=== PATIENT | female | born 1960 | race Caucasian/White ===

== ENCOUNTER 2025-05-25 22:35 | Emergency (ER) | payer MEDICARE, SELFPAY ==
--- OUTSIDE RECORDS SUMMARY | 2025-05-12 16:30 | XMS_ITS | Encounter Summary ---
Author Organization [facility] Address [address] [place] [address] Care Team Providers Care Support Specialist Name Role Phone Jacquelyn Desouza APRN Primary Care Provider [phone]- [phone] Reason for Referral * Consultation (Urgent) - Closed Specialty Diagnoses / Procedures Referred By Sully de los santos Referred To Contact Orthopedic Surgery Diagnoses Right hand pain Closed nondisplaced fracture of phalanx of right ring finger, unspecified phalanx, initial encounter Chace Michaels MD [address] [place] [address] [place] [address] Phone: tel: fax: [facility] [address] [place] [phone] Phone: tel: fax: Referral ID Status Reason Start Date Expiration Date V isits Requested Visits Authorized [id number] Closed Specialty Services Required 05/12/2025 08/11/2026 1 1 Reason for Visit * Reason Comments Fall Complaints of fall a nd right hand injury. Patient states that she fell last night at home. Patient states that she was trying to sit down in a chair when she fell face first. Patient was treated at [facility]. Hand Injury Vomiting Complaints of vomiti ng. Patient states that this has been on going since Thursday. Encounter Details Date Type Department Care Team (Late st Contact Info) Description 05/12/2025 4:30 PM EDT Office Visit [facility] [address] [place] [address] Chace Michaels MD [address] [place] [address] Closed nondisplaced fracture of phalanx of right [...] place to sleep or slept in a retirement (including now)? No 02/21/2023 Abuse Screen Answer [...] or training? Not on file Preferred Language Thai 05/13/2023 PHQ-2 Answer Date Recorded Retired PHQ-9: [...] fell face first. Patient was treated at [facility]. Hand Injury Vomiting Complaints of vomiting. Patient [...] sought care in the emergency setting at [facility]. Patientreports that they told her that her [...] for Wheezing., Disp: 18 g, Rfl: 3 Coplwvp-Josvncwkqhh-Qcundeqwpn (Breztri Aerosphere) 160-9-4.8 MCG/ACT aerosol inhaler, Inhale [...] and surrounding hand - Discharge paperwork from [facility] appears to confirm finger fracture, but [...] Urgent orthopedic referral placed for provider in [place]. Will try and get this expedited. - Hand wrapped in office today. - Patient was provided oxycodone at hospital though reports she cannot pick this up as she has no money. Will provide Toradol in office today - Encouraged to seek emergency care for severe, uncontrollable pain given inability to picker tender helper prescription medication and follow up with orthopedic [...] week (around 05/19/2025). Chace Michaels MD [facility] [place] [facility] [address] [place] [address] [place] [address] documented in this encounter Plan of Treatment Upcoming Encounters Date Type Department Care Team (Late st Contact Info) Description 05/31/2025 8:45 AM EDT Office Visit [facility] [address] [place] [address] [place] [address] Jacquelyn Desouza APRN [address] [place] [address] [place] [address] 06/01/2025 2:10 PM EDT Office Visit [facility] [address] [facility] [id number] Delaney Concepcion MD [address] [address] 06/22/2025 1:15 PM EDT Office Visit [facility] [address] [place] [phone] Olivia Morales, MIGUEL [address] [facility] [address] [place] [place] [address] Scheduled Orders Name Type Priority Associated Diagnoses [...] Ventrogluteal documented in this encounter Care Teams Support Specialist Relationship Specialty Start Date End Date [place] [address] PCP - General Nurse Practitioner 08/25/22 documented as of this encounter
--- OUTSIDE RECORDS SUMMARY | 2025-05-15 13:00 | XMS_ITS | Encounter Summary ---
Author Organization [facility] Address [address] [place] [address] Care Team Providers Care Envelope Sealer Operator Name Role Phone Jacquelyn Desouza APRN Primary Care Provider [phone] Reason for Referral * Consultation (Urgent) - Closed Specialty Diagnoses / Procedures Referred By Contact Referred To Contact Hand Surgery / Orthopedic Surgery Diagnoses Closed displaced fracture of proximal phalanx of right ring finger, initial encounter Closed displaced fracture of proximal phalanx of right little finger, initial encounter Procedures [place] OFFICE/OUTPATIENT NEW MODERATE MDM 45 MINUTES Maximiliano Pink PA-C [address] [address] Phone: tel: fax: Delaney Concepcion MD [address] [facility] [address] [place] [address] Phone: tel: fax: Referral ID Status Reason Start Date Expiration Date V isits Requested Visits Authorized [id number] Closed Specialty Services Required 05/15/2025 08/14/2026 1 1 Reason for Visit * Reason Comments Injury States she was tryin g to sit in a chair but missed and fell in the floor on 05/11/25. She went to the ER the same day, she has not been stabilized. * Consultation (Urgent) - Closed Specialty Diagnoses / Procedures Referred By Sully de los santos Referred To Contact Orthopedic Surgery Diagnoses Right hand pain Closed nondisplaced fracture of phalanx of right ring finger, unspecified phalanx, initial encounter Chace Michaels MD [address] [place] [address] Phone: tel: fax: [facility] [address] [address] Phone: tel: fax: Referral ID Status Reason Start Date Expiration Date V isits Requested Visits Authorized Closed Specialty Services Required 05/12/2025 08/11/2026 1 1 Encounter Details Date Type Department Care Team (Late st Contact Info) Description 05/15/2025 1:00 PM EDT Office Visit [facility] [address] [address] Maximiliano Pink PA-C [address] [place] [phone] Right hand pain (Primary Dx); Closed displaced fracture of proximal phalanx of right ring finger, initial encounter; Closed displaced fracture of proximal phalanx of right little finger, initial encounter Social History Tobacco Use Types Packs/Day Years Used Date Smoking Tobacco: Every Day Cigarettes 1 45 Passive Smoke Exposure: Current Smokeless Tobacco: Never Tobacco Cessation:Ready to Q uit: No; Counseling Given: Yes Alcohol Use Standard Drinks/Week Comments No 0 [...] place to sleep or slept in a fci (including now)? No 02/21/2023 Abuse Screen Answer [...] or training? Not on file Preferred Language Colombian 05/13/2023 PHQ-2 Answer Date Recorded Retired PHQ-9: Brief Depression Severity Measure Score 0 11/24/2023 Comments No Sex and Gender Information Value Date Recorded Sex Assigned at Not on file Legal Sex Female 10:41 AM EDT Gender Identity Not on file Sexual Orientation Not on file documented as of this encounter Last Filed Vital Signs Vital Sign Reading Time Taken Comments Blood Pressure 142/86 05/15/2025 1:10 PM EDT Pulse - - Temperature - - Respiratory Rate - - Oxygen Saturation - - Inhaled Oxygen Concentration - - Weight 82.8 kg (182 lb 9.6 oz) 05/15/2025 1:10 P M EDT Height 162.6 cm (5' 4.02 ) 05/15/2025 1:10 PM ED T Body Mass Index 31.32 05/15/2025 1:10 PM EDT documented in this encounter Progress Notes * Maximiliano Pink PA-C - 05/15/2025 1:00 PM EDT Images from the original note were not included. Office Note Name: Shiela Nathan : 1960 Chief Complaint Injury of the Right Hand (States she was trying to sit in a chair but missed and fell in the floor on 05/11/25. She went to the ER the same day, she has not been stabilized.) Subjective History of Present Illness: Shiela Nathan is a 64 y.o. female presenting today for evaluation of right hand 4th and 5th digit fracture. This occurred approximately 4days ago after the mechanism described above. The patient rates their pain as 8, constant, aching, throbbing, and shooting. The patient denies to paresthesias in the affected area. The patient denies previous injury or surgery to the affected area. The patient was seen at the emergency department the same day where x-rays revealed the acute fractures and she was treated with ra tape and urgent orthopedic referral. She was also seen by her PCP on 05/12/2025. Review of Systems Musculoskeletal: Positive for arthralgias (right hand) and joint swelling (right hand). Skin: Positive for color change (bruising on right hand). Past Medical History: Diagnosis Date Arthritis Body piercing both ears Bowel obstruction COPD (chronic obstructive pulmonary disease) Depression Diverticulitis Fractures left tibia, left ankle, left wrist, left 4th digit GERD (gastroesophageal reflux disease) History of nuclear stress test 03/18/2019 History of transfusion no reaction Hypertension Impaired functional mobility, balance, gait, and endurance Kidney stone MRSA (methicillin resistant Staphylococcus aureus) infection 2016 LLE Osteopetrosis Pneumonia Sepsis 2021 SOB (shortness of breath) on exertion Spinal headache Stress incontinence in female Wears dentures upper plate Wears glasses to read Past Surgical History: Procedure Laterality Date APPENDECTOMY CHOLECYSTECTOMY COLON SURGERY Left Colon resection COLONOSCOPY COLOSTOMY Reversed 2017 ENDOSCOPY FRACTURE SURGERY left leg; no hardware HYSTERECTOMY KIDNEY STONE SURGERY KNEE SURGERY Left RODS & screws placed, but later removed LAPAROSCOPIC TUBAL LIGATION TONSILLECTOMY TOTAL KNEE ARTHROPLASTY Left done by Dr. Brown in [place] VAGINAL DELIVERY x 3 VENTRAL/INCISIONAL HERNIA REPAIR N/A 04/13/2019 Procedure: INCISIONAL HERNIA REPAIR WITH MESH; Surgeon: Hiram Guardado MD; Location: [facility];Service: General VENTRAL/INCISIONAL HERNIA REPAIR N/A 05/18/2023 Procedure: INCISIONAL HERNIA REPAIR WITH MESH, COMPONENT SEPERATION; Surgeon: Kodak Dominguez MD; Location: [facility]; Service: General; Laterality: N/A; Family History Problem Relation Age of Onset Diabetes Sister Hypertension Sister Heart disease Sister Diabetes Brother Hypertension Brother Heart disease Brother Cancer Brother Colon cancer Brother Arthritis Neg Hx Osteoporosis Neg Hx Social History Socioeconomic History Marital status: Tobacco Use Smoking status: Every Day Current packs/day: 1.00 Average packs/day: 1 pack/day for 45.0 years (45.0 ttl pk-yrs) Types: Cigarettes Passive exposure: Current Smokeless tobacco: Never Vaping Use Vaping status: Some Days Substances: Nicotine, Flavoring Devices: Disposable Substance and Sexual Activity Alcohol use: No Drug use: Never Sexual activity: Defer Current Outpatient Medications: acetaminophen (TYLENOL) 500 MG tablet, Take 2 tablets by mouth., Disp: , Rfl: albuterol sulfate HFA 108 (90 Base) MCG/ACT inhaler, Inhale 2 puffs Every 4 (Four) Hours As Needed for Wheezing., Disp: 18 g, Rfl: 3 Qjygkzu-Sdmdzqhbpqf-Ziouycezep (Breztri Aerosphere) 160-9-4.8 MCG/ACT aerosol inhaler, Inhale 2 puffs 2 (Two) Times a Day. Rinse mouth out after use, Disp: 1 each, Rfl: 5 guaiFENesin (Mucinex) 600 MG 12 hr tablet, Take 2 tablets by mouth 2 (Two) Times a Day As Needed for Cough or Congestion., Disp: 30 tablet, Rfl: 1 ibuprofen (ADVIL,MOTRIN) 600 MG tablet, Take 1 tablet by mouth Every 8 (Eight) Hours As Needed for Moderate Pain for up to 30 days., Disp: 90 tablet, Rfl: 0 ipratropium-albuterol (DUO-NEB) 0.5-2.5 mg/3 ml nebulizer, Take [...] MG per tablet, , Disp: , Rfl: oxyCODONE-acetaminophen (PERCOCET) 7.5-325 MG per tablet, Take 1 tablet by mouth Every 12 (Twelve) Hours As Needed for Moderate Pain for up to 7 days., Disp: 14 tablet, Rfl: 0 pantoprazole (Protonix) 20 MG EC tablet, Take [...] No current facility-administered medications for this visit. Allergies Allergen Reactions Codeine Itching Hydrocodone Nausea And Vomiting and Rash Penicillins Nausea And Vomiting Objective BP 142/86 Ht 162.6 cm (64.02 ) Wt 82.8 kg (182 lb 9.6 oz) BMI 31.32 kg/m?? Physical Exam Right Hand Exam Comments: There is moderate soft tissue swelling focally over the fourth MCP, mild soft tissue swelling along the fifth digit. Diffuse bruising is noted on the dorsal and volar hand in the area of the 4th and 5th digit. Scissoring deformity is noted with the right fourth digit overlying the right third digit. Exquisitely tender at the 4th and 5th MCP and proximal phalanx. No tenderness in hand ordigits 1 2 and 3. No open wounds. Gross sensation intact to cursory light touch, cap refill is brisk to each digit. Carpal pulses 2+. Extremity DVT signs are negative by clinical screen. Independent Review of Radiographic Studies: Three-view plain films of the right hand were taken in the office today, for the evaluation of pain, with no comparison views available. There is a transverse, comminuted fracture of the fourth proximal phalanx base with significant ulnar displacement. There is also a fracture of the proximal phalanx of the fifth digit with perhaps mild dorsal displacement. Review of prior note(s) from external source: 1 ER note not available for review. Visit with PCP reviewed. Procedures Assessment and Plan Diagnoses and all orders for this visit: 1. Right hand pain (Primary) - XR Hand 3+ View Right - ketorolac (TORADOL) injection 30 mg 2. Closed displaced fracture of proximal phalanx of right ring finger, initial encounter - ibuprofen (ADVIL,MOTRIN) 600 MG tablet; Take 1 tablet by mouth Every 8 (Eight) Hours As Needed for Moderate Pain for up to 30 days. Dispense: 90 tablet; Refill: 0 - ketorolac (TORADOL) injection 30 mg - Ambulatory Referral to Hand Surgery 3. Closed displaced fracture of proximal phalanx of right little finger, initial encounter - ibuprofen (ADVIL,MOTRIN) 600 MG tablet; Take 1 tablet by mouth Every 8 (Eight) Hours As Needed for Moderate Pain for up to 30 days. Dispense: 90 tablet; Refill: 0 - ketorolac (TORADOL) injection 30 mg - Ambulatory Referral to Hand Surgery Discussion of orthopedic goals Orthopedic activities reviewed and patient expressed appreciation Risk, benefits, and merits of treatment alternatives reviewed with the patient and questions answered Patient guided on mobility and conditioning exercises RICE, heat, and/or modalities as needed and beneficial Elevate hand for residual swelling Reduced physical activity as appropriate and avoid aggravating activities. Weight bearing parameters reviewed. Use brace as instructed. Recommendations/Plan: Exercise, medications, injections, other patient advice, and return appointment as noted. Brace: Ulnar gutter brace Referral: Hand sub-specialist referral. Patient and/or guardian(s) were encouraged to call or return to the office for any issues or concerns. In office today she was placed in an ulnar gutter brace enclosing the right 3rd, 4th and 5th fingers for immobilization and given urgent referral to hand subspecialty for possible surgical treatment,given the significant displacement of the fourth digit fracture. She was prescribed 600 mg ibuprofen to take up to 3 times a day as needed for pain. Refill request for Percocet 7.5 mg to take for breakthrough pain was sent to Dr. Roa. She also requested and was given a Toradol 30 mg injection today in office. I discussed the risk and benefits of these medications as well as potential side effects or adverse reactions. Return if symptoms worsen or fail to improve. documented in this encounter Plan of Treatment Upcoming Encounters Date Type Department Care Team (Late st Contact Info) Description 05/31/2025 8:45 AM EDT Office Visit [facility] [address] [place] [place] [id number] Jacquelyn Desouza APRN [address] [place] [address] 06/01/2025 2:10 PM EDT Office Visit [facility] [address] [address] Delaney Concepcion MD [address] [address] 06/22/2025 1:15 PM EDT Office Visit [facility] [address] [place] [address] Olivia Morales, SHUFFLE BOARD OPERATOR [address] [facility] [address] [place] [address] Scheduled Referrals Name Type Priority Associated Diagnoses Order Schedule Ambulatory Referral to Hand Surgery Outpatient Referral Routine Closed displaced fracture of proximal phalanx of right ring finger, initial encounter Closed displaced fracture of proximal phalanx of right little finger, initial encounter Ordered: 05/15/2025 documented as of this encounter Procedures Procedure Name Priority Date/Time Associated Diagnosis Comments XR HAND 3+ VW RIGHT Routine 05/15/2025 1 :30 PM EDT Right hand pain documented in this encounter Results * XR Hand 3+ View Right (05/15/2025 1:30 PM EDT) Anatomical Region Laterality Modality Upper Extremities, Hand Right Xray Narrative 05/24/2025 8:12 AM EDT Three-view plain films of the right hand were taken in the office today, for the evaluation of pain, with no comparison views available. There is a transverse, comminuted fracture of the fourth proximal phalanx base with significant ulnar displacement. There is also a fracture of the proximal phalanx of the fifth digit with perhaps mild dorsal displacement. us Maximiliano Pink PA-C [facility] ORDERAB LES Final Result documented in this encounter Visit Diagnoses Diagnosis Right hand pain- Primary Pain in soft tissues of limb Closed displaced fracture of proximal phalanx of right ring finger, initial encounter Closed displaced fracture of proximal phalanx of right little finger, initial encounter documented in this encounter Administered Medications Inactive Administered Medications - up to 3 most recent administrations Medication Order MAR Action Action Date Dose Rate Site ketorolac (TORADOL) injection 30 mg 30 mg, Intramuscular, Once, On Thu05/15/25 at 1411, For 1 dose, ([facility]) Based on patient [...] Score of 7-10, CPOT 5-8Indications:Right hand pain,Closed displaced fracture of proximal phalanx of right ring finger, initial encounter,Closed displaced fracture of proximal phalanx of right little finger, initial encounter Given 05/15/2025 2:12 PM EDT 30 mg Left Dorsogluteal documented in this encounter Care Teams Envelope Sealer Operator Relationship Specialty Start Date End Date Jacquelyn Desouza APRN [address] [place] [address] PCP - General Nurse Practitioner 08/25/22 documented as of this encounter
--- OUTSIDE RECORDS SUMMARY | 2025-05-18 13:50 | XMS_ITS | Encounter Summary ---
Author Organization [facility] Address [address] [place] [address] Care Team Providers Care Solar Sales Representative And Assessor Name Role Phone Jacquelyn Desouza APRN Primary Care Provider +1- [phone] Reason for Visit * Reason Comments Pain Fall 05/11/25 * Consultation (Urgent) - Closed Specialty Diagnoses / Procedures Referred By Contact Referred To Contact Hand Surgery / Orthopedic Surgery Diagnoses Closed displaced fracture of proximal phalanx of right ring finger, initial encounter Closed displaced fracture of proximal phalanx of right little finger, initial encounter Procedures AL OFFICE/OUTPATIENT NEW MODERATE MDM 45 MINUTES Maximiliano Pink PA-C [address] [address] Phone: tel: fax: Delaney Concepcion MD [address] [address] Phone: tel: fax: Referral ID Status Reason Start Date Expiration Date V isits Requested Visits Authorized [id number] Closed Specialty Services Required 05/15/2025 08/14/2026 1 1 Encounter Details Date Type Department Care Team (Late st Contact Info) Description 05/18/2025 1:50 PM EDT Office Visit [facility] ORTHOPEDICS & SPORTS MEDICINE [address] [place] [address] Delaney Concepcion MD [address] [place] [address] Closed fracture of phalanx of digit of [...] or training? Not on file Preferred Language Mozambican 05/13/2023 PHQ-2 Answer Date Recorded Retired PHQ-9: [...] from the original note were not included. [facility] Orthopedic Office Visit Date: 05/18/2025 Patient Name: Shiela Nathan Date of : 1960 Referring Physician: Maximiliano Pink PA-C Chief Complaint: Chief Complaint Patient presents with Right Hand - Pain Fall 05/11/25 History of Present Illness: Shiela Nathan is a 64 y.o. female mvrht-nzcb-qvbyfovz presented clinic as new patient with complaints [...] Units Date/Time XR Finger 2+ View Right [[id number]] Resulted: 05/18/25 144 Updated: 05/18/251447 Narrative: Right Finger X-Ray Indication: Pain Views: PA, Lateral, and Oblique Comparison: hand xrays 05/15/2025 Findings: The PIP joint is concentrically reduced, however there is a possible impaction fracture of the central portion of the articular surface. Redemonstration of the proximal phalanx base fracture. XR Hand 3+ View Right [[id number]] Resulted: 05/18/251446 Updated: 05/18/251446 Narrative: Right Hand [...] Follow Up- After surgery. Delaney Concepcion [place] [facility] [place] documented in this encounter Plan of Treatment Upcoming Encounters Date Type Department Care Team (Late st Contact Info) Description 05/31/2025 8:45 AM EDT Office Visit [facility] FAMILY MEDICINE [address] [place] [phone] Jacquelyn Desouza APRN [address] [place] [address] 06/01/2025 2:10 PM EDT Office Visit [facility] ORTHOPEDICS & SPORTS MEDICINE [address] [address] [place] [address] [place] [address] 06/22/2025 1:15 PM EDT Office Visit [facility] PULMONARY & CRITICAL CARE MEDICINE [address] [place] [phone] Olivia Morales APRN 793 [facility] [address] [address] documented as of this encounter Procedures Procedure [...] Redemonstration of the proximal phalanx base fracture. Delaney Concepcion MD [facility] ORD ERABLES Final Result * XR Hand 3+ View Right (05/18/2025 2:39 PM EDT) Anatomical Region Laterality Modality Upper Extremities, Hand Right Xray Narrative 05/18/2025 2:47 PM EDT Right Hand X-Ray Indication: Pain Views: PA, Lateral, and Oblique Comparison: 05/15/2025 Findings: Displaced proximal phalanx fractures of the 4th and 5th digits that are extra-articular. us Delaney Concepcion MD [facility] [place]D ERABLES Final Result documented in this encounter Visit Diagnoses Diagnosis Closed fracture of phalanx of digit of hand with routine healing, subsequent encounter- Primary Right hand pain Pain in soft tissues of limb documented in this encounter Care Teams Solar Sales Representative And Assessor Relationship Specialty Start Date End Date [place] [address] PCP - General Nurse Practitioner 08/25/22 documented as of this encounter
--- OUTSIDE RECORDS SUMMARY | 2025-05-19 08:30 | XMS_ITS | Encounter Summary ---
Author Organization [facility] Address [address] [place] [address] Care Team Providers Care Provider Network Mgr Name Role Phone Jacquelyn Desouza APRN Primary Care Provider +1- [phone] Encounter Details Date Type Department Care Team (Late st Contact Info) Description 05/19/2025 8:30 AM EDT Outside Facility Service [facility] ORTHOPEDICS & SPORTS MEDICINE [address] [place] [address] Delaney Concepcion MD [address] [place] [address] Social History Tobacco Use Types Packs/Day Years [...] place to sleep or slept in a intermediate (including now)? No 02/21/2023 Abuse Screen Answer [...] or training? Not on file Preferred Language Costa Rican 05/13/2023 PHQ-2 Answer Date Recorded Retired PHQ-9: [...] Description 05/31/2025 8:45 AM EDT Office Visit [facility] FAMILY MEDICINE [address] [place] [address] Jacquelyn Desouza APRN [address] [place] [address] 06/01/2025 2:10 PM EDT Office Visit [facility] ORTHOPEDICS & SPORTS MEDICINE [address] [address] Delaney Concepcion MD [address] [id number] 06/22/2025 1:15 PM EDT Office Visit [facility] PULMONARY & CRITICAL CARE MEDICINE [address] [place] [phone] Olivia Morales APRN 793 [facility] MED OFFICE BLDG [address] [address] documented as of this encounter Visit Diagnoses Not on filedocumented in this encounter Care Teams Provider Network Mgr Relationship Specialty Start Date End Date Jacquelyn Desouza, MIGUEL [address] [place] [address] PCP - General Nurse Practitioner 08/25/22 documented as of this encounter
[2025-05-25] VITALS (7 sets, daily range): BP systolic 158–219; BP diastolic 92–125; PULSE 98–129; RESP 18; TEMP 37.3; O2SAT 92–97; BMI 31.2
--- NOTE | 2025-05-25 23:10 | CT_ITS ---
PROCEDURE INFORMATION: Exam: CT Abdomen And Pelvis With Contrast Exam date and time: 05/26/2025 12:17 AM Age: 64 years old Clinical indication: Abdominal pain; Additional info: Abd pain ttp epigastric, n/v TECHNIQUE: Imaging protocol: Computed tomography of the abdomen and pelvis with contrast. Radiation optimization: All CT scans at this facility use at least one of these dose optimization techniques: automated exposure control; mA and/or kV adjustment per patient size (includes targeted exams where dose is matched to clinical indication); or iterative reconstruction. Contrast material: ISOVUE; Contrast volume: 75 ml; Contrast route: IV; COMPARISON: No relevant prior studies available. FINDINGS: Liver: Normal. No mass. Gallbladder and biliary ducts: Cholecystectomy. Main common bile duct diameter enlarged up to 21 mm Pancreas: Normal. No ductal dilation. Spleen: Normal. No splenomegaly. Adrenal glands: Normal. No mass. Kidneys and ureters: Severe scarring of the right kidney without hydronephrosis. No hydronephrosis. Stomach and bowel: Previous surgery at the rectum. No abnormal bowel dilation. Appendix: No evidence of appendicitis. Intraperitoneal space: No abnormal free fluid Vasculature: Unremarkable. No abdominal aortic aneurysm. Lymph nodes: Unremarkable. No enlarged lymph nodes. Urinary bladder: Unremarkable as visualized. Reproductive: Hysterectomy Bones/joints: Degenerative disc disease at the L5-S1 level. Old compression fracture L1. Mild neural foraminal stenosis right L5-S1 level Soft tissues: Unremarkable. IMPRESSION: 1. Postoperative findings as above. 2. Enlarged common bile duct after cholecystectomy up to 21 mm. No additional follow-up advised unless abnormal LFTs. 3. No hydronephrosis or nephrolithiasis. No definite acute intra-abdominal abnormality
[2025-05-25 23:11] LABS: Bilirubin,Urine Negative (Negative); Color,Urine YELLOW (Yellow); Glucose,Urine (UA) Negative (Negative); Ketones,Urine Negative (Negative); Leukocyte Esterase,Urine Negative (Negative); Microscopic, Urine URINE MICROSCOPIC (MICROSCOPIC); PH,Urine 6.0 (5.0-8.5); Protein,Urine Negative (Negative); Specific Gravity, Urine <= 1.005 (1.005-1.030); Urobilinogen,Urine 0.2 EU/dl (0.2)
--- OUTSIDE RECORDS SUMMARY | 2025-05-25 23:17 | XMS_ITS | Clinical Summary ---
Author Organization [facility] Address [address] [place] [address] Care Team Providers Care Unit Controller Name Role Phone Jacquelyn Desouza APRN Primary Care Provider +1- [phone] Allergies Active Allergy Reactions Criticality Noted Date Comments Codeine Itching Low 11/21/2022 Hydrocodone Nausea And Vomiting,Rash Low 12/09/2018 Penicillins Nausea And Vomiting Low 12/09/2018 Medications * This document contains information received from the source organization and may not represent a complete record from that organization. losartan (COZAAR) 100 MG tabletIndications :Essential hypertension Take 1 tablet by mouth Daily. 90 tablet 1 023 Active metoprolol succinate XL (TOPROL-XL) 25 MG 24 hr tabletIndications :Tachycardia Take 1 tablet by mouth Daily. 90 tablet 1 023 Active Additional Information Patient taking differently: 50 mgOral Daily, Reported on 05/12/2025 potassium chloride (MICRO-K) 10 MEQ CR capsuleIndication s:Hypokalemia Take 1 capsule by mouth 2 (Two) Times a Day. 60 capsule 5 023 Active Additional Information Patient taking differently:10 mEq Oral 2 Times Daily,prn, Informant: Self, Reported on 05/12/2025 pantoprazole (Protonix) 20 MG EC tabletIndications :Gastroesophageal reflux disease with esophagitis,Hypom agnesemia Take 1 tablet by mouth Daily. 30 tablet 2 023 Active nitroglycerin (Nitrostat) 0.4 MG SL tabletIndications :Chest pain, unspecified type Place 1 tablet under the tongue Every 5 (Five) Minutes As Needed for Chest Pain. Take no more than 3 doses in 15 minutes. 25 tablet 1 023 Active acetaminophen (TYLENOL) 500 MG tablet Take 2 tablets by mouth. Active albuterol sulfate HFA 108 (90 Base) MCG/ACT inhalerIndication s:COPD exacerbation Inhale 2 puffs Every 4 (Four) Hours As Needed for Wheezing. 18 g 3 024 Active ipratropium-albut ema (DUO-NEB) 0.5-2.5 mg/3 ml nebulizerIndicati ons:Mixed simple and mucopurulent chronic bronchitis Take 3 mL by nebulization Every 4 (Four) Hours As Needed for Wheezing. 360 mL 025 Active predniSONE (DELTASONE) 20 MG tablet Take 2 tablets by mouth Daily. 10 tablet 025 Active guaiFENesin (Mucinex) 600 MG 12 hr tablet Take 2 tablets by mouth 2 (Two) Times a Day As Needed for Cough or Congestion. 30 tablet 1 025 Active Budeson-Glycopyrr ol-Formoterol (Breztri Aerosphere) 160-9-4.8 MCG/ACT aerosol inhalerIndication s:Chronic obstructive pulmonary disease, unspecified COPD type Inhale 2 puffs 2 (Two) Times a Day. Rinse mouth out after use 1 each 5 025 Active ondansetron (Zofran) 8 MG tabletIndications :Nausea and vomiting, unspecified vomiting type Take 1 tablet by mouth Every 6 (Six) Hours As Needed for Nausea or Vomiting. 60 tablet 1 025 Active oxyCODONE-acetami nophen (PERCOCET) 5-325 MG per tablet 025 Active ondansetron ODT (ZOFRAN-ODT) 4 MG disintegrating tablet 025 Active levoFLOXacin (LEVAQUIN) 500 MG tablet Daily. 025 Active ALPRAZolam (Xanax) 0.25 MG tabletIndications :Closed fracture of phalanx of digit of hand with routine healing, subsequent encounter Take 1 tablet by mouth At Night As Needed for Anxiety. 2 tablet 025 Active ALPRAZolam (Xanax) 0.25 MG tabletIndications :Closed fracture of phalanx of digit of hand with routine healing, subsequent encounter Take 1 tablet by mouth 2 (Two) Times a Day As Needed for Anxiety. 2 tablet Active oxyCODONE (Roxicodone) 5 MG immediate release tabletIndications :Closed fracture of phalanx of digit of hand with routine healing, subsequent encounter Take 1 tablet by mouth Every 6 (Six) Hours As Needed for Moderate Pain or Severe Pain. 30 tablet 05/19/20 3:00 PM EDT 025 Active ibuprofen (ADVIL,MOTRIN) 800 MG tabletIndications :Closed fracture of phalanx of digit of hand with routine healing, subsequent encounter Take 1 tablet by mouth Every 8 (Eight) Hours As Needed for Mild Pain. 90 tablet 1 05/19/20 3:00 PM EDT 025 Active acetaminophen (TYLENOL) 500 MG tabletIndications :Closed fracture of phalanx of digit of hand with routine healing, subsequent encounter Take 1 tablet by mouth Every 6 (Six) Hours As Needed for Mild Pain. 60 tablet 2 05/19/20 3:00 PM EDT 025 Active naloxone (NARCAN) 4 MG/0.1ML nasal spray Call 911. Don't prime. [place] in 1 nostril for overdose. Repeat in 2-3 minutes in other nostril if no or minimal breathing/respo nsiveness. 2 each 05/19/20 3:00 PM EDT Active Budeson-Glycopyrr ol-Formoterol (BREZTRI AEROSPHERE IN) Inhale. Activ e ibuprofen (ADVIL,MOTRIN) 600 MG tablet Take 1 tablet by mouth. 2024 Discontinued(D uplicate order) ketorolac (TORADOL) 10 MG tablet 1 tablet. 025 2024 Discontinued(H istorical Med - Therapy completed) oxyCODONE-acetami nophen (PERCOCET) 7.5-325 MG per tabletIndications :Closed displaced fracture of proximal phalanx of right ring finger, initial encounter Take 1 tablet by mouth Every 12 (Twelve) Hours As Needed for Moderate Pain for up to 7 days. 14 tablet 025 2024 ibuprofen (ADVIL,MOTRIN) 600 MG tabletIndications :Closed displaced fracture of proximal phalanx of right ring finger, initial encounter,Closed displaced fracture of proximal phalanx of right little finger, initial encounter Take 1 tablet by mouth Every 8 (Eight) Hours As Needed for Moderate Pain for up to 30 days. 90 tablet 025 2024 Discontinued Hospital, Clinic, or Other Facility Administered Medication Ordered Dose Route Frequency Start Date End Date Status ketorolac (TORADOL) injection 30 mgIndications:Right hand pain,Closed nondisplaced fracture of phalanx of right ring finger, unspecified phalanx, initial encounter 30 mg IM Once 05/12/2025 05/12/2025 Ended ketorolac (TORADOL) injection 30 mgIndications:Right hand pain,Closed displaced fracture of proximal phalanx of right ring finger, initial encounter,Closed displaced fracture of proximal phalanx of right little finger, initial encounter 30 mg IM Once 05/15/2025 05/15/2025 Ended Active Problems Problem Noted Date Diagnosed Date Fx phalanges, hand-closed 05/18/2025 Incisional hernia 05/18/2023 Chronic respiratory failure 02/24/2023 COPD (chronic obstructive pulmonary disease) 03/2023 Hypomagnesemia 08/25/2022 Hypokalemia 08/25/2022 Mixed simple and mucopurulent chronic bronchitis 08/25/2022 Tobacco abuse disorder 04/11/2019 Essential hypertension 04/11/2019 Incisional hernia, without obstruction or gangre ne 01/07/2019 Overview (01/07/2019): Added automatically from request for surgery [id number] Resolved Problems Problem Noted Date Diagnosed Date Resolved Date Tachycardia 05/13/2025 05/13/2025 COPD exacerbation 02/21/2023 05/06/2023 Acute respiratory failure with hypoxia 02/21/2023 05/06/2023 Encounters Date Type Department Care Team Description 05/25/2025 Telephone [facility] PULMONARY CRITICAL CARE & SLEEP MEDICINE [address] [place] [address] Olivia Morales APRN SAMPLES 05/22/2025 Telephone [facility] ORTHOPEDICS & SPORTS MEDICINE [address] [facility] [address] [place] [address] REITENBACH: 05/19/25 P/O CONCERNS & MED REFILL REQUEST 05/19/2025 8:30 AM EDT Outside Facility Service [facility] ORTHOPEDICS & SPORTS MEDICINE [address] [facility] [address] [place] [address] Delaney Concepcion MD 05/19/2025 Documentation [facility] ORTHOPEDICS & SPORTS MEDICINE [address] [facility] [address] [place] [address] Delaney Concepcion MD 05/18/2025 1:50 PM EDT Office Visit [facility] ORTHOPEDICS & SPORTS MEDICINE [address] [facility] [address] [place] [address] Delaney Concepcion MD Closed fracture of phalanx of digit of hand with routine healing, subsequent encounter (Primary Dx); Right hand pain 05/18/2025 Travel 05/16/2025 Telephone [facility] ORTHOPEDICS & SPORTS MEDICINE [address] [facility] [address] [place] [address] Delaney Concepcion MD 05/15/2025 1:00 PM EDT Office Visit [facility] ORTHOPEDICS & SPORTS MEDICINE [address] [address] Maximiliano Pink PA-C Right hand pain (Primary Dx); Closed displaced fracture of proximal phalanx of right ring finger, initial encounter; Closed displaced fracture of proximal phalanx of right little finger, initial encounter 05/15/2025 Refill [facility] ORTHOPEDICS & SPORTS MEDICINE [address] [address] Ramos Lamb MD Closed displaced fracture of proximal phalanx of right ring finger, initial encounter (Primary Dx) 05/15/2025 Travel 05/12/2025 4:30 PM EDT Office Visit [facility] FAMILY MEDICINE [address] [place] [address] Chace Michaels MD Closed nondisplaced fracture of phalanx of right ring finger, unspecified phalanx, initial encounter (Primary Dx); Right hand pain; Tachycardia; Viral gastroenteritis; Essential hypertension 05/12/2025 Travel 04/05/2025 Telephone [facility] PULMONARY CRITICAL CARE & SLEEP MEDICINE [address] [place] [address] Olivia Morales APRN SAMPLES from Last 3 Months Immunizations Immunization Administration Dates Next Due Td (TDVAX) 10/19/2014 Family History Medical History Relation Name Comments Cancer Brother Colon cancer Brother Diabetes Brother Heart disease Brother Hypertension Brother Diabetes Sister Heart disease Sister Hypertension Sister Arthritis Neg Hx Osteoporosis Neg Hx Relation Name Status Comments Brother Sister Social History Tobacco Use Types Packs/Day Years [...] to sleep or slept in a senior care (including now)? No 02/21/2023 Abuse Screen Answer [...] or training? Not on file Preferred Language Ugandan 05/13/2023 PHQ-2 Answer Date Recorded Retired PHQ-9: Brief Depression Severity Measure Score 0 11/24/2023 Comments No Sex and Gender Information Value Date Recorded Sex Assigned at Not on file Legal Sex Female 10:41 AM EDT Gender Identity Not on file Sexual Orientation Not on file Last Filed Vital Signs Vital Sign Reading Time Taken Comments Blood Pressure 152/88 05/18/2025 2:15 PM EDT Pulse 105 05/12/2025 5:42 PM EDT Temperature 36.7 C (98.1 F) 10/17/2024 2:32 PM EST Respiratory Rate 16 10/17/2024 2:32 PM EST Oxygen Saturation 98% 05/12/2025 4:12 PM EDT Inhaled Oxygen Concentration - - Weight 82.8 kg (182 lb 8.7 oz) 05/18/2025 2:15 P M EDT Height 162.6 cm (5' 4.02 ) 05/18/2025 2:15 PM ED T Body Mass Index 31.32 05/18/2025 2:15 PM EDT Plan of Treatment Upcoming Encounters Date Type Department Care Team (Late st Contact Info) Description 05/31/2025 8:45 AM EDT Office Visit [facility] FAMILY MEDICINE [address] [place] [address] Jacquelyn Desouza, CHIEF KNOWLEDGE OFFICER [address] [place] [address] 06/01/2025 2:10 PM EDT Office Visit [facility] ORTHOPEDICS & SPORTS MEDICINE [address] [address] Delaney Concepcion MD [address] [address] 06/22/2025 1:15 PM EDT Office Visit [facility] PULMONARY & CRITICAL CARE MEDICINE [address] [place] [address] Olivia Morales, CHIEF KNOWLEDGE OFFICER [address] [facility] MED OFFICE [address] [facility] [address] [place] [address] Health Maintenance Due Date Last Done Comments Annual Gynecologic Pelvic and Breast Exam 1960 Pneumococcal Vaccine 50+ (1 of 2 - PCV) 1980 COLOGUARD 2006 COLON CANCER SCREENING [address] COLONOGRAPHY 2006 FECAL OCCULT BLOOD TEST 2006 FIT Testing (1 year) 2006 ZOSTER VACCINE (1 of 2) 2011 ANNUAL WELLNESS VISIT 07/02/2018 04/06/2017 MAMMOGRAM 12/09/2020 12/09/2018 COVID-19 Vaccine ( - season) 2024 TDAP/TD VACCINES (2 - Tdap) 10/19/2024 10/19/2014 INFLUENZA VACCINE 07/19/2025 12/09/2018 (De clined), 12/09/2017 (Declined) LUNG CANCER SCREENING 01/17/2026 01/17/2025 , 11/03/2024, 02/06/2023, Additional history exists COLONOSCOPY 12/09/2027 12/09/2017 COLORECTAL CANCER SCREENING 12/09/2027 HEPATITIS C SCREENING Addressed 12/09/2018 (Decline d) Overridden with the intention of not completing the topic HEMOGLOBIN A1C Discontinued 10/17/2024, 04/19, 08/25/2022, Additional history exists Medical Devices Implanted Type Area Central Office Operator Supervisor Device Identifier Shelf Expiration Date Model / Serial / Lot Implant,Left Knee Implant Description:Left TKA Mesh Ventralight St Ellipse 4x6in - [id number] - [id number] Implanted:Qty: 1 on 04/13/2019 by Hiram Guardado MD at [facility] Implant N/A: Abdomen DAVOL (DIV [employer]) 10/15/2020 [id number] / [id number] / [id number] Ellipse 8x10in - [id number] Implanted:Qty: 1 on 05/18/2023 by Kodak Dominguez MD at [facility] Implant N/A: Abdomen DAVOL (DIV [employer]) 11/15/2024 [id number] / / [id number] Procedures Procedure Name Priority Date/Time Associated Diagnosis Comments XR FINGER 2+ VW RIGHT Routine 05/18/2025 2:39 PM EDT Right hand pain XR HAND 3+ VW RIGHT Routine 05/18/2025 2 :39 PM EDT Right hand pain XR HAND 3+ VW RIGHT Routine 05/15/2025 1 :30 PM EDT Right hand pain CT CHEST WO CONTRAST DIAGNOSTIC Routine 01/17/[address] HEMOGLOBIN A1C Routine 10/17/2024 3:32 PM EST Painful paresthesia Screening for diabetes mellitus from Last 3 Months or Most Recently Relevant to Health Maintenance Results * XR Finger 2+ View Right [...] phalanx base fracture. us Delaney Concepcion MD [facility] ORD ERABLES Final Result * XR Hand 3+ View Right (05/18/2025 2:39 PM EDT) Only the most recent of2 resultswithin the time period is included. Anatomical Region Laterality Modality Upper Extremities, Hand Right Xray Narrative 05/18/2025 2:47 PM EDT Right Hand X-Ray Indication: Pain Views: PA, Lateral, and Oblique Comparison: 05/15/2025 Findings: Displaced proximal phalanx fractures of the 4th and 5th digits that are extra-articular. us Delaney Concepcion MD [facility] ORD ERABLES Final Result * CT Chest Without Contrast Diagnostic (01/17/2025) Anatomical Region Laterality Modality Chest N/A Computed Tomogra phy Olivia Morales APRN [facility] [place] ORDERABLES Final Re sult * Hemoglobin A1c (10/17/2024 3:32 PM EST) Hemoglobin A1C 5.6 4.8 - 5.6 % [facility] Comment: Prediabetes: 5.7 - 6.4 Diabetes: >6.4 Glycemic control for adults with diabetes: <7.0 Blood 10/17/2024 3:32 PM EST 10/17/2024 Narrative [facility] ANIYAH CANTOR (AMBULATORY) - 10/18/2024 12:35 PM EST Performed at: - [facility] [address] [facility], [place], [place] [id number] Advertising Campaign Manager: Ankit Moise PhD, Phone: [phone] Patient Fasting: Y us Jacquelynlara Desouza CHIEF KNOWLEDGE OFFICER LAB BLOOD ORDERABLES Final Result [facility] ANIYAH SAKSHI (AMBULATORY) [address] [place] [address], [facility] [address] [place] [address], from Last 3 Months or Most Recently Relevant to Health Maintenance Insurance [employer] HMO Advance Directives * CPR (Attempt to Resuscitate) (Latest Code Status on File) Date Activated Date Inactivated Comments 05/18/2023 1:52 PM 05/20/2023 7:48 PM Question Answer Comments Code Status (Patient has no pulse and is not breathing): CPR (Attempt to Resuscitate) Medical Interventions (Patie nt has pulse or is breathing): Full Level Of Support Discussed With: Patient Release to patient: Routine Release * CPR (Attempt to Resuscitate) Date Activated Date Inactivated Comments 02/21/2023 9:50 AM 02/25/2023 2:41 PM Question Answer Comments Code Status (Patient has no pulse and is not breathing): CPR (Attempt to Resuscitate) Medical Interventions (Patie nt has pulse or is breathing): Full Support Level Of Support Discussed With: Patient Release to patient: Routine Release Care Teams Unit Controller Relationship Specialty Start Date End Date Jacquelyn Desouza APRN [address] [place] [address] PCP - General Nurse Practitioner 08/25/22
--- OUTSIDE RECORDS SUMMARY | 2025-05-25 23:18 | XMS_ITS | Encounter Summary ---
[facility] Organization [facility] Address [address] [place] [address] Care Team Providers Care Supervisor Cook Room Name Role Phone Jacquelyn Desouza APRN Primary Care Provider +1- [phone] Reason for Visit * Reason Onset Date Comments Med Refill 05/15/2025 Encounter Details Date Type Department Care Team (Late st Contact Info) Description 05/15/2025 Refill [facility] ORTHOPED[facility] & SPORTS MEDICINE [address] [facility] [address] [place] [address] Ramos Lamb MD [address] [facility] [address], [address] [place] [address] Closed displaced fracture of proximal phalanx of right ring finger, initial encounter (Primary Dx) Social History Tobacco Use Types Packs/Day Years [...] place to sleep or slept in a fpc (including now)? No 02/21/2023 Abuse Screen Answer [...] or training? Not on file Preferred Language Angolan 05/13/2023 PHQ-2 Answer Date Recorded Retired PHQ-9: [...] Description 05/31/2025 8:45 AM EDT Office Visit [facility] FAMILY MEDICINE [address] [place] [phone] Jacquelyn Desouza APRN [address] [place] [address] 06/01/2025 2:10 PM EDT Office Visit [facility] ORTHOPEDICS & SPORTS MEDICINE [address] [address] Delaney Concepcion MD [address] [address] 06/22/2025 1:15 PM EDT Office Visit [facility] PULMONARY & CRITICAL CARE MEDICINE [address] [place] [address] Olivia Morales APRN [address] [facility] MED OFFICE [address] [address] documented as of this encounter Visit Diagnoses Diagnosis Closed displaced fracture of proximal phalanx of right ring finger, initial encounter- Primary documented in this encounter Care Teams Supervisor Cook Room Relationship Specialty Start Date End Date [place] [address] PCP - General Nurse Practitioner 08/25/22 documented as of this encounter
--- OUTSIDE RECORDS SUMMARY | 2025-05-25 23:18 | XMS_ITS | Encounter Summary ---
Author Organization [facility] Address [address] [place] [address] Care Team Providers Care Vitamin Manager Name Role Phone Jacquelyn Desouza APRN Primary Care Provider +1- [phone] Encounter Details Date Type Department Care Team (Late st Contact Info) Description 02/25/2023 Retail Pharmacy Consultation [facility] [place] [address] [place] [address] [facility] [address] [place] [address] Social History Tobacco Use Types Packs/Day Years Used Date Smoking Tobacco: Every Day Cigarettes 0.5 45 Smokeless Tobacco: Never Alcohol Use Standard Drinks/Week Comments No 0 (1 standard drink = 0.6 oz pur e alcohol) AUDIT-C Answer Date Recorded Q1: How often do you have a drink containing alcohol? Never 02/21/2023 Q2: How many drinks containi ng alcohol do you have on a typical day when you are drinking? Patient does not drink Q3: How often do you have si x or more drinks on one occasion? Never 02/21/2023 Overall Financial Resource Strain (CARDIA) Answe r Date Recorded How hard is it for you to pa y for the very basics like food, housing, medical care, and heating? Somewhat hard 02/21/2023 Hunger Vital Sign Answer Date Recorded Within [...] place to sleep or slept in a alf (including now)? No 02/21/2023 Comments No Sex and Gender Information Value Date Recorded Sex Assigned at Not on file Legal Sex Female 10:41 AM EDT Gender Identity Not on file Sexual Orientation Not on file documented as of this encounter Plan of Treatment Upcoming Encounters Date Type Department Care Team (Late st Contact Info) Description 05/31/2025 8:45 AM EDT Office Visit [facility] FAMILY MEDIC[facility] [address] [place] [phone] Jacquelyn Desouza APRN [address] [place] [address] 06/01/2025 2:10 PM EDT Office Visit [facility] ORTHOPEDICS & SPORTS MEDICINE [address] [address] Delaney Concepcion MD [address] [address] 06/22/2025 1:15 PM EDT Office Visit [facility] PULMONARY & CRITICAL CARE MEDICINE [address] [place] [address] Olivia Morales APRN [address] [facility] MED OFFICE [address] [place] [address] documented as of this encounter Visit Diagnoses Not on filedocumented in this encounter Care Teams Vitamin Manager Relationship Specialty Start Date End Date Jacquelyn Desouza, TOOLROOM ATTENDANT [address] [place] [address] PCP - General Nurse Practitioner 08/25/22 documented as of this encounter
--- OUTSIDE RECORDS SUMMARY | 2025-05-25 23:18 | XMS_ITS | Encounter Summary ---
Author Organization [facility] Address [address] [place] [address] Care Team Providers Care Marketing Pr Intern Name Role Phone Jacquelyn Desouza APRN Primary Care Provider +1- [phone] Reason for Visit * Reason Onset Date Comments DR LEE: 05/19/25 P/O CONCERNS & MED REFILL REQUEST 05/22/2025 Encounter Details Date Type Department Care Team (Late st Contact Info) Description 05/22/2025 Telephone [facility] [address] [place] [address] Delaney Lee MD [address] [place] [address] DR ELE: 05/19/25 P/O CONCERNS & MED REFILL REQUEST Social History Tobacco Use Types Packs/Day Years [...] or training? Not on file Preferred Language Moroccan 05/13/2023 PHQ-2 Answer Date Recorded Retired PHQ-9: Brief Depression Severity Measure Score 0 11/24/2023 Comments No Sex and Gender Information Value Date Recorded Sex Assigned at Not on file Legal Sex Female 10:41 AM EDT Gender Identity Not on file Sexual Orientation Not on file documented as of this encounter Miscellaneous Notes * Telephone Encounter - Rochelle Thompson R.T.(R) - 05/22/2025 4:16 PM EDT Patient came by the office today. The splint was not loose. I rewrapped a new rodger over splint. Patient brought empty pill bottle that fell in the trash and I explained that we won't be giving a refill. She asked if we could give her a pain shot of Toradol and I explained that we don't keep any painmedication in the office. She will return are her scheduled PO appointment with Dr Lee. Rochelle Manuel (Marko) ROT * Telephone Encounter - Rochelle Thompson R.T.(Marko) - 05/22/2025 9:01 AM EDT I called to patient and she is going to come by this afternoon for me to adjust her PO splint. I did explain to her that Dr Lee is not going to give a refill for her pain medication and that was stated at the time of surgery. Rochelle Manuel (Marko) ROT * Telephone Encounter - Olivia Adam MA - 05/22/2025 8:52 AM EDT Spoke with patient she states her cast is loose and feels like it is sliding down her arm. Also feels like the pins maybe moving. She lost her medication and had to go to the ER over the weekend to get a shot for pain. * Telephone Encounter - Lyndsey Thao - 05/22/2025 8:24 AM EDT Caller: Shiela Nathan / PATIENT Best call back number: [phone] Requested Prescriptions: OXYCODONE 5 MG (PATIENT WAS TAKING ONE TABLET WITH ONE 800 MG IBUPROFEN ALSO PRESCRIBED 05-19-25) Pharmacy where request should be sent: [facility] Last office visit with prescribing clinician: 05/18/2025 Next office visit with prescribing clinician: 06/01/2025 Additional details provided by patient: PATIENT STATED SHE DROPPED THE BOTTLE OF HER OXYCODONE IN THE WATER / GARBAGE 05-19-25 AFTER RETURNING HOME. PATIENT STATED SHE WAS HOLDING THE BOTTLE WITHHER LEFT HAND & TRYING TO GET TABLET OUT WITH HER SURGICAL HAND PATIENT ALSO REPORTS SOMETHING LOOSE WITH HER CAST AND THE PINS PLEASE CALL TO DISCUSS SYMPTOMS BEFORE SENDING IN REFILL PATIENT HAD RIGHT HAND SURGERY BY DR LEE 05-19-25 & HAS POST-OP NEXT 06/01 Does the patient have less than a 3 day supply: [x] Yes - WAS ONLY ABLE TO RETRIEVE A COUPLE TABLETS Would you like a call back once the refill request has been completed: [x] Yes documented in this encounter Plan of Treatment Upcoming Encounters Date Type Department Care Team (Late st Contact Info) Description 05/31/2025 8:45 AM EDT Office Visit [facility] [address] [place] [phone] Jacquelyn Desouza APRN [address] [place] [address] 06/01/2025 2:10 PM EDT Office Visit [facility] [address] [address] Delaney Lee MD [address] [address] 06/22/2025 1:15 PM EDT Office Visit [facility] [address] [place] [phone] Olivia Morales APRN [address] [facility] MED OFFICE [address] [facility] [address] [place] [address] documented as of this encounter Visit Diagnoses Not on filedocumented in this encounter Care Teams Marketing Pr Intern Relationship Specialty Start Date End Date Jacquelyn Desuoza APRN [address] [facility] [place] [address] PCP - General Nurse Practitioner 08/25/22 documented as of this encounter
--- OUTSIDE RECORDS SUMMARY | 2025-05-25 23:18 | XMS_ITS | Encounter Summary ---
[facility] Organization [facility] Address [address] [place] [address] Care Team Providers Care Traffic Investigator Name Role Phone Jacquelyn Desouza APRN Primary Care Provider +1- [phone] Encounter Details Date Type Department Care Team (Late st Contact Info) Description 05/19/2025 Documentation [facility] [address] [place] [address] Delaney Concepcion MD [address] [place] [address] Social History Tobacco Use Types Packs/Day Years [...] in a alf (including now)? No 02/21/2023 Abuse Screen Answer [...] or training? Not on file Preferred Language Northern Irish 05/13/2023 PHQ-2 Answer Date Recorded Retired PHQ-9: Brief Depression Severity Measure Score 0 11/24/2023 Comments No Sex and Gender Information Value Date Recorded Sex Assigned at Not on file Legal Sex Female 10:41 AM EDT Gender Identity Not on file Sexual Orientation Not on file documented as of this encounter Progress Notes * Delaney Concepcion MD - 05/19/2025 8:55 AM EDT ORTHOPEDIC OPERATIVE REPORT PATIENT NAME: Shiela Nathan DATE OF : 1960 DATE OF SURGERY: 05/19/25 LOCATION: [facility] PREOPERATIVE DIAGNOSIS: Right 4th and 5th proximal phalanx base fractures Right fifth middle phalanx base questionable intra-articular fracture POSTOPERATIVE DIAGNOSIS: Right 4th and 5th proximal phalanx base fractures Right fifth middle phalanx base minimally displaced intra-articular fracture PROCEDURE PERFORMED: Right 4th and 5th proximal phalanx closed reduction percutaneous pinning CPT CODE: 81035 x2 SURGEON: Delaney Concepcion MD MEDICAL LOGISTICS SPECIALIST: None ANESTHESIA: Monitored anesthesia with regional block SPECIMENS: None TOURNIQUET TIME: None used ESTIMATED BLOOD LOSS: Minimal COMPLICATIONS: None IMPLANTS: 0.054 K-wires x3, 0.054 k-wires x1 INDICATIONS FOR PROCEDURE: Shiela Nathan is a 64-year-old sygve-opeq-ewkbqoek female who presented to clinic with after injury to the right hand complaining of pain. Patient reports that on 05/07/2025 she fell out of her chair injuring her right hand. She developed immediate pain and swelling. She presented to an outside orthopedist where x-rays were obtained demonstrating a fracture of the proximal phalanx base to the 4th and 5th digits. She was referred for additional treatment. Radiographs of the affected digit demonstrated displaced extra-articular base fractures of the 4th and 5th proximal phalanx. There is a questionable fracture noted to the small finger middle phalanx base at the articular surface. Clinical examination demonstrated deviation in the coronal plane to the ring finger. We had a lengthy discussion regarding surgical and non surgical options. I recommended surgery in the form of closed reduction percutaneous pinning versus open reduction internal fixation. I discussed that I will attempt first a closed reduction percutaneous pinning, however if this is unsuccessful in achieving reduction,and open reduction internal fixation would be needed. This would be an intraoperative decision and the patient expressed understanding. Additionally, I discussed evaluation of the small finger PIP joint under fluoroscopy. If a fracture was identified with better C-arm views, I would proceed with fixation. The patient understands this is an intraoperative decision. I explained to them the risk, benefits, alternatives and prognosis and they elected to proceed with 4th and 5th proximal phalanx closed reduction percutaneous pinning and evaluation of the right small finger PIP joint. DESCRIPTION OF PROCEDURE: The patient was identified in the preoperative holding area utilizing two patient identifiers. The surgical site was marked. They were taken back to the operating room and placed supine on the operative table. A upper arm tourniquet was placed. The operative extremity was prepped and draped in a standard sterile fashion. A surgical time out was performed that confirmed the correct site, procedureand laterality. It was confirmed the patient received preoperative antibiotics. We began by obtaining x-rays with the mini C arm that redemonstrated displaced base fractures of the 4th and 5th proximal phalanx. Starting at the ring finger, using axial traction and MCP joint flexion, I was able to achieve close reduction of the proximal phalanx. I then inserted two 0.054 K wires in antegrade fashion starting at the proximal ulnar and proximal radial aspects of the proximal phalanx. These were advanced across the fracture site with the MCP joint held in full flexion. X-rays confirmed satisfactory reduction and pin placement. A similar procedure was performed to the fifth proximal phalanx base where a 0.054 K wire and a 0.45 K wire were directed in antegrade fashion across the reduced fracture. X-rays confirmed satisfactory pin placement and fracture reduction. Lastly, I turned my attention to evaluation of the small finger middle phalanx base. This was ranged under fluoroscopy and with appropriate PA lateral and oblique views, this did identify a minimally displaced fracture of the articular surface. I did not feel that this fracture was large or unstable to warrant additional treatment. The K wires were cut and bent outside the skin with care taken to allow room for swelling. The extremity was cleansed with normal saline. Pin sites were covered with Xeroform dressing and fluffs. Once the pin sites were well-padded a gutter splint was placed. The patient was awoken from anesthesia and brought to the PACU in good and stable condition. All counts were correct at the end of the case. POSTOPERATIVE PLAN: No lifting greater than 5 pounds with the operative extremity. 2. Over the counter Tylenol and/or Advil/Aleve/Motrin for pain control. A narcotic prescription foroxycodone 5 mg was provided. 3. Splint is not to be removed. Digit range of motion as allowed by the splint was encouraged. 4. Follow up in 10-14 days as scheduled. Delaney Concepcion MD [facility] Orthopedic & Hand Surgeon documented in this encounter Plan of Treatment Upcoming Encounters Date Type Department Care Team (Late st Contact Info) Description 05/31/2025 8:45 AM EDT Office Visit [facility] [address] [place] [phone] Jacquelyn Desouza, MIGUEL [address] [place] [address] 06/01/2025 2:10 PM EDT Office Visit [facility] [address] [address] Delaney Concepcion MD [address] [address] 06/22/2025 1:15 PM EDT Office Visit [facility] [address] [place] [phone] Olivia Morales APRN [address] [facility] MED OFFICE BLDG [address] [address] documented as of this encounter Visit Diagnoses Not on filedocumented in this encounter Care Teams Traffic Investigator Relationship Specialty Start Date End Date Jacquelyn Desouza, MIGUEL [address] [place] [address] PCP - General Nurse Practitioner 08/25/22 documented as of this encounter
--- OUTSIDE RECORDS SUMMARY | 2025-05-25 23:18 | XMS_ITS | Encounter Summary ---
Author Organization [facility] Address [address] [place] [address] Care Team Providers Care Genetic Coordinator Name Role Phone Jacquelyn Desouza APRN Primary Care Provider +1- [phone] Encounter Details Date Type Department Care Team (Latest Contact Info) Description 05/12/2025 Travel Social History Tobacco Use Types Packs/Day Years [...] place to sleep or slept in a group home (including now)? No 02/21/2023 Abuse Screen Answer [...] or training? Not on file Preferred Language Moldovan 05/13/2023 PHQ-2 Answer Date Recorded Retired PHQ-9: [...] 8:45 AM EDT Office Visit [facility] [address] [place] [phone] Jacquelyn Desouza APRN [address] [place] [address] 06/01/2025 2:10 PM EDT Office Visit [facility] [address] [address] Delaney Concepcion MD 1760 [facility] [address] [place] [address] 06/22/2025 1:15 PM EDT Office Visit [facility] [address] [place] [address] Olivia Morales APRN [address] [facility] MED OFFICE [address] [address] documented as of this encounter Visit Diagnoses Not on filedocumented in this encounter Care Teams Genetic Coordinator Relationship Specialty Start Date End Date Jacquelyn Desouza [place] [address] PCP - General Nurse Practitioner 08/25/22 documented as of this encounter
--- OUTSIDE RECORDS SUMMARY | 2025-05-25 23:18 | XMS_ITS | Encounter Summary ---
Author Organization [facility] Address [address] [place] [address] Care Team Providers Care Control Room Technician Name Role Phone Jacquelyn Desouza APRN Primary Care Provider +1- [phone] Encounter Details Date Type Department Care Team (Latest Contact Info) Description 05/15/2025 Travel Social History Tobacco Use Types Packs/Day [...] or training? Not on file Preferred Language Nicaraguan 05/13/2023 PHQ-2 Answer Date Recorded Retired PHQ-9: [...] Description 05/31/2025 8:45 AM EDT Office Visit [facility] [address] [place] [phone] Jacquelyn Desouza APRN [address] [place] [address] 06/01/2025 2:10 PM EDT Office Visit [facility] [address] [address] Delaney Concepcion MD 1760 [facility] [address] [place] [address] 06/22/2025 1:15 PM EDT Office Visit [facility] [address] [place] [address] Olivia Morales APRN [address] [facility] MED OFFICE [address] [address] documented as of this encounter Visit Diagnoses Not on filedocumented in this encounter Care Teams Control Room Technician Relationship Specialty Start Date End Date Jacquelyn Desouza [place] [address] PCP - General Nurse Practitioner 08/25/22 documented as of this encounter
--- OUTSIDE RECORDS SUMMARY | 2025-05-25 23:18 | XMS_ITS | Clinical Summary ---
Author Organization [facility] Address [address] [place] [address] Phone Care Team Providers Care Service Captain Name Role Phone Brenden RAMOS, Macario F Unavailable [phone] Conditions or Problems Problem Name Problem Code Onset Date Status Entry Date Provider Comment Standard Description Annotate Smoking cessation education 012811315 (SNOMED CT) 12/12 Active 12/12 Tiana Madison Smoking cessation education Abscess, Right kidney 8076087 (SNOMED CT) 12/12 Active 12/12 Ada W Renal abscess UTI N39.0 (ICD-10-CM ) 12/12 Active 12/12 Ada W Urinary tract infection, site not specified Ear pain, bilateral 65771277 (SNOMED CT) 12/12 Active 12/12 Ada W Otalgia Diarrhea 56443224 (SNOMED CT) 12/12 Active 12/12 Ada W Diarrhea 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 Coli sepsis/septic emia A41.51 (ICD-10-CM ) 11/29 Active 11/29 Blanca Greer Sepsis due to Escherichia coli [E. coli] Klebsiella Sepsis 571925033 (SNOMED CT) 11/29 Active 11/29 Blanca Greer Sepsis caused by Enterobacter Klebsiella infection B96.1 (ICD-10-CM ) 11/29 Active 11/29 Blanca Greer Klebsiella pneumoniae [K. pneumoniae] as the cause of diseases classified elsewhere Fibromyalgia 22146995 (SNOMED CT) 11/29 Active 11/29 Blanca Greer Fibromyositis Diverticuliti s of large intestine with abscess K57.20 (ICD-10-CM ) 12/10 Resolved 12/10 Blanca Greer Diverticulitis of large intestine with perforation and abscess without bleeding Diverticuliti s of large intestine with abscess K57.20 (ICD-10-CM ) 12/10 Removed 12/10 Blanca Greer Diverticulitis of large intestine with perforation and abscess without bleeding Benign Essential Hypertension 7549314 (SNOMED CT) 12/10 Active 12/10 Blanca Greer Benign essential hypertension Allergy to penicillin 33030653 (SNOMED CT) 12/10 Active 12/10 Blanca Greer Allergy to penicillin Leukemoid reaction 86030944 (SNOMED CT) 12/10 Active 12/10 Blanca Greer Leukemoid reaction Medications Medication Instructions Start Date Stop Date Generic Name [facility] Provider ONDANSETRON HCL 4 MG TABS Take one (1) tablet by mouth twice a day as needed for nausea ONDANSETRON HCL 93288844896 Macario Wilcox MD INVANZ SOLUTION RECONSTITUTED 1 gm IV Q 24 [facility]/CHI VNA 12/04 ERTAPENEM SODIUM SOLR 14858493637 Erin Pak INVANZ SOLUTION RECONSTITUTED 1 gm IV Q 24 [facility]/CHI VNA 12/04 ERTAPENEM SODIUM SOLR 67196336792 Eun Agauyo VITAMIN D3 50 MCG (1999 OR) CAPS Take one by mouth daily CHOLECALCIFEROL 44548354523 Sharlene Hammerdox SODIUM BICARBONATE 650 MG TABS Take by mouth twice a day SODIUM BICARBONATE 81265036064 Sharlene Anne OXYCODONE-ACETAM INOPHEN 10-325 MG TABS Take one by mouth 3 times daily, morning, afternoon and evening. OXYCODONE-ACETAMI NOPHEN 65778451633 Sharlene Hammerdox PANTOPRAZOLE SODIUM 40 MG TBEC Take one by mouth daily PANTOPRAZOLE SODIUM 18976501410 Sharlene Anne ITRACONAZOLE 100 MG CAPS as directed ITRACONAZOLE 93952206757 Sharlene Anne IBUPROFEN 200 MG TABS 2 Tab, PRN, Oral, Q4H IBUPROFEN 12055327243 Sharlene Anne GABAPENTIN 800 MG TABS Take one by mouth 3 times daily, morning, afternoon and evening. GABAPENTIN 87925017223 Sharlene Anne CETIRIZINE HCL 10 MG TABS Take one by mouth daily CETIRIZINE HCL 50408643298 Sharlene Anne ZANTAC 150 MG ORAL TABLET twice daily 11/28 RANITIDINE HCL 88148591164 Sharlene Anne PERCOCET 10-325 MG TABS every 8 hours as needed 11/28 OXYCODONE-ACETAMI NOPHEN 25627070798 Sharlene Anne IBUPROFEN 400 MG TABS every 4 hours as needed for pain 11/28 IBUPROFEN 59361317671 Sharlene Anne GABAPENTIN 800 MG TABS four times a day 11/28 GABAPENTIN 59098176244 Sharlene Anne DIFLUCAN 200 MG TABS daily / FLUCONAZOLE 16236333305 Sharlene Anne FLAGYL 500 MG ORAL TABLET three times a day 11/28 METRONIDAZOLE 62967116415 Sharlene Anne INVANZ 1 GM INTRAVENOUS SOLUTION RECONSTITUTED [facility] 0 10/22 ERTAPENEM SODIUM 96593595398 Frida Valiente RN CUBICIN 500 MG INTRAVENOUS SOLUTION RECONSTITUTED 500mg IV q 24 [facility]/ ANC [address] 10/22 DAPTOMYCIN 91647479851 Frida Valiente RN FLAGYL 500 MG ORAL TABLET three times a day 2/ METRONIDAZOLE 32567893864 Med Krishna MD CUBICIN 500 MG INTRAVENOUS SOLUTION RECONSTITUTED 500mg IV q 24 [facility] 0 10/22 DAPTOMYCIN 25042310886 Chey Briggs GABAPENTIN 800 MG TABS four times a day 2/ GABAPENTIN 24378041855 Med Bermudez IBUPROFEN 400 MG TABS every 4 hours as needed for pain 2 IBUPROFEN 67992310513 Med Bermudez FLAGYL 500 MG ORAL TABLET three times a day 12/16 METRONIDAZOLE 41467110109 Med Krishna MD DIFLUCAN 200 MG TABS daily 01/17 FLUCONAZOLE 44208260255 Med Krishna MD PERCOCET 10-325 MG TABS every 8 hours as needed 4 OXYCODONE-ACETAMI NOPHEN 35009127655 Med Bermudez ZANTAC 150 MG ORAL TABLET twice daily 210 RANITIDINE HCL 58211639638 Med Bermudez INVANZ 1 GM INTRAVENOUS SOLUTION RECONSTITUTED 1gm IV q 24 [facility] 0 10/22 ERTAPENEM SODIUM 74341357043 Chey Briggs Medications Administered No information available. Allergies, Adverse Reactions, Alerts Allergy Name Reaction Description Start Date Severity Statu s Provider MORPHINE SULFATE face turning red. Moderate Acti ve Med Berm[facility]z CODEINE SULFATE intolerance with avelino sea, vomiting. Moderate Active Med Bermudez PENICILLIN V POTASSIUM intolerance with nausea, vomiting. Moderate Active Med Bermudez Results Date Name Value Unit Range Flag Description Chart Maintenance: updated H H labs 10/08/15 CRPCARDRISK 11.6 mg/L C reactiv e protein [Mass/volume] in Serum or Plasma BILI TOTAL 0.8 mg/dL Bilirubin. total [Mass/volume] in Serum or Plasma ALK PHOS 72 U/L Alkaline al sphatase [Enzymatic activity/volume] in Blood SGPT (ALT) 14 U/L Alanine aminotransferase [Enzymatic activity/volume] in Serum or Plasma SGOT (AST) 22 U/L Aspartate aminotransferase [Enzymatic activity/volume] in Serum or Plasma CALCIUM 9.0 mg/dL Calcium [Mole s/volume] in Serum or Plasma POTASSIUM 4.5 mmol/L Potassium [Moles/volume] in Serum or Plasma SODIUM 143 mmol/L Sodium [Moles /volume] in Serum or Plasma CREATININE 0.51 mg/dL Creatinine [Mass/volume] in Serum or Plasma BUN 11 mg/dL Urea nitrogen [Mass/volume] in Serum or Plasma GLUCOSE SER 88 mg/dL Glucose [ Mass/volume] in Serum or Plasma ESR 56 mm/h Erythrocyte sedimentation rate by Westergren method LYMPHS % 34 % Lymphocytes/ 100 leukocytes in Blood by Automated count PMN % 59 % Neutrophils/1 00 leukocytes in Blood by Automated count PLATELETS 560 10*3/mm3 Platelets [#/volume] in Blood by Automated count HCT 31.3 % Hematocrit [V olume Fraction] of Blood by Automated count HGB 10.4 g/dL Hemoglobin [Mass/volume] in Blood RBC 3.53 10*6/mm3 Erythrocytes [#/volume] in Blood by Automated count WBC 10.5 10*3/mm3 Leukocytes [ #/volume] in Blood by Automated count Office Visit: rm 7 MEDS REVIEW Done Documenta tion of current medications (procedure) SMOK ADVICE yes Smoking c essation education (procedure) CIGARET SMKG yes Tobacco smoking status Clinical Lists Update: Prelo ad SMOK STATUS Current every day smoker Tobacco smoking status Plan of Care Type Date Detail Pending order Continue IV anti biotics Pending order CMP Pending order CBC with Differe ntial Pending order C- reactive prot ein Pending order Sedimentation Ra te (ESR) Patient education HOW%20TO%20STO P%20SMOKING Patient education Medications Procedures No information available. Vital Signs Date Name Value Unit Description BMI (Body Mass Index) 28.32 kg/m2 Bod y Mass Index (Ratio) Body Temperature 97.6 [degF] temperat ure E&M BP Diastolic 82 mm[Hg] blood pressu re, diastolic BP Systolic 132 mm[Hg] blood pressur e, systolic Heart Rate 84 /min pulse rate Respiratory Rate 16 /min respirat ory rate E&M Weight Measured 165 [lb_av] weight E& M Weight Measured 165 [lb_av] weight E& M Height 64 [in_us] height E&M Immunizations No information available. Advance Directives No information available.
--- OUTSIDE RECORDS SUMMARY | 2025-05-25 23:18 | XMS_ITS | Encounter Summary ---
[facility] Organization [facility] Address [address] [place] [address] Care Team Providers Care Chemical Reclamation Equipment Operator Name Role Phone Jacquelyn Desouza APRN Primary Care Provider +1- [phone] Encounter Details Date Type Department Care Team (Late st Contact Info) Description 05/16/2025 Telephone [facility] SPORTS MEDICINE [address] [facility] [address] [place] [address] Delaney Concepcion MD 1760 [facility] 101 [place], [place] [id number] Social History Tobacco Use Types Packs/Day Years [...] place to sleep or slept in a custodial (including now)? No 02/21/2023 Abuse Screen Answer [...] or training? Not on file Preferred Language [place]inean 05/13/2023 PHQ-2 Answer Date Recorded Retired PHQ-9: Brief Depression Severity Measure Score 0 11/24/2023 Comments No Sex and Gender Information Value Date Recorded Sex Assigned at Not on file Legal Sex Female 10:41 AM EDT Gender Identity Not on file Sexual Orientation Not on file documented as of this encounter Miscellaneous Notes * Telephone Encounter - Mo Roberson RegSched Rep - 05/16/2025 3:42 PM EDT Called to move the 06/06/25 stepan to a much earlier stepan. 05/15/2025, Per Dr Carlene DALY ok to anand. If you can't please transfer to Mo documented in this encounter Plan of Treatment Upcoming Encounters Date Type Department Care Team (Late st Contact Info) Description 05/31/2025 8:45 AM EDT Office Visit [facility] [address] [place] [address] Jacquelyn Desouza APRN [address] [place] [address] 06/01/2025 2:10 PM EDT Office Visit [facility]OP[facility] & SPORTS MEDICINE 1760 [facility] 101 [place] [address] Delaney Concepcion MD [address] [address] 06/22/2025 1:15 PM EDT Office Visit [facility] PULMONARY & CRITICAL CARE MEDICINE [address] [place] [address] Olivia Morales APRN 793 [facility] MED OFFICE BLDG 3 [facility] 216 [place] [address] documented as of this encounter Visit Diagnoses Not on filedocumented in this encounter Care Teams Chemical Reclamation Equipment Operator Relationship Specialty Start Date End Date [place]qu[place] [address] PCP - General Nurse Practitioner 08/25/22 documented as of this encounter
--- OUTSIDE RECORDS SUMMARY | 2025-05-25 23:18 | XMS_ITS | Encounter Summary ---
Author Organization [facility] Address [address] [place] [address] Care Team Providers Care Fire Patroller Name Role Phone Jacquelyn Desouza APRN Primary Care Provider +1- [phone] Encounter Details Date Type Department Care Team (Latest Contact Info) Description 05/18/2025 Travel Social History Tobacco Use Types Packs/Day [...] or training? Not on file Preferred Language Bahamian 05/13/2023 PHQ-2 Answer Date Recorded Retired PHQ-9: [...] Description 05/31/2025 8:45 AM EDT Office Visit [facility] [address] [place] [id number] Jacquelyn Desouza APRN [address] [place] [address] 06/01/2025 2:10 PM EDT Office Visit [facility] ORTHOPEDICS & SPORTS MEDICINE [address] [address] Delaney Concepcion MD 1760 [facility] 101 [place] [address] 06/22/2025 1:15 PM EDT Office Visit [facility] PULMONARY & CRITICAL CARE MEDICINE [address] [place] [address] Olivia Morales APRN 793 [facility] MED OFFICE [address] [address] documented as of this encounter Visit Diagnoses Not on filedocumented in this encounter Care Teams Fire Patroller Relationship Specialty Start Date End Date Jacquelyn Desouza [place] [address] PCP - General Nurse Practitioner 08/25/22 documented as of this encounter
--- OUTSIDE RECORDS SUMMARY | 2025-05-25 23:18 | XMS_ITS | Encounter Summary ---
[facility] Organization [facility] Address [address] [place] [address] Care Team Providers Care Cooker Tender Name Role Phone Jacquelyn Desouza APRN Primary Care Provider +1- [phone] Reason for Visit * Reason Onset Date Comments SAMPLES 04/05/2025 Encounter Details Date Type Department Care Team (Late st Contact Info) Description 04/05/2025 Telephone [facility] PULMONARY CRITICAL CARE & SLEEP MEDICINE 793 [facility] [address] [address] Olivai Ramachandran APRN 793 [facility] MED OFFICE BLDG [address] [address] [place] Social History Tobacco Use Types Packs/Day Years [...] or training? Not on file Preferred Language Lao 05/13/2023 PHQ-2 Answer Date Recorded Retired PHQ-9: Brief Depression Severity Measure Score 0 11/24/2023 Comments No Sex and Gender Information Value Date Recorded Sex Assigned at Not on file Legal Sex Female 10:41 AM EDT Gender Identity Not on file Sexual Orientation Not on file documented as of this encounter Miscellaneous Notes * Telephone Encounter - Dayo Anne RegSched Rep - 04/06/2025 1:30 PM EDT Provider: OLIVIA RAMACHANDRAN Caller: Shiela Jasso Relationship to Patient: Self Reason for Call: PATIENT IS HAVING HER BOYFRIEND Jarrod Jones PRODUCTION SERVICE MANAGER THE SAMPLE * Telephone Encounter - Sharlene Mendieta MA - 04/06/2025 1:13 PM EDT One sample available at [facility] * Telephone Encounter - Sharlene Mendieta MA - 04/05/2025 4:09 PM EDT Informed patient that I would check [facility] for refills tomorrow and call her back. * Telephone Encounter - Ann Leung RegSched Rep - 04/05/2025 3:28 PM EDT Caller: SHIELA JASSO Relationship:SELF Callback number: [phone] Is it ok to leave a message: [x] Yes [] No Requested medication for samples: BREZTRI How much medication does the patient currently have left: A FEW PUFFS Who will be picking up the samples: PT Do you need information about patient financial assistance for this medication: [] Yes [x] No Additional details provided: PLEASE CALL IF AVAILABLE documented in this encounter Plan of Treatment Upcoming Encounters Date Type Department Care Team (Late st Contact Info) Description 05/31/2025 8:45 AM EDT Office Visit [facility] [address] [place] [address] [address] [address] Jacquelyn Desouza, EXECUTIVE TEAM LEADER [address] [place] [address] 06/01/2025 2:10 PM EDT Office Visit [facility] ORTHOPEDICS & SPORTS MEDICINE [address] [address] Delaney Concepcion MD [address] [address] 06/22/2025 1:15 PM EDT Office Visit [facility] PULMONARY & CRITICAL CARE MEDICINE [address] [place] [address] Olivia Ramachandran APRN 793 [facility] MED OFFICE [address] [address] documented as of this encounter Visit Diagnoses Not on filedocumented in this encounter Care Teams Cooker Tender Relationship Specialty Start Date End Date Jacquelyn Desouza, MIGUEL [address] [place] [address] PCP - General Nurse Practitioner 08/25/22 documented as of this encounter
--- OUTSIDE RECORDS SUMMARY | 2025-05-25 23:18 | XMS_ITS | Encounter Summary ---
Author Organization [facility] Address [address] [place] [address] Care Team Providers Care Optical Instrument Assembly Supervisor Name Role Phone Jacquelyn Desouza APRN Primary Care Provider +1- [phone] Reason for Visit * Reason Onset Date Comments SAMPLES 05/25/2025 Encounter Details Date Type Department Care Team (Late st Contact Info) Description 05/25/2025 Telephone [facility] PULMONARY CRITICAL CARE & SLEEP MEDICINE 793 [facility] [address] [address] Olivia Morales APRN 793 [facility] MED OFFICE BLDG [address] [address] [place] Social History Tobacco Use [...] place to sleep or slept in a long term (including now)? No 02/21/2023 Abuse Screen Answer [...] or training? Not on file Preferred Language Peruvian 05/13/2023 PHQ-2 Answer Date Recorded Retired PHQ-9: Brief Depression Severity Measure Score 0 11/24/2023 Comments No Sex and Gender Information Value Date Recorded Sex Assigned at Not on file Legal Sex Female 10:41 AM EDT Gender Identity Not on file Sexual Orientation Not on file documented as of this encounter Progress Notes * Martinez Mendieta MA - 05/25/2025 2:28 PM EDTAddended by: MARTINEZ MENDIETA on: 05/25/2025 02:28 PM Modules accepted: Orders documented in this encounter Miscellaneous Notes * Telephone Encounter - Martinez Mendieta MA - 05/25/2025 2:22 PM EDT PATIENT 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 CAN VOCATIONAL TEACHER 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 IN OFFICE TODAY * Telephone Encounter - Wendi Ro RegSched Rep - 05/25/2025 2:00 PM EDT Caller: SHIELA JASSO Relationship:SELF Callback number: [phone] Is it ok to leave a message: [x] Yes [] No Requested medication for samples: Ntkmtoi-Ovhgismstvx-Kgrrzsyxcm (Breztri Aerosphere) 160-9-4.8 MCG/ACT aerosol inhaler 2 puff, 2 Times Daily How much medication does the patient currently have left: NONE Who will be picking up the samples: THE PT Do you need information about patient financial assistance for this medication: [] Yes [x] No Additional details provided: documented in this encounter Plan of Treatment Upcoming Encounters Date Type Department Care Team (Late st Contact Info) Description 05/31/2025 8:45 AM EDT Office Visit [facility] MEDIC[facility] [address] [place] [address] [address] Jacquelyn Desouza APRN [address] [place] [address] 06/01/2025 2:10 PM EDT Office Visit [facility] ORTHOPEDICS & SPORTS MEDICINE [address] [place] [address] [address] [place] [address] Delaney Concepcion MD 1760 [facility] 101 [place], [place] [id number] 06/22/2025 1:15 PM EDT Office Visit [facility] PULMONARY & CRITICAL CARE MEDICINE [address] [place] [address] Olivia Morales APRN 793 [facility] MED OFFICE BLDG 3 [facility] [address] [place] [address] documented as of this encounter Visit Diagnoses Not on filedocumented in this encounter Care Teams Optical Instrument Assembly Supervisor Relationship Specialty Start Date End Date Jacquelyn Desouza APRN [address] [place] [address] PCP - General Nurse Practitioner 08/25/22 documented as of this encounter
--- NOTE | 2025-05-25 23:21 | HMH.EDGENADL ---
Discharge Plan Disposition Patient Disposition: Home, Self-Care Condition: Good Prescriptions Prescriptions: New ondansetron 4 mg tablet,disintegrating 4 mg PO Q6H PRN (Reason: nausea and vomiting) Qty: 10 0RF Referrals Follow up/Referrals: Provider,Referral, MD [Primary Care Provider, Medical] - See instructions Activity Restrictions/Add. Instructions Additional Instructions/Restrictions: You were evaluated in the ER and are believed to be appropriate for discharge at this time. Continue any home medications as previously prescribed. Drink plenty of water. Take the prescribed Zofran (ondansetron) as directed if needed for nausea and vomiting. I recommend that you stop using all THC products and do not use them again to avoid symptoms from cannabis hyperemesis/cyclic vomiting syndrome. Continue taking ibuprofen as needed for pain, do not exceed the recommended dose. Drink water and eat a small snack each time you take these medications to avoid side effects. Call your surgeons office to discuss pain management and prescriptions or refills. Follow-up with their office as scheduled for reevaluation of the splint and surgical site. Follow-up with your primary care doctor for reevaluation in 1-2 days to recheck labs and discuss your nausea and vomiting as well as high blood pressure. Return to the ER with any new, worsening, or otherwise concerning symptoms. Clinical Impressions Clinical Impression: Nausea & vomiting, Post-operative pain, Noncompliance with medication regimen, Cannabis hyperemesis syndrome concurrent with and due to cannabis abuse Print Language Print Language: Portuguese Discharge ED Provider: Jenniffer Yang General Adult HPI General Chief complaint: PAIN Stated complaint: V/N,pain right hand Time Seen by Provider: 05/25/25 22:59 Mode of Arrival: Wheelchair Source of Information: Patient Description of Symptoms (Recalled from ER Triage Doc. by RN): Pt presents with ongoing nausea & vomiting for past month. Recent surgery on right pinky and ring finger, states she dropped oxycodone in trash and can't stand the pain. History of Present Illness HPI narrative: 64-year-old female with a history of hypertension, recent surgery to her right hand at the end of last week presents to the ER with complaints of nausea and vomiting, epigastric abdominal pain, she also complains of right hand pain. Patient reports for the last months she has been having intermittent episodes of nausea and vomiting, she ran out of Zofran recently, the last few days her symptoms of nausea and vomiting have gotten worse and she is having epigastric abdominal pain. She states she drinks an occasional beer for my kidneys . Patient reports she has not been compliant with most of her home medications. She states she takes losartan, believes it is a 50 mg pill but is not sure, for blood pressure but states she has not been taking that. She states tonight she took a part of a Klonopin for her blood pressure, her family believes she took clonidine. She is hypertensive in the ER. Patient gives an elaborate story about how 6 days ago after her surgery she was trying to open her oxycodone pill bottle but because she is right-handed and her right hand is the one that had surgery, she was not able to get it to open right so when it did open everything fell on the floor and the bottle fell in the trash. Allegedly this is the reason she is out of her oxycodone and she has not had any since the day of her surgery. He claims she has only been taking ibuprofen, but then also states I take just a piece, a tiny piece of my 's Suboxone because I did not know what else to do for the pain . She reports that she stopped taking this however also reports that she took a piece of one prior to arrival. She does claim that she went to her surgeon after dropping all of her medications but that they did not prescribe her more. When I asked the patient to be clear with me what her specific concern was tonight, she states she is out of Zofran and is having nausea and vomiting and that the pain in her hand is extreme, severe because she does not have the medications she is supposed to have. She denies fevers or chills, no chest pain or difficulty breathing though she states when I get excited I feel short of breath she indicates that she has anxiety and COPD. She is saturating well on room air. She reports follow-up for her right hand on the . No diarrhea or constipation. Patient indicates that she may have hepatitis but I cannot get a clear answer from her or family about this. No other complaints or concerns. Related Data Previous Rx's ?Medication ?Instructions ?Recorded ondansetron 4 mg disintegrating 4 mg PO Q6H PRN nausea and 05/26/25 tablet vomiting #10 tabs Allergies Allergy/AdvReac Type Severity Reaction Status Date / Time morphine Allergy Unknown Verified 05/25/25 22:49 allergy reaction [facility] Disclaimer: The information contained in this section may have been updated after the patient was seen, as this information can be updated by other users. Social History Smoking Status: Current every day smoker alcohol intake: current current occupational status: unemployed Travel in the last 8 weeks?: None ROS Obtained: Yes Systems reviewed as appropriate & no additional complaints except as documented per HPI Physical Exam General General appearance: alert, in no apparent distress and anxious Comment: Overweight Head Head exam: atraumatic and normocephalic Eye Eye exam: Present PERRL (3 mm reactive to light) and EOMI ENT ENT exam: Present mucous membranes moist Neck Neck exam: Present normal inspection and full ROM Chest Chest inspection: Present symmetric chest wall rise; Absent tenderness Respiratory Respiratory exam: Present normal lung sounds bilaterally and other (97% on room air no adventitious sounds, moving air well); Absent respiratory distress, wheezes or stridor Cardiovascular Cardiovascular exam: Present normal rhythm and tachycardia (Mild, likely associated with her agitation and anxiety) Abdominal Exam Abdominal exam: Present soft and tenderness (mild epigastric); Absent distention, guarding or rebound Extremities Exam Extremities exam: Present full ROM and other (Right upper extremity with postsurgical splint in place, removed the Eddie wrap to examine the skin -did not take down the plaster splint. Skin is warm, dry, well-perfused, was able to visualize part of the surgical incision which does not demonstrate infection. Neurovascularly intact. ); Absent edema Neurological Exam Neurological exam: Present alert and oriented X3; Absent motor sensory deficit Psychiatric Psychiatric exam: Present normal affect and normal mood Skin Skin exam: Present warm and dry Medical Decision Making Medical Records Screening: Per USPSTF and CDC recommendations, given the prevalence of disease in our region, it is our hospital?s policy to screen for HIV and viral Hepatitis for all patients aged 18 and over and those with ongoing risk factors. [place] Inquiry Pt receiving controlled substance: No Vital Signs: 05/25/25 22:41 Temperature 99.2 F Temperature Source Oral Pulse Rate [Left] 105 H Respiratory Rate 18 Blood Pressure Source [Right Arm] Manual Cuff/ Doppler Blood Pressure Position [Right Arm] Sitting 02 Sat by Pulse Oximetry 97 Oxygen Delivery Method Room Air Lab Data Lab Results 05/25/25 22:59: Urine Color Yellow, Urine Appearance Clear, Urine pH 6.0, Ur Specific [place] <= 1.005, Urine Protein Negative, Urine Glucose (UA) Negative, Urine Ketones Negative, Urine Blood Negative, Urine Nitrate Negative, Urine Bilirubin Negative, Urine Urobilinogen 0.2, Ur Leukocyte Esterase Negative, Urine RBC None, Urine WBC None, Ur Squamous Epith Cells Occasional, Urine Bacteria None, Urine Opiates Screen Negative, Urine Methadone Screen Negative, Ur Barbituates Screen Negative, Ur Phencyclidine Scrn Negative, Ur Amphetamines Screen Negative, U Benzodiazepines Scrn Negative, Urine Cocaine Screen Negative, U Marijuana (THC) Screen Positive H 05/25/25 23:45: WBC 13.4 H, RBC 3.94 L, Hgb 13.3, Hct 39.1, MCV 99.2 H, MCH 33.8 H, MCHC 34.0, RDW 11.9, Plt Count 308, MPV 9.5, Neut % (Auto) 58.6, Lymph % (Auto) 29.8, Tyler % (Auto) 9.8 H, Eos % (Auto) 1.2, Baso % (Auto) 0.4, Neut # (Auto) 7.8, Lymph # (Auto) 4.0, Tyler # (Auto) 1.3 H, Eos # (Auto) 0.2, Baso # (Auto) 0.1 05/25/25 23:45 Orders (Tests/Meds): ED MEDICATIONS Generic Name Dose Route Start Last Admin Trade Name Freq PRN Reason Stop Dose Admin Lactated Ringer's 1,000 mls @ 999 mls/hr 05/25/25 23:10 05/25/25 23:36 Lactated Ringer's 1000 Ml Bag IV 05/26/25 00:10 999 mls/hr .Q1H1M ONE Administration Discontinued Medications Generic Name Dose Route Start Last Admin Trade Name Freq PRN Reason Stop Dose Admin Irbesartan 37.5 mg 05/25/25 23:20 05/25/25 23:50 Irbesartan 75mg Tablet PO 05/25/25 23:21 37.5 mg ONCE ONE Administration Ondansetron HCl 4 mg 05/25/25 23:10 05/25/25 23:36 Ondansetron 4mg/2ml Vial IV 05/25/25 23:11 4 mg ONCE ONE Administration Oxycodone HCl 5 mg 05/25/25 23:11 05/25/25 23:36 Oxycodone 5mg Immediate Release Tablet PO 05/25/25 23:12 5 mg ONCE ONE Administration ORDERS Category Date Time Status CT abdomen pelvis w con Stat Cat Scan 05/25/25 23:10 Ordered CBC w/Auto Diff [Complete Blood Count Auto Diff] Stat Lab 05/25/25 23:45 Completed CMP [Comprehensive Metabolic Panel] Stat Lab 05/25/25 23:45 Received HIV Combo Stat Lab 05/25/25 22:49 Ordered Hepatitis C Ab Qual. W/ RFX Stat Lab 05/25/25 22:49 Ordered Lactic Acid Stat Lab 05/25/25 23:45 Received Lipase Stat Lab 05/25/25 23:45 Received Trop I [Troponin I] Stat Lab 05/25/25 23:45 Received Troponin I Q3H Lab 05/26/25 02:15 Ordered Troponin I Q3H Lab 05/26/25 05:15 Ordered UA [Urinalysis and Microscopic] Stat Lab 05/25/25 22:59 Completed UDS [Drug Screen,Urine] Stat Lab 05/25/25 22:59 Completed ECG Request Stat Y 05/25/25 23:10 Ordered Medical Decision Narrative: In summary, this 64-year-old female with comorbidities described in the HPI not at goal therapy presents to the emergency department today with complaints of nausea and vomiting as well as postsurgical pain in the right hand. On initial evaluation patient is tachycardic but otherwise hemodynamically stable, afebrile, saturating well on room air, pulmonary exam benign, no peripheral edema, abdominal exam with mild epigastric tenderness but no rebound or guarding, no peritonitic findings, patient has no chest wall tenderness, right upper extremity appears well postoperatively with no evidence of infection, neurovascularly intact, patient is obviously anxious. Differential diagnosis includes but is not limited to postoperative nausea and vomiting, pancreatitis, transaminitis, considered mesenteric ischemia though her persistent symptoms for the last month make this unlikely, considered bowel obstruction, constipation, patient is noncompliant with medications and taking other peoples meds which is very concerning and could be causing various side effects, I considered urinary tract infection, electrolyte abnormality, dehydration, also considered the possibility of atypical presentation of ACS though I have lower suspicion for this. Review of records including her PDMP demonstrates that since 05/12/2025 patient has had 3 separate prescriptions for oxycodone or Percocet. On the she filled a prescription for 10 Percocet fives, on the she filled a prescription for 14 Percocet 7.5's at a different pharmacy from a different prescriber, and on 05/19 after her hand surgery reportedly she filled a prescription for oxycodone 5 mg, quantity 30, at a different pharmacy with a different prescriber. I am very concerned that patient's habits are indicative of malingering/secondary gain and inappropriate use of her medications. Ruling out the most morbid conditions for my assessment. Based on these concerns, I ordered serum labs, urine studies, CT abdomen pelvis, cardiac workup. ECG personally interpreted demonstrates sinus tachycardia, rate 104, left axis deviation, normal OR and QTc, Q waves in the inferior leads with no STEMI likely indicative of previous inferior insult. No previous ECG available for review. While I am concerned that patient is here in part for secondary gain and is malingering and I am going to give her 1 dose of her home dose oxycodone, 5 mg, while I obtain workup in the ER since she did recently have surgery. I ready explained to the patient that I will not be prescribing her any narcotics or other pain medications and that she needs to call her surgeon for follow-up and any pain medication prescriptions or refills. Patient was hypertensive and states she has not taken her losartan. I do not see losartan as a home prescription but she states she believes she takes 50 mg of it, maybe 25. Losartan is not on formulary here but irbesartan is. Because she is unsure of her dose I am only giving her a low dose. This was administered to help with her hypertension though she is not symptomatic from it. Labs personally reviewed demonstrate UA negative for findings of infection, UDS is only positive for THC, patient states she occasionally hits a THC vape pen. This is not consistent with her reporting use of Suboxone, and she also does not have benzos positive though she was prescribed alprazolam on 05/18. This increases my concern for inappropriate medication use. With the presence of THC in her urine and patient admitting to routine THC use, this could also be contributing to her recurrent vomiting potentially cannabis hyperemesis or cyclic vomiting syndrome due to THC use. I discussed this at length with patient and family and recommended cessation of all cannabis/THC use and abstinence from it in the future. Additional labs reviewed by me demonstrate mild leukocytosis WBC 13.4 is nonspecific, nonactionable at this time, this is likely related to patient's recent operation. She does not have neutrophilia or left shift. Lactic normal at 1.1. CMP with trace hypokalemia, oral repletion provided. Lipase normal at 22 reassuring against pancreatitis, no transaminitis, good kidney function, trop 0.01. No evidence of endorgan damage from her hypertension. I do not believe patient requires serial troponins since she has had multiple days of symptoms and has no chest pain or difficulty breathing. XR personally interpreted demonstrates no acute intrathoracic abnormality, see radiology read for final interpretation. CT imaging personally interpreted demonstrate no bowel obstruction, no pancreatic mass, no free air or perforation, there are stones in the lower pole of the left kidney but no ureterolithiasis or hydronephrosis. See radiology read for final interpretation which discusses no acute intra-abdominal pathology. On reassessment patient has tolerated oral intake. Heart rate has improved with IV fluids now in the low 90s. She is appropriate for discharge at this time. Blood pressure has also improved significantly. She continues saturating well on room air, resting comfortably, pain in her hand is controlled, much less anxious than she was on arrival. I prescribed Zofran for outpatient management of nausea and vomiting. No other prescriptions were provided to the patient at this time. She was instructed to call her surgeons office to discuss pain management. She was instructed to follow-up with her primary care doctor for reevaluation. She was also given strict return precautions for the ER. She indicated understanding and the patient was discharged in stable condition. Critical Care Critical Care Time Critical Care Time: No
[2025-05-25 23:22] LABS: Squamous Epithelial Cell,Urine Occasional #/hpf (0-5)
[2025-05-25 23:28] LABS: Barbiturates Screen,Urine Negative ng/ml (<200); Benzodiazepines Screen,Urine Negative ng/ml (<200)
[2025-05-25 23:29] LABS: Amphetamine/Metha Screen,Urine Negative ng/ml (<1000)
[2025-05-25 23:31] LABS: Methadone Screen,Urine Negative ng/ml (<300); Opiate Screen,Urine Negative ng/ml (<300)
[2025-05-25 23:32] LABS: Phencyclidine Screen,Urine Negative ng/ml (<25)
[2025-05-25] MEDS: ONDANSETRON 4MG/2ML VIAL 4 MG IV (23:36)
[2025-05-25] MEDS: LACTATED RINGERS 1000ML 1,000 ML 999 ML IV (23:36)
[2025-05-25] MEDS: OXYCODONE 5MG IMMEDIATE RELEASE TABLET 5 MG PO (23:36)
--- NOTE | 2025-05-25 23:36 | ECG_ITS ---
APPROVED REPORT Exam: Resting ECG HR:104 bpm ECG Measurements Heart Rate 104 AXES MT 143 P 69 QRSd 97 QRS -40 QT 351 T 69 QTc 411 Conclusion SINUS TACHYCARDIA LEFT AXIS DEVIATION [QRS AXIS < -30] PROBABLE INFERIOR MYOCARDIAL INFARCTION , OF INDETERMINATE AGE [35 ms Q WAVE IN II/aVF] No STEMI Electronically signed by : MALA HERMAN, 05/27/2025 07:11:04
[2025-05-25] MEDS: IRBESARTAN 75MG TABLET 37.5 MG PO (23:50)
[2025-05-25 23:56] LABS: Hematocrit 39.1 % (37.0-47.0); Hemoglobin 13.3 g/dL (12.2-16.2); Immature Granulocytes % 0.2 %; Mean Corpuscular HGB Conc 34.0 g/dL (31.8-35.4); Mean Corpuscular Hemoglobin 33.8 pg (27.0-31.2); Mean Corpuscular Volume 99.2 fl (81-99); Nucleated Red Blood Cells % 0 %; Platelet Count 308 K/mm3 (142-424); Red Blood Count 3.94 M/mm3 (4.20-5.40); Red Cell Distribution Width-SD 43.9 fL; White Blood Count 13.4 K/mm3 (4.8-10.8)
[2025-05-26] VITALS: BP 161/89; PULSE 98; O2SAT 95
[2025-05-26 00:06] LABS: Alanine Aminotransferase 23 U/L (12-78); Albumin Level 4.3 g/dl (3.5-5.0); Albumin/Globulin Ratio 1.3 (1.1-1.8); Alkaline Phosphatase 89 U/L (38-126); Anion Gap 12.4 mEq/L (5-15); Aspartate Amino Transferase 33 U/L (14-36); Bilirubin,Total 0.8 mg/dl (0.2-1.3); Blood Urea Nitrogen 9 mg/dl (7-17); Calcium 9.8 mg/dl (8.4-10.2); Carbon Dioxide 23 mmol/L (22.0-30.0); Chloride 106 mmol/L (98-107); Creatinine Clearance Estimated 75 mL/min (50-200); Creatinine,Serum 0.70 mg/dl (0.52-1.04); Estimated Glomerular Filt Rate 85 ml/min (>60); GFR (African American) 102 ML/MIN (>60); Globulin 3.3 g/dL (1.3-3.2); Glucose 133 mg/dl (74-100); Lipase 22 U/L (23-300); Potassium 3.4 mmoL/L (3.5-5.1); Sodium 138 mmol/L (136-145); Total Protein,Serum 7.6 g/dl (6.3-8.2)
--- NOTE | 2025-05-26 00:16 | XR_ITS ---
PROCEDURE INFORMATION: Exam: XR Chest Exam date and time: 05/26/2025 12:21 AM Age: 64 years old Clinical indication: Other: Tachy; Additional info: Vomiting tachy TECHNIQUE: Imaging protocol: Radiologic exam of the chest. Views: 1 view. COMPARISON: CT ABDOMEN PELVIS W CON 05/26/2025 12:17 AM FINDINGS: Lungs: Unremarkable. No consolidation. Pleural spaces: Unremarkable. No pleural effusion. No pneumothorax. Heart/Mediastinum: Unremarkable. No cardiomegaly. Bones/joints: Unremarkable. IMPRESSION: No acute findings.
--- OUTSIDE RECORDS SUMMARY | 2025-05-26 00:18 | XMS_ITS | CCD ---
Author Organization Unknown Care Team Providers Care Adult High School Instructor Name Role Phone Unavailable Primary Care Provider Unavailabl e Unavailable Chronic Care Management Unavaila ble Summary Purpose DataExchange Insurance Providers Payer name Policy type / Coverage type Covered libertarian ID Effective Begin Date Effective End Date [facility] [id number] Unknown Unknown Family History Family History data not found Medication Administered No Medication Administered data Reason For Visit No Reason For Visit data Medical Equipment No Medical Equipment data Advance Directives No Advance Directive data
[2025-05-26] MEDS: POTASSIUM CHLORIDE 20MEQ TAB 20 MEQ PO (00:26)
[2025-05-26] MEDS: IOPAMIDOL-370 (76%);100ML BOTTLE 75 ML IV (00:27)
[2025-05-26] MEDS: SODIUM CHLORIDE 0.9% 10ML SYR (RAD ONLY) 10 ML IV (00:27)
[2025-05-26 00:30] VITALS: BP 147/81; PULSE 96; O2SAT 94
[2025-05-26 00:30] LABS: Troponin I 0.01 ng/ml (0.00-0.034)
[2025-05-26] MEDS: ONDANSETRON 4MG/2ML VIAL 4 MG IV (00:56)
[2025-05-26 01:05] VITALS: BP 156/95; PULSE 98; RESP 18; TEMP 36.9; O2SAT 98
[2025-05-26 03:23] LABS: Hepatitis C Ab Qual. W/ RFX REACTIVE (Negative)
== END 2025-05-26 01:06 | disposition home or self-care (01) ==
PROVIDERS: Student in an Organized Health Care Education/Training Program; Emergency Provider Emergency Medicine
DX: R11.15 Cyclical vomiting syndrome unrelated to migraine (principal); F12.188 Cannabis abuse with other cannabis-induced disorder; R00.0 Tachycardia, unspecified; I10 Essential (primary) hypertension; G89.18 Other acute postprocedural pain; F17.210 Nicotine dependence, cigarettes, uncomplicated
CPT/HCPCS: 71045; 74177; 80053; 80307; 81001; 83605; 83690; 84484; 85025; 86803; 87389; 87522; 93005; 96361; 96374; 96375; 99285; J2405; J7120; Q9967

== ENCOUNTER 2025-06-01 11:07 | Outpatient (CLI) | payer MEDICARE, SELFPAY ==
--- OUTSIDE RECORDS SUMMARY | 2025-05-12 16:30 | XMS_ITS | Encounter Summary ---
Author Organization [facility] Address [address] [place] [address] Care Team Providers Care Cadd Manager Name Role Phone Jacquelyn Desouza APRN Primary Care Provider [phone]- [phone] Reason for Referral * Consultation (Urgent) - Closed Specialty Diagnoses / Procedures Referred By Sully de los santos Referred To Contact Orthopedic Surgery Diagnoses Right hand pain Closed nondisplaced fracture of phalanx of right ring finger, unspecified phalanx, initial encounter Chace Michaels MD [address] [place] [address] [place] [address] Phone: tel: fax: [facility] [address] [place] [phone] Phone: tel: fax: Referral ID Status Reason Start Date Expiration Date V isits Requested Visits Authorized [id number] Closed Specialty Services Required 05/12/2025 08/11/2026 1 1 Reason for Visit * Reason Comments Fall Complaints of fall a nd right hand injury. Patient states that she fell last night at home. Patient states that she was trying to sit down in a chair when she fell face first. Patient was treated at [facility]. Hand Injury Vomiting Complaints of vomiti ng. Patient states that this has been on going since Thursday. Encounter Details Date Type Department Care Team (Late st Contact Info) Description 05/12/2025 4:30 PM EDT Office Visit [facility] [address] [place] [address] Chace Michaels MD [address] [place] [address] Closed nondisplaced fracture of phalanx of right ring finger, unspecified phalanx, initial encounter (Primary Dx); Right hand pain; Tachycardia; Viral gastroenteritis; Essential hypertension Social History Tobacco Use Types Packs/Day Years Used Date Smoking Tobacco: Every Day Cigarettes 1 45 Passive Smoke Exposure: Current Smokeless Tobacco: Never Alcohol Use Standard Drinks/Week Comments No 0 (1 standard drink = 0.6 oz pur e alcohol) AUDIT-C Answer Date Recorded Q1: How often do you have a drink containing alcohol? Never 05/18/2023 Q2: How many drinks containi ng alcohol do you have on a typical day when you are drinking? Patient does not drink Q3: How often do you have si x or more drinks on one occasion? Never 05/18/2023 Overall Financial Resource Strain (CARDIA) Answe r Date Recorded How hard is it for you to pa y for the very basics like food, housing, medical care, and heating? Somewhat hard 02/21/2023 PHQ-2 Answer Date Recorded Retired PHQ-9: Brief Depression Severity Measure Score 0 05/06/2023 Hunger Vital Sign Answer Date Recorded Within the past 12 months, y ou worried that your food would run out before you got the money to buy more. Sometimes true Within the past 12 months, t he food you bought just didn't last and you didn't have money to get more. Often true 03/2023 PRAPARE - Transportation Answer Date Re corded In the past 12 months, has l ack of transportation kept you from medical appointments or from getting medications? No 03/2023 In the past 12 months, has l ack of transportation kept you from meetings, work, or from getting things needed for daily living? No 02/21/2023 Housing Stability Vital Sign Answer Epi e Recorded In the last 12 months, was t here a time when you were not able to pay the mortgage or rent on time? No 02/21/2023 In the last 12 months, how many places have you lived? 1 02/21/2023 In the last 12 months, was t here a time when you did not have a steady place to sleep or slept in a snf (including now)? No 02/21/2023 Abuse Screen Answer Date Recorded Feels Unsafe at Home or Work/School no 05/18/2023 Feels Threatened by Someone no 04/20 Does Anyone Try to Keep You From Having Contact with Others or Doing Things Outside Your Home? no 05/18/2023 Physical Signs of Abuse Present no 05/18/2023 Housing Stability Answer Date Recorded Current Living Arrangements home 04/20 Potentially Unsafe Housing Conditions Not on radha e 05/18/2023 Disabilities Answer Date Recorded Difficulty Concentrating, Remembering or Making Decisions no 05/18/2023 Difficulty Managing Errands Independently yes 05/18/2023 Education Answer Date Recorded Help with school or training? Not on file Preferred Language Korean 05/13/2023 PHQ-2 Answer Date Recorded Retired PHQ-9: Brief Depression Severity Measure Score 0 11/24/2023 Comments No Sex and Gender Information Value Date Recorded Sex Assigned at Not on file Legal Sex Female 10:41 AM EDT Gender Identity Not on file Sexual Orientation Not on file documented as of this encounter Last Filed Vital Signs Vital Sign Reading Time Taken Comments Blood Pressure 140/90 05/12/2025 4:12 PM EDT Pulse 105 05/12/2025 5:42 PM EDT Temperature - - Respiratory Rate - - Oxygen Saturation 98% 05/12/2025 4:12 PM EDT Inhaled Oxygen Concentration - - Weight - - Height 162.6 cm (5' 4.02 ) 05/12/2025 4:12 PM ED T Body Mass Index - - documented in this encounter Progress Notes * Chace Michaels MD - 05/12/2025 4:30 PM EDT Images from the original note were not included. Same Day Office Visit Date: 05/12/2025 Patient Name: Shiela Nathan : 1960 Chief Complaint: Chief Complaint Patient presents with Fall Complaints of fall and right hand injury. Patient states that she fell last night at home. Patient states that she was trying to sit down in a chair when she fell face first. Patient was treated at [facility]. Hand Injury Vomiting Complaints of vomiting. Patient states that this has been on going since Thursday. History of Present Illness: Shiela Nathan is a 64 y.o. female who is here today for recent fall. Patient reports that she fell last night at home. Patient reports that she was trying to sit in a chair when she missed her chair tripping over a tool box falling trying to catch herself with her right hand hitting the floor and feeling a pop. Patient reports that she is not exactly sure the movement her right hand made during this time. Patient reports that following this her hand was in extremepain and patient sought care in the emergency setting at [facility]. Patientreports that they told her that her ring finger was broken and to follow up with her regular orthopedic provider. Patient report that they called her in oxycodone but she has not been able to pick this up as she does not have any money. Patient reports that she has recently had vomiting and diarrhea over the past week. Patient has notbeen around anyone sick that she is aware of. Patient reports that she is almost 80% better from this. Subjective I have reviewed the patients family history, social history, past medical history, past surgical history and have updated it as appropriate. Medications: Current Outpatient Medications: acetaminophen (TYLENOL) 500 MG tablet, Take 2 tablets by mouth., Disp: , Rfl: albuterol sulfate HFA 108 (90 Base) MCG/ACT inhaler, Inhale 2 puffs Every 4 (Four) Hours As Needed for Wheezing., Disp: 18 g, Rfl: 3 Lzthcua-Pkkdhpldtvy-Tnvkjpnirc (Breztri Aerosphere) 160-9-4.8 MCG/ACT aerosol inhaler, Inhale 2 puffs 2 (Two) Times a Day. Rinse mouth out after use, Disp: 1 each, Rfl: 5 guaiFENesin (Mucinex) 600 MG 12 hr tablet, Take 2 tablets by mouth 2 (Two) Times a Day As Needed for Cough or Congestion., Disp: 30 tablet, Rfl: 1 ibuprofen (ADVIL,MOTRIN) 600 MG tablet, Take 1 tablet by mouth., Disp: , Rfl: ipratropium-albuterol (DUO-NEB) 0.5-2.5 mg/3 ml nebulizer, Take 3 mL by nebulization Every 4 (Four)Hours As Needed for Wheezing., Disp: 360 mL, Rfl: 0 levoFLOXacin (LEVAQUIN) 500 MG tablet, Daily., Disp: , Rfl: losartan (COZAAR) 100 MG tablet, Take 1 tablet by mouth Daily., Disp: 90 tablet, Rfl: 1 metoprolol succinate XL (TOPROL-XL) 25 MG 24 hr tablet, Take 1 tablet by mouth Daily. (Patient taking differently: Take 2 tablets by mouth Daily.), Disp: 90 tablet, Rfl: 1 nitroglycerin (Nitrostat) 0.4 MG SL tablet, Place 1 tablet under the tongue Every 5 (Five) Minutes As Needed for Chest Pain. Take no more than 3 doses in 15 minutes., Disp: 25 tablet, Rfl: 1 ondansetron (Zofran) 8 MG tablet, Take 1 tablet by mouth Every 6 (Six) Hours As Needed for Nausea or Vomiting., Disp: 60 tablet, Rfl: 1 ondansetron ODT (ZOFRAN-ODT) 4 MG disintegrating tablet, , Disp: , Rfl: oxyCODONE-acetaminophen (PERCOCET) 5-325 MG per tablet, , Disp: , Rfl: pantoprazole (Protonix) 20 MG EC tablet, Take 1 tablet by mouth Daily., Disp: 30 tablet, Rfl: 2 potassium chloride (MICRO-K) 10 MEQ CR capsule, Take 1 capsule by mouth 2 (Two) Times a Day. (Patient taking differently: Take 1 capsule by mouth 2 (Two) Times a Day. prn), Disp: 60 capsule, Rfl: 5 predniSONE (DELTASONE) 20 MG tablet, Take 2 tablets by mouth Daily., Disp: 10 tablet, Rfl: 0 No current facility-administered medications for this visit. Allergies: Allergies Allergen Reactions Codeine Itching Hydrocodone Nausea And Vomiting and Rash Penicillins Nausea And Vomiting Objective Physical Exam: Vital Signs: Vitals: 05/12/25 1612 05/12/25 1742 BP: 140/90 Pulse: (!) 127 105 SpO2: 98% Height: 162.6 cm (64.02 ) Body mass index is 35.17 kg/m??. Physical Exam General: Older female in no acute distress. Alert and oriented. Vitals reviewed: hypertensive and tachycardic on arrival, tachycardia somewhat improved on recheck Head/ENT: Atraumatic. Neck: Anatomy appears symmetrical. Cardiac: Tachycardic on arrival, some improvement on recheck. Pulmonary: No signs of respiratory distress. Extremities: Right upper extremity/hand shows bruising/swelling on dorsal and ventral aspect of hand especially concentrated around 3rd, 4th, and 5th digits. There are no open wounds on patient hand.Hand appears to be perfused with intact sensation. Patient is unable to close 3rd, 4th, and 5th digits. Integumentary/Skin: See extremities. Skin otherwise appears unremarkable for acute process from observable skin surfaces. Neurological: Normal speech. Procedures Assessment / Plan 1. Right hand pain - Ambulatory Referral to Orthopedic Surgery - ketorolac (TORADOL) injection 30 mg - XR Hand 3+ View Right (In Office) - XR Wrist 3+ View Right (In Office) 2. Closed nondisplaced fracture of phalanx of right ring finger, unspecified phalanx, initial encounter - Ambulatory Referral to Orthopedic Surgery - ketorolac (TORADOL) injection 30 mg - XR Hand 3+ View Right (In Office) - XR Wrist 3+ View Right (In Office) 3. Tachycardia 4. Viral gastroenteritis 5. Essential hypertension Assessment & Plan 1. Right hand pain/fracture of phalanx - Fell while attempting to sit in her chair yesterday evening, injuring her hand - Significant bruising involving fourth digit of right hand, as well as bruising of third and fifthdigits and surrounding hand - Discharge paperwork from [facility] appears to confirm finger fracture, but no imaging available or specific finger mentioned - Will try and obtain new XR of right wrist and hand. XR in office is closed for the day, however, have encouraged patient to try and get this done at hospital. Patient has voiced concerns regarding ability to pay for this. - Urgent orthopedic referral placed for provider in [place]. Will try and get this expedited. - Hand wrapped in office today. - Patient was provided oxycodone at hospital though reports she cannot pick this up as she has no money. Will provide Toradol in office today - Encouraged to seek emergency care for severe, uncontrollable pain given inability to picking tech prescription medication and follow up with orthopedic appointment once scheduled 2. Tachycardia - Tachycardia on arrival, improved somewhat on repeat - Currently thought secondary to pain - Reassess at follow up with PCP next week - Patient to seek care in ED for chest pain, shortness of breath, or palpitations 3. Viral gastroenteritis - Reports nauseated and sick for most of the week, symptoms improving now - Symptoms appear consistent with viral gastroenteritis - No intervention at present given patient appears almost recovered 4. Hypertension - Patient hypertensive today - Possible contribution by patient pain from hand - Will follow up with regular PCP next week for reassessment - If continuing elevation would recommend alteration in antihypertensive therapy Follow Up: Return in about 1 week (around 05/19/2025). Chace Michaels MD [facility] [address] [place] [address] [place] [facility] [phone] documented in this encounter Plan of Treatment Upcoming Encounters Date Type Department Care Team (Late st Contact Info) Description 06/01/2025 2:10 PM EDT Office Visit [facility] [address] [place] [address] Delaney Concepcion MD [address] [facility] [address] [place] [address] 06/22/2025 1:15 PM EDT Office Visit [facility] [address] [place] [phone] Olivia Morales APRN [address] [facility] [address] [place] [address] Scheduled Orders Name Type Priority Associated Diagnoses Orde r Schedule XR Hand 3+ View Right (In Office) Imaging Routine Right hand pain Closed nondisplaced fracture of phalanx of right ring finger, unspecified phalanx, initial encounter Ordered: 05/12/2025 XR Wrist 3+ View Right (In Office) Imaging Routine Right hand pain Closed nondisplaced fracture of phalanx of right ring finger, unspecified phalanx, initial encounter Ordered: 05/12/2025 Scheduled Referrals Name Type Priority Associated Diagnoses Orde r Schedule Ambulatory Referral to Orthopedic Surgery Outpatient Referral Routine Right hand pain Closed nondisplaced fracture of phalanx of right ring finger, unspecified phalanx, initial encounter Ordered: 05/12/2025 documented as of this encounter Visit Diagnoses Diagnosis Closed nondisplaced fracture of phalanx of right ring finger, unspecified phalanx, initial encounter- Primary Right hand pain Pain in soft tissues of limb Tachycardia Unspecified tachycardia Viral gastroenteritis Intestinal infection due to other organism, NEC Essential hypertension Unspecified essential hypertension documented in this encounter Administered Medications Inactive Administered Medications - up to 3 most recent administrations Medication Order MAR Action Action Date Dose Rate Site ketorolac (TORADOL) injection 30 mg 30 mg, Intramuscular, Once, On Thu05/12/25 at 1713, For 1 dose, ([facility]) Based on patient request - if ordered for moderate or severe pain, provider allows for administration of a medication prescribed for a lower pain scale. ([facility]) If given for pain, use the following pain scale: Mild Pain = Pain Score of 1-3, CPOT 1-2 Moderate Pain = Pain Score of 4-6, CPOT 3-4 Severe Pain = Pain Score of 7-10, CPOT 5-8Indications:Right hand pain,Closed nondisplaced fracture of phalanx of right ring finger, unspecified phalanx, initial encounter Given 05/12/2025 5:43 PM EDT 30 mg Right Ventrogluteal documented in this encounter Care Teams Cadd Manager Relationship Specialty Start Date End Date Jacquelyn Desouza APR[place] [address] PCP - General Nurse Practitioner 08/25/22 documented as of this encounter
--- OUTSIDE RECORDS SUMMARY | 2025-05-15 13:00 | XMS_ITS | Encounter Summary ---
Author Organization [facility] Address [address] [place] [address] Care Team Providers Care Market Superintendent Name Role Phone Jacquelyn Desouza APRN Primary Care Provider [phone]- [phone] Reason for Referral * Consultation (Urgent) - Closed Specialty Diagnoses / Procedures Referred By Contact Referred To Contact Hand Surgery / Orthopedic Surgery Diagnoses Closed displaced fracture of proximal phalanx of right ring finger, initial encounter Closed displaced fracture of proximal phalanx of right little finger, initial encounter Procedures [place] OFFICE/OUTPATIENT NEW MODERATE MDM 45 MINUTES Maximiliano Pink PA-C [address] [address] Phone: tel: fax: Delaney Concepcion MD [address] [facility] [address] [place] [address] Phone: tel: fax: Referral ID Status Reason Start Date Expiration Date V isits Requested Visits Authorized [id number] Closed Specialty Services Required 05/15/2025 08/14/2026 1 [...] phalanx, initial encounter Chace Michaels MD [address] [place] [address] Phone: tel: fax: [facility] [address] [address] Phone: tel: fax: Referral ID Status Reason Start Date Expiration Date V isits Requested Visits Authorized Closed Specialty Services Required 05/12/2025 08/11/2026 1 1 Encounter Details Date Type Department Care Team (Late st Contact Info) Description 05/15/2025 1:00 PM EDT Office Visit [facility] [address] [phone] Maximiliano Pink PA-C [address] [place] [phone] Right hand pain (Primary Dx); Closed [...] place to sleep or slept in a half-way (including now)? No 02/21/2023 Abuse Screen Answer [...] or training? Not on file Preferred Language Greek 05/13/2023 PHQ-2 Answer Date Recorded Retired PHQ-9: [...] ARTHROPLASTY Left done by Dr. Brown in [place] VAGINAL DELIVERY x 3 VENTRAL/INCISIONAL HERNIA REPAIR [...] for Wheezing., Disp: 18 g, Rfl: 3 Wtvpcha-Hkpezlhxavv-Kpopvryyjv (Breztri Aerosphere) 160-9-4.8 MCG/ACT aerosol inhaler, Inhale [...] Description 06/01/2025 2:10 PM EDT Office Visit [facility] [address] [address] Delaney Concepcion MD [address] [address] 06/22/2025 1:15 PM EDT Office Visit [facility] [address] [place] [phone] Olivia Morales APRN [address] [facility] [address] [facility] [address] [place] [address] Scheduled Referrals Name Type Priority Associated Diagnoses [...] fifth digit with perhaps mild dorsal displacement. Maximiliano Pink PA-C [facility] ORDERAB LES Final Result documented [...] Dorsogluteal documented in this encounter Care Teams Market Superintendent Relationship Specialty Start Date End Date Jacquelyn Desouza APRN [address] [place] [address] PCP - General Nurse Practitioner 08/25/22 documented as of this encounter
--- OUTSIDE RECORDS SUMMARY | 2025-05-18 13:50 | XMS_ITS | Encounter Summary ---
Author Organization [facility] Address [address] [place] [address] Care Team Providers Care Tool Design Drafter Name Role Phone Jacquelyn Desouza APRN Primary Care Provider +1- [phone] Reason for Visit * Reason Comments Pain Fall 05/11/25 * Consultation (Urgent) - Closed Specialty Diagnoses / Procedures Referred By Contact Referred To Contact Hand Surgery / Orthopedic Surgery Diagnoses Closed displaced fracture of proximal phalanx of right ring finger, initial encounter Closed displaced fracture of proximal phalanx of right little finger, initial encounter Procedures HI OFFICE/OUTPATIENT NEW MODERATE MDM 45 MINUTES Maximiliano Pink PA-C [address] [address] Phone: tel: fax: Delaney Concepcion MD [address] [address] Phone: tel: fax: Referral ID Status Reason Start Date Expiration Date V isits Requested Visits Authorized [id number] Closed Specialty Services Required 05/15/2025 08/14/2026 1 1 Encounter Details Date Type Department Care Team (Late st Contact Info) Description 05/18/2025 1:50 PM EDT Office Visit [facility]TS MEDICINE [address] [place] [address] Delaney Concepcion MD [address] [place] [address] Closed fracture of phalanx of digit of hand with routine healing, subsequent encounter (Primary Dx); Right hand pain Social History Tobacco Use Types Packs/Day Years [...] place to sleep or slept in a senior living (including now)? No 02/21/2023 Abuse Screen Answer [...] or training? Not on file Preferred Language Mohawk 05/13/2023 PHQ-2 Answer Date Recorded Retired PHQ-9: Brief Depression Severity Measure Score 0 11/24/2023 Comments No Sex and Gender Information Value Date Recorded Sex Assigned at Not on file Legal Sex Female 10:41 AM EDT Gender Identity Not on file Sexual Orientation Not on file documented as of this encounter Last Filed Vital Signs Vital Sign Reading Time Taken Comments Blood Pressure 152/88 05/18/2025 2:15 PM EDT Pulse - - Temperature - - Respiratory Rate - - Oxygen Saturation - - Inhaled Oxygen Concentration - - Weight 82.8 kg (182 lb 8.7 oz) 05/18/2025 2:15 P M EDT Height 162.6 cm (5' 4.02 ) 05/18/2025 2:15 PM ED T Body Mass Index 31.32 05/18/2025 2:15 PM EDT documented in this encounter Progress Notes * Karina Amador CMA - 05/18/2025 1:50 PM EDTAddended by: KARINA AMADOR on: 05/18/2025 03:34 PM Modules accepted: Orders * Delaney Concepcion MD - 05/18/2025 1:50 PM EDT Images from the original note were not included. [facility] Orthopedic Office Visit Date: 05/18/2025 Patient Name: Shiela Nathan Date of : 1960 Referring Physician: Maximiliano Pink PA-C Chief Complaint: Chief Complaint Patient presents with Right Hand - Pain Fall 05/11/25 History of Present Illness: Shiela Nathan is a 64 y.o. female zmogx-rqes-eqdoeutk presented clinic as new patient with complaints of right hand pain. Patient reports that on 05/07/2025 she fell out of the chair injuring her right hand. She developed immediate pain and swelling to the hand and digits. This is worse to the ring and small fingers. Her pain today is 8/10. She has previously been evaluated by an outside orthopedic surgeon where x-rays were obtained and she was referred for further management. She has been darryl removable ulnar gutter splint. She has been taking anti-inflammatories as well as prescribed narcotics. She is a current half pack per day smoker. No other complaints or concerns. Subjective Review of Systems: Review of Systems Pertinent review of systems per HPI I reviewed the patient's chief complaint, history of present illness, review of systems, past medical history, surgical history, family history, social history, medications and allergy list in the EMR on 05/16/2025 and agree with the findings above. Objective Vital Signs: Vitals: 05/18/25 1415 BP: 152/88 Weight: 82.8 kg (182 lb 8.7 oz) Height: 162.6 cm (64.02 ) General: No acute distress. Alert and oriented. Cardiovascular: Palpable radial pulse. Respiratory: Breathing is nonlabored. Ortho Exam: Examination of the right upper extremity demonstrates diffuse swelling and ecchymosis noted throughout the hand and digits. There is clinical radial deviation of the ring finger at the level of the proximal phalanx. The patient is unable to make a composite fist, however during half fist formation there is no linnette malrotation is noted. She is diffusely tender throughout the MCP joint, PIP joint,and proximal phalanx of the ring and small fingers. Sensation is intact light touch at the hand. Warm well-perfused distally. Imaging / Studies: Imaging Results (Last 24 Hours) Procedure Component Value Units Date/Time XR Finger 2+ View Right [[id number]] Resulted: 05/18/25 144 Updated: 05/18/251447 Narrative: Right Finger X-Ray Indication: Pain Views: PA, Lateral, and Oblique Comparison: hand xrays 05/15/2025 Findings: The PIP joint is concentrically reduced, however there is a possible impaction fracture of the central portion of the articular surface. Redemonstration of the proximal phalanx base fracture. XR Hand 3+ View Right [[id number]] Resulted: 05/18/251446 Updated: 05/18/251446 Narrative: Right Hand X-Ray Indication: Pain Views: PA, Lateral, and Oblique Comparison: 05/15/2025 Findings: Displaced proximal phalanx fractures of the 4th and 5th digits that are extra-articular. Right hand x-ray obtained on 05/15/2025 was personally reviewed interpreted by myself. This demonstrates a fourth and fifth proximal phalanx extra-articular base fracture with displacement. There is an impacted fracture of the small finger middle phalanx base. Assessment / Plan Assessment/Plan: Shiela Nathan is a 64 y.o. female with a displaced right 4th and 5th proximal phalanx base fractures and small finger middle phalanx base fracture, DOI 05/12/2025. I discussed with the patient their clinical and radiographic findings demonstrate displaced right 4th and 5th proximal phalanx base fractures with a questionable small finger middle phalanx base fracture. We had a lengthy discussion regarding the pathophysiology of their diagnosis. Given the current fracture alignment and the clinical deviation, my recommendation was for 4th and 5th proximal phalanx closed reduction percutaneous pinning. I also discussed with the patient that based on her radiographs, it is unclear if she has an impacted small finger middle phalanx base fracture. The PIP joint does appear concentrically reduced, however is difficult to discern on x-ray views. I discussed performing a exam under anesthesia of the PIP joint with possible fixation if needed. The patient expressed understanding. After the peyton and postoperative course. I explained the risk, benefits, alternatives and prognosis, and the left proceed with right 4th and 5th proximal phalanx fracture open reduction internal fixation with evaluation of the small finger PIP joint under anesthesia. The risks and benefits of the procedure were discussed with the patient and/or appropriate guardian, which include but are not limited to: the risk of bleeding, pain, infection, wound complications, neurovascular damage, post- operative stiffness, tendon and/or ligament injury, persistent pain, needfor additional surgeries in the future, and general risks from anesthesia. Phalanx ORIF/CRPP: Specific risks include: nonunion, malunion, delayed union, pin site infections, digital stiffness that may require the need for therapy, digital nerve irritation. We also discussed the post-operative rehabilitation, length of immobilization, the need for therapy, and the overall expected outcomes from the procedure. Proper time was given to answer the patient's questions regarding the procedure. The patient expressed understanding. Knowing what the risks are and what the conservative treatment is, the patient elected to forgo any further conservative treatment options and proceed with the surgical intervention. Surgical consent was obtained in the clinic and signed by myself and the patient. Theywill follow up with me postoperatively. ICD-10-CM ICD-9-CM 1. Closed fracture of phalanx of digit of hand with routine healing, subsequent encounter S62.609D V54.19 2. Right hand pain M79.641 729.5 Follow Up: Return for Follow Up- After surgery. Delaney Concepcion MD [facility] documented in this encounter Plan of Treatment Upcoming Encounters Date Type Department Care Team (Late st Contact Info) Description 06/01/2025 2:10 PM EDT Office Visit [facility] MEDICINE [address] [address] [place] [address] [place] [address] 06/22/2025 1:15 PM EDT Office Visit [facility] PULMONARY & CRITICAL CARE MEDICINE [address] [place] [phone] Olivia Morales APRN 793 [facility] MED OFFICE BLDG [address] [address] documented as of this encounter Procedures Procedure Name Priority Date/Time Associated Diagnosis Comments XR FINGER 2+ VW RIGHT Routine 05/18/2025 2:39 PM EDT Right hand pain XR HAND 3+ VW RIGHT Routine 05/18/2025 2 :39 PM EDT Right hand pain documented in this encounter Results * XR Finger 2+ View Right (05/18/2025 2:39 PM EDT) Anatomical Region Laterality Modality Upper Extremities, Fingers Right Xray Narrative 05/18/2025 2:48 PM EDT Right Finger X-Ray Indication: Pain Views: PA, Lateral, and Oblique Comparison: hand xrays 05/15/2025 Findings: The PIP joint is concentrically reduced, however there is a possible impaction fracture of the central portion of the articular surface. Redemonstration of the proximal phalanx base fracture. us Delaney Concepcion MD [facility] DIAGNOSTIC IMAGING ORD ERABLES Final Result * XR Hand 3+ View Right (05/18/2025 2:39 PM EDT) Anatomical Region Laterality Modality Upper Extremities, Hand Right Xray Narrative 05/18/2025 2:47 PM EDT Right Hand X-Ray Indication: Pain Views: PA, Lateral, and Oblique Comparison: 05/15/2025 Findings: Displaced proximal phalanx fractures of the 4th and 5th digits that are extra-articular. us Delaney Concepcion MD [facility] IMAGING ORD ERABLES Final Result documented in this encounter Visit Diagnoses Diagnosis Closed fracture of phalanx of digit of hand with routine healing, subsequent encounter- Primary Right hand pain Pain in soft tissues of limb documented in this encounter Care Teams Tool Design Drafter Relationship Specialty Start Date End Date Jacquelyn Desouza APRN [facility] [place] [address] PCP - General Nurse Practitioner 08/25/22 documented as of this encounter
--- OUTSIDE RECORDS SUMMARY | 2025-05-19 08:30 | XMS_ITS | Encounter Summary ---
Author Organization [facility] Address [address] [place] [address] Care Team Providers Care Delicatessen Clerk Name Role Phone Jacquelyn Desouza APRN Primary Care Provider +1- [phone] Encounter Details Date Type Department Care Team (Late st Contact Info) Description 05/19/2025 8:30 AM EDT Outside Facility Service [facility] ORTHOPEDICS & SPORTS MEDICINE [address] [place] [address] Delaney Concepcion MD [address] [place] [address] Social History Tobacco Use Types Packs/Day Years [...] or training? Not on file Preferred Language Latvian 05/13/2023 PHQ-2 Answer Date Recorded Retired PHQ-9: Brief Depression Severity Measure Score 0 11/24/2023 Comments No Sex and Gender Information Value Date Recorded Sex Assigned at Not on file Legal Sex Female 10:41 AM EDT Gender Identity Not on file Sexual Orientation Not on file documented as of this encounter Plan of Treatment Upcoming Encounters Date Type Department Care Team (Late st Contact Info) Description 06/01/2025 2:10 PM EDT Office Visit [facility]ED[facility] [address] [facility] [address] Delaney Concepcion MD 1760 [facility] [address] [place] [address] 06/22/2025 1:15 PM EDT Office Visit [facility] PULMONARY & CRITICAL CARE MEDICINE [address] [place] [address] Olivia Morales APRN 793 [facility] MED OFFICE [address] [address] documented as of this encounter Visit Diagnoses Not on filedocumented in this encounter Care Teams Delicatessen Clerk Relationship Specialty Start Date End Date Jacquelyn Desouza APRN [address] [place] [address] PCP - General Nurse Practitioner 08/25/22 documented as of this encounter
--- OUTSIDE RECORDS SUMMARY | 2025-06-01 11:13 | XMS_ITS | Clinical Summary ---
Author Organization [facility] Address [address] [place] [address] Care Team Providers Care Refractory Specialist Name Role Phone Jacquelyn Desouza APRN Primary Care Provider [phone]- [phone] Allergies Active Allergy Reactions Criticality Noted Date [...] MG/0.1ML nasal spray Call 911. Don't prime. [place] in 1 nostril for overdose. Repeat in [...] (01/07/2019): Added automatically from request for surgery [id number] Resolved Problems Problem Noted Date Diagnosed Date Resolved Date Tachycardia 05/13/2025 05/13/2025 COPD exacerbation 02/21/2023 05/06/2023 Acute respiratory failure with hypoxia 02/21/2023 05/06/2023 Encounters Date Type Department Care Team Description 05/25/2025 Telephone [facility] [address] [place] [address] Olivia Morales APRN SAMPLES 05/22/2025 Telephone [facility] [address] [facility] [address] [place] [address] REITENBACH: 05/19/25 P/O CONCERNS & MED REFILL REQUEST 05/19/2025 8:30 AM EDT Outside Facility Service [facility] [address] [facility] [address] [place] [address] Delaney Concepcion MD 05/19/2025 Documentation [facility] [address] [facility] [address] [place] [address] Delaney Concepcion MD 05/18/2025 1:50 PM EDT Office Visit [facility] [address] [facility] [address] [place] [address] Delaney Concepcion MD Closed fracture of phalanx of digit of hand with routine healing, subsequent encounter (Primary Dx); Right hand pain 05/18/2025 Travel 05/16/2025 Telephone [facility] [address] [facility] [address] [place] [address] Delaney Concepcion MD 05/15/2025 1:00 PM EDT Office Visit [facility] [address] [address] Maximiliano Pink PA-C Right hand pain (Primary Dx); Closed displaced fracture of proximal phalanx of right ring finger, initial encounter; Closed displaced fracture of proximal phalanx of right little finger, initial encounter 05/15/2025 Refill [facility] [address] [address] Ramos Lamb MD Closed displaced fracture of proximal phalanx of right ring finger, initial encounter (Primary Dx) 05/15/2025 Travel 05/12/2025 4:30 PM EDT Office Visit [facility] [address] [place] [address] Chace Michaels MD Closed nondisplaced fracture of phalanx of right ring finger, unspecified phalanx, initial encounter (Primary Dx); Right hand pain; Tachycardia; Viral gastroenteritis; Essential hypertension 05/12/2025 Travel 04/05/2025 Telephone [facility] [address] [place] [address] Olivia Morales APRN SAMPLES from [...] or training? Not on file Preferred Language Libyan 05/13/2023 PHQ-2 Answer Date Recorded Retired PHQ-9: [...] Description 06/01/2025 2:10 PM EDT Office Visit [facility] [address] [facility] [address] [place] [address] Delaney Concepcion MD [address] [facility] [address] [place] [address] 06/22/2025 1:15 PM EDT Office Visit [facility] [address] [place] [phone] Olivia Morales APRN [address] [facility] [address] [place] [address] Health Maintenance Due Date Last Done Comments Annual Gynecologic Pelvic and Breast Exam 1961 Pneumococcal Vaccine 50+ (1 of 2 - PCV) 1980 COLOGUARD 2006 COLON CANCER SCREENING [address] COLONOGRAPHY 2006 FECAL OCCULT BLOOD TEST 2006 FIT Testing (1 year) 2006 ZOSTER VACCINE (1 of 2) 2011 ANNUAL WELLNESS VISIT 07/02/2018 04/06/2017 MAMMOGRAM 12/09/2020 12/09/2018 COVID-19 Vaccine (1 - season) 2024 TDAP/TD VACCINES (2 - [...] history exists Medical Devices Implanted Type Area Electro Mechanical Engineer Device Identifier Shelf Expiration Date Model / Serial / Lot Implant,Left Knee Implant Description:Left TKA Mesh [employer]ralight [employer] Ellipse 4x6in - [id number] - [id number] Implanted:Qty: 1 on 04/13/2019 by Hiram Guardado MD at [facility] Implant N/A: Abdomen DAVOL (DIV [employer]) 10/15/2020 [id number] / [id number] / [id number] Ellipse 8x10in - [id number] Implanted:Qty: 1 on 05/18/2023 by Kodak Dominguez MD at [facility] Implant N/A: Abdomen DAVOL (DIV OF [employer]) 11/15/2024 [id number] / / [id number] Procedures Procedure Name Priority Date/Time Associated Diagnosis [...] proximal phalanx base fracture. Delaney Concepcion MD [facility] DIAGNO[facility]IC IMAGING ORD ERABLES Final Result * [...] 4th and 5th digits that are extra-articular. Delaney Concepcion MD [facility] DIAGNO[facility] IMAGING ORD ERABLES Final Result * CT Chest Without Contrast Diagnostic (01/17/2025) Anatomical Region Laterality Modality Chest N/A Computed Tomogra phy Olivia Morales APRN [facility] CT ORDERABLES Final Re sult * Hemoglobin A1c (10/17/2024 3:32 PM EST) Hemoglobin A1C 5.6 4.8 - 5.6 % [facility] Comment: Prediabetes: 5.7 - 6.4 Diabetes: >6.4 Glycemic control for adults with diabetes: <7.0 Blood 10/17/2024 3:32 PM EST 10/17/2024 Narrative [facility] ([facility]) - 10/18/2024 12:35 PM EST Performed at: - [address] [id number] Blood Or Blood Bank Technician: Ankit Moise PhD, Phone: [phone] Patient Fasting: Y Jacquelyn Desouza APRN LAB BLOOD ORDERABLES Final Result [facility] ([facility]) [address] [place] [address], [place] [phone] [facility] [address] [place] [address], [place] [phone] from Last 3 Months or Most Recently Relevant to Health Maintenance Insurance [facility] MEDICARE ADVANTAGE HMO Advance Directives * CPR [...] Release to patient: Routine Release Care Teams Refractory Specialist Relationship Specialty Start Date End Date [place]qu[place] [address] PCP - General Nurse Practitioner 08/25/22
--- OUTSIDE RECORDS SUMMARY | 2025-06-01 11:14 | XMS_ITS | Encounter Summary ---
Author Organization [employer] ([place], [place], [place], [place]) Address [address] [place] [address] Care Team Providers Care Sexual Assault Response Coordinator Name Role Phone Mona Levin MD Primary Care Provider +1- [phone] Encounter Details Date Type Department Care Team (Late st Contact Info) Description 11/24/2020 Transcribed Document [facility] [place] [address] ProviderLeia MD [address] [place], [place] [id number] Social History Tobacco Use Types Packs/Day Years Used Date Smoking Tobacco: Never Assessed Comments Unknown Sex and Gender Information Value Date Recorded Sex Assigned at Not on file Legal Sex Female 10:15 AM CDT Gender Identity Not on file Sexual Orientation Not on file documented as of this encounter Miscellaneous Notes * Cerner Conversion Note - Leia ProviderMD - 11/24/2020 1:20 PM REEL BLADE BENDER FURNACE TENDER Pain Assessment Entered On: 11/25/2020 5:56 EST Performed On: 11/25/2020 0:02 EST by Jigna Mistry Rn Intervention Information: acetaminophen-oxyCODONE Performed by Jigna Mistry Rn on 11/24/2020 23:02:00 EST acetaminophen-oxyCODONE,1Tab Oral,Pain (Moderate 4-6) Pain Assessment Pain Assessment : Follow-up assessment Pain Scale Goal : 4 Pain Scale Used : 0-10 Scale Jigna Mistry Rn - 11/25/2020 5:56 EST Pain Scale Intensity : 1 Jigna Mistry Rn - 11/25/2020 5:56 EST Image 4 - Images currently included in the form version of this document have not been included in the text rendition version of the form. documented in this encounter Plan of Treatment Not on file documented as of this encounter Visit Diagnoses Not on filedocumented in this encounter Care Teams Sexual Assault Response Coordinator Relationship Specialty Start Date End Date Mona Levin MD PCP - General Family Medicine 07/19/22 documented as of this encounter
--- OUTSIDE RECORDS SUMMARY | 2025-06-01 11:14 | XMS_ITS | Encounter Summary ---
Author Organization [employer] ([place], [place], [place], [place]) Address [address] [place] [address] Care Team Providers Care Sports Medicine Trainer Name Role Phone Mona Levin MD Primary Care Provider +1- [phone] Encounter Details Date Type Department Care Team (Late st Contact Info) Description 12/21/2020 Transcribed Document [facility] [place] [address] [place] [address] ProviderLeia MD [address] [place] [id number] Social History Tobacco Use Types Packs/Day Years Used Date Smoking Tobacco: Never Assessed Comments Unknown Sex and Gender Information Value Date Recorded Sex Assigned at Not on file Legal Sex Female 10:15 AM CDT Gender Identity Not on file Sexual Orientation Not on file documented as of this encounter Miscellaneous Notes * Cerner Conversion Note - Leia Gutiérrez MD - 12/21/2020 9:41 AM POWER HOUSE CONTROL ROOM OPERATOR Patient: SHIELA JASSO Age: 60 Years Sex: Female : 1960 FOLLOW-UP DATE OF SERVICE: 11/28/2020 CHIEF COMPLAINT: Pain. HISTORY OF PRESENT ILLNESS: The patient is a 60 y/o female who returns to the clinic for follow-up on her low back pain, left knee pain, right shoulder pain, numbness and tingling in his finger that he has had since 2016. Since she was last here, she was hospitalized for [address] [facility] secondary to blastomycosis and pneumonia. She will be on IV antibiotics through her PICC line at home for several more weeks. She was just discharged from [facility] yesterday, 11/27. She rates her pain as 8/10 on the pain scale. Quality is aching, sharp with increased pain with walking, cold weather, decreased with medication and rest. She gets 30% relief with her current medications of Percocet 10 mg every 8 hours, gabapentin 800 mg every 8 hours, lidocaine ointment 5% 4 times a day. Fall risk information sheet is provided. SOCIAL HISTORY: Allergies: Penicillin, Hydrocodone. Marital status: The patient is . Current work status: Not answered. Illicit drug use: Denies. Alcohol use: Denies. Current tobacco use: She smokes tobacco. Caffeine use: Not answered. Past Medical History: Arthritis. High blood pressure. Osteoporosis. Pneumonia. Past Surgical History: Hysterectomy. Knee. Past Family History: Noncontributory. REVIEW OF SYSTEMS: Nothing is filled in. VITAL SIGNS: Vital signs are reviewed. BP is 116/76, heart rate 105, respiratory rate 16, O2 SATs 98%, height 5???4?? , weight 160 lbs. PHYSICAL EXAMINATION: Constitutional: The patient is freely conversant, no acute distress. Integumentary: Deferred. HEENT: Deferred. Neck: Deferred. Chest and Lung: Deferred. Cardiovascular: Deferred. Abdomen: Deferred. Peripheral Vascular: Deferred Neurologic: Deferred. Psychiatric: Alert and oriented x 3 with normal mood and affect. She scored a 0 on the depression questionnaire. Musculoskeletal: Deferred. Established patient exam is deferred. DIAGNOSTIC STUDIES: Not present. MEDICAL DECISION MAKING: The patient's DARREN has been reviewed and is appropriate. Patient's medications are reviewed and are listed in the patient's file. The patient received a urine tox screen today. ASSESSMENT: Stable. 1. Chronic pain syndrome secondary to multisite osteoarthritis, primarily bilateral knees. 2. Lumbar degenerative disc disease. 3. Lumbar spondylosis. 4. Lumbar facet arthropathy. 5. Nicotine misuse. PROCEDURE/TEST ORDERED: Not present. CURRENT PLAN: We will continue Ms. Jasso on her current medications. She denies any side effects. Three to 5 minutes was spent on smoking cessation counseling. She is in agreement with the above plan. We will see her back in follow-up in 2 months. Nora Mitchell M.D. REJI/krys Electronically signed by [facility], [facility] Conversion Pattern Layout Worker Cerner at 02/02/2023 6:18 PM CDT documented in this encounter Plan of Treatment Not on file documented as of this encounter Visit Diagnoses Not on filedocumented in this encounter Care Teams Sports Medicine Trainer Relationship Specialty Start Date End Date Mona Levin MD PCP - General Family Medicine 07/19/22 documented as of this encounter
--- OUTSIDE RECORDS SUMMARY | 2025-06-01 11:14 | XMS_ITS | Referral Summary ---
Author Organization [employer] ([place], [place], [place], [place]) Address [address] [place] [address] Care Team Providers Care Sas Developer Name Role Phone Mona Levin MD Primary Care Provider Allergies Active Allergy Reactions Criticality Noted Date Comments Codeine 08/11/2022 Hydrocodone 07/19/2022 Oxycodone 08/11/2022 Penicillin 07/19/2022 Medications metoprolol succinate (TOPROL-XL) 50 MG 24 hr tablet Take 1 tablet (50 mg total) by mouth. Active oxyCODONE-aceta minophen (PERCOCET) 10-325 mg per tablet Take 1 tablet by mouth 3 (three) times daily as needed. 07/18/2022 Active gabapentin (NEURONTIN) 800 MG tablet Take 1 tablet (800 mg total) by mouth 3 (three) times daily. 07/18/2022 Active albuterol HFA (VENTOLIN HFA) 90 mcg/actuation inhaler Inhale 2 puffs by mouth every 4 (four) hours as needed. Active losartan (Cozaar) 100 MG tablet Take 1 tablet (100 mg total) by mouth daily Pt stated doesn't normally takesprn. Active acetaminophen (TYLENOL) 500 MG tablet Take 2 tablets (1,000 mg total) by mouth every 6 (six) hours as needed. Active ibuprofen (ADVIL,MOTRIN) 600 MG tablet Take 1 tablet (600 mg total) by mouth every 6 (six) hours as needed. Active pantoprazole (PROTONIX) 40 MG tablet Take 1 tablet (40 mg total) by mouth daily. 04/16/2022 Active Stiolto Respimat 2.5-2.5 mcg/actuation Mist Take 2 puffs by mouth daily. 09/04/2023 Active hydrOXYzine (ATARAX) 25 MG tablet 1 po bid prn anxiety 11/21/2022 Active HYDROcodone-rodger taminophen (NORCO) 5-325 mg per tablet Take 1 tablet by mouth 2 (two) times daily as needed. Max Daily Amount: 2 tablets 11/03/2024 Active Active Problems Problem Noted Date Diagnosed Date Shortness of breath 09/20/2022 COPD exacerbation 09/20/2022 Wheezing 09/20/2022 Resolved Problems Problem Noted Date Diagnosed Date Resolved Date Septic shock 08/11/2022 08/13/2022 Social History Tobacco Use Types Packs/Day Years Used Date Smoking Tobacco: Every Day Cigarettes Smokeless Tobacco: Current Tobacco Cessation:Ready to Q uit: Not Asked; Counseling Given: Not Answered Alcohol Use Standard Drinks/Week Comments Not Currently 0 (1 standard drink = 0.6 oz pur e alcohol) PRAPARE - Transportation Answer Date Re corded In the past 12 months, has l ack of transportation kept you from medical appointments or from getting medications? No 08/13/2022 Lack of Transportation (Non-Medical) Not on file 08/13/2022 Family and Community Support Answer Epi e Recorded Help with Day to Day Activities Not on file 11/05/2023 Feeling Lonely or Isolated Not on file 11/05 Educational Attainment Answer Date Yung rded Speak language other than Persian at home Not on file 11/05/2023 Want help with school or training Not on file 11/05/2023 Substance Use Answer Date Recorded Used prescription meds for non-medical reasons N ot on file 11/05/2023 Used illegal drugs past 12 months Not on file 11/05/2023 Comments No Sex and Gender Information Value Date Recorded Sex Assigned at Not on file Legal Sex Female 10:15 AM CDT Gender Identity Not on file Sexual Orientation Not on file Last Filed Vital Signs Vital Sign Reading Time Taken Comments Blood Pressure 120/81 10/08/2023 3:01 PM EST Pulse 85 10/08/2023 3:01 PM EST Temperature 37.9 C (100.2 F) 02/21/2023 2:11 AM EDT Respiratory Rate 23 02/21/2023 5:15 AM EDT Oxygen Saturation 98% 02/21/2023 5:15 AM EDT Inhaled Oxygen Concentration 36% 02/21/2023 2 :30 AM EDT Weight 94.3 kg (208 lb) 12/01/2024 2:13 PM EST Height 162.6 cm (5' 4 ) 12/01/2024 2:13 PM EST Body Mass Index 35.7 12/01/2024 2:13 PM EST Plan of Treatment Not on file Procedures Procedure Name Priority Date/Time Associated Diagnosis Comments LIPID PANEL Routine 11/17/2020 10:44 AM EST from Last 3 Months or Most Recently Relevant to Health Maintenance Results * (ABNORMAL) LIPID PANEL (11/17/2020 10:44 AM EST) Triglyceride 197 0 - 249 mg/dL 11/17/2020 4:28 PM EST Cholesterol HDL 11.0 mg/dL 4:28 PM EST Comment: Desirable > 60 mg/dl Increased Risk < 40 mg/dl Cholesterol Total 107 0 - 199 mg/dL 11/17/2020 4:28 PM EST Comment: 200 to 239 mg/dL Moderate (borderline) >239 mg/dL High Cholesterol VLDL Calculation 39.4 5.0 - 40.0 mg/dL 11/17/2020 4:29 PM EST Comment:Calculated by Discer n Rule GL_CHEM_TRIG_CMNT Cholesterol LDL Calculation 56.6 0.0 - 99.0 mg/dL 11/17/2020 4:29 PM EST Comment: Calculated by Discern Rule GL_CHEM_TRIG_CMNTDESIRABLE <130 BORDERLINE 130 to 159 HIGH >=160 Cholesterol/HDL Ratio 9.7(H) 0.0 - 3.2 11/17/2020 4:28 PM EST LDL/HDL Ratio 5.2(H) 0.0 - 3.2 11/17/2020 4:29 PM EST Comment:Calculated by Discer n Rule GL_CHEM_TRIG_CMNT Blood 11/17/2020 10:4 4 AM EST 11/17/2020 4:01 PM EST [facility] Historical Provider PATHOLOGY/CYTOLOGY ELIJoseluis BORJA Final Result [facility] [address] [id number], [facility] [phone] from Last 3 Months or Most Recently Relevant to Health Maintenance Insurance [facility] ANTHEM MCR ADV Advance Directives For more information, please contact: [phone] * Full Code (Latest Code Status on File) Date Activated Date Inactivated Comments 08/11/2022 1:30 PM 08/13/2022 7:53 PM -Attempt R esuscitation if person has no pulse and is not breathing. -If no pulse or not breathing attempt CPR/CODE. -Call Rapid Response if patient is in distress. * Full Code Date Activated Date Inactivated Comments 07/19/2022 3:32 PM 08/11/2022 9:02 AM Care Teams Sas Developer Relationship Specialty Start Date End Date Mona Levin MD PCP - General Family Medicine 07/19/22
--- OUTSIDE RECORDS SUMMARY | 2025-06-01 11:14 | XMS_ITS | Encounter Summary ---
Author Organization [employer] ([place], [place], [place], [place]) Address [address] [place] [address] Care Team Providers Care Finished Yarn Examiner Name Role Phone Mona Levin MD Primary Care Provider +1- [phone] Encounter Details Date Type Department Care Team (Late st Contact Info) Description 11/19/2020 Transcribed Document [facility] [place] Family [place] [facility] [place] [address] ProviderLeia MD [address] [place] [address] Social History Tobacco Use Types Packs/Day Years Used Date Smoking Tobacco: Never Assessed Comments Unknown Sex and Gender Information Value Date Recorded Sex Assigned at Not on file Legal Sex Female 10:15 AM CDT Gender Identity Not on file Sexual Orientation Not on file documented as of this encounter Miscellaneous Notes * Cerner Conversion Note - Leia ProviderMD - 11/19/2020 5:01 PM GROUND TRANSPORTATION OPERATOR Initial Discharge Planning Entered On: 11/19/2020 17:13 EST Performed On: 11/19/2020 17:01 EST by LULA RAMIREZ, ARIN-Commercial Makeup Artist Initial Assessment I Previously Documented Living Environment : No qualifying data available. Living Situation : Home Patient Lives With : Sibling(s), Significant other(s) Is the Patient a Caregiver at Home? : No Employment/Vocation : Disabled Emergency Contact #1 : Jarrod Swansonliff Emergency Contact #1 Emergency Contact #1 Relationship : Significant other Emergency Contact #2 : . Emergency Contact #2 Phone Number : . Emergency Contact #2 Relationship : . Does Patient have PCP Listed? : No (Comment: Significant Other states she has a PCP but he cannot remember her name [LULA RAMIREZ RN-Commercial Makeup Artist - 11/19/2020 17:01 EST] ) Legal Guardian : No LULA RAMIREZ RN-Commercial Makeup Artist - 11/19/2020 17:01 EST Initial Assessment II Sensory and Motor Deficits : None Current Home Treatments and Equipment : Nebulizer LULA RAMIREZ RN-Commercial Makeup Artist - 11/19/2020 17:01 EST Discharge Needs I Anticipated Discharge Date : 11/23/2020 EST Anticipated Discharge To, CM : Home with family care Current Home Treatment/Equipment : Current Home Treatment/Equipment No qualifying data available. Post Acute/Home Treatments : Oxygen therapy Documentation Status Complete : Yes LULA RAMIREZ RN-Commercial Makeup Artist - 11/19/2020 17:01 EST Discharge Needs II Professional Skilled Services : Professional Skilled Services No qualifying data available. Services and Community Resources : Home Health Needs Assistance with Transportation : No Discharge Options Discussed with Patient : Discharge transportation, DME, Home Health, Outpatient services LULA RAMIREZ RN-Commercial Makeup Artist - 11/19/2020 17:01 EST Narrative Note Narrative Note : RAR Moderate ELOS: 5 days HD#2 COVID- 11/18 60 year old female transferred from [facility] for higher level of care. Admitted to [facility] on 11/12 for SOB and flank pain. Initially diagnosed with PNA, urine culture positive for Klebsiella and blood culture positive for E. Coli. CT chest showed ASHISH mass. Consults: ID, Neurology and Pulmonary Plan: CT guided biopsy today. Patient was off the floor for her procedure and drowsy when she returned. CM spoke with patient's SO Jarrod Karen per patient request [phone]. He states patient does have a PCP but he cannot remember her name. He states patient is ADL independent and drives, but she is disabled in terms of work. No prior rehab stay that he is aware of but she did have home health services after her colon surgery and he thinks she had [facility]. DME at home includes a nebulizer, no oxygen at this time. Jarrod will transport on discharge. DCP: Anticipate patient will discharge home with SO +/- home health and/or oxygen. CM will continue to follow for safe discharge plan. LULA RAMIREZ, RN-Commercial Makeup Artist - 11/19/2020 17:01 EST documented in this encounter Plan of Treatment Not on file documented as of this encounter Visit Diagnoses Not on filedocumented in this encounter Care Teams Finished Yarn Examiner Relationship Specialty Start Date End Date Mona Levin MD PCP - General Family Medicine 07/19/22 documented as of this encounter
--- OUTSIDE RECORDS SUMMARY | 2025-06-01 11:14 | XMS_ITS | Encounter Summary ---
Author Organization [employer] ([place], [place], [place], [place]) Address [address] [place] [address] Care Team Providers Care Decontamination Worker Name Role Phone Mona Levin MD Primary Care Provider +1- [phone] Encounter Details Date Type Department Care Team (Late st Contact Info) Description 11/24/2020 Transcribed Document [facility] [place] [facility] [place] [address] ProviderLeia MD [address] [place], [place] [id number] Social History Tobacco Use Types Packs/Day Years Used Date Smoking Tobacco: Never Assessed Comments Unknown Sex and Gender Information Value Date Recorded Sex Assigned at Not on file Legal Sex Female 10:15 AM CDT Gender Identity Not on file Sexual Orientation Not on file documented as of this encounter Miscellaneous Notes * Cerner Conversion Note - Leia ProviderMD - 11/24/2020 5:00 AM CHOIR MEMBER Chart Check - Review Order Profile Entered On: 11/24/2020 5:45 EST Performed On: 11/24/2020 5:00 EST by Steffanie Jones, RN Chart Check Powerplans Initiated/Discontinued as Appropriate : Yes All Active Orders Reviewed : Yes Steffanie Jones RN - 11/24/2020 5:45 EST Electronically signed by [employer] [facility] Conversion Armed Custom Protection Officer Cerner at 02/06/2023 8:43 AM CDT documented in this encounter Plan of Treatment Not on file documented as of this encounter Visit Diagnoses Not on filedocumented in this encounter Care Teams Decontamination Worker Relationship Specialty Start Date End Date Mona Levin MD PCP - General Family Medicine 07/19/22 documented as of this encounter
--- OUTSIDE RECORDS SUMMARY | 2025-06-01 11:14 | XMS_ITS | Encounter Summary ---
Author Organization [employer] ([place], [place], [place], [place]) Address [address] [place] [address] Care Team Providers Care Machine Assembler Supervisor Name Role Phone Mona Levin MD Primary Care Provider +1- [phone] Encounter Details Date Type Department Care Team (Late st Contact Info) Description 11/19/2020 Transcribed Document [facility] [place] [facility] [place] [address] ProviderLeia MD [address] [place], [place] [address] Social History Tobacco Use Types Packs/Day Years Used Date Smoking Tobacco: Never Assessed Comments Unknown Sex and Gender Information Value Date Recorded Sex Assigned at Not on file Legal Sex Female 10:15 AM CDT Gender Identity Not on file Sexual Orientation Not on file documented as of this encounter Miscellaneous Notes * Cerner Conversion Note - Leia ProviderMD - 11/19/2020 10:55 AM BUGGY LADLE TENDER Patient: SHIELA JASSO Age: 60 years Sex: Female : 1960 Associated Diagnoses: None Author: EDDY MIJARES PA-C Pre-OP/Procedure Diagnosis: Lung nodule Post-OP/Procedure Diagnosis: Same Procedure Performed: CT guided biopsy Procedural MD: Chavez Salesforce Developer: WILLIAMS Mijares Sedation: Conscious Sedation Findings: Technically successful biopsy Complications: No significant EBL: Minimal Specimen(s) Removed: FNas and cores. Pathology is pending. Cultures pending. Full report to follow. Electronically signed by [facility] Conversion Successfactors Consultant Cerner at 02/06/2023 8:51 AM CDT documented in this encounter Plan of Treatment Not on file documented as of this encounter Visit Diagnoses Not on filedocumented in this encounter Care Teams Machine Assembler Supervisor Relationship Specialty Start Date End Date Mona Levin MD PCP - General Family Medicine 07/19/22 documented as of this encounter
--- OUTSIDE RECORDS SUMMARY | 2025-06-01 11:14 | XMS_ITS | Encounter Summary ---
Author Organization [employer] ([place], [place], [place], [place]) Address [address] [place] [address] Care Team Providers Care Supervisor Boat Outfitting Name Role Phone Mona Levin MD Primary Care Provider +1 [phone] Encounter Details Date Type Department Care Team (Late st Contact Info) Description 11/28/2020 Transcribed Document [facility] [place] Family [place] [facility] [place] [address] ProviderLeia MD [address] [place] [address] Social History Tobacco Use Types Packs/Day Years Used Date Smoking Tobacco: Never Assessed Comments Unknown Sex and Gender Information Value Date Recorded Sex Assigned at Not on file Legal Sex Female 10:15 AM CDT Gender Identity Not on file Sexual Orientation Not on file documented as of this encounter Miscellaneous Notes * Cerner Conversion Note - Leia ProviderMD - 11/28/2020 6:33 AM INVENTORY ACCOUNTANT UM Authorization Entered On: 11/28/2020 6:33 EST Performed On: 11/28/2020 6:33 EST by Cheri Luna, Children'S Service Worker Primary Insurance Authorization Authorization and Policy Numbers : Insurance 1 Health Plan: [employer] MANAGED MEDICARE Policy Number: [id number] Authorization Number: Insurance Primary Name : [facility] MANAGED MEDICARE Policy Number: [id number] Authorization Status-Primary : Approved Auth/Referral Contact Name-Primary : [place] Reference Number-Primary : [id number] Authorization Number-Primary : [id number] Number of Days Authorized-Primary : 9 Day(s) Authorized Service Begin Date-Primary : 11/17/2020 EST Authorized Service End Date-Primary : 11/26/2020 EST Authorization Comments-Primary : Discharge date and summary faxed. Historical Authorization Comments-Primary : Comment 1: Rec fax from [facility] 11/23/20 10 days approved auth# [id number] NRD 11/27/20 (KATIANA PECK, Corsets Salesperson 11/23/2020 13:49) Comment 2: Clinicals faxed via [employer] 11/20-11/22. (KODY ESPARZA, Rn-Utilization Review 11/22/2020 13:38) Comment 3: Per [facility] site, Inpt Auth approved 5 days. NRD 11/22 (KODY ESPARZA, Rn-Utilization Review 11/19/2020 09:38) Comment 4: AUTH SUBMITTED ON WEBSITE WITH CLINCAL ATTACHED (Jacque Mckeon, Rn-Utilization Review 11/17/2020 11:44) Cheri Luna, Children'S Service Worker - 11/28/2020 6:33 EST documented in this encounter Plan of Treatment Not on file documented as of this encounter Visit Diagnoses Not on filedocumented in this encounter Care Teams Supervisor Boat Outfitting Relationship Specialty Start Date End Date Mona Levin MD PCP - General Family Medicine 07/19/22 documented as of this encounter
--- OUTSIDE RECORDS SUMMARY | 2025-06-01 11:15 | XMS_ITS | Encounter Summary ---
Author Organization [facility] ([place], [place], [place], [place]) Address [address] [place] [address] Care Team Providers Care Rodding Machine Tender Name Role Phone Mona Levin MD Primary Care Provider [phone] Reason for Referral * Diagnostic X-Ray (Routine) - Closed Specialty Diagnoses / Procedures Referred By Contac t Referred To Contact Diagnoses Contracture of neck Right shoulder pain, unspecified chronicity Procedures XR spine cervical 2 or 3 views Jacquelyn Desouza APRN [address] [place] [id number] Phone: tel: fax: Referral ID Status Reason Start Date Expiration Date Visits Re quested Visits Authorized [id number] Closed 05/06/2023 11/02/2023 1 1 * Diagnostic X-Ray (Routine) - Closed Specialty Diagnoses / Procedures Referred By Contac t Referred To Contact Diagnoses Contracture of neck Right shoulder pain, unspecified chronicity Procedures XR shoulder complete 2 views min right Jacquelyn Desouza APRN [address] [place] [address] Phone: tel: fax: Referral ID Status Reason Start Date Expiration Date Visits Re quested Visits Authorized [id number] Closed 05/06/2023 11/02/2023 1 1 Encounter Details Date Type Department Care Team (Late st Contact Info) Description 05/06/2023 Outside Orders [facility] Admitting [address] [facility] [place] [phone] Jacquelyn Desouza, PATIENT SERVICE REPRESENTATIVE [address] [facility] [place] [id number] Contracture of neck (Primary Dx); Right shoulder pain, unspecified chronicity Social History Tobacco Use Types Packs/Day Years Used Date Smoking Tobacco: Every Day Cigarettes Smokeless Tobacco: Current Alcohol Use Standard Drinks/Week Comments Not Currently [...] Date Yung rded Speak language other than Cuban at home Not on file 11/05/2023 Want [...] as of this encounter Plan of Treatment Not on file documented as of this encounter Results * XR shoulder complete 2 views min right (05/06/2023 11:59 AM EDT) Anatomical Region Laterality Modality X-Ray 05/06/2023 1:03 PM EDT Impressions 05/06/2023 1:17 PM EDT Moderate degenerative disc disease in the lower cervical spine. RIGHT SHOULDER HISTORY: Right shoulder pain. COMPARISON: None. FINDINGS: A three view exam demonstrates moderate degenerative changes. There is questionable anterior subluxation. This may be better confirmed with an axillary view. There is a calcified joint body along the superior lateral humeral head. The AC joint is unremarkable. There is no acute fracture. IMPRESSION: No fracture. Moderate degenerative changes. Questionable anterior subluxation. Axillary view or CT could better evaluate. Images reviewed, interpreted, and dictated by Dr. Sarath Tidwell. Transcribed by Mar Woods(Marko). Narrative 05/06/2023 1:17 PM EDT CERVICAL SPINE SERIES HISTORY: Neck pain. COMPARISON:None FINDINGS: Three views of the cervical spine were obtained. There is moderate degenerative disc disease in the lower cervical spine. There is osteopenia. No fracture or malalignment is seen. Procedure Note Sarath Tidwell MD - 05/06/2023 CERVICAL SPINE SERIES HISTORY: Neck pain. COMPARISON:None FINDINGS: Three views of the cervical spine were obtained. There is moderate degenerative disc disease in the lower cervical spine. There is osteopenia. No fracture or malalignment is seen. IMPRESSION: Moderate degenerative disc disease in the lower cervical spine. RIGHT SHOULDER HISTORY: Right shoulder pain. COMPARISON: None. FINDINGS: A three view exam demonstrates moderate degenerative changes. There is questionable anterior subluxation. This may be better confirmed with an axillary view. There is a calcified joint body along the superior lateral humeral head. The AC joint is unremarkable. There is no acute fracture. IMPRESSION: No fracture. Moderate degenerative changes. Questionable anterior subluxation. Axillary view or CT could better evaluate. Images reviewed, interpreted, and dictated by Dr. Sarath Tidwell. Transcribed by Mar Woods(R). us Jacquelyn Desouza APRN IM DIAGNOSTIC IMAGING ORD ERABLES Final Result * XR spine cervical 2 or 3 views (05/06/2023 11:57 AM EDT) Anatomical Region Laterality Modality C-spine, T-spine, Neck X-Ray 05/06/2023 1:03 PM EDT Impressions 05/06/2023 1:17 PM EDT Moderate degenerative disc disease in the lower cervical spine. RIGHT SHOULDER HISTORY: Right shoulder pain. COMPARISON: None. FINDINGS: A three view exam demonstrates moderate degenerative changes. There is questionable anterior subluxation. This may be better confirmed with an axillary view. There is a calcified joint body along the superior lateral humeral head. The AC joint is unremarkable. There is no acute fracture. IMPRESSION: No fracture. Moderate degenerative changes. Questionable anterior subluxation. Axillary view or CT could better evaluate. Images reviewed, interpreted, and dictated by Dr. Sarath Tidwell. Transcribed by Mar Woods(Marko). Narrative 05/06/2023 1:17 PM EDT CERVICAL SPINE SERIES HISTORY: Neck pain. COMPARISON:None FINDINGS: Three views of the cervical spine were obtained. There is moderate degenerative disc disease in the lower cervical spine. There is osteopenia. No fracture or malalignment is seen. Procedure Note Sarath Tidwell MD - 05/06/2023 CERVICAL SPINE SERIES HISTORY: Neck pain. COMPARISON:None FINDINGS: Three views of the cervical spine were obtained. There is moderate degenerative disc disease in the lower cervical spine. There is osteopenia. No fracture or malalignment is seen. IMPRESSION: Moderate degenerative disc disease in the lower cervical spine. RIGHT SHOULDER HISTORY: Right shoulder pain. COMPARISON: None. FINDINGS: A three view exam demonstrates moderate degenerative changes. There is questionable anterior subluxation. This may be better confirmed with an axillary view. There is a calcified joint body along the superior lateral humeral head. The AC joint is unremarkable. There is no acute fracture. IMPRESSION: No fracture. Moderate degenerative changes. Questionable anterior subluxation. Axillary view or CT could better evaluate. Images reviewed, interpreted, and dictated by Dr. Sarath Tidwell. Transcribed by Mar Woods(R). Jacquelyn Desouza APRN IMG DIAGNOSTIC IMAGING ORD ERABLES Final Result documented in this encounter Visit Diagnoses Diagnosis Contracture of neck- Primary Torticollis, unspecified Right shoulder pain, unspecified chronicity Contracture of neck Torticollis, unspecified Right shoulder pain, unspecified chronicity Contracture of neck Torticollis, unspecified Right shoulder pain, unspecified chronicity documented in this encounter Care Teams Rodding Machine Tender Relationship Specialty Start Date End Date Mona Levin MD PCP - General Family Medicine 07/19/22 documented as of this encounter
--- OUTSIDE RECORDS SUMMARY | 2025-06-01 11:15 | XMS_ITS | Encounter Summary ---
Author Organization [facility] ([place], [place], [place], [place]) Address [address] [place] [address] Care Team Providers Care Floor Hand Name Role Phone Mona Levin MD Primary Care Provider [phone] Encounter Details Date Type Department Care Team (Late st Contact Info) Description 11/22/2020 Transcribed Document [facility] [place] [address] ProviderLeia MD [address] [place] [id number] Social History Tobacco Use Types Packs/Day Years Used Date Smoking Tobacco: Never Assessed Comments Unknown Sex and Gender Information Value Date Recorded Sex Assigned at Not on file Legal Sex Female 10:15 AM CDT Gender Identity Not on file Sexual Orientation Not on file documented as of this encounter Miscellaneous Notes * Cerner Conversion Note - Leia ProviderMD - 11/22/2020 4:37 PM SENIOR WATER RESOURCES ENGINEER On Going Discharge Planning Entered On: 11/22/2020 16:40 EST Performed On: 11/22/2020 16:37 EST by LULA RAMIREZ, RN-Sanitation EngineerMagnetic Resonance Technologist Progress Note Discharge Arrangements : Patient Post-Acute Information Patient Name: SHIELA JASSO Gender: Female : [birth year] Age: 60 Years No Post-Acute Placement(s) Listed No Post-Acute Service(s) Listed No Cur[place]pan Referral(s) Listed Discharge Options Discussed with Patient : Discharge transportation, DME Barriers to Discharge Identified : Clinical Condition of Patient, Follow-Up appointments needed Barriers to Discharge Unresolved : Clinical Condition of Patient, Follow-Up appointments needed Is the Patient Meeting Medical Necessity : Yes Physician Agreeable to Move Forward with D/C Plan? : Yes Did you Attend Multidisciplinary Rounds? : Yes LULA RAMIREZ RN-Sanitation Engineer - 11/22/2020 16:37 EST Narrative Progress Note Narrative Progress Note : RAR Moderate ELOS: 9 days HD#5 COVID- 11/18 60 year old female transferred from [facility] for higher level of care. Admitted to [facility] on 11/12 for SOB and flank pain. Initially diagnosed with PNA, urine culture positive for Klebsiella and blood culture positive for E. Coli. CT chest showed ASHISH mass. Consults: ID, Neurology, Pulmonary, [place] Plan: CT guided biopsy 11/19. 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 CT scan of abd and pelvis shows persistent acute right pyelonephritis with developing abcess. ID changed IV abx to Merrem. Also added po vanc for colitis. DCP: Anticipate patient will discharge home with SO +/- IV abx/antifungal. CM will continue to follow. Historical Progress Note : RAR Moderate ELOS: 5 days HD#4 COVID- 11/18 60 year old female transferred from [facility] for higher level of care. Admitted to [facility] on 11/12 for SOB and flank pain. Initially diagnosed with PNA, urine culture positive for Klebsiella and blood culture positive for E. Coli. CT chest showed ASHISH mass. Consults: ID, Neurology and Pulmonary Plan: CT guided biopsy 11/19. FNA ASHISH path report - Blastomycosis, ID ordered IV Amphotericin. CT abdomen and pelvis ordered. 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 DCP: Anticipate patient will discharge home with SO +/- IV abx/antifungal. CM will continue to follow. LULA RAMIREZ RN-Sanitation Engineer - 11/21/20 13:40:56 RAR Moderate ELOS: 5 days HD#3 COVID- 11/18 60 year old female transferred from [facility] for higher level of care. Admitted to [facility] on 11/12 for SOB and flank pain. Initially diagnosed with PNA, urine culture positive for Klebsiella and blood culture positive for E. Coli. CT chest showed ASHISH mass. Consults: ID, Neurology and Pulmonary Plan: CT guided biopsy 11/19. Waiting on results of FNA yesterday. DCP: Anticipate patient will discharge home with SO +/- home health and/or oxygen. CM will continue to follow for safe discharge plan. LULA RAMIREZ RN-Sanitation Engineer - 11/20/20 16:16:59 RAR Moderate ELOS: 5 days HD#2 COVID- 11/18 60 year old female transferred from [facility] for higher level of care. Admitted to [facility] on 11/12 for SOB and flank pain. Initially diagnosed with PNA, urine culture positive for Klebsiella and blood culture positive for E. Coli. CT chest showed ASHISH mass. Consults: ID, Neurology and Pulmonary Plan: CT guided biopsy today. Patient was off the floor for her procedure and drowsy when she returned. CM spoke with patient's SO Jarrod Jones per patient request [phone]. He states patient does have a PCP [...] to follow for safe discharge plan. LULA RAMIREZ RN-Sanitation Engineer - 11/19/20 17:13:35 LULA RAMIREZ RN-Sanitation Engineer - 11/22/2020 16:37 EST Electronically signed by [facility] Conversion Dependency Case Manager Cerner at 02/06/2023 8:53 AM CDT documented in this encounter Plan of Treatment Not on file documented as of this encounter Visit Diagnoses Not on filedocumented in this encounter Care Teams Floor Hand Relationship Specialty Start Date End Date Mona Levin MD PCP - General Family Medicine 07/19/22 documented as of this encounter
--- OUTSIDE RECORDS SUMMARY | 2025-06-01 11:15 | XMS_ITS | Encounter Summary ---
Author Organization [employer] ([place], [place], [place], [place]) Address [address] [place] [address] Care Team Providers Care Motorcycle Service Technician Name Role Phone Mona Levin MD Primary Care Provider [phone] Encounter Details Date Type Department Care Team (Late st Contact Info) Description 11/23/2020 Transcribed Document [facility] [place] [facility] [place] [address] ProviderLeia MD [address] [place] [phone] Social History Tobacco Use Types Packs/Day Years Used Date Smoking Tobacco: Never Assessed Comments Unknown Sex and Gender Information Value Date Recorded Sex Assigned at Not on file Legal Sex Female 10:15 AM CDT Gender Identity Not on file Sexual Orientation Not on file documented as of this encounter Miscellaneous Notes * Cerner Conversion Note - Leia ProviderMD - 11/23/2020 1:45 PM NURSE PRACTITIONER PHYSICIANS ASSISTANT On Going Discharge Planning Entered On: 11/23/2020 13:46 EST Performed On: 11/23/2020 13:45 EST by LULA RAMIREZ, RN-Photo TechnicianRetail Sales Professional Progress Note Discharge Arrangements : Patient Post-Acute [...] Attend Multidisciplinary Rounds? : Yes LULA RAMIREZ RN-Photo Technician - 11/23/2020 13:45 EST Narrative Progress Note Narrative Progress Note : RAR Moderate ELOS: 9 days HD#6 COVID- 11/18 60 year old female transferred from [facility] for higher level of care. Admitted to [facility] on 11/12 for SOB and flank pain. Initially diagnosed with PNA, urine culture positive for Klebsiella and blood culture positive for E. Coli. CT chest showed ASHISH mass. Consults: ID, Neurology, Pulmonary, [place] CT guided biopsy 11/19. FNA ASHISH path [...] Historical Progress Note : RAR Moderate ELOS: 9 days HD#5 COVID- 11/18 60 year old female transferred from [facility] for higher level of care. Admitted to [facility] on 11/12 for SOB and flank pain. [...] CM will continue to follow. LULA RAMIREZ RN-Photo Technician - 11/22/20 16:40:11 RAR Moderate ELOS: 5 days HD#4 COVID- 11/18 60 year old female transferred from [facility] for higher level of care. Admitted to [facility] on 11/12 for SOB and flank pain. [...] CM will continue to follow. LULA RAMIREZ RN-Photo Technician - 11/21/20 13:40:56 RAR Moderate ELOS: 5 days HD#3 COVID- 11/18 60 year old female transferred from [facility] for higher level of care. Admitted to [facility] on 11/12 for SOB and flank pain. [...] follow for safe discharge plan. LULA RAMIREZ RN-Photo Technician - 11/20/20 16:16:59 RAR Moderate ELOS: 5 days HD#2 COVID- 11/18 60 year old female transferred from [facility] for higher level of care. Admitted to [facility] on 11/12 for SOB and flank pain. Initially diagnosed with PNA, urine culture positive for Klebsiella and blood culture positive for E. Coli. CT chest showed ASHISH mass. Consults: ID, Neurology and Pulmonary Plan: CT guided biopsy today. Patient was off the floor for her procedure and drowsy when she returned. CM spoke with patient's SO Jarrod Karen per patient request [phone]. He states patient does have a PCP [...] follow for safe discharge plan. LULA RAMIREZ RN-Photo Technician - 11/19/20 17:13:35 LULA RAMIREZ RN-Photo Technician - 11/23/2020 13:45 EST Electronically signed by [facility] Conversion Palliative Care Nurse Practitioner Cerner at 02/06/2023 8:51 AM CDT documented in this encounter Plan of Treatment Not on file documented as of this encounter Visit Diagnoses Not on filedocumented in this encounter Care Teams Motorcycle Service Technician Relationship Specialty Start Date End Date Mona Levin MD PCP - General Family Medicine 07/19/22 documented as of this encounter
--- OUTSIDE RECORDS SUMMARY | 2025-06-01 11:15 | XMS_ITS | Encounter Summary ---
Author Organization [employer] ([place], [place], [place], [place]) Address [address] [place] [address] Care Team Providers Care Cardiac Sonographer Name Role Phone Mona Levin MD Primary Care Provider [phone] Encounter Details Date Type Department Care Team (Late st Contact Info) Description 11/18/2020 Transcribed Document [facility] [place] [address] ProviderLeia MD [address], [place] [id number] Social History Tobacco Use Types Packs/Day Years Used Date Smoking Tobacco: Never Assessed Comments Unknown Sex and Gender Information Value Date Recorded Sex Assigned at Not on file Legal Sex Female 10:15 AM CDT Gender Identity Not on file Sexual Orientation Not on file documented as of this encounter Miscellaneous Notes * Cerner Conversion Note - Leia Gutiérrez MD - 11/18/2020 1:26 PM WARD SUPERVISOR Patient: SHIELA JASSO Age: 60 Years Sex: Female : 1960 Assessment 60-year-old female possible lung mass, lytic bone lesions, and sepsis, transferred here. We are seeing her for right ear pain persistent, headache and confusion that is resolving. Ear infection is a possibility, she is being seen by ID. they are managing sepsis and subsequent therapy. She has a history of chronic pain is on gabapentin and narcotics at home. MRI did not show acute ischemic lesions. I will sign off for neurology, no further recommendations at this time. Let me know if you have any questions, see below for pain recommendations. At this point I would treat her symptomatically for head pain. Initially I would try Tylenol and nonsteroidal for pain, for continued pain, treat with Depakote 500mg IV q 8 PRN, at 1/2 hr intervals and if Depakote is not effective if necessary add Toradol 30mg IV q12 PRN, Solu-Medrol IV 1gram q6 PRN, if not effective then Benadryl 50mg IV PRN q6, if not effective then Acetaminophen 650 IV q6 PRN. Low vitamin D level. Therapy initiated with replacement. This needs to be followed up as an outpatient. Subjective Clear today, no new complaints or problems Presentation: 60 yo female with history of chronic pain, who presented transferred to [facility] on 11/17/20 and arrived confused, lethargic, and disoriented. She has sepsis and is being seen by ID. She was initially treated at an outside hospital developed ear pain, and then confusion. She was diagnosed with pneumonia from CXR with a CT scan of chest showing a ASHISH lung mass. A CT scan of a/p showed right kidney perinephric stranding with urine culture positive for Klebsiella pneumoniae. Blood cultures also became positive for E. coli. She initially was treated with Rocephin and Azithromycin and then changed to Merrem after cultures finalized. The patient began to complain of bilateral ear pain and headaches with a CT scan of head showing no acute findings. She was She was started on Merrem. She was afebrile with WBC of 19,000/77% neutrophils. Blood cultures and MRSA surveillance culture are pending. ID was asked to evaluate and manage her antibiotic therapy. I have spent 40 minutes on this case today. Over half of that time was spent reviewing the chart, discussion with care givers, and counseling, reviewing and discussion with consulting MDs. Review of Systems no change except as in Subjective Physical Exam Mental Status: normal Orientation to time place person, Attention, Speech naming, repetition, spontaneous, Language, memory recent and remote, Fund of knowledge Cranial Nerves: II through XII intact and symmetric Motor: Strength 5/5 bilateral, normal tone and mass Sensory: Normal to light touch, pain, proprioception Reflexes symmetric, toes down Cerebellar: Normal FF movements, no abnormal movements Gait: not tested due to pt condition Psychiatric: negative Musculoskeletal: negative Lab Studies personally reviewed Imaging Studies personally reviewed documented in this encounter Plan of Treatment Not on file documented as of this encounter Visit Diagnoses Not on filedocumented in this encounter Care Teams Cardiac Sonographer Relationship Specialty Start Date End Date Mona Levin MD PCP - General Family Medicine 07/19/22 documented as of this encounter
--- OUTSIDE RECORDS SUMMARY | 2025-06-01 11:15 | XMS_ITS | Encounter Summary ---
Author Organization [employer] ([place], [place], [place], [place]) Address [address] [place] [place] [address] Care Team Providers Care Production Control Scheduler Name Role Phone Mona Levin MD Primary Care Provider [phone] Encounter Details Date Type Department Care Team (Late st Contact Info) Description 11/19/2020 Transcribed Document [facility] Pulm & Critical Care Medicine [address] [place] [address] [address] [id number] [place] [address] [place] [address] [address] [place] [address] Social History Tobacco Use Types Packs/Day Years Used Date Smoking Tobacco: Never Assessed Comments Unknown Sex and Gender Information Value Date Recorded Sex Assigned at Not on file Legal Sex Female 10:15 AM CDT Gender Identity Not on file Sexual Orientation Not on file documented as of this encounter Miscellaneous Notes * Cerner Conversion Note - Kaelyn Levi MD - 11/19/2020 3:33 PM EST Patient: SHIELA JASSO Age: 60 years Sex: Female : 1960 Associated Diagnoses: None Author: KAELYN LEVI MD [facility] Pulmonary CCM Consultation Note Requesting: Dr. Arellano Reason: Lung mass Basic Information CC: I dont know HPI: 60 year old female with stated history of COPD, tobacco abuse, Diverticulitis in the past with colectomy and colostomy-- later reversed, HTN, chronic pain and kidney stones who presented to [facility] on 11/11/20 with 2-3 days worth of bilateral flank pain with dysuria. She reported did not have fevers of chills. Work up outlying on admission showed tachycardia and tachypnea with out fevers. Labs revealed procal of nearly 30, BUN 41, Creat 2.47, WBC 16.7, lactate 3. COVID testing was negative. Ct chest was concerning for mass-like consolidation in the ASHISH, patchy areas of GGO. CT abd/pelvis showed mild right renal enlargement with right perinephric stranding and periureteral inflammatory stranding. She was treated with anbx Rocephin and Zithromax as well as other medical therapy and admitted to ICU there. Blood cx outlying showed E coli, Klebsiella, and Enterobacteriaceae and she was switched to Merrem. She developed headaches outlying - possible trigeminal neuralgia per documents and underwent CT head as noted above. It showed a lytic osseous lesion in the midline occipital bone; measuring 19 mm Due to suspected lung cancer, likely post obstructive pneumonia and worsening symptoms, she was transferred to [facility] on 11/17/20 for further care and evaluation. Pulmonary team is consulted for lung mass. She is seen today on room air, she is drowsy, asking for pain medication. She is slow to answer questions, states the year, where she is and her name, but did not know the month. I asked other questions, but she states I dont know. She is currently a poor historian. She repeats the year over and over when asked what the month is. PMH: Intra-abdominal abscess in the past Kidney stones Chronic pain HTN Diverticulitis Multisite OA - followed by pain clinic COPD Neuropathy PsxH: 09/25/2015: Open sigmoid colectomy with colostomy (Rudy's type procedure). Drainage of intra-abdominal abscess. Reversal of colostomy 10/11/16: Right extracorporeal shockwave lithotripsy. Tubal Knee surgery Marta Hysterectomy PFH: Cancer DM Stroke Social: Cigarette smoker 1 pack for 40 years 2/1: Patient seen and examined at bedside. Underwent left upper lung mass CT-guided FNA this morning. No complication during the procedure. Hemodynamically stable. Respiratory status richardson improving. Review of Systems Constitutional: Weakness, Fatigue. Eye: No recent visual problem. Ear/Nose/Mouth/Throat: No decreased hearing. Respiratory: No shortness of breath, No cough, No sputum production. Cardiovascular: No chest pain. Gastrointestinal: No vomiting. Genitourinary: No hematuria. Hematology/Lymphatics Endocrine: No excessive thirst. Immunologic: No recurrent fevers. Musculoskeletal: Back pain. Integumentary: No rash. Neurologic: Alert and oriented X4. Health Status Allergies: Allergic Reactions (Selected) Severity Not Documented Codeine- Nausea, vomiting. Penicillin- Nausea, vomiting., Allergies (2) Active Reaction codeine nausea, vomiting penicillin nausea, vomiting Current medications: (Selected) Inpatient Medications Ordered DuoNeb 0.5 mg-2.5 mg/3 mL inhalation solution: 3 mL, Nebulized Inhalation, RT_Q6H, PRN: Shortness of Breath Habitrol 21 mg/24 hr transdermal film, extended release: 1 Patch, TransDermal, Daily MiraLax: 17 Gram, Oral, Daily, PRN: Constipation Pepcid: 20 mg, Oral, Daily Rocephin: 2 Gram, 100 mL/Hr, IV Piggyback, [id number] Roxicodone: 5 mg, Oral, Q4H, PRN: Pain (Moderate 4-6) Tylenol: 650 mg, Oral, Q4H, PRN: Pain (Mild 1-3) Zofran: 4 mg, IV Push, Q4H, PRN: Nausea ergocalciferol: 50,000 Units, Oral, [id number] gabapentin: 800 mg, Oral, QID heparin: 5,000 Units, SubCutaneous, [id number] hydrALAZINE: 10 mg, IV Push, Q6H, PRN: Hypertension morphine: 2 mg, IV Push, Q2H, PRN: Pain (Severe 7-10) nystatin: 500,000 Units, Swish and Spit, QID, PRN: Other (See Comment) potassium chloride 10 mEq oral tablet, extended release: 20 mEq, 2 Tab, Oral, BID Pending Complete influenza virus vaccine, inactivated: 0.5 mL, IntraMuscular, [id number] potassium chloride 10 mEq/50 mL intravenous solution: 10 mEq, 50 mL, 50 mL/Hr, IV Piggyback, Q1H Documented Medications Documented Macrobid: 100 mg, Oral, BID, 0 Refill(s) Percocet 10/325 oral tablet: 1 Tab, Oral, Q8H, PRN: for pain, 0 Refill(s) Zantac: 150 mg, Oral, BID, PRN: Heartburn, 0 Refill(s) gabapentin 800 mg oral tablet: 1 Tab, Oral, QID, 0 Refill(s) ibuprofen 200 mg oral tablet: 2 Tab, Oral, Q4H, PRN: for pain, 120 Tab, 0 Refill(s) losartan 100 mg oral tablet: Tab, Oral, Daily, 0 Refill(s) metoprolol succinate 50 mg oral capsule, extended release: Cap, Oral, Daily, 0 Refill(s), Medications (15) Active Scheduled: (7) cefTRIAXone 2 Gram, IV Piggyback, [id number] ergocalciferol 50,000 unit cap 50,000 Units 1 Cap, Oral, Q4Kichs famotidine 20 mg tab 20 mg 1 Tab, Oral, Daily gabapentin 400 mg cap 800 mg 2 Cap, Oral, QID heparin 5,000 units/1 mL inj 5,000 Units 1 mL, SubCutaneous, U40GRdr nicotine 21 mg/24 hr patch 1 Patch, TransDermal, Daily potassium chloride CR 10 mEq tab 20 mEq 2 Tab, Oral, BID Continuous: (0) PRN: (8) acetaminophen 325 mg tab 650 mg 2 Tab, Oral, Q4H albuterol-ipratropium inh 3 mL 3 mL, Nebulized Inhalation, RT_Q6H hydrALAZINE 20 mg/1 mL inj 10 mg 0.5 mL, IV Push, Q6H morphine 2 mg/1 ml inj 2 mg 1 mL, IV Push, Q2H nySTATin 100,000 unit/mL susp 5 mL 500,000 Units 5 mL, Swish and Spit, QID ondansetron 4 mg/2 mL inj 4 mg 2 mL, IV Push, Q4H oxyCODONE 5 mg tab 5 mg 1 Tab, Oral, Q4H polyethylene glycol 3350 pwd 17 g pkt 17 Gram 1 Packet, Oral, Daily Problem list: Medical At risk for sleep apnea / IMO 82157346 / Confirmed Chronic back pain / SNOMED CT 969931966 / Confirmed Depression / SNOMED CT 74536730 / Confirmed Hypertension / SNOMED CT 0236504771 / Confirmed Kidney stones / SNOMED CT 183514073 / Confirmed, Active Problems (8) At risk for sleep apnea Chronic back pain Depression diverticulitis fibromyalgia heartburn Hypertension Kidney stones Physical Examination VS/Measurements Vitals Signs (last 24 hrs) Last Charted Minimum Maximum Temp 99.6 (NOV 19 06:08) 97.7 (NOV 18:) 99.6 (NOV 19 06:08) Mon HR 90 (NOV 19 11:36) 86 (NOV 18:) 109 (NOV 19 06:08) Resp Rate 18 (NOV 19 06:08) 16 (NOV 18:28) 18 (NOV 18:) SBP 133 (NOV 19:36) 101 (NOV 19 08:05) H 145 (NOV 18:) DBP 83 (NOV 19 11:36) 65 (NOV 18:) 89 (NOV 18:) MAP 96 (NOV 19 11:36) 80 (NOV 18:) 106 (NOV 18:28) SpO2 96 (NOV 19 07:20) 95 (NOV 18:) 97 (NOV 18:) General: Alert and oriented, No acute distress. Eye: Pupils are equal, round and reactive to light, Extraocular movements are intact, Normal conjunctiva. HENT: Normocephalic, Normal hearing, Oral mucosa is moist. Neck: Supple, No lymphadenopathy. Respiratory: Respirations are non-labored, Breath sounds are equal, Symmetrical chest wall expansion. Breath sounds: Bilateral, Base, Diminished. Cardiovascular: Normal rate, Regular rhythm, No edema. Gastrointestinal: Soft, Non-tender, Non-distended, Normal bowel sounds. Genitourinary: No costovertebral angle tenderness. Musculoskeletal: Normal range of motion, she moves all extremities and sits up on her side during visit. Integumentary: Warm, Dry. Neurologic: Alert, Oriented, No focal deficits. Psychiatric: Cooperative. Review / Management Results review: Labs (Last four charted values) WBC H 18.3 (NOV 19) H 18.2 (NOV 18) H 19.0 (NOV 17) HB L 10.8 (NOV 19) L 9.8 (NOV 18) L 9.3 (NOV 17) HCT L 32.1 (NOV 19) L 29.2 (NOV 18) L 27.8 (NOV 17) Plt 330 (NOV 19) 278 (NOV 18) 213 (NOV 17) Na 141 (NOV 19) 139 (NOV 18) 141 (NOV 17) K L 3.1 (NOV 19) L 3.0 (NOV 19) 3.5 (NOV 18) C 2.8 (NOV 18) Cl 109 (NOV 19) 108 (NOV 18) 111 (NOV 17) CO2 24 (NOV 19) 24 (NOV 18) 23 (NOV 17) BUN 14 (NOV 19) 13 (NOV 18) 18 (NOV 17) Cr 0.70 (NOV 19) 0.60 (NOV 18) 0.70 (NOV 17) Glu R H 124 (NOV 19) H 111 (NOV 18) H 109 (NOV 17) Ca 8.7 (NOV 19) 8.4 (NOV 18) L 8.2 (NOV 17) PT H 13.1 (NOV 17) INR H 1.3 (NOV 17) AST H 66 (NOV 19) H 134 (NOV 18) H 74 (NOV 17) ALT 42 (NOV 19) 51 (NOV 18) 26 (NOV 17) ALK P 84 (NOV 19) 82 (NOV 18) 80 (NOV 17) T Bili 0.5 (NOV 19) 0.5 (NOV 18) 0.4 (NOV 17) PTN H 8.3 (NOV 19) 7.4 (NOV 18) 6.8 (NOV 17) ALB L 2.4 (NOV 19) L 2.1 (NOV 18) L 2.0 (NOV 17) . No qualifying data available Blood Gases (Current Encounter/Past 24 Hours) No Blood Gas Results Found (Past 24 Hours) Radiology Results (Last 48 hours) [id number] -- 11/17/2020 01:09 CT Bx Lung Mediastinum LT (11/19/2020 10:59) Result: CT GUIDED FINE-NEEDLE ASPIRATION AND CORE BIOPSY OF LEFT LUNG MASSHISTORY: Left upper lobe mass. ATTENDING RADIOLOGIST: Dr. Byrne.PHYSICIAN MANAGER CONSUMER: Vin Cortez PA-C.PROCEDURE: After informed consent was obtained and a time-out wasperformed, the patient was prepped and draped in usual sterile fashionover the left posterior chest. Utilizing local anesthesia and steriletechnique with a coaxial system, access to lesion was obtained. A totalof 3 fine-needle aspirations were obtained with a 22-gauge needle. Inaddition, 6 separate 20-gauge core biopsies were obtained. Samples weresent for histology as well as routine cultures. Postbiopsy filmsdemonstrate no evidence of acute complication. The patient receivedmoderate conscious sedation. The patient tolerated the procedure welland left the department in good condition.CONSCIOUS SEDATION: 2 mg of IV Versed and 100 mcg of Fentanyl wereadministered. Continuous vital sign monitoring was used. An RN waspresent during the sedation process. Overall sedation time was 30minutes.IMPRESSION: Status post CT guided biopsy of left upper lobe mass withoutimmediate complication. Images reviewed, interpreted, and dictated by Dr. Abdirashid Byrne.Transcribed by Vin Cortez PA-C CR Chest 2 Vws (11/19/2020 11:15) Result: TWO VIEW CHEST HISTORY: Post lung biopsy. COMPARISON: November 14, 2020.FINDINGS: The right PICC line tip is in the mid SVC. The heart is normalin size. The mediastinum is unremarkable. There is left upper lobe softtissue mass is stable. There is no pneumothorax. The osseous structuresdemonstrate no acute abnormality. IMPRESSION: No pneumothorax status post lung biopsy. Images reviewed, interpreted, and dictated by Dr. Med Lozano.Transcribed by Denia Farah PA-C.I have personally viewed, interpreted and dictated the examination. Ihave read and agree with the above final transcribed report. CR Chest 2 Vws (11/19/2020 13:12) Result: TWO-VIEW CHEST 11/19/2020 11:01 AMHISTORY: Post left lung biopsyCOMPARISON: 2 hours priorFINDINGS: The cardiac silhouette is proper size. The aortic contoursare normal. The mediastinal and hilar structures are unremarkable. Rightupper extremity PICC line is unchanged. There is a persistent left upperlobe mass. There is no pneumothorax. IMPRESSION: Persistent left upper lobe mass. No pneumothorax identified. Images reviewed, interpreted, and dictated by Dr. Med Lozano.Transcribed by Vin Cortez PA-C Impression and Plan Pulmonary: ASHISH Lung mass measuring 42 mm in size Bilateral patchy groundglass opacification more anteriorly Atelectasis Stated COPD; unknown severity Previous tobacco abuse ID: Leukocytosis Sepsis on arrival outlying (tachycardia, tachypnea, and now confusion) Gram negative ervin bacteremia - E coli, Klebsiella, and Enterobacteriaceae at [facility] Pyelonephritis Post -Obstructive PNA Heme/Onc: Anemia Neuro: Drowsy ? Trigeminal Neuralgia CT head a [facility] showed a lytic osseous lesion in the midline occipital bone; measuring 19 mm MRI brain Localized signal abnormality within the midline calvarium of the occipital skull, corresponds to a lytic lesion see on recent CT. Renal: ISAK on admission to [facility] initially Hypokalemia GI: History of diverticulitis with colectomy in the past with colostomy and later reversal of colostomy Elevated AST Urology: Pyelonephritis with CT abd/pelvis outlying showing mild right renal enlargement with right perinephric stranding and periureteral inflammatory stranding. General: Chronic pain PLAN: S/p CT guided ASHISH mass on 11/19/20 for the left upper lobe peripheral mass (likely malignant in nature). Patient smokes tobacco since age 12 and continue to do so. She states that she smokes pack a day at least. Oxygen supplementation if need to keep sats > 90%; currently on room air IS hourly. Neurology following: MRI brain Localized signal abnormality within the midline cavarum of the occipital skull, corresponds to a lytic lesion see on recent CT. possible metastasis. Needs further work-up. ID following: Merrem changed to Rocephin. Strep/Leg urine - negative. Resp panel PCR 0 negative. Repeat COVID-19 nasopharyngeal PCR - Neg. BC pending. NGTD. MRSA surv - Neg. GI proph: Pepcid DVT proph: Heparin Prognosis: guarded FULL CODE. I saw and examined the patient at bedside, obtained medical history, reviewed labs, diagnostics and chest imaging data. I personally and independently visualized and interpreted chest imaging data on PACS. I formulated diagnosis and treatment plans. I made all medical decisions as above. Complex case. documented in this encounter Plan of Treatment Not on file documented as of this encounter Visit Diagnoses Not on filedocumented in this encounter Care Teams Production Control Scheduler Relationship Specialty Start Date End Date Mona Levin MD PCP - General Family Medicine 07/19/22 documented as of this encounter
--- OUTSIDE RECORDS SUMMARY | 2025-06-01 11:15 | XMS_ITS | Encounter Summary ---
Author Organization [employer] ([place], [place], [place], [place]) Address [address] [place] [place] [address] Care Team Providers Care Stoker Erector Name Role Phone Mona Levin MD Primary Care Provider [phone] Encounter Details Date Type Department Care Team (Late st Contact Info) Description 11/19/2020 Transcribed Document [facility] [place] [address] ProviderLeia MD [address] [place] [address] Social History Tobacco Use Types Packs/Day Years Used Date Smoking Tobacco: Never Assessed Comments Unknown Sex and Gender Information Value Date Recorded Sex Assigned at Not on file Legal Sex Female 10:15 AM CDT Gender Identity Not on file Sexual Orientation Not on file documented as of this encounter Miscellaneous Notes * Cerner Conversion Note - Leia ProviderMD - 11/19/2020 9:38 AM SECURE SOFTWARE ASSESSOR [employer] Authorization Entered On: 11/19/2020 9:39 EST Performed On: 11/19/2020 9:38 EST by KODY ESPARZA Rn-Utilization Review Primary Insurance Authorization Authorization and Policy Numbers : Insurance 1 Health Plan: [id number] MANAGED MEDICARE Policy Number: [id number] Authorization Number: Insurance Primary Name : [facility] MANAGED MEDICARE Policy Number: [id number] Authorization Status-Primary : Admit approved Reference Number-Primary : [id number] Authorization Number-Primary : [id number] Number of Days Authorized-Primary : 4 Day(s) Authorized Service Begin Date-Primary : 11/17/2020 EST Authorized Service End Date-Primary : 11/21/2020 EST Authorization Comments-Primary : Per [facility] site, Inpt Auth approved 5 days. NRD 11/22 Historical Authorization Comments-Primary : Comment 1: AUTH SUBMITTED ON WEBSITE WITH CLINCAL ATTACHED (Jacque Mckeon, Rn-Utilization Review 11/17/2020 11:44) KODY ESPARZA Rn-Utilization Review - 11/19/2020 9:38 EST Electronically signed by [facility], [facility] Conversion Aperture Mask Etcher Cerner at 02/06/2023 8:52 AM CDT documented in this encounter Plan of Treatment Not on file documented as of this encounter Visit Diagnoses Not on filedocumented in this encounter Care Teams Stoker Erector Relationship Specialty Start Date End Date Mona Levin MD PCP - General Family Medicine 07/19/22 documented as of this encounter
--- OUTSIDE RECORDS SUMMARY | 2025-06-01 11:15 | XMS_ITS | Encounter Summary ---
Author Organization [email or web address] ([place], [place], [place], [place]) Address [address] [place] [address] Care Team Providers Care Front End Manager Name Role Phone Mona Levin MD Primary Care Provider Encounter Details Date Type Department Care Team (Late st Contact Info) Description 11/19/2020 Transcribed Document [facility] [place] Family Medicine [facility] [place] [address] ProviderLeia MD [address] [place] [address] Social History Tobacco Use Types Packs/Day Years Used Date Smoking Tobacco: Never Assessed Comments Unknown Sex and Gender Information Value Date Recorded Sex Assigned at Not on file Legal Sex Female 10:15 AM CDT Gender Identity Not on file Sexual Orientation Not on file documented as of this encounter Miscellaneous Notes * Cerner Conversion Note - Leia Gutiérrez MD - 11/19/2020 8:58 AM EDI PROGRAMMER ANALYST Patient: SHIELA JASSO Age: 60 years Sex: Female : 1960 Associated Diagnoses: None Author: NIKHIL GUERRERO PA-INF INFECTIOUS DISEASES Progress Note EMIL RAMOS: Dr. Macario Wilcox Date of Admission: 11/17/20 Reason for Consultation: Bacteremia, UTI, pneumonia HPI: 60 yo female with h/o fibromyalgia, chronic pain, HTN, and nephrolithiasis who presented to [facility] on 11/12/20 with shortness of breath and flank pain. She was diagnosed with pneumonia from CXR with a CT scan of chest showing a ASHISH lung mass. A CT scan of a/p showed right kidney perinephric stranding with urine culture positive for Klebsiella pneumoniae sensitive to Ceftriaxone. Blood cultures also became positive for E. coli in 2 of 2 sets along with Klebsiella pneumoniae in 1 of 2 sets. She initially was treated with Rocephin and Azithromycin and then changed to Merrem after cultures. She was transferred to [facility] on 11/17/20 and arrived confused, lethargic, and disoriented. The patient has been complaining of bilateral ear pain and headaches with a CT scan of head showing no acute findings. She denies fever and chills. An MRI is pending. Her tympanomembranes are not red and no fluid was seen behind the TMs bilaterally. She was continued on Merrem. She was afebrile with WBC of 19,000/77% neutrophils. Blood cultures and MRSA surveillance culture are pending. ID was asked to evaluate and manage her antibiotic therapy. SUBJECTIVE: 11/18/20: Still with severe bilateral ear pain, denies f/c, sob, n/v/d, rashes. Still has Matthew cath in place. 11/19/20: Still with bilateral ear pain. Denies f/c, sob, n/v/d, rashes. Awaiting lung biopsy today. Tolerating Rocephin ROS: see above Allergies: Allergies (2) Active Reaction codeine nausea, vomiting penicillin nausea, vomiting Medications: Medications by Classification Antimicrobials cefTRIAXone (Rocephin) - 2 Gram, IV Piggyback, Inj, [id number], infuse over 30 Minute(s), Routine Anticoagulant heparin - 5,000 Units, SubCutaneous, Inj, [id number], Routine Respiratory albuterol-ipratropium (DuoNeb 0.5 mg-2.5 mg/3 mL inhalation - 3 mL, Nebulized Inhalation, Inh, RT_Q6H, PRN for Shortness of Breath, Routine GI ondansetron (Zofran) - 4 mg, IV Push, Inj, Q4H, PRN for Nausea, Routine famotidine (Pepcid) - 20 mg, Oral, Tab, Daily, Routine polyethylene glycol 3350 (MiraLax) - 17 Gram, Oral, Powder, Daily, PRN for Constipation, Routine Neuro gabapentin - 800 mg, Oral, Cap, QID, Routine HEENT nystatin - 500,000 Units, Swish and Spit, Liquid, QID, PRN for Other (See Comment), Routine Pain Meds morphine - 2 mg, IV Push, Inj, Q2H, PRN for Pain (Severe 7-10), Routine oxyCODONE (Roxicodone) - 5 mg, Oral, Tab, Q4H, PRN for Pain (Moderate 4-6), Routine gabapentin - 800 mg, Oral, Cap, QID, Routine *Duplicate* acetaminophen (Tylenol) - 650 mg, Oral, Tab, Q4H, PRN for Pain (Mild 1-3), Routine Vitamins ergocalciferol - 50,000 Units, Oral, Cap, P1Tumrg, Routine potassium chloride (potassium chloride 10 mEq oral tablet, e - 20 mEq 2 Tab, Oral, CR Tab, BID, Routine potassium chloride (potassium chloride 10 mEq/50 mL intraven - 10 mEq 50 mL, IV Piggyback, Inj, Q1H, order duration: 4 Time(s), Routine Other nicotine (Habitrol 21 mg/24 hr transdermal film, extended re - 1 Patch, TransDermal, Patch, Daily, Routine Undefined Medications hydrALAZINE - 10 mg, IV Push, Inj, Q6H, PRN for Hypertension, Routine PE: Vitals Signs (last 24 hrs) Last Charted Minimum Maximum Temp 99.6 (NOV 19 06:08) 97.7 (NOV 18 17:26) 99.1 (NOV 18 09:14) Apical HR L 41 (NOV 18 13:42) L 41 (NOV 18 13:42) L 41 (NOV 18 13:42) Mon HR 91 (NOV 19 08:05) 86 (NOV 18 17:26) 109 (NOV 19 06:08) Resp Rate 18 (NOV 19 06:08) 16 (NOV 18 21:28) 18 (NOV 18 09:14) SBP 101 (NOV 19 08:05) 101 (NOV 19 08:05) H 145 (NOV 18 21:28) DBP 79 (NOV 19 08:05) 65 (NOV 18 17:26) 89 (NOV 18 21:28) MAP 91 (NOV 19 08:05) 80 (NOV 18 17:26) 106 (NOV 18 21:28) SpO2 96 (NOV 19 06:08) 95 (NOV 18 09:14) 97 (NOV 18 21:28) Exam: Constitutional: NAD, alert, WD/WN, appears stated age, ill appearing. Obese HEENT: NC/AT, no thrush, no exudate. No external oral lesions. Respiratory: diminished at lung bases bilaterally, non-labored breathing. Cardio: RRR S1, S2, no murmurs, gallops, or rubs. No edema GI: BS+, non-tender, non-distended, no HSM : + matthew MS: normal ROM, no joint swelling. Derm: No rashes, abrasions, breakdown, or lesions Neuro: no focal deficits, Alert and oriented x 3. normal speech and cognition Psych: cooperative, normal affect Labs: Labs (Last four charted values) WBC H [...] (NOV 18) 141 (NOV 17) K L 3.0 (NOV 19) 3.5 (NOV 18) C 2.8 (NOV 18) C 2.6 (NOV 18) Cl 109 (NOV 19) 108 [...] 2.1 (NOV 18) L 2.0 (NOV 17) Creatinine Clearance (Current Encounter/Past 24 Hours) Creatinine Level 0.70 mg/dL 11/19/2020 07:20 Bun/Creatinine 20.0 11/19/2020 07:20 Estimated Creatinine Clearance 77.87 mL/Min 11/19/2020 07:20 Micro: Blood cx NGSF MRSA surveillance: negative SJB: (called and talked to tech at [facility] on 11/17/20) Blood cx: E. coli in 2 of 2 sets/Klebsiella in 1 set all sensitive to Rocephin Urine cx: Klebsiella pneumoniae sensitive to Rocephin Rad: Radiology Results (Last 48 hours) [id number] -- 11/17/2020 01:09 MRI Brain WO (11/17/2020 12:24) Result: NONINFUSED BRAIN MRIHISTORY: Sepsis and confusion.FINDINGS: On the T2-weighted sagittal images, midline structures appearintact.On the T2 and flair axial images, a few tiny, subtle scattered foci ofincreased signal are seen in the deep white matter bilaterally.There is no evidence of restricted diffusion.Visualized paranasal sinuses demonstrate normal signal voids.Incidental note is made of a localized signal abnormality within themidline occipital skull. This signal abnormality is ovoid inconfiguration, and measures up to 2.1 cm in transverse dimension.Finding demonstrates increased signal on both the T1 and T2-weightedimages.IMPRESSION:1. No evidence of acute intra-axial abnormality.2. Localized signal abnormality within the midline calvarium of theoccipital skull. This finding corresponds to a lytic lesion seen on therecent CT scan. Differential considerations would include a metastasis.Correlation with bone scan or PET scan is recommended.Images reviewed, interpreted, and dictated by Jae Shabazz MD IMPRESSION: - E. coli/Klebsiella bacteremia at OSH. Likely urinary source - Klebsiella UTI/pyelonephritis - ASHISH lung mass vs pneumonia vs obstructive pneumonia - Leukocytosis/neutrophilia - Encephalopathy - Calvarium lytic lesion - Bilateral ear pain with no evidence of infection by exam - Essential hypertension - Fibromyalgia - Chronic pain - Pcn intolerance (N/V). tolerated Rocephin. RECOMMENDATIONS/PLANS: - Monitor blood and MRSA cultures - Ceftriaxone 2 GM IV daily - Pulmonology following. Planning for biopsy of ASHISH mass today - D/c Matthew cath to reduce risk for CAUTI. Can use Purewick if necessary. Placed order today. PA saw and examined patient today. D/w Dr. Macario Guerrero PA-C [facility] Electronically signed by Francisco, [facility] Conversion Machine Design Engineer Cerner at 02/06/2023 8:56 AM CDT documented in this encounter Plan of Treatment Not on file documented as of this encounter Visit Diagnoses Not on filedocumented in this encounter Care Teams Front End Manager Relationship Specialty Start Date End Date Mona Levin MD PCP - General Family Medicine 07/19/22 documented as of this encounter
--- OUTSIDE RECORDS SUMMARY | 2025-06-01 11:15 | XMS_ITS | Encounter Summary ---
Author Organization [employer] ([place], [place], [place], [place]) Address [address] [place] [address] Care Team Providers Care Cna Hha Name Role Phone Mona Levin MD Primary Care Provider [phone] Encounter Details Date Type Department Care Team (Late st Contact Info) Description 11/22/2020 Transcribed Document [facility] [place] [address] ProviderLeia MD [address] [place], [place] [address] Social History Tobacco Use Types Packs/Day Years Used Date Smoking Tobacco: Never Assessed Comments Unknown Sex and Gender Information Value Date Recorded Sex Assigned at Not on file Legal Sex Female 10:15 AM CDT Gender Identity Not on file Sexual Orientation Not on file documented as of this encounter Miscellaneous Notes * Cerner Conversion Note - Leia Gutiérrez MD - 11/22/2020 4:57 PM BINDERY HELPER Pain Assessment Entered On: 11/23/2020 4:07 EST Performed On: 11/22/2020 23:54 EST by Steffanie Jones RN Intervention Information: morphine Performed by Steffanie Jones RN on 11/22/2020 23:24:00 EST morphine,2mg + Sodium Chloride 0.9%,9mL IV Push,PICC distal,Pain (Severe 7-10) Pain Assessment Pain Assessment : Follow-up assessment Pain Scale Goal : 4 Pain Scale Used : 0-10 Scale Location : Ears, bilateral Pain Radiation : No Pain Improved by Intervention : Yes Steffanie Jones RN - 11/23/2020 4:07 EST Pain Scale Intensity : 3 Steffanie Jones ARIN Kelley - 11/23/2020 4:07 EST Image 4 - Images currently included in the form version of this document have not been included in the text rendition version of the form. Electronically signed by Francisco [facility] Conversion Managing Attorney Cerner at 02/06/2023 8:54 AM CDT documented in this encounter Plan of Treatment Not on file documented as of this encounter Visit Diagnoses Not on filedocumented in this encounter Care Teams Cna Hha Relationship Specialty Start Date End Date Mona Levin MD PCP - General Family Medicine 07/19/22 documented as of this encounter
--- OUTSIDE RECORDS SUMMARY | 2025-06-01 11:15 | XMS_ITS | Encounter Summary ---
Author Organization [email or web address] ([place], [place], [place], [place]) Address [address] [place] [address] Care Team Providers Care Squaring Shear Operator Name Role Phone Mona Levin MD Primary Care Provider [phone] Encounter Details Date Type Department Care Team (Late st Contact Info) Description 11/17/2020 Transcribed Document [facility] [place] Family Medicine [address] [place] [address] ProviderLeia MD [address] [place], [place] [address] Social History Tobacco Use Types Packs/Day Years Used Date Smoking Tobacco: Never Assessed Comments Unknown Sex and Gender Information Value Date Recorded Sex Assigned at Not on file Legal Sex Female 10:15 AM CDT Gender Identity Not on file Sexual Orientation Not on file documented as of this encounter Miscellaneous Notes * Cerner Conversion Note - Leia Gutiérrez MD - 11/17/2020 1:36 AM MACHINE SAND MIXER Patient: SHIELA JASSO Age: 60 years Sex: Female : 1960 Associated Diagnoses: None Author: FIFI JIN MD-INT Basic Information Source of history: Medical record, Not self. Present at bedside Referral source: CASEY Vasquez. History limitation: Clinical condition. Primary Care Physician: States she doesn't know if I have one or not when asked Chief Complaint Need for higher level of care History of Present Illness This is a 60 year old female with a past medical history as noted below who was transferred to this facility from [facility]. She is confused and somewhat lethargic on arrival here and unable to contribute any useful history. Therefore unfortunately all the history I have was obtained solely via chart review. She was admitted at [facility] on 11/12 when she presented with shortness of breath and flank pain. She was initially diagnosed with pneumonia seen on a chest x-ray. She grew Klebsiella penumoniae in her urine culture. She had evidence of perinephric stranding about the right kidney on CT consistent with pyelonephritis. CT chest was obtained and showed a left upper lobe lung mass. She also developed positive blood cultures with growth of E. coli. She was initially treated with rocephin/zithromax but changes to merrem after cultures returned. (This is a summary of information obtained from transfer documents, not all of the relevant information was included in the transfer packet for confirmation such as culture data) The patient began complaining of bilateral ear pain and headaches and had a CT head done yesterday that did not show anything acute. I am not certain about her mental state in the last couple of days but as mentioned on attempted interview this morning the patient is confused, disoriented, and lethargic. She was complaining of ear pain on the right when I was able to awaken her to speak briefly. Review of Systems ROS unobtainable secondary to confusion/disorientation Health Status Allergies: Allergic Reactions (Selected) Severity Not Documented Codeine- Nausea, vomiting. Penicillin- Nausea, vomiting. Current medications: (Selected) Documented Medications Documented Macrobid: 100 mg, Oral, BID, 0 Refill(s) Percocet 10/325 oral tablet: 1 Tab, Oral, Q8H, PRN: for pain, 0 Refill(s) Zantac: 150 mg, Oral, BID, PRN: Heartburn, 0 Refill(s) gabapentin 800 mg oral tablet: 1 Tab, Oral, QID, 0 Refill(s) ibuprofen 200 mg oral tablet: 2 Tab, Oral, Q4H, PRN: for pain, 120 Tab, 0 Refill(s), Meds at [facility] included carbamazepine 200 mg BID, Fe sulfate 325 mg daily, flonase, folic acid, gabapentin 800 mg TID, claritin, mucinex, nicotine patch, pantoprazole, vitamin C, zithromax, merrem Histories Past Medical History: 1. Chronic pain syndrome 2. COPD 3. GERD 4. Tobacco abuse Family History: Significant for DM type II and CAD. Procedure history: 1. Left knee arthroplasty 2. Hysterectomy 3. Partial colectomy 4. Cholecystectomy Social History The patient is . She smokes 1 PPD. She denies use of alcohol.. Physical Examination General: Mild distress, Disoriented to place, time, and events, Sleepy but arousable, Not alert and oriented. Eye: Pupils are equal, round and reactive to light, Extraocular movements are intact, Normal conjunctiva. HENT: Normocephalic, Normal hearing, Oral mucosa is moist. Neck: Supple, Non-tender. Respiratory: Lungs are clear to auscultation, Respirations are non-labored, Breath sounds are equal, Symmetrical chest wall expansion, No chest wall tenderness. Cardiovascular: Normal rate, Regular rhythm, No murmur, No gallop, Good pulses equal in all extremities, Normal peripheral perfusion, No edema. Gastrointestinal: Soft, Non-tender, Non-distended, Normal bowel sounds, Obese. Musculoskeletal: No tenderness, No swelling, No deformity. Integumentary: Warm, Dry, Intact, No rash. Neurologic: Normal sensory, Normal motor function, No focal deficits, Cranial Nerves II-XII are grossly intact, Gag reflex normal, Normal deep tendon reflexes, Not alert, Not oriented. Psychiatric: Cooperative, Not appropriate mood & affect. Review / Management Results review: Labs at [facility] on 11/16 include WBC 16.3, Hgb 9.4, Plt 187, Na 143, K 3.0, Cl 108, CO2 23, BUN 17, Cr 0.86, Glu 101, Ca 7.9, Mg 1.6, iron levels on 11/14 were 8, she was negative for influenza and COVID19. Documentation reviewed: Records from referring facility, Records from referring physician, Reviewed prior records. Condition: Guarded. Impression and Plan 1. Post-obstructive pneumonia: For now will continue merrem. Will consult Pulmonary for additional assistance with management. 2. New diagnosis left upper lobe lung mass: Pulmonary will be consulted. 3. E. coli bacteremia: Continue merrem for now. Since she has multiple acute infectious issues I will consult ID for assistance. It would be helpful if we could obtain actual copies of the culture data mentioned in the discharge summary. 4. Klebsiella UTI: Continue merrem for now. 5. Acute COPD exacerbation: Continue bronchodilators. She did not have bronchospasm on exam this morning so I will defer steroid treatment. 6. Ongoing hypokalemia: Recheck labs and replace as appropriate. 7. Thrombocytopenia: Mild, continue to follow. 8. Iron deficiency anemia: Continue iron supplementation. 9. New headaches and bilateral ear pain: CT head at [facility] negative for acute process. Will ask for input from Neurology. 10. Acute encephalopathy: Suspect could be multifactorial at this point but will get input from Neurology as mentioned. 11. Chronic pain syndrome: Will be on PRN pain medications. 12. GERD: Will give PPI. 13. Tobacco abuse: Continue nicotine patch. The patient is high risk and medically complex. documented in this encounter Plan of Treatment Not on file documented as of this encounter Visit Diagnoses Not on filedocumented in this encounter Care Teams Squaring Shear Operator Relationship Specialty Start Date End Date Mona Levin MD PCP - General Family Medicine 07/19/22 documented as of this encounter
--- OUTSIDE RECORDS SUMMARY | 2025-06-01 11:15 | XMS_ITS | Encounter Summary ---
Author Organization [employer] ([place], [place], [place], [place]) Address [address] [place] [address] Care Team Providers Care Division Engineer Name Role Phone Mona Levin MD Primary Care Provider [phone] Encounter Details Date Type Department Care Team (Late st Contact Info) Description 11/23/2020 Transcribed Document [facility] [place] Family Medicine [facility] [address] ProviderLeia MD [address] [place], [place] [id number] Social History Tobacco Use Types Packs/Day Years Used Date Smoking Tobacco: Never Assessed Comments Unknown Sex and Gender Information Value Date Recorded Sex Assigned at Not on file Legal Sex Female 10:15 AM CDT Gender Identity Not on file Sexual Orientation Not on file documented as of this encounter Miscellaneous Notes * [employer]ner Conversion Note - Leia ProviderMD - 11/23/2020 5:00 PM DIXONAC OPERATOR Chart Check - Review Order Profile Entered On: 11/23/2020 18:54 EST Performed On: 11/23/2020 17:00 EST by MITCH GO RN Chart Check [employer] Initiated/Discontinued as Appropriate : Yes MITCH GO RN - 11/23/2020 18:54 EST documented in this encounter Plan of Treatment Not on file documented as of this encounter Visit Diagnoses Not on filedocumented in this encounter Care Teams Division Engineer Relationship Specialty Start Date End Date Mona Levin MD PCP - General Family Medicine 07/19/22 documented as of this encounter
--- OUTSIDE RECORDS SUMMARY | 2025-06-01 11:15 | XMS_ITS | Encounter Summary ---
Author Organization [employer] ([place], [place], [place], [place]) Address [address] [place] [address] Care Team Providers Care Clinical Support Manager Name Role Phone Mona Levin MD Primary Care Provider [phone] Encounter Details Date Type Department Care Team (Late st Contact Info) Description 11/22/2020 Transcribed Document [facility] [place] [facility] [place] [address] ProviderLeia MD [address] [place] [id number] Social History Tobacco Use Types Packs/Day Years Used Date Smoking Tobacco: Never Assessed Comments Unknown Sex and Gender Information Value Date Recorded Sex Assigned at Not on file Legal Sex Female 10:15 AM CDT Gender Identity Not on file Sexual Orientation Not on file documented as of this encounter Miscellaneous Notes * [employer]ner Conversion Note - Leia ProviderMD - 11/22/2020 1:30 PM WRAPPER OFF Pain Assessment Entered On: 11/22/2020 18:04 EST Performed On: 11/22/2020 17:47 EST by Cristina Coles Rn Intervention Information: acetaminophen Performed by Geraldine Vitale Rn on 11/22/2020 16:47:00 EST acetaminophen,650mg Oral Pain Assessment Pain Assessment : Follow-up assessment Pain Scale Goal : 4 Pain Improved by Intervention : Yes Cristina Coles Rn - 11/22/2020 18:04 EST Electronically signed by Francisco [facility] Conversion Manufacturing Production Technician Cerner at 02/06/2023 8:53 AM CDT documented in this encounter Plan of Treatment Not on file documented as of this encounter Visit Diagnoses Not on filedocumented in this encounter Care Teams Clinical Support Manager Relationship Specialty Start Date End Date Mona Levin MD PCP - General Family Medicine 07/19/22 documented as of this encounter
--- OUTSIDE RECORDS SUMMARY | 2025-06-01 11:15 | XMS_ITS | Encounter Summary ---
Author Organization [employer] ([place], [place], [place], [place]) Address [address] [place] [address] Care Team Providers Care Cable Tool Driller Name Role Phone Mona Levin MD Primary Care Provider [phone] Encounter Details Date Type Department Care Team (Late st Contact Info) Description 11/23/2020 Transcribed Document [facility] Radiology [address] [place] [address] Ramos Barros MD [address] [place] [address] Social History Tobacco Use Types Packs/Day Years Used Date Smoking Tobacco: Never Assessed Comments Unknown Sex and Gender Information Value Date Recorded Sex Assigned at Not on file Legal Sex Female 10:15 AM CDT Gender Identity Not on file Sexual Orientation Not on file documented as of this encounter Miscellaneous Notes * Cerner Conversion Note - Ramos Barros MD - 11/23/2020 9:12 AM EST Patient: SHIELA JASSO Age: 60 years Sex: Female : 1960 Associated Diagnoses: None Author: RAMOS BARROS MD-INT Subjective Chief complaint. Wednesday, November 18, 2020. Patient a little bit more alert this morning compared to yesterday afternoon. She denies any fevers or chills she states she still has intermittent productive cough. No nausea or vomiting. No diarrhea constipation. I did tell her the plan discussed with pulmonary is a CT-guided biopsy of left upper lobe mass very concerning for malignancy given her history of decades of tobacco abuse. She does complain of some right ear pain intermittent for a couple of weeks. thuNovember 19, 2020. Very pleasant lady awaiting biopsy of her left upper lobe later today. She states she felt she had a mild fever yesterday and they checked her temperature was 99.8. She denies any chest pain palpitations. She states her blood pressure is up a little bit she states she is nervous about getting the procedure later today. She is oriented to name date of age 60-year 2020, [facility] she states she lives in [place] and does not have a primary care provider. She is a little bit more alert than 2 days ago when I first saw her quicker to answer the questions. Awaiting procedure later today. Friday, November 20, 2020. No fevers or chills no chest pain palpitations. No nausea vomiting. No diarrhea constipation. She tolerated the biopsy yesterday without difficulty. She states she lives in [place] and primary care provider is Jacquelyn Desouza she does not know the name of the clinic but she states it is not the [facility]. Saturday, November 21, 2020. Patient still with a productive cough. Shortness of breath improving. No nausea or vomiting. No diarrhea constipation. She does admit that she smokes between 1 and 2 packs/day but the nicotine patch is helping her. [place] any fevers or chills this morning. No nausea or vomiting. November. No fevers or chills this morning. No chest pain palpitations still with some productive cough. No nausea vomiting. No diarrhea constipation. Tolerating antimicrobials. Discussed the need for long-term amphotericin. Monday, November 23, 2020. Very pleasant lady she feels her shortness of breath is improving still with productive cough. No nausea or vomiting. No diarrhea constipation tolerating amphotericin. White blood cell count is gone from 21 10-17, creatinine increased slightly from 0.8 up to 1.0. ~Plan is at least for 1 week of IV amphotericin and then likely change to itraconazole which is more benign. Patient lives in [facility] and transportation is somewhat of an issue I believe. Review of Systems Constitutional: Weakness, Decreased activity, No fever, No chills. Respiratory: Cough, Sputum production, No shortness of breath. Cardiovascular: No chest pain, No palpitations. Gastrointestinal: No nausea, No vomiting, No diarrhea, No constipation. Genitourinary: No dysuria. Neurologic: Alert and oriented X4, No confusion. Psychiatric: No anxiety, No depression. Health Status Allergies: Allergic Reactions (Selected) Severity Not Documented Codeine- Nausea, vomiting. Penicillin- Nausea, vomiting., Allergies (2) Active Reaction codeine nausea, vomiting penicillin nausea, vomiting Problem list: Medical At risk for sleep apnea / IMO 11362857 / Confirmed Chronic back pain / SNOMED CT 463121756 / Confirmed Depression / SNOMED CT 71143528 / Confirmed Hypertension / SNOMED CT 4673758564 / Confirmed Kidney stones / SNOMED CT 305632494 / Confirmed, Active Problems (8) At risk for sleep apnea Chronic back pain Depression diverticulitis fibromyalgia heartburn Hypertension Kidney stones Current medications: (Selected) Inpatient Medications Ordered AmBisome + Dextrose 5% in Water intravenous solution 250 mL: 400 mg, 125 mL/Hr, IV Piggyback, [id number] Dextrose 5% in Water intravenous solution: 50 mL, 100 mL/Hr, IV Piggyback, [id number] Dextrose 5% in Water intravenous solution: 50 mL, 100 mL/Hr, IV Piggyback, [id number] DuoNeb 0.5 mg-2.5 mg/3 mL inhalation solution: 3 mL, Nebulized Inhalation, RT_Q6H, PRN: Shortness of Breath Habitrol 21 mg/24 hr transdermal film, extended release: 1 Patch, TransDermal, Daily MiraLax: 17 Gram, Oral, Daily, PRN: Constipation Pepcid: 20 mg, Oral, Daily Roxicodone: 5 mg, Oral, Q4H, PRN: Pain (Moderate 4-6) Tylenol: 650 mg, Oral, Q4H, PRN: Pain (Mild 1-3) Zofran: 4 mg, IV Push, Q4H, PRN: Nausea acetaminophen: 650 mg, Oral, [id number] calcium gluconate + Sodium Chloride 0.9% intravenous solution 100 mL: 2 Gram, 20 mL, 120 mL/Hr, IV Piggyback, Daily, PRN: Other (See Comment) calcium gluconate + Sodium Chloride 0.9% intravenous solution 100 mL: 2 Gram, 20 mL, 120 mL/Hr, IV Piggyback, Q12H, PRN: Other (See Comment) calcium gluconate: 1 Gram, 10 mL, 60 mL/Hr, IV Piggyback, Daily, PRN: Other (See Comment) diphenhydrAMINE: 25 mg, IV Push, [id number] ergocalciferol: 50,000 Units, Oral, B7Lxgob gabapentin: 800 mg, Oral, TID heparin: 5,000 Units, SubCutaneous, [id number] hydrALAZINE: 10 mg, IV Push, Q6H, PRN: Hypertension magnesium sulfate: 2 Gram, 50 mL, 25 mL/Hr, IV Piggyback, Daily, PRN: Other (See Comment) magnesium sulfate: 2 Gram, 50 mL, 25 mL/Hr, IV Piggyback, Q2H, PRN: Other (See Comment) meropenem + Sodium Chloride 0.9% intravenous solution 50 mL: 500 mg, 16.67 mL/Hr, IV Piggyback, Q6HInt morphine: 2 mg, IV Push, Q6H, PRN: Pain (Severe 7-10) nystatin: 500,000 Units, Swish and Spit, QID, PRN: Other (See Comment) potassium chloride 10 mEq oral tablet, extended release: 20 mEq, 2 Tab, Oral, BID potassium chloride 10 mEq/50 mL intravenous solution: 10 mEq, 50 mL, 50 mL/Hr, IV Piggyback, Q1H, PRN: Other (See Comment) potassium chloride 20 mEq oral tablet, extended release: 20 mEq, 1 Tab, Oral, Q2H, PRN: Other (See Comment) potassium chloride 20 mEq oral tablet, extended release: 60 mEq, 3 Tab, Oral, Q2H, PRN: Other (See Comment) sodium phosphate: 15 mMole, 5 mL, 50 mL/Hr, IV Piggyback, Daily, PRN: Other (See Comment) sodium phosphate: 15 mMole, 5 mL, 50 mL/Hr, IV Piggyback, Q6H, PRN: Other (See Comment) vancomycin oral solution: 125 mg, Oral, Q6H Pending Complete influenza virus vaccine, inactivated: 0.5 mL, IntraMuscular, [id number] Documented Medications Documented Percocet 10/325 oral tablet: 1 Tab, Oral, Q8H, 0 Refill(s) cetirizine 10 mg oral tablet: 1 Tab, Oral, Daily, 0 Refill(s) gabapentin 800 mg oral tablet: 1 Tab, Oral, Q8H, 0 Refill(s) ibuprofen 200 mg oral tablet: 2 Tab, Oral, Q4H, PRN: for pain, 120 Tab, 0 Refill(s) pantoprazole 40 mg oral delayed release tablet: 1 Tab, Oral, Daily, 30 Tab, 0 Refill(s), Home Medications (5) Active cetirizine 10 mg oral tablet 10 mg = 1 Tab, Oral, Daily gabapentin 800 mg oral tablet 800 mg = 1 Tab, Oral, Q8H ibuprofen 200 mg oral tablet 400 mg = 2 Tab, PRN, Oral, Q4H pantoprazole 40 mg oral delayed release tablet 40 mg = 1 Tab, Oral, Daily Percocet 10/325 oral tablet 1 Tab, Oral, Q8H , Medications (31) Active Scheduled: (13) acetaminophen 325 mg tab 650 mg 2 Tab, Oral, [id number] amphoTERICIN B LIPOSOMAL + Dextrose 5% in Water 250 mL 400 mg, IV Piggyback, B50CHja Dextrose 5% in Water 50 mL, IV Piggyback, O32FXdl Dextrose 5% in Water 50 mL, IV Piggyback, Y60KUcf diphenhydrAMINE 50 mg/1 mL inj 25 mg 0.5 mL, IV Push, G10YHna ergocalciferol 50,000 unit cap 50,000 Units 1 Cap, Oral, X6Yfhqu famotidine 20 mg tab 20 mg 1 Tab, Oral, Daily gabapentin 400 mg cap 800 mg 2 Cap, Oral, TID heparin 5,000 units/1 mL inj 5,000 Units 1 mL, SubCutaneous, V87CYau meropenem + NaCl 0.9% 50 mL 500 mg, IV Piggyback, Q6HInt nicotine 21 mg/24 hr patch 1 Patch, TransDermal, Daily potassium chloride CR 10 mEq tab 20 mEq 2 Tab, Oral, BID vancomycin 250 mg/5 mL oral liq 125 mg 2.5 mL, Oral, Q6H Continuous: (0) PRN: (18) acetaminophen 325 mg tab 650 mg 2 Tab, Oral, Q4H albuterol-ipratropium inh 3 mL 3 mL, Nebulized Inhalation, RT_Q6H calcium gluconate 1 Gram 10 mL, IV Piggyback, Daily calcium gluconate + NaCl 0.9% 100 mL 2 Gram 20 mL, IV Piggyback, Daily calcium gluconate + NaCl 0.9% 100 mL 2 Gram 20 mL, IV Piggyback, Q12H hydrALAZINE 20 mg/1 mL inj 10 mg 0.5 mL, IV Push, Q6H magnesium sulfate 2 Gram 50 mL, IV Piggyback, Daily magnesium sulfate 2 Gram 50 mL, IV Piggyback, Q2H morphine 2 mg/1 ml inj 2 mg 1 mL, IV Push, Q6H nySTATin 100,000 unit/mL susp 5 mL 500,000 Units 5 mL, Swish and Spit, QID ondansetron 4 mg/2 mL inj 4 mg 2 mL, IV Push, Q4H oxyCODONE 5 mg tab 5 mg 1 Tab, Oral, Q4H polyethylene glycol 3350 pwd 17 g pkt 17 Gram 1 Packet, Oral, Daily potassium chloride 10 mEq 50 mL, IV Piggyback, Q1H potassium chloride CR 20 mEq tab 20 mEq 1 Tab, Oral, Q2H potassium chloride CR 20 mEq tab 60 mEq 3 Tab, Oral, Q2H sodium phosphate 15 mMole 5 mL, IV Piggyback, Daily sodium phosphate 15 mMole 5 mL, IV Piggyback, Q6H Objective VS/Measurements Vitals Signs (last 24 hrs) Last Charted Minimum Maximum Temp 98.2 (NOV 23:) 97.5 (NOV 23:28) 98.5 (NOV 22 14:16) Mon HR 90 (NOV 23:07) 83 (NOV 23:28) 103 (NOV 22 20:22) Resp Rate 18 (NOV 23 05:00) 16 (NOV 23 03:00) 18 (NOV 22 14:16) SBP 128 (NOV 23:07) 114 (NOV 23:28) H 143 (NOV 22 14:16) DBP 72 (NOV 23:07) 60 (NOV 23 09:10) 74 (NOV 22 20:22) MAP 94 (FEB 05 10:07) 75 (NOV 23 09:10) 94 (NOV 23 10:07) SpO2 96 (NOV 23 08:33) 95 (NOV 23 05:28) 98 (NOV 22 19:56) Physical Examination VS/Measurements Vitals Signs (last 24 hrs) Last Charted Minimum Maximum Temp 98.2 (NOV 23 10:07) 97.5 (NOV 23:28) 98.5 (NOV 22 14:16) Mon HR 90 (NOV 23 10:07) 83 (NOV 23 05:28) 103 (NOV 22 20:22) Resp Rate 18 (NOV 23 05:00) 16 (NOV 23 03:00) 18 (NOV 22 14:16) SBP 128 (NOV 23 10:07) 114 (NOV 23:28) H 143 (NOV 22 14:16) DBP 72 (NOV 23 10:07) 60 (NOV 23 09:10) 74 (NOV 22 20:22) MAP 94 (NOV 23 10:07) 75 (NOV 23 09:10) 94 (NOV 23 10:07) SpO2 96 (NOV 23 08:33) 95 (NOV 23:28) 98 (NOV 22 19:56) General: Alert and oriented, No acute distress, Appears older than stated age, decades of heavy tobacco abuse.. Eye: Pupils are equal, round and reactive to light, Extraocular movements are intact. HENT: Normocephalic, Normal hearing. Neck: Supple, No jugular venous distention. Respiratory: Lungs are clear to auscultation, Breath sounds are equal, Occasional rhonchi.. Cardiovascular: Normal rate, Regular rhythm. Gastrointestinal: Soft, Non-tender, Normal bowel sounds. Genitourinary: No costovertebral angle tenderness. Lymphatics: No lymphadenopathy neck, axilla, groin. Musculoskeletal: Normal range of motion. Integumentary: Dry, Intact, Consistent with decades of tobacco abuse.. Neurologic: Alert, Oriented, Normal sensory. Psychiatric: Cooperative, Appropriate mood & affect. Review / Management Results review: Labs (Last four charted values) WBC H 17.8 (NOV 23) H 21.6 (NOV 22) H 17.1 (NOV 21) H 18.5 (NOV 20) HB L 9.0 (NOV 23) L 10.3 (NOV 22) L 9.6 (NOV 21) L 9.7 (NOV 20) HCT L 28.4 (NOV 23) L 32.9 (NOV 22) L 29.9 (NOV 21) L 30.4 (NOV 20) Plt 258 (NOV 23) 334 (NOV 22) H 374 (NOV 21) 363 (NOV 20) Na 138 (NOV 23) 140 (NOV 22) 142 (NOV 21) 141 (NOV 20) K 3.8 (NOV 23) 4.0 (NOV 23) 4.0 (NOV 22) 3.8 (NOV 22) Cl H 114 (NOV 23) H 117 (NOV 22) H 115 (NOV 21) 112 (NOV 20) CO2 L 11 (NOV 23) L 12 (NOV 22) L 17 (NOV 21) L 20 (NOV 20) BUN 18 (NOV 23) 15 (NOV 22) 16 (NOV 21) 17 (NOV 20) Cr 1.00 (NOV 23) 0.80 (NOV 22) 0.70 (NOV 21) 0.60 (NOV 20) Glu R 94 (NOV 23) 103 (NOV 22) 100 (NOV 21) 106 (NOV 20) Ca 8.8 (NOV 23) 8.5 (NOV 22) 8.6 (NOV 21) 8.4 (NOV 20) Lactic 1.2 (NOV 22) PT H 13.1 (NOV 17) INR H 1.3 (NOV 17) AST 20 (NOV 23) 22 (NOV 22) 16 (NOV 21) H 66 (NOV 19) ALT 23 (NOV 23) 23 (NOV 22) 20 (NOV 21) 42 (NOV 19) ALK P 121 (NOV 23) 88 (NOV 22) 70 (NOV 21) 84 (NOV 19) T Bili 0.3 (NOV 23) 0.5 (NOV 22) 0.3 (NOV 21) 0.5 (NOV 19) PTN 7.5 (NOV 23) 7.8 (NOV 22) 7.5 (NOV 21) H 8.3 (NOV 19) ALB L 2.2 (NOV 23) L 2.3 (NOV 22) L 2.2 (NOV 21) L 2.4 (NOV 19) . Radiology Results (Last 48 hours) [id number] -- 11/17/2020 01:09 CT Abdomen Pelvis WO W (11/21/2020 14:34) Result: CT SCAN OF THE ABDOMEN AND PELVIS WITHOUT AND WITH CONTRAST. HISTORY: Blastomycosis, bacteremia.COMPARISON: November 11, 2020.PROCEDURE: The patient was injected with IV contrast. Oral contrast wasalso administered. Axial images were obtained from the lung bases to thepubic symphysis by computed tomography. Pre-contrast images were alsoobtained. This study was performed with techniques to keep radiationdoses as low as reasonably achievable, (ALARA). Individualized dosereduction techniques using automated exposure control or adjustment ofmA and/or kV according to the patient size were employed.FINDINGS: ABDOMEN: The lung bases are clear. The heart is normal in size. Theliver contains a stable cyst in the lateral liver dome. The patient isstatus post cholecystectomy. The spleen is unremarkable. No adrenal massis present. The pancreas is normal. Precontrast imaging demonstratesbilateral nonobstructing renal stones. These measure up to 7 mm on theright and 5 mm on the left. Stone on the right has a mean attenuationvalue of 1051 Hounsfield units. There is no hydronephrosis. The rightkidney is enlarged. There is patchy attenuation of the right kidney onpostcontrast images. Findings are consistent with pyelonephritis. Smalllow-attenuation foci in the posterior right kidney may represent smallabscesses. These measure up to 10 mm. The aorta is normal in caliber.There is no free fluid or adenopathy. There is a left abdominal wallhernia. This is stable. This contains fat and nonobstructed bowel loops.PELVIS: The appendix is not identified. There are postoperative changesat the rectosigmoid junction. The patient is status post hysterectomy.There is a small amount of air in the urinary bladder, may beiatrogenic. There is no free fluid or adenopathy identified.IMPRESSION: Right kidney enlarged with patchy attenuation onpostcontrast images. Findings are consistent with pyelonephritis. Smalllow-attenuation foci in the posterior right kidney may represent smallabscesses.Films reviewed, interpreted, and dictated by Dr. Lozano. Transcribed by Lory Ochoa PA-C.I have personally viewed, interpreted and dictated the examination. Jessica read and agree with the above final transcribed report. CR Chest 1 Vw Portable (11/23/2020 05:56) Result: PORTABLE CHEST 11/23/2020 3:00 AMHISTORY: PneumoniaCOMPARISON: 1 day priorFINDINGS: There is a right-sided PICC line identified with its tipterminating in the SVC. The cardiac silhouette is normal in size. Themediastinal and hilar contours are unremarkable. There has been nochange in the peripheral left upper lobe mass measuring 6 x 4 cm. Thelungs are well expanded with underlying coarse interstitial changes.There is no edema or effusion. There is no pneumothorax. Thevisualized osseous structures demonstrate no acute abnormalities.IMPRESSION: Stable left upper lobe mass. Images reviewed, interpreted, and dictated by Dr. Ronald Gerber.Transcribed by Mar Luna (R).I have personally viewed, interpreted and dictated the examination. Jessica read and agree with the above final transcribed report. Impression and Plan . Post-obstructive pneumonia: - merrem. consult Pulmonary. 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 likely continue 1 week induction then to itraconazole Occipital lytic lesion -seen on mri. 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 coli bacteremia:OSH Continue merrem f consult ID for assistance. culture Klebsiella UTI:OSH Continue merrem Acute COPD exacerbation: Continue bronchodilators. She did not have bronchospasm on exam defer steroid treatment. hypokalemia: -Recheck labs and replace as appropriate. -2.6 to 3.7 to 3.8 to 4.0 -k runs and recheck Thrombocytopenia: - Mild, continue to follow. -278 Iron deficiency anemia: -Continue iron supplementation. -9.3 to 9.8 to 9.6 to 9.0 New headaches and bilateral ear pain: CT head at [place] negative for acute process. -consult Neurology. mri- 1. No evidence of acute intra-axial abnormality.2. Localized signal abnormality within the midline calvarium of theoccipital skull. This finding corresponds to a lytic lesion seen on therecent CT scan. Differential considerations would include a metastasis. Correlation with bone scan or PET scan is recommended Acute encephalopathy: Suspect could be multifactorial at this point but will get input from Neurology as mentioned. -Resolving. Oriented to name, date of , age 60, October 2020, hospital. -2-1 resolved 11. Chronic pain syndrome: Will be on PRN pain medications. 12. GERD: pepcid 20 bid 13. Tobacco abuse: Continue nicotine patch. DVT proph- heparin q 12 hr The patient is high risk and medically complex Wednesday, November 18, 2020. I personally spent 35 minutes on the follow-up of this very unfortunate 60-year-old patient appears much older than stated age. White blood cell counts improved from 19 down to 18 getting broad-spectrum IV antibiotics with Merrem to cover for postobstructive pneumonia bacteremia and urinary tract infection. Encephalopathy appears to be improving she does complain of right-sided head pain. MRI performed last night concerning for lytic lesion consistent with metastatic disease recommended a PET scan. Obviously the first choice at this time is to get a CT-guided biopsy of the left upper lobe lung lesion concerning for mass given history of decades of tobacco abuse there is a high risk that this is malignant in nature. Recheck a CBC CMP in the morning. Potassium is low at 2.6. Her magnesium is normal range at 1.8 I ordered for K runs with a recheck at 3 PM today and check every 6 hours hopefully we can get a handle on the potassium by tomorrow. Continue gabapentin 800 mg 4 times daily. Obviously very concerned about her long-term prognosis. Thursday, November 19, 2020. I personally spent 25 minutes follow-up very nice 60-year-old lady mental status a lot better today compared to yesterday sodium 141 but her potassium is low at 3.0 so ordered for K runs and schedule 20 p.o. twice daily. Her potassium is actually better today compared to yesterday was 2.6 yesterday, 3.[address]-guided biopsy of her lung. MRI of the brain shows possible occipital lytic lesion concerned about malignancy will wait to get the lung biopsy report back before consulting oncology or neurosurgery. Check a CBC CMP in the morning. explane the patient that she does have to be n.p.o. until procedures done. friday, November 20, 2020. I personally spent 27 as follow-up of this pleasant 60-year-old lady feeling a lot better shortness of breath coughing getting better white count still elevated 18 her potassium is finally up to 3.5 from 3.0 yesterday and 2.6 a day before that. Wait for the biopsy results to come back recheck a CBC CMP in the morning. Saturday, November 21, 2020. I personally spent 35 minutes follow-up 60-year-old lady I called the pathologist phone #[phone] Dr. 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 Charis with the pulmonary team as well as infectious disease team. Dr. Macario Jones MD recommended going ahead and getting a CT scan of the abdomen pelvis with contrast is rather interesting case because she has E. coli bacteremia, Klebsiella UTI at the outside hospital that she has this lung lesion which we assumed was a mass but is fungal in nature. Plan on starting amphotericin. Also has this lytic occipital brain lesion is an ongoing consult neurosurgery to see if they can get a biopsy. Recheck a CBC. November. 25 minutes spent on the follow-up 60-year-old lady tolerating amphotericin. WBC is 21, hemoglobin 10, creatinine 0.8. Recheck a CBC, CMP in the morning. I we have also gone ahead and consulted neurology given this brain lesion which I assume is blasto as well but she also has a long history of tobacco abuse this wanted their input first. Monday, November 23, 2020. 26 minutes spent on the follow-up really nice 60-year-old lady tolerating amphotericin. Likely will receive 1 week of the amphotericin IV then changed I terconazole. She lives in [facility]. White blood cell count is gone from 21 down to 17, creatinine increased slightly from 0.1 up to 1.0 so would like to recheck a BMP tomorrow to make sure creatinine is stable. Continue IV antibiotics for E. coli bacteremia and Klebsiella UTI. Encourage physical therapy occupational therapy as well as mobility. Cont3nt.comation system used. Computer program makes numerous spelling grammar mistakes. If you have any questions or concerns do not hesitate call Dr. Ramos Kuhn at cell phone number [phone]. documented in this encounter Plan of Treatment Not on file documented as of this encounter Visit Diagnoses Not on filedocumented in this encounter Care Teams Cable Tool Driller Relationship Specialty Start Date End Date Mona Levin MD PCP - General Family Medicine 07/19/22 documented as of this encounter
--- OUTSIDE RECORDS SUMMARY | 2025-06-01 11:15 | XMS_ITS | Encounter Summary ---
Author Organization [employer] ([place], [place], [place], [place]) Address [address] [place] [address] Care Team Providers Care Bass String Winder Name Role Phone Mona Levin MD Primary Care Provider +1- [phone] Encounter Details Date Type Department Care Team (Late st Contact Info) Description 11/19/2020 Transcribed Document [facility] Radiology 1 [place] [address] Ramos Barros MD [address] [place] [address] Social History Tobacco Use Types Packs/Day Years Used Date Smoking Tobacco: Never Assessed Comments Unknown Sex and Gender Information Value Date Recorded Sex Assigned at Not on file Legal Sex Female 10:15 AM CDT Gender Identity Not on file Sexual Orientation Not on file documented as of this encounter Miscellaneous Notes * Cerner Conversion Note - Ramos Barros MD - 11/19/2020 8:32 AM EST Patient: SHIELA JASSO Age: 60 [...] pain intermittent for a couple of weeks. thu, November 19, 2020. Very pleasant lady awaiting biopsy [...] to name date of age 60-year 2020, [facility] [place] she states she lives in [place] and does not have a primary care provider. She is a little bit more alert than 2 days ago when I first saw her quicker to answer the questions. Awaiting procedure later today. Review of Systems Constitutional: Weakness, Decreased activity, [...] At risk for sleep apnea / IMO [id number] / Confirmed Chronic back pain / SNOMED CT 539507262 / Confirmed Depression / SNOMED CT 38720690 / Confirmed Hypertension / SNOMED CT 2765482224 / Confirmed Kidney stones / SNOMED CT 799317948 / Confirmed, Active Problems (8) At risk for sleep apnea Chronic back pain Depression diverticulitis fibromyalgia heartburn Hypertension Kidney stones Current medications: (Selected) Inpatient Medications Ordered DuoNeb 0.5 mg-2.5 mg/3 mL inhalation solution: 3 mL, Nebulized Inhalation, RT_Q6H, PRN: Shortness of Breath Habitrol 21 mg/24 hr transdermal film, extended release: 1 Patch, TransDermal, Daily MiraLax: 17 Gram, Oral, Daily, PRN: Constipation Pepcid: 20 mg, Oral, Daily Rocephin: 2 Gram, 100 mL/Hr, IV Piggyback, E65YApm Roxicodone: 5 mg, Oral, Q4H, PRN: Pain (Moderate 4-6) Tylenol: 650 mg, Oral, Q4H, PRN: Pain (Mild 1-3) Zofran: 4 mg, IV Push, Q4H, PRN: Nausea ergocalciferol: 50,000 Units, Oral, U5Wyvvg gabapentin: 800 mg, Oral, QID heparin: 5,000 Units, SubCutaneous, N91TRpv hydrALAZINE: 10 mg, IV Push, Q6H, PRN: Hypertension morphine: 2 mg, IV Push, Q2H, PRN: Pain (Severe 7-10) nystatin: 500,000 Units, Swish and Spit, QID, PRN: Other (See Comment) potassium chloride 10 mEq oral tablet, extended release: 20 mEq, 2 Tab, Oral, BID potassium chloride 10 mEq/50 mL intravenous solution: 10 mEq, 50 mL, 50 mL/Hr, IV Piggyback, Q1H Pending Complete influenza virus vaccine, inactivated: 0.5 mL, IntraMuscular, W54CAtw Documented Medications Documented Macrobid: 100 mg, Oral, [...] extended release: Cap, Oral, Daily, 0 Refill(s), Home Medications (7) Active gabapentin 800 mg oral tablet 800 mg = 1 Tab, Oral, QID ibuprofen 200 mg oral tablet 400 mg = 2 Tab, PRN, Oral, Q4H losartan 100 mg oral tablet , Oral, Daily Macrobid 100 mg, Oral, BID metoprolol succinate 50 mg oral capsule, extended release , Oral, Daily Percocet 10/325 oral tablet 1 Tab, PRN, Oral, Q8H Zantac 150 mg, PRN, Oral, BID , Medications (16) Active Scheduled: (8) cefTRIAXone 2 Gram, IV Piggyback, L55CAtr ergocalciferol 50,000 unit cap 50,000 Units 1 Cap, Oral, F4Wtyip famotidine 20 mg tab 20 mg 1 Tab, Oral, Daily gabapentin 400 mg cap 800 mg 2 Cap, Oral, QID heparin 5,000 units/1 mL inj 5,000 Units 1 mL, SubCutaneous, W13YQiw nicotine 21 mg/24 hr patch 1 Patch, TransDermal, Daily potassium chloride 10 mEq 50 mL, IV Piggyback, Q1H potassium chloride CR 10 mEq tab 20 [...] pkt 17 Gram 1 Packet, Oral, Daily Objective VS/Measurements Vitals Signs (last 24 hrs) Last Charted Minimum Maximum Temp 99.6 (NOV 19 06:08) 97.7 (NOV 18 17:26) 99.6 (NOV 19 06:08) Apical HR L 41 (NOV 18 13:42) L 41 (NOV 18 13:42) L 41 (NOV 18 13:42) Mon HR 91 (NOV 19 08:05) 86 (NOV 18 17:26) 109 (NOV 19 06:08) Resp Rate 18 (NOV 19 06:08) 16 (NOV 18 21:28) 18 (NOV 18 17:26) SBP 101 (NOV 19 08:05) 101 (NOV 19 08:05) H 145 (NOV 18 21:28) DBP 79 (NOV 19 08:05) 65 (NOV 18 17:26) 89 (NOV 18 21:28) MAP 91 (NOV 19 08:05) 80 (NOV 18 17:26) 106 (NOV 18 21:28) SpO2 96 (NOV 19 07:20) 95 (NOV 18 17:26) 97 (NOV 18:28) Physical Examination VS/Measurements Vitals Signs (last 24 hrs) Last Charted Minimum Maximum Temp 99.6 (NOV 19 06:08) 97.7 (NOV 18:) 99.6 (NOV 19 06:08) Apical HR L 41 (NOV 18 13:42) L 41 (NOV 18 13:42) L 41 (NOV 18 13:42) Mon HR 91 (NOV 19 08:05) 86 (NOV 18 17:26) 109 (NOV 19 06:08) Resp Rate 18 (NOV 19 06:08) 16 (NOV 18 21:28) 18 (NOV 18 17:26) SBP 101 (NOV 19 08:05) 101 (NOV 19 08:05) H 145 (NOV 18 21:28) DBP 79 (NOV 19 08:05) 65 (NOV 18 17:26) 89 (NOV 18 21:28) MAP 91 (NOV 19 08:05) 80 (NOV 18 17:26) 106 (NOV 18 21:28) SpO2 96 (NOV 19 07:20) 95 (NOV 18 17:26) 97 (NOV 18:28) General: Alert and oriented, No acute distress. [...] Musculoskeletal: Normal range of motion. Integumentary: Dry, Intact. Neurologic: Alert, Oriented, Normal sensory. Psychiatric: Cooperative, [...] (NOV 18) L 2.0 (NOV 17) . Radiology Results (Last 48 hours) [id number] -- 11/17/2020 01:09 MRI Brain WO (11/17/2020 [...] interpreted, and dictated by Jae Shabazz MD Impression and Plan . Post-obstructive pneumonia: - merrem. Will consult Pulmonary. -wbc 19 to 18 to 18 2. New diagnosis left upper lobe lung mass: Pulmonary consulted. -ct guided ASHISH bx 2-1 Occipital lytic lesion -seen on mri. concern for malignancy -await lung bx 3. E. coli bacteremia: Continue merrem f consult ID for assistance. culture 4. Klebsiella UTI: Continue merrem 5. Acute COPD exacerbation: Continue bronchodilators. She did not have bronchospasm on exam defer steroid treatment. 6. Ongoing hypokalemia: -Recheck labs and replace as appropriate. -2.6 -k runs and recheck 7. Thrombocytopenia: Mild, continue to follow. -278 8. Iron deficiency anemia: Continue iron supplementation. -9.3 to 9.8 9. New headaches and bilateral ear pain: CT head at [place] negative for acute process. -consult Neurology. mri- 1. No evidence of acute intra-axial abnormality.2. Localized signal abnormality within the midline calvarium of theoccipital skull. This finding corresponds to a lytic lesion seen on therecent CT scan. Differential considerations would include a metastasis. Correlation with bone scan or PET scan is recommended 10. Acute encephalopathy: Suspect could be multifactorial [...] have to be n.p.o. until procedures done. [employer] dictation system used. Computer program makes numerous spelling grammar mistakes. If you have any questions or concerns do not hesitate call Dr. Ramos Kuhn at cell phone number [phone]. documented in this encounter Plan of Treatment Not on file documented as of this encounter Visit Diagnoses Not on filedocumented in this encounter Care Teams Bass String Winder Relationship Specialty Start Date End Date Mona Levin MD PCP - General Family Medicine 07/19/22 documented as of this encounter
--- OUTSIDE RECORDS SUMMARY | 2025-06-01 11:15 | XMS_ITS | Encounter Summary ---
[facility] Organization [facility] Address [address] [place] [address] Care Team Providers Care Conference Center Coordinator Name Role Phone Jacquelyn Desouza APRN Primary Care Provider +1- [phone] Encounter Details Date Type Department Care Team (Late st Contact Info) Description 05/16/2025 Telephone [facility] ORTHOPEDICS & SPORTS MEDICINE [address] [facility] [address] [place] [address] Delaney Concepcion MD [address] [facility] [address] [place], [place] [id number] Social History Tobacco Use Types Packs/Day Years [...] place to sleep or slept in a fdc (including now)? No 02/21/2023 Abuse Screen Answer [...] or training? Not on file Preferred Language Ethiopian 05/13/2023 PHQ-2 Answer Date Recorded Retired PHQ-9: [...] 2:10 PM EDT Office Visit [facility] ORTHOPEDICS & SPORTS MEDICINE [address] [address] Delaney Concepcion MD [address] [address] 06/22/2025 1:15 PM EDT Office Visit [facility] PULMONARY & CRITICAL CARE MEDICINE [address] [place] [id number] Olivia Morales APRN [address] [facility] MED OFFICE BLDG [address] [address] documented as of this encounter Visit Diagnoses Not on filedocumented in this encounter Care Teams Conference Center Coordinator Relationship Specialty Start Date End Date Jacquelyn Desouza [place] [address] PCP - General Nurse Practitioner 08/25/22 documented as of this encounter
--- OUTSIDE RECORDS SUMMARY | 2025-06-01 11:15 | XMS_ITS | Encounter Summary ---
Author Organization [employer] ([place], [place], [place], [place]) Address [address] [place] [place] [address] Care Team Providers Care Electrician Substation Supervisor Name Role Phone Mona Levin MD Primary Care Provider +1- [phone] Encounter Details Date Type Department Care Team (Late st Contact Info) Description 11/25/2020 Transcribed Document [facility] Family Medicine [facility] [place] [address] ProviderLeia MD [address] [place], [place] [id number] Social History Tobacco Use Types Packs/Day Years Used Date Smoking Tobacco: Never Assessed Comments Unknown Sex and Gender Information Value Date Recorded Sex Assigned at Not on file Legal Sex Female 10:15 AM CDT Gender Identity Not on file Sexual Orientation Not on file documented as of this encounter Miscellaneous Notes * Cerner Conversion Note - Leia ProviderMD - 11/25/2020 5:00 PM SOFTWARE ENGINEER DEVELOPER Chart Check - Review Order Profile Entered On: 11/25/2020 17:26 EST Performed On: 11/25/2020 17:00 EST by FIFI KENNEDY, RN Chart Check All Active Orders Reviewed : Yes FIFI KENNEDY RN - 11/25/2020 17:26 EST documented in this encounter Plan of Treatment Not on file documented as of this encounter Visit Diagnoses Not on filedocumented in this encounter Care Teams Electrician Substation Supervisor Relationship Specialty Start Date End Date Mona Levin MD PCP - General Family Medicine 07/19/22 documented as of this encounter
--- OUTSIDE RECORDS SUMMARY | 2025-06-01 11:15 | XMS_ITS | Encounter Summary ---
Author Organization [employer] ([place], [place], [place], [place]) Address [address] [place] [address] Care Team Providers Care Chin Strap Maker Name Role Phone Mona Levin MD Primary Care Provider +1- [phone] Encounter Details Date Type Department Care Team (Late st Contact Info) Description 11/22/2020 Transcribed Document [facility] Pulm & Critical Care Medicine [address] [place] [address] [address] [id number] [place] [address] [place] [address] [address] [place] [address] Social History Tobacco Use Types Packs/Day Years Used Date Smoking Tobacco: Never Assessed Comments Unknown Sex and Gender Information Value Date Recorded Sex Assigned at Not on file Legal Sex Female 10:15 AM CDT Gender Identity Not on file Sexual Orientation Not on file documented as of this encounter Miscellaneous Notes * Cerner Conversion Note - Kaelyn Levi MD - 11/22/2020 2:36 PM EST Patient: SHIELA JASSO Age: 60 years Sex: Female : 1960 Associated Diagnoses: None Author: KAELYN LEVI MD TOBACCO ABUSE COUNSELLING: I provided Tobacco Cessation Counselling to this patient. Patient is a chronic heavy active smoker. She smoked for many years. Counseled thoroughly about tobacco cessation. Discussed methods to remain abstinent from smoking. She agreed to stay abstinent and agreed to use nicotine patches and hence prescribed. Discussed consequences of prolonged tobacco smoking which include but not limited to the following: Dyspnea, chronic cough, chronic bronchitis, COPD, Respiratory failure, Co2 retention, O2 dependence, increased risk for sleep apnea, lung cancer, CAD, Pulmonary HTN, Heart failure, Cerebral vascular disease, Pancreatic cancer, Bladder cancer, GI tract cancer, PVD. Patient verbalized understanding and agreed to abstain from smoking upon discharge. Total time spent on counseling - 12 min. documented in this encounter Plan of Treatment Not on file documented as of this encounter Visit Diagnoses Not on filedocumented in this encounter Care Teams Chin Strap Maker Relationship Specialty Start Date End Date Mona Levin MD PCP - General Family Medicine 07/19/22 documented as of this encounter
--- OUTSIDE RECORDS SUMMARY | 2025-06-01 11:15 | XMS_ITS | Encounter Summary ---
Author Organization [employer] ([place], [place], [place], [place]) Address [address] [place] [place] [address] Care Team Providers Care Folding Machine Setter Name Role Phone Mona Levin MD Primary Care Provider +1- [phone] Encounter Details Date Type Department Care Team (Late st Contact Info) Description 11/23/[address] [facility] Family Medicine [address] [place] [address] ProviderLeia MD [address] [place], [place] [address] Social History Tobacco Use Types Packs/Day Years Used Date Smoking Tobacco: Never Assessed Comments Unknown Sex and Gender Information Value Date Recorded Sex Assigned at Not on file Legal Sex Female 10:15 AM CDT Gender Identity Not on file Sexual Orientation Not on file documented as of this encounter Miscellaneous Notes * Cerner Conversion Note - Leia ProviderMD - 11/23/2020 1:30 PM LOCOMOTIVE MECHANIC Pain Assessment Entered On: 11/23/2020 16:53 EST Performed On: 11/23/2020 14:42 EST by MITCH GO RN Intervention Information: acetaminophen Performed by MITCH GO RN on 11/23/2020 13:42:00 EST acetaminophen,650mg Oral Pain Assessment Pain Assessment : Follow-up assessment Pain Scale Goal : 4 Pain Scale Used : 0-10 Scale MITCH GO RN - 11/23/2020 16:53 EST Pain Scale Intensity : 2 MITCH GO RN - 11/23/2020 16:53 EST Image 4 - Images currently included in the form version of this document have not been included in the text rendition version of the form. Electronically signed by Lyla Singh Conversion Vice President Industrial Relations Cerner at 02/06/2023 8:50 AM CDT documented in this encounter Plan of Treatment Not on file documented as of this encounter Visit Diagnoses Not on filedocumented in this encounter Care Teams Folding Machine Setter Relationship Specialty Start Date End Date Mona Levin MD PCP - General Family Medicine 07/19/22 documented as of this encounter
--- OUTSIDE RECORDS SUMMARY | 2025-06-01 11:15 | XMS_ITS | Encounter Summary ---
Author Organization [employer] ([place], [place], [place], [place]) Address [address] [place] [place] [address] Care Team Providers Care Principal System Software Engineer Name Role Phone Mona Levin MD Primary Care Provider +1- [phone] Encounter Details Date Type Department Care Team (Late st Contact Info) Description 11/25/2020 Transcribed Document [facility] [place] [facility] [place] [address] ProviderLeia MD [address] [place], [place] [id number] Social History Tobacco Use Types Packs/Day Years Used Date Smoking Tobacco: Never Assessed Comments Unknown Sex and Gender Information Value Date Recorded Sex Assigned at Not on file Legal Sex Female 10:15 AM CDT Gender Identity Not on file Sexual Orientation Not on file documented as of this encounter Miscellaneous Notes * Cerner Conversion Note - Leia ProviderMD - 11/25/2020 2:00 AM SUPERINTENDENT CONTAINER TERMINAL Quarter Supervisor Details Entered On: 11/25/2020 7:12 EST Performed On: 11/25/2020 2:00 EST by Jigna Mistry Rn Order Details Transport Mode Order Detail : Wheelchair Isolation Precautions Order Detail : Standard Precautions Order Detail : 0 Lift/Transfer : Independent Central Line Order Detail : Yes Room Service : Appropriate Arterial Line : No Patient Needs Meds Crushed/Liquid : No Jigna Mistry Rn - 11/25/2020 7:12 EST documented in this encounter Plan of Treatment Not on file documented as of this encounter Visit Diagnoses Not on filedocumented in this encounter Care Teams Principal System Software Engineer Relationship Specialty Start Date End Date Mona Levin MD PCP - General Family Medicine 07/19/22 documented as of this encounter
--- OUTSIDE RECORDS SUMMARY | 2025-06-01 11:15 | XMS_ITS | Encounter Summary ---
Author Organization [employer] ([place], [place], [place], [place]) Address [address] [place] [place] [address] Care Team Providers Care Hybrid Powertrain Development Engineer Name Role Phone Mona Levin MD Primary Care Provider +1- [phone] Encounter Details Date Type Department Care Team (Late st Contact Info) Description 11/24/2020 Transcribed Document [facility] [place] [facility] [place] [address] ProviderLeia MD [address] [place], [place] [address] Social History Tobacco Use Types Packs/Day Years Used Date Smoking Tobacco: Never Assessed Comments Unknown Sex and Gender Information Value Date Recorded Sex Assigned at Not on file Legal Sex Female 10:15 AM CDT Gender Identity Not on file Sexual Orientation Not on file documented as of this encounter Miscellaneous Notes * Cerner Conversion Note - Leia Gutiérrez MD - 11/24/2020 1:20 PM FINANCIAL RETIREMENT PLAN SPECIALIST Patient: SHIELA JASSO Age: 60 years Sex: Female : 1960 Associated Diagnoses: None Author: TRISTEN MITCHELL DO Subjective Ms. Jasso was seen by me this morning. she tells me that she is sleepy. she tells me that she is still having bilateral ear pain in which she can hear throbbing in her ears. she tells me that she has chronic knee and back pain and takes oxycodone 10 mg for this at home, she wonders why she cant get that here. she denies n/v, no coughing, no diarrhea. Health Status Current medications: Medications (30) Active Scheduled: (12) acetaminophen 325 mg tab 650 mg 2 Tab, Oral, A95YNrw amphoTERICIN B LIPOSOMAL + Dextrose 5% in Water 250 mL 400 mg, IV Piggyback, W28YCje Dextrose 5% in Water 50 mL, IV Piggyback, S57UEhy Dextrose 5% in Water 50 mL, IV Piggyback, Z48TMkl diphenhydrAMINE 50 mg/1 mL inj 25 mg 0.5 mL, IV Push, Y96MLrf ergocalciferol 50,000 unit cap 50,000 Units 1 Cap, Oral, J4Lhwtg famotidine 20 mg tab 20 mg 1 Tab, Oral, Daily gabapentin 400 mg cap 800 mg 2 Cap, Oral, TID heparin 5,000 units/1 mL inj 5,000 Units 1 mL, SubCutaneous, S72FEmk meropenem + NaCl 0.9% 50 mL 500 mg, IV Piggyback, Q6HInt nicotine 21 mg/24 hr patch 1 Patch, TransDermal, Daily potassium chloride CR 10 mEq tab 20 mEq 2 Tab, Oral, BID Continuous: (1) NaCl 0.9% 500 mL 500 mL, IntraVENous, 999 mL/Hr PRN: (17) acetaminophen 325 mg tab 650 mg 2 [...] 2 Gram 50 mL, IV Piggyback, Q2H nySTATin 100,000 unit/mL susp 5 mL [...] mMole 5 mL, IV Piggyback, Q6H Objective Intake and Output Intake & Output Totals Last 24 Hours (7a-7a) Intake (32 Events) Medications (574.03 mL) Oral Intake (2050 mL) Output (0 Events) No output events found in the last 24 hours. Input Total: 2624.03 mL Output Total: 0 mL Balance: 2624.03 mL VS/Measurements Vitals Signs (last 24 hrs) Last Charted Minimum Maximum Temp 99.1 (NOV 24 10:00) 98.7 (NOV 24 05:31) 99.1 (NOV 24 10:00) Mon HR 100 (NOV 24 10:00) 86 (NOV 24 02:20) 112 (NOV 23 21:14) Resp Rate 17 (NOV 24 10:00) 16 (NOV 23 18:00) 18 (NOV 23 22:53) SBP 128 (NOV 24 10:00) 113 (NOV 24 05:31) H 147 (NOV 23 21:14) DBP 78 (NOV 24 10:00) 66 (NOV 24 02:20) 87 (NOV 23 21:14) MAP 89 (NOV 24 10:00) 81 (NOV 24 02:20) 110 (NOV 23 21:14) SpO2 95 (NOV 24 10:00) 94 (NOV 24 08:20) 99 (NOV 24 02:20) General: Alert and oriented, No acute distress. Eye: Pupils are equal, round and reactive to light, Normal conjunctiva. HENT: Normocephalic, Normal hearing, Oral mucosa is moist. Respiratory: Lungs are clear to auscultation, Respirations are non-labored, Breath sounds are equal, on room air, no wheezing or rhonchi. Cardiovascular: Normal rate, Regular rhythm, No murmur, No edema. Gastrointestinal: Soft, Non-tender, Non-distended, Normal bowel sounds. Integumentary: Warm, Dry. Neurologic: Alert, Oriented, No focal deficits. Psychiatric: Cooperative, Appropriate mood & affect. Results Review General results Interpretation: NOV 24 05:53 141 H 118 15 / 90 3.8 L 10 0.80 \ Labs (Last four charted values) WBC H [...] 374 (NOV 21) 363 (NOV 20) Na 141 (NOV 24) 138 (NOV 23) 140 (NOV 22) 142 (NOV 21) K 3.8 (NOV 24) 3.6 (NOV 23) 4.0 (NOV 23) 3.8 (NOV 23) Cl H 118 (NOV 24) H 114 (NOV 23) H 117 (NOV 22) H 115 (NOV 21) CO2 L 10 (NOV 24) L 11 (NOV 23) L 12 (NOV 22) L 17 (NOV 21) BUN 15 (NOV 24) 18 (NOV 23) 15 (NOV 22) 16 (NOV 21) Cr 0.80 (NOV 24) 1.00 (NOV 23) 0.80 (NOV 22) 0.70 (NOV 21) Glu R 90 (NOV 24) 94 (NOV 23) 103 (NOV 22) 100 (NOV 21) Ca 8.4 (NOV 24) 8.8 (NOV 23) 8.5 (NOV 22) 8.6 (NOV 21) Lactic 1.2 (NOV 22) PT H 13.1 [...] 2.2 (NOV 21) L 2.4 (NOV 19) Radiology Results (Last 48 hours) [id number] -- 11/17/2020 01:09 CR Chest 1 Vw Portable (11/23/2020 05:56) [...] above final transcribed report. 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 - ID consult appreciated - s/p CT guided LYL biopsy on 11/19 - amphoterin started on 11/21 for likely 1 week followed by itraconazole occipital lytic lesion - as seen on mri, initially concern for malignancy now thinking it is blastomycosis e coli bacteremia at OSH - ID consult appreciated - continue IV merrem post-obstructive pneumonia - pulmonology consult appreciated - resp PCR negative, covid negative possible small right renal abscess - as seen on ct abd from 11/21 - continue iv antibiotics klebsiella uti - continue merrem acute copd exacerbation - improved - did not require steroids chronic pain narcotic dependent - resume home percocet hypokaelmia - repleted - STOP q 6 hour lab checks! unsure why she was still getting these for so many days........ thrombocytopenia - resolved iron deficiency anemia - continue iron supplementation headaches and bilateral ear pain - seen by neurology on 11/18, no specific recommendations acute encephalopathy - resolved tobacco abuse - nicotine patch d/w rn no family present time spent: 26 min discharge goals: continue iv antibiotics anticipated discharge disposition: tbd depends on id recs... Tristen Nunes Hospitalist pager- [phone] documented in this encounter Plan of Treatment Not on file documented as of this encounter Visit Diagnoses Not on filedocumented in this encounter Care Teams Hybrid Powertrain Development Engineer Relationship Specialty Start Date End Date Mona Levin MD PCP - General Family Medicine 07/19/22 documented as of this encounter
--- OUTSIDE RECORDS SUMMARY | 2025-06-01 11:15 | XMS_ITS | Encounter Summary ---
Author Organization [employer] ([place], [place], [place], [place]) Address [address] [place] [address] Care Team Providers Care Workers Compensation Manager Name Role Phone Mona Levin MD Primary Care Provider [phone]- [phone] Encounter Details Date Type Department Care Team (Late st Contact Info) Description 11/22/2020 Transcribed Document [facility] [place] [address] ProviderLeia MD [address] [place] [address] Social History Tobacco Use Types Packs/Day Years Used Date Smoking Tobacco: Never Assessed Comments Unknown Sex and Gender Information Value Date Recorded Sex Assigned at Not on file Legal Sex Female 10:15 AM CDT Gender Identity Not on file Sexual Orientation Not on file documented as of this encounter Miscellaneous Notes * Cerner Conversion Note - Leia ProviderMD - 11/22/2020 2:00 AM VICTIM ADVOCATE Pulper Operator Details Entered On: 11/22/2020 1:10 EST Performed On: 11/22/2020 2:00 EST by SHIRLEY RAMIREZ RN Order Details Transport Mode Order Detail : Wheelchair Isolation Precautions Order Detail : Standard Precautions Order Detail : 0 IV Order Detail : 1 Oxygen Order Detail : 1 Lift/Transfer : Minimal Central Line Order Detail : Yes Room Service : Appropriate Arterial Line : No Patient Needs Meds Crushed/Liquid : No SHIRLEY RAMIREZ RN - 11/22/2020 1:10 EST Electronically signed by [facility] Conversion Mixer Operator Hot Metal Cerner at 02/06/2023 8:44 AM CDT documented in this encounter Plan of Treatment Not on file documented as of this encounter Visit Diagnoses Not on filedocumented in this encounter Care Teams Workers Compensation Manager Relationship Specialty Start Date End Date Mona Levin MD PCP - General Family Medicine 07/19/22 documented as of this encounter
--- OUTSIDE RECORDS SUMMARY | 2025-06-01 11:15 | XMS_ITS | Encounter Summary ---
Author Organization [facility] Address [address] [place] [address] Care Team Providers Care Region Manager Name Role Phone Jacquelyn Desouza APRN Primary Care Provider +1- [phone] Encounter Details Date Type Department Care Team (Late st Contact Info) Description 05/19/2025 Documentation [facility] [address] [place] [address] Delaney Concepcion MD [address] [place] [address] Social History Tobacco Use Types Packs/Day Years [...] or training? Not on file Preferred Language Haitian 05/13/2023 PHQ-2 Answer Date Recorded Retired PHQ-9: [...] : 1960 DATE OF SURGERY: 05/19/25 LOCATION: [facility] PREOPERATIVE DIAGNOSIS: Right 4th and 5th proximal phalanx base fractures Right fifth middle phalanx base questionable intra-articular fracture POSTOPERATIVE DIAGNOSIS: Right 4th and 5th proximal phalanx base fractures Right fifth middle phalanx base minimally displaced intra-articular fracture PROCEDURE PERFORMED: Right 4th and 5th proximal phalanx closed reduction percutaneous pinning CPT CODE: 23261 x2 SURGEON: Delaney Concepcion MD AGRONOMY INSTRUCTOR: None ANESTHESIA: Monitored anesthesia with regional block SPECIMENS: None TOURNIQUET TIME: None used ESTIMATED BLOOD LOSS: Minimal COMPLICATIONS: None IMPLANTS: 0.054 K-wires x3, 0.054 k-wires x1 INDICATIONS FOR PROCEDURE: Shiela Nathan is a 64-year-old [id number] female who presented to clinic with after [...] 10-14 days as scheduled. Delaney Concepcion MD [facility] Sur[facility] documented in this encounter Plan of Treatment Upcoming Encounters Date Type Department Care Team (Late st Contact Info) Description 06/01/2025 2:10 PM EDT Office Visit [facility] [address] [address] Delaney Concepcion MD [address] [id number] 06/22/2025 1:15 PM EDT Office Visit [facility] [address] [place] [id number] Olivia Morales APRN [address] [facility] [address]LDG [address] [address] documented as of this encounter Visit Diagnoses Not on filedocumented in this encounter Care Teams Region Manager Relationship Specialty Start Date End Date Jacquelyn Desouza APRN [address] [facility] [place] [address] PCP - General Nurse Practitioner 08/25/22 documented as of this encounter
--- OUTSIDE RECORDS SUMMARY | 2025-06-01 11:15 | XMS_ITS | Encounter Summary ---
Author Organization [employer] ([place], [place], [place], [place]) Address [address] [place] [address] Care Team Providers Care Director State Pharmacy Name Role Phone Mona Levin MD Primary Care Provider +1- [phone] Encounter Details Date Type Department Care Team (Late st Contact Info) Description 11/17/2020 Transcribed Document [facility] Family Medicine [facility] [place] [place] [address] ProviderLeia MD [address] [place] [address] Social History Tobacco Use Types Packs/Day Years Used Date Smoking Tobacco: Never Assessed Comments Unknown Sex and Gender Information Value Date Recorded Sex Assigned at Not on file Legal Sex Female 10:15 AM CDT Gender Identity Not on file Sexual Orientation Not on file documented as of this encounter Miscellaneous Notes * Cerner Conversion Note - Leia Gutiérrez MD - 11/17/2020 8:02 AM AVIATION TECHNICIAN Patient: SHIELA JASSO Age: 60 years Sex: Female : 1960 Associated Diagnoses: None Author: DEMETRIS WILCOX MD INFECTIOUS DISEASES CONSULTATION/INITIAL HOSPITAL VISIT REF MD: Dr. Olivia STEIN MD: Dr. Demetris Wilcox Date of Admission: 11/17/20 Date of Consultation: 11/17/20 Reason for Consultation: Bacteremia, UTI, pneumonia HPI: 60 yo female with h/o fibromyalgia, chronic pain, HTN, and nephrolithiasis who presented to [facility] on 11/12/20 with shortness of breath [...] Merrem after cultures. She was transferred to [facility] on 11/17/20 and arrived confused, lethargic, [...] to evaluate and manage her antibiotic therapy. Allergies: Allergies (2) Active Reaction codeine nausea, vomiting penicillin nausea, vomiting Medications: Medications by Classification Antimicrobials meropenem + Sodium Chloride 0.9% intravenous solution 50 mL - 500 mg, IV Piggyback, Inj, Q6HInt, infuse over 3 Hour(s), Routine Immunology influenza virus vaccine, inactivated - 0.5 mL, IntraMuscular, Inj, [id number] Anticoagulant heparin - 5,000 Units, SubCutaneous, Inj, [id number], Routine Respiratory albuterol-ipratropium (DuoNeb 0.5 mg-2.5 mg/3 [...] - 800 mg, Oral, Cap, QID, Routine Pain Meds morphine - 2 mg, IV Push, Inj, Q2H, PRN for Pain (Severe 7-10), Routine oxyCODONE (Roxicodone) - 5 mg, Oral, Tab, Q4H, PRN for Pain (Moderate 4-6), Routine gabapentin - 800 mg, Oral, Cap, QID, Routine *Duplicate* acetaminophen (Tylenol) - 650 mg, Oral, Tab, Q4H, PRN for Pain (Mild 1-3), Routine Other nicotine (Habitrol 21 mg/24 hr transdermal film, extended re - 1 Patch, TransDermal, Patch, Daily, Routine Undefined Medications hydrALAZINE - 10 mg, IV Push, Inj, Q6H, PRN for Hypertension, Routine PMH: Active Problems (8) At risk for sleep apnea Chronic back pain Depression diverticulitis fibromyalgia heartburn Hypertension Kidney stones PSH: colon resection for diverticulitis left knee surgery with hardware and ervin 2015 hysterectomy cholecystectomy colonoscopy FH: Mother with complications of ileus and history of COPD. Father at age 50 with myocardial infarction. 3 children; one who in 2009 from complications of diabetes mellitus. SH: , lives in [place], [place]. Smokes 1/2 ppd, no alcohol or illicit drug use. ROS: General: Denies fever, chills, sweats, malaise, fatigue, weakness Skin: Denies rashes, pruritus, or lesions HEENT: Denies dizziness, syncope, eye pain, blurry vision, + bilateral ear pain, no tinnitus, nasal congestion, rhinorrhea, sore throat, or dysphagia Respiratory; +/- shortness of breath, + nonproductive cough, no hemoptysis Cardio: Denies chest pain, palpitations, murmurs, or edema GI: Denies abdominal pain, nausea, vomiting, diarrhea, hematochezia, or melena : Denies flank pain, hematuria, or increased frequency, urgency, or burning of urination MS: Denies joint pain, swelling, or redness. Denies decreased ROM. No new back pain, Neuro: Denies seizures, strokes, numbness or tingling, headaches, gait irregularities, +/- confusion Psych: Denies anxiety or depression Endo: Denies Diabetes mellitus or thyroid problems Immuno: Denies immunocompromised, recurrent fevers, or recurrent infections Hemo: Denies bleeding disorder or excessive bruising 12 systems were reviewed and are negative except per HPI or above PE: Vitals Signs (last 24 hrs) Last Charted Minimum Maximum Temp 98.5 (NOV 17:) 98.5 (NOV 17) 98.5 (NOV 17) Mon HR 105 (NOV 17:) 105 (NOV 17:) 105 (NOV 17) Resp Rate 16 (NOV 17) 16 (NOV 17:) 16 (NOV 17) SBP 140 (NOV 17) 140 (NOV 17) 140 (NOV 17) DBP 73 (NOV 17:) 73 (NOV 17:) 73 (NOV 17:) MAP 112 (NOV 17) 112 (NOV 17) 112 (NOV 17) Exam: Constitutional: NAD, alert, WD/WN, appears stated age, ill appearing. Obese HEENT: NC/AT, PERRLA, EOMI, sclera non-icteric, conjunctiva not injected, normal hearing, sinuses nontender, no thrush, no exudate. TMs not erythemic and no fluid behind membranes. External ears, eyes, nose, and lip are normal Neck: Supple, no masses Respiratory: diminished at lung bases bilaterally, non-labored breathing. Cardio: tachycardia, S1, S2, no murmurs, gallops, or rubs. No edema GI: BS+, non-tender, non-distended, no HSM : no matthew, no genital yeast dermatitis, normal external genitalia MS: normal ROM, no joint swelling. Derm: No rashes, abrasions, breakdown, or lesions Neuro: no focal deficits, Alert and oriented x 3. normal speech and cognition Psych: cooperative, normal affect Labs: Labs (Last four charted values) WBC H 19.0 (NOV 17) HB L 9.3 (NOV 17) HCT L 27.8 (NOV 17) Plt 213 (NOV 17) Na 141 (NOV 17) K L 3.2 (NOV 17) Cl 111 (NOV 17) CO2 23 (NOV 17) BUN 18 (NOV 17) Cr 0.70 (NOV 17) Glu R H 109 (NOV 17) Ca L 8.2 (NOV 17) AST H 74 (NOV 17) ALT 26 (NOV 17) ALK P 80 (NOV 17) T Bili 0.4 (NOV 17) PTN 6.8 (NOV 17) ALB L 2.0 (NOV 17) Creatinine Clearance (Current Encounter/Past 24 Hours) Creatinine Level 0.70 mg/dL 11/17/2020 03:11 Bun/Creatinine 25.7 HI 11/17/2020 06:59 Estimated Creatinine Clearance 77.87 mL/Min 11/17/2020 03:11 Micro: Blood cx in lab MRSA surveillance: in lab SJB: (called and talked to tech at [facility] on 11/17/20) Blood cx: E. coli in 2 of 2 sets/Klebsiella in 1 set Urine cx: Klebsiella pneumoniae Rad: Radiology Results (Last 48 hours) [id number] -- 11/17/2020 01:09 MRI Brain WO (11/17/2020 [...] - Pcn intolerance (N/V). tolerated Rocephin. RECOMMENDATIONS/PLANS: Thank you for asking us to see Shiela Jasso. Recommend the following: - Monitor blood and MRSA cultures - Continue Merrem for now. May be able to wean but I want to confirm OSH blood culture results first. Appears that both E. coli and Klebsiella were susceptible to ceftriaxone. I will call micro lab tomorrow - Pulmonology following. Planning for biopsy of ASHISH mass on Thursday Demetris Wilcox MD saw and examined patient, verified findings, reviewed labs and radiographic data, formulated diagnosis, plan for treatment, and all medical decision making. Ricki Fairbanks for Dr. Demetris Wilcox. Electronically signed by [facility], [facility] Conversion Back End Developer Cerner at 02/06/2023 8:50 AM CDT documented in this encounter Plan of Treatment Not on file documented as of this encounter Visit Diagnoses Not on filedocumented in this encounter Care Teams Director State Pharmacy Relationship Specialty Start Date End Date Mona Levin MD PCP - General Family Medicine 07/19/22 documented as of this encounter
--- OUTSIDE RECORDS SUMMARY | 2025-06-01 11:15 | XMS_ITS | Encounter Summary ---
Author Organization [employer] ([place], [place], [place], [place]) Address [address] [place] [address] Care Team Providers Care Soft Tile Setter Name Role Phone Mona Levin MD Primary Care Provider +1 [phone] Encounter Details Date Type Department Care Team (Late st Contact Info) Description 11/22/2020 Transcribed Document [facility] Family [place] [address] ProviderLeia MD [address] [place] [address] Social History Tobacco Use Types Packs/Day Years Used Date Smoking Tobacco: Never Assessed Comments Unknown Sex and Gender Information Value Date Recorded Sex Assigned at Not on file Legal Sex Female 10:15 AM CDT Gender Identity Not on file Sexual Orientation Not on file documented as of this encounter Miscellaneous Notes * Cerner Conversion Note - Leia ProviderMD - 11/22/2020 1:38 PM MILITARY COMMUNICATIONS SPECIALIST UM Authorization Entered On: 11/22/2020 13:38 EST Performed On: 11/22/2020 13:38 EST by KODY ESPARZA Rn-Utilization Review Primary Insurance Authorization Authorization and Policy Numbers : Insurance 1 Health Plan: [employer] MANAGED MEDICARE Policy Number: [id number] Authorization Number: Insurance Primary Name : [facility] Policy Number: [id number] Authorization Status-Primary : Awaiting callback Reference Number-Primary : [id number] Authorization Number-Primary : [id number] Number of Days Authorized-Primary : 4 Day(s) Authorized Service Begin Date-Primary : 11/17/2020 EST Authorized Service End Date-Primary : 11/21/2020 EST Authorization Comments-Primary : Clinicals faxed via [employer] 11/20-11/22. Historical Authorization Comments-Primary : Comment 1: Per [facility] site, Inpt Auth approved 5 days. NRD 11/22 (KODY ESPARZA, Rn-Utilization Review 11/19/2020 09:38) Comment 2: AUTH SUBMITTED ON WEBSITE WITH CLINCAL ATTACHED (Jacque Mckeon Rn-Utilization Review 11/17/2020 11:44) KODY ESPARZA Rn-Utilization Review - 11/22/2020 13:38 EST Electronically signed by [facility] Conversion Business Consultant Cerner at 02/06/2023 8:50 AM CDT documented in this encounter Plan of Treatment Not on file documented as of this encounter Visit Diagnoses Not on filedocumented in this encounter Care Teams Soft Tile Setter Relationship Specialty Start Date End Date Mona Levin MD PCP - General Family Medicine 07/19/22 documented as of this encounter
--- OUTSIDE RECORDS SUMMARY | 2025-06-01 11:15 | XMS_ITS | Encounter Summary ---
Author Organization [employer] ([place], [place], [place], [place]) Address [address] [place] [address] Care Team Providers Care Herbarium Curator Name Role Phone Mona Levin MD Primary Care Provider +1- [phone] Encounter Details Date Type Department Care Team (Late st Contact Info) Description 11/25/2020 Transcribed Document [facility] [place] [facility] [place] [address] ProviderLeia MD [address] [place], [place] [id number] Social History Tobacco Use Types Packs/Day Years Used Date Smoking Tobacco: Never Assessed Comments Unknown Sex and Gender Information Value Date Recorded Sex Assigned at Not on file Legal Sex Female 10:15 AM CDT Gender Identity Not on file Sexual Orientation Not on file documented as of this encounter Miscellaneous Notes * Cerner Conversion Note - Leia ProviderMD - 11/25/2020 5:00 AM ENVIRONMENTAL TECH Chart Check - Review Order Profile Entered On: 11/25/2020 7:12 EST Performed On: 11/25/2020 5:00 EST by Jigna Mistry Rn Chart Check All Active Orders Reviewed : Yes Jigna Mistry Rn - 11/25/2020 7:12 EST Electronically signed by Lyla Singh Conversion Secretary To Board Of Commissioners Cerner at 02/06/2023 8:55 AM CDT documented in this encounter Plan of Treatment Not on file documented as of this encounter Visit Diagnoses Not on filedocumented in this encounter Care Teams Herbarium Curator Relationship Specialty Start Date End Date Mona Levin MD PCP - General Family Medicine 07/19/22 documented as of this encounter
--- OUTSIDE RECORDS SUMMARY | 2025-06-01 11:15 | XMS_ITS | Encounter Summary ---
Author Organization [email or web address] ([place], [place], [place], [place]) Address [address] [place] [address] Care Team Providers Care Obiee Architect Name Role Phone Mona Levin MD Primary Care Provider +1- [phone] Encounter Details Date Type Department Care Team (Late st Contact Info) Description 11/25/2020 Transcribed Document [facility] [place] [address] ProviderLeia MD [address] [place], [place] [id number] Social History Tobacco Use Types Packs/Day Years Used Date Smoking Tobacco: Never Assessed Comments Unknown Sex and Gender Information Value Date Recorded Sex Assigned at Not on file Legal Sex Female 10:15 AM CDT Gender Identity Not on file Sexual Orientation Not on file documented as of this encounter Miscellaneous Notes * Cerner Conversion Note - Leia ProviderMD - 11/25/2020 12:39 PM BURIAL NEEDS SALESPERSON Patient: SHIELA JASSO Age: 60 years Sex: Female : 1960 Associated Diagnoses: None Author: TRISTEN MITCHELL DO Subjective Ms. Jasso was seen by me this morning. she tells me that her pain is doing a little better since the oxycodone was increased to her home dose yesterday. still having some pounding in her ears. some coughing but no sob. no chest pain or n/v. no diarrhea. Objective Intake and Output Intake & Output Totals Last 24 Hours (7a-7a) Intake (27 Events) Medications (550.53 mL) Oral Intake (600 mL) Output (0 Events) No output events found in the last 24 hours. Input Total: 1150.53 mL Output Total: 0 mL Balance: 1150.53 mL VS/Measurements Vitals Signs (last 24 hrs) Last Charted Minimum Maximum Temp 98.6 (NOV 25 08:35) 97.8 (NOV 24 17:26) 98.1 (NOV 24 22:08) Mon HR 92 (NOV 25 08:35) 78 (NOV 25 06:00) 108 (NOV 24 14:18) Resp Rate 16 (NOV 25 08:35) 16 (NOV 25 08:35) 18 (NOV 24 17:26) SBP 127 (NOV 25 08:35) 101 (NOV 24 22:08) 127 (NOV 25 08:35) DBP 72 (NOV 25 08:35) L 59 (NOV 24 22:08) 73 (NOV 24 14:18) MAP 87 (NOV 25 08:35) 72 (NOV 24 22:08) 94 (NOV 25 06:00) SpO2 98 (NOV 25 08:47) 96 (NOV 24 22:25) 98 (NOV 25 08:35) General: Alert and oriented, No acute distress. [...] affect. Results Review General results Interpretation: NOV 25 05:46 141 H 117 18 / 101 4.1 L 13 0.80 \ NOV 25 05:46 \ L 8.4 / H 12.3 325 / L 26.6 \ Labs (Last four charted values) WBC H 12.3 (NOV 25) H 17.8 (NOV 23) H 21.6 (NOV 22) H 17.1 (NOV 21) HB L 8.4 (NOV 07) L 9.0 (NOV 23) L 10.3 (NOV 22) L 9.6 (NOV 21) HCT L 26.6 (NOV 25) L 28.4 (NOV 23) L 32.9 (NOV 22) L 29.9 (NOV 21) Plt 325 (NOV 25) 258 (NOV 23) 334 (NOV 22) H 374 (NOV 21) Na 141 (NOV 25) 141 (NOV 24) 138 (NOV 23) 140 (NOV 22) K 4.1 (NOV 25) 3.8 (NOV 24) 3.6 (NOV 23) 4.0 (NOV 23) Cl H 117 (NOV 25) H 118 (NOV 24) H 114 (NOV 23) H 117 (NOV 22) CO2 L 13 (NOV 25) L 10 (NOV 24) L 11 (NOV 23) L 12 (NOV 22) BUN 18 (NOV 25) 15 (NOV 24) 18 (NOV 23) 15 (NOV 22) Cr 0.80 (NOV 25) 0.80 (NOV 24) 1.00 (NOV 23) 0.80 (NOV 22) Glu R 101 (NOV 25) 90 (NOV 24) 94 (NOV 23) 103 (NOV 22) Ca 9.2 (NOV 25) 8.4 (NOV 24) 8.8 (NOV 23) 8.5 (NOV 22) Lactic 1.2 (NOV 22) PT H 13.1 (NOV 17) INR H 1.3 (NOV 17) AST 20 (NOV 23) 22 (B ) 16 (NOV 21) H 66 (NOV 19) [...] 2.2 (NOV 21) L 2.4 (NOV 19) No Radiology Results Found 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 - ID consult appreciated - s/p CT guided ASHISH biopsy on 11/19 showing blastomycosis - amphoterin started on 11/21 for likely 1 week followed by itraconazole metabolic acidosis - start po bicarb - recheck in am occipital lytic lesion - as seen on [...] pain narcotic dependent - resume home percocet hypokalemia - repleted thrombocytopenia - resolved iron deficiency anemia - continue iron supplementation headaches and bilateral ear pain - seen by neurology on 11/18, no specific recommendations acute encephalopathy - resolved tobacco abuse - nicotine patch d/w rn no family present time spent: 26 min discharge goals: continue iv antibiotics. add po bicarb. anticipated discharge disposition: tbd depends on id recs, patient anxious to get home as soon as possible. Tristen Mitchell D.O. [facility] Hospitalist pager- [phone] Electronically signed by [facility], [facility] Conversion Vehicle Maintenance Supervisor Cerner at 02/06/2023 8:56 AM CDT documented in this encounter Plan of Treatment Not on file documented as of this encounter Visit Diagnoses Not on filedocumented in this encounter Care Teams Obiee Architect Relationship Specialty Start Date End Date Mona Levin MD PCP - General Family Medicine 07/19/22 documented as of this encounter
--- OUTSIDE RECORDS SUMMARY | 2025-06-01 11:15 | XMS_ITS | Encounter Summary ---
Author Organization [employer] ([place], [place], [place], [place]) Address [address] [place] [address] Care Team Providers Care Silver Chaser Name Role Phone Mona Levin MD Primary Care Provider [phone]- [phone] Encounter Details Date Type Department Care Team (Late st Contact Info) Description 11/22/2020 Transcribed Document [facility] Pulm & Critical Care Medicine [address] [place] [address] [address] [id number] [place] [address] [place] [address] [address] [place] [address] Social History Tobacco Use Types Packs/Day Years Used Date Smoking Tobacco: Never Assessed Comments Unknown Sex and Gender Information Value Date Recorded Sex Assigned at Not on file Legal Sex Female 10:15 AM CDT Gender Identity Not on file Sexual Orientation Not on file documented as of this encounter Miscellaneous Notes * Cerner Conversion Note - Kaelyn Levi MD - 11/22/2020 5:12 PM EST Patient: SHILEA JASSO Age: 60 years Sex: Female : 1960 Associated Diagnoses: None Author: KAELYN LEVI MD [facility] Pulmonary CCM Consultation Note Requesting: Dr. Arellano Reason: Lung mass Basic Information CC: I dont know HPI: 60 year old female with stated history of COPD, tobacco abuse, Diverticulitis in the past with colectomy and colostomy-- later reversed, HTN, chronic pain and kidney stones who presented to [facility] on 11/11/20 with 2-3 days worth of [...] and worsening symptoms, she was transferred to [facility] on 11/17/20 for further care and evaluation. [...] Cigarette smoker 1 pack for 40 years /: Patient seen and examined at bedside. Underwent left upper lung mass CT-guided FNA this morning. No complication during the procedure. Hemodynamically stable. Respiratory status richardson improving. 11/20: Denies any specific complaints today. Awaiting pathology from FNA of the left lobe lung mass. Noted to have hypokalemia on blood work. Replace with potassium chloride by mouth. 11/21: Patient seen and examined at bedside. No specific complaints reported by the patient. Awaiting pathology from left upper lung mass FNA. White count continues to be still high at 17,000. Severely elevated procalcitonin level. No fever in last 24 hours. No other localizing symptoms. On IV Rocephin 2 g daily. ID following. 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 No cancer identified. CT scan of the abdomen and pelvis with contrast showed persistent acute right pyelonephritis with developing abscess. ID physician has changed antibiotics to meropenem. Also on p.o. vancomycin for possible colitis. Neurosurgery was consulted for skull lesion noted on MRI. Respiratory status richardson patient is doing well maintaining good saturation. Hemodynamic stable. Serum procalcitonin level significantly elevated still. Review of Systems Constitutional: Weakness, Fatigue. Eye: No recent visual problem. Ear/Nose/Mouth/Throat: No decreased hearing. Respiratory: No hemoptysis. Cardiovascular: No chest pain. Gastrointestinal: No vomiting. Genitourinary: No hematuria. Hematology/Lymphatics Endocrine: No excessive thirst. Immunologic: No recurrent fevers. Musculoskeletal: Back pain. Integumentary: No rash. Neurologic: Alert and oriented X4. Health Status Allergies: Allergic Reactions (Selected) Severity Not Documented Codeine- Nausea, vomiting. Penicillin- Nausea, vomiting., Allergies (2) Active Reaction codeine nausea, vomiting penicillin nausea, vomiting Current medications: (Selected) Inpatient Medications Ordered AmBisome + Dextrose 5% in Water intravenous solution 250 mL: 400 mg, 125 mL/Hr, IV Piggyback, [id number] Dextrose 5% in Water intravenous solution: 50 mL, 100 mL/Hr, IV Piggyback, P27LCqb Dextrose 5% in Water intravenous solution: 50 mL, 100 mL/Hr, IV Piggyback, P38HNfs DuoNeb 0.5 mg-2.5 mg/3 mL inhalation solution: [...] Q4H, PRN: Nausea acetaminophen: 650 mg, Oral, [id number] calcium gluconate + Sodium Chloride 0.9% intravenous [...] (See Comment) diphenhydrAMINE: 25 mg, IV Push, U55GQog ergocalciferol: 50,000 Units, Oral, Y1Vszza gabapentin: 800 mg, Oral, TID heparin: 5,000 Units, SubCutaneous, A10KUaj hydrALAZINE: 10 mg, IV Push, Q6H, PRN: Hypertension magnesium sulfate: 2 Gram, 50 mL, 25 mL/Hr, IV Piggyback, Daily, PRN: Other (See Comment) magnesium sulfate: 2 Gram, 50 mL, 25 mL/Hr, IV Piggyback, Q2H, PRN: Other (See Comment) meropenem + Sodium Chloride 0.9% intravenous solution 50 mL: 500 mg, 16.67 mL/Hr, IV Piggyback, Q6HInt morphine: 2 mg, IV Push, Q6H nystatin: 500,000 Units, Swish and Spit, QID, [...] influenza virus vaccine, inactivated: 0.5 mL, IntraMuscular, [id number] Documented Medications Documented Percocet 10/325 oral tablet: [...] Tab, Oral, Daily, 30 Tab, 0 Refill(s), Medications (31) Active Scheduled: (14) acetaminophen 325 mg tab 650 mg 2 Tab, Oral, V60JYkk amphoTERICIN B LIPOSOMAL + Dextrose 5% in Water 250 mL 400 mg, IV Piggyback, Y33LJix Dextrose 5% in Water 50 mL, IV Piggyback, N78ELsj Dextrose 5% in Water 50 mL, IV Piggyback, B18GJfx diphenhydrAMINE 50 mg/1 mL inj 25 mg 0.5 mL, IV Push, C84KLmn ergocalciferol 50,000 unit cap 50,000 Units 1 Cap, Oral, Y7Iguag famotidine 20 mg tab 20 mg 1 Tab, Oral, Daily gabapentin 400 mg cap 800 mg 2 Cap, Oral, TID heparin 5,000 units/1 mL inj 5,000 Units 1 mL, SubCutaneous, J41XWfv meropenem + NaCl 0.9% 50 mL 500 mg, IV Piggyback, Q6HInt morphine 2 mg/1 ml inj 2 mg 1 mL, IV Push, Q6H nicotine 21 mg/24 hr patch 1 Patch, TransDermal, Daily potassium chloride CR 10 mEq tab 20 mEq 2 Tab, Oral, BID vancomycin 250 mg/5 mL oral liq 125 mg 2.5 mL, Oral, Q6H Continuous: (0) PRN: (17) acetaminophen 325 mg tab 650 [...] 15 mMole 5 mL, IV Piggyback, Q6H Problem list: Medical At risk for sleep apnea / IMO [id number] / Confirmed Chronic back pain / SNOMED CT 908654373 / Confirmed Depression / SNOMED CT 51991594 / Confirmed Hypertension / SNOMED CT 3540024748 / Confirmed Kidney stones / SNOMED CT 638385646 / Confirmed, Active Problems (8) At risk for sleep apnea Chronic back pain Depression diverticulitis fibromyalgia heartburn Hypertension Kidney stones Physical Examination VS/Measurements Vitals Signs (last 24 hrs) Last Charted Minimum Maximum Temp 98.2 (NOV 22 05:59) 97.6 (NOV 21 20:17) 98.9 (NOV 21 22:38) Mon HR 91 (NOV 22 05:59) 85 (NOV 21 20:17) 100 (NOV 22 02:28) Resp Rate 16 (NOV 22 05:59) 16 (NOV 21 20:17) 18 (NOV 21 17:54) SBP 115 (NOV 22 05:59) 110 (NOV 21 20:17) H 143 (NOV 21 17:54) DBP 65 (NOV 22 05:59) 65 (NOV 22 05:59) 76 (NOV 21 17:54) MAP 78 (NOV 22 05:59) 78 (NOV 22 05:59) 113 (NOV 21 22:38) SpO2 98 (NOV 22 08:07) 94 (NOV 21 17:54) 99 (NOV 22 05:59) General: Alert and oriented, No acute distress. [...] Labs (Last four charted values) WBC H 21.6 (NOV 22) H 17.1 (NOV 21) H 18.5 (NOV 20) H 18.3 (NOV 19) HB L 10.3 (NOV 22) L 9.6 (NOV 21) L 9.7 (NOV 20) L 10.8 (NOV 19) HCT L 32.9 (NOV 22) L 29.9 (NOV 21) L 30.4 (NOV 20) L 32.1 (NOV 19) Plt 334 (NOV 22) H 374 (NOV 21) 363 (NOV 20) 330 (NOV 19) Na 140 (NOV 22) 142 (NOV 21) 141 (NOV 20) 141 (NOV 19) K 3.8 (NOV 22) L 3.2 (NOV 22) 4.0 (NOV 22) 4.4 (NOV 21) Cl H 117 (NOV 22) H 115 (NOV 21) 112 (NOV 20) 109 (NOV 19) CO2 L 12 (NOV 22) L 17 (NOV 21) L 20 (NOV 20) 24 (NOV 19) BUN 15 (NOV 22) 16 (NOV 21) 17 (NOV 20) 14 (NOV 19) Cr 0.80 (NOV 22) 0.70 (NOV 21) 0.60 (NOV 20) 0.70 (NOV 19) Glu R 103 (NOV 22) 100 (NOV 21) 106 (NOV 20) H 124 (NOV 19) Ca 8.5 (NOV 22) 8.6 (NOV 21) 8.4 (NOV 20) 8.7 (NOV 19) Lactic 1.2 (NOV 22) PT H 13.1 (NOV 17) INR H 1.3 (NOV 17) AST 22 (NOV 22) 16 (NOV 21) H 66 (NOV 19) H 134 (NOV 18) ALT 23 (NOV 22) 20 (NOV 21) 42 (NOV 19) 51 (NOV 18) ALK P 88 (NOV 22) 70 (NOV 21) 84 (NOV 19) 82 (NOV 18) T Bili 0.5 (NOV 22) 0.3 (NOV 21) 0.5 (NOV 19) 0.5 (NOV 18) PTN 7.8 (NOV 22) 7.5 (NOV 21) H 8.3 (NOV 19) 7.4 (NOV 18) ALB L 2.3 (NOV 22) L 2.2 (NOV 21) L 2.4 (NOV 19) L 2.1 (NOV 18) . NOV 20 09:26 141 112 17 / 106 L 3.1 L 20 0.60 \ Blood Gases (Current Encounter/Past 24 Hours) No Blood Gas Results Found (Past 24 Hours) Radiology Results (Last 48 hours) [id number] -- 11/17/2020 01:09 CR Chest 1 Vw Portable (11/21/2020 06:49) Result: PORTABLE CHEST 11/21/2020 4:00 AM HISTORY: Shortness of breath.COMPARISON: November 19, 2020.FINDINGS: The heart is proper size. The mediastinum is unremarkable.Right PICC line remains in place. There is a persistent opacity withinthe left upper thorax. There is no pneumothorax. IMPRESSION: No significant change since previous.Images reviewed, interpreted, and dictated by Dr. Med Lozano.Transcribed by Vin Cortez, OSCAR have personally viewed, interpreted and dictated the examination. Ihave read and agree with the above final transcribed report. CT Abdomen Pelvis WO W (11/21/2020 14:34) [...] agree with the above final transcribed report. MRI of brain with out contrast done on 11/17/20: IMPRESSION: 1. No evidence of acute intra-axial abnormality. 2. Localized signal abnormality within the midline calvarium of the occipital skull. This finding corresponds to a lytic lesion seen on the recent CT scan. Differential considerations would include a metastasis. Correlation with bone scan or PET scan is recommended. Impression and Plan Pulmonary: ASHISH Lung mass measuring 42 mm in size Bilateral patchy groundglass opacification more anteriorly Atelectasis Stated COPD; unknown severity Previous tobacco abuse S/p left upper lobe FNA on 11/19/2020. Pathology showed Blastomyces fungal elements. No cancer identified. ID: Leukocytosis. Improving. Sepsis on arrival outlying (tachycardia, tachypnea, and now confusion). Improving. Gram negative ervin bacteremia - E coli, Klebsiella, and Enterobacteriaceae at [facility] Acute pyelonephritis Post -Obstructive PNA Heme/Onc: Leukocytosis. Ongoing Anemia Neuro: Drowsy at admission secondary sepsis. Resolved ? Trigeminal Neuralgia CT head a [facility] showed a lytic osseous lesion in the midline occipital bone; measuring 19 mm MRI brain Localized signal abnormality within the midline calvarium of the occipital skull, corresponds to a lytic lesion see on recent CT. possible metastasis. Needs further work-up. Renal: ISAK on admission to [facility] initially. Resolved Hypokalemia. Ongoing GI: History of diverticulitis with colectomy in the past with colostomy and later reversal of colostomy Elevated AST Urology: Acute pyelonephritis with CT abd/pelvis outlying showing mild right renal enlargement with right perinephric stranding and periureteral inflammatory stranding. General: Chronic pain PLAN: High white count with significant elevated procalcitonin. Ongoing infection. CT scan abdomen and pelvis showed acute pyelonephritis with developing renal abscess. Antibiotics changed to IV meropenem from IV Rocephin. Also ID has initiated patient on p.o. vancomycin for possible C. difficile colitis pending test results. S/p CT guided ASHISH mass on 11/19/20 for the left upper lobe peripheral mass (likely malignant in nature). Pathology showed Blastomyces fungal elements. No cancer noted. Oxygen supplementation if need to keep sats > 90%; currently on room air IS hourly. MRI brain Localized signal abnormality within the midline cavarum of the occipital skull, corresponds to a lytic lesion see on recent CT. possible metastasis. Neurosurgery consulted for further evaluation. ID following. Antibiotics: IV Merrem and PO Vancomycin. 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 Electrolyte replacement: Serum potassium normalized now. Strep/Leg urine - negative. Resp panel PCR - negative. Repeat COVID-19 nasopharyngeal PCR - Neg. Blood cultures here no growth so far. OSH positive for E coli and Klebs MRSA surv - Neg. GI proph: Pepcid DVT proph: Heparin Prognosis: Fair. FULL CODE. D/w Dr. Macario Toscano from [place] previously. I saw and examined the patient at [...] on filedocumented in this encounter Care Teams Silver Chaser Relationship Specialty Start Date End Date Mona Levin MD PCP - General Family Medicine 07/19/22 documented as of this encounter
--- OUTSIDE RECORDS SUMMARY | 2025-06-01 11:15 | XMS_ITS | Encounter Summary ---
Author Organization [employer] ([place], [place], [place], [place]) Address [address] [place] [place] [address] Care Team Providers Care Fire Information Officer Name Role Phone Mona Levin MD Primary Care Provider [phone]- [phone] Encounter Details Date Type Department Care Team (Late st Contact Info) Description 11/18/2020 Transcribed Document [facility] Radiology [address] [place] [address] Ramos Barros MD [address] [place] [address] Social History Tobacco Use Types Packs/Day Years Used Date Smoking Tobacco: Never Assessed Comments Unknown Sex and Gender Information Value Date Recorded Sex Assigned at Not on file Legal Sex Female 10:15 AM CDT Gender Identity Not on file Sexual Orientation Not on file documented as of this encounter Miscellaneous Notes * Cerner Conversion Note - Ramos Barros MD - 11/18/2020 8:37 AM EST Patient: SHIELA JASSO Age: 60 [...] pain intermittent for a couple of weeks. Review of Systems Constitutional: Weakness, Decreased activity, [...] At risk for sleep apnea / IMO [id number] / Confirmed Chronic back pain / SNOMED CT 221329650 / Confirmed Depression / SNOMED CT 37530983 / Confirmed Hypertension / SNOMED CT 8143718920 / Confirmed Kidney stones / SNOMED CT 080602366 / Confirmed, Active Problems (8) At risk for sleep apnea Chronic back pain Depression diverticulitis fibromyalgia heartburn Hypertension Kidney stones Current medications: (Selected) Inpatient Medications Ordered DuoNeb 0.5 mg-2.5 mg/3 mL inhalation solution: 3 mL, Nebulized Inhalation, RT_Q6H, PRN: Shortness of Breath Habitrol 21 mg/24 hr transdermal film, extended release: 1 Patch, TransDermal, Daily Merrem + Sodium Chloride 0.9% intravenous solution 50 mL: 500 mg, 16.67 mL/Hr, IV Piggyback, Q6HInt MiraLax: 17 Gram, Oral, Daily, PRN: Constipation Pepcid: 20 mg, Oral, Daily Roxicodone: 5 mg, Oral, Q4H, PRN: Pain (Moderate 4-6) Tylenol: 650 mg, Oral, Q4H, PRN: Pain (Mild 1-3) Zofran: 4 mg, IV Push, Q4H, PRN: Nausea gabapentin: 800 mg, Oral, QID heparin: 5,000 Units, SubCutaneous, [id number] hydrALAZINE: 10 mg, IV Push, Q6H, PRN: Hypertension morphine: 2 mg, IV Push, Q2H, PRN: Pain (Severe 7-10) potassium chloride 10 mEq/50 mL intravenous solution: 10 mEq, 50 mL, 50 mL/Hr, IV Piggyback, Q1H Pending Complete influenza virus vaccine, inactivated: 0.5 mL, IntraMuscular, V10GAnu Documented Medications Documented Macrobid: 100 mg, Oral, [...] 150 mg, PRN, Oral, BID , Medications (13) Active Scheduled: (6) famotidine 20 mg tab 20 mg 1 Tab, Oral, Daily gabapentin 400 mg cap 800 mg 2 Cap, Oral, QID heparin 5,000 units/1 mL inj 5,000 Units 1 mL, SubCutaneous, F06TPhq meropenem + NaCl 0.9% 50 mL 500 mg, IV Piggyback, Q6HInt nicotine 21 mg/24 hr patch 1 Patch, TransDermal, Daily potassium chloride 10 mEq 50 mL, IV Piggyback, Q1H Continuous: (0) PRN: (7) acetaminophen 325 mg tab 650 mg 2 Tab, Oral, Q4H albuterol-ipratropium inh 3 mL 3 mL, Nebulized Inhalation, RT_Q6H hydrALAZINE 20 mg/1 mL inj 10 mg 0.5 mL, IV Push, Q6H morphine 2 mg/1 ml inj 2 mg 1 mL, IV Push, Q2H ondansetron 4 mg/2 mL inj 4 mg 2 mL, IV Push, Q4H oxyCODONE 5 mg tab 5 mg 1 Tab, Oral, Q4H polyethylene glycol 3350 pwd 17 g pkt 17 Gram 1 Packet, Oral, Daily Objective VS/Measurements Vitals Signs (last 24 hrs) Last Charted Minimum Maximum Temp 99.7 (NOV 18 05:33) 98.3 (NOV 18 02:42) 99.7 (NOV 18:33) Mon HR 100 (NOV 18:) 94 (NOV 18 02:42) 100 (NOV 17 21:29) SBP 127 (NOV 18 05:33) 127 (NOV 18 05:33) H 144 (NOV 17:) DBP 89 (NOV 18 05:33) 70 (NOV 18 02:42) 89 (NOV 18 05:33) MAP 104 (NOV 18 05:33) 98 (NOV 17 21:29) 104 (NOV 18 05:33) SpO2 94 (NOV 18 05:33) 94 (NOV 18 05:33) 97 (NOV 17:) Physical Examination VS/Measurements Vitals Signs (last 24 hrs) Last Charted Minimum Maximum Temp 99.7 (NOV 18:) 98.3 (NOV 18 02:42) 99.7 (NOV 18:) Mon HR 100 (NOV 18:) 94 (NOV 18 02:42) 100 (NOV 17 21:29) SBP 127 (NOV 18 05:33) 127 (NOV 18 05:33) H 144 (NOV 17 21:29) DBP 89 (NOV 18 05:33) 70 (NOV 18 02:42) 89 (NOV 18 05:33) MAP 104 (NOV 18 05:33) 98 (NOV 17 21:29) 104 (NOV 18 05:33) SpO2 94 (NOV 18 05:33) 94 (NOV 18 05:33) 97 (NOV 17:29) , Measurements from flowsheet : Measurements 11/17/2020 1:05 EST Height Source Stated Height Entry Format [place] Height/Length, UZBEK (ft) 5 ft Height/Length UZBEK 5 Inch CLINICALHEIGHT 165.1 cm [place] Body Weight 57 kg Weight Source Bed scale Weight Entry Format Metric, kilograms Weight METRIC kg 95.2 kg CLINICALWEIGHT 95.2 kg Body Surface Area (BSA) 2.02 m2 Body Mass Index 34.9 kg/m2 HI General: Alert and oriented, No acute distress. [...] Labs (Last four charted values) WBC H 18.2 (NOV 18) H 19.0 (NOV 17) HB L 9.8 (NOV 18) L 9.3 (NOV 17) HCT L 29.2 (NOV 18) L 27.8 (NOV 17) Plt 278 (NOV 18) 213 (NOV 17) Na 139 (NOV 18) 141 (NOV 17) K C 2.6 (NOV 18) L 3.2 (NOV 17) Cl 108 (NOV 18) 111 (NOV 17) CO2 24 (NOV 18) 23 (NOV 17) BUN 13 (NOV 18) 18 (NOV 17) Cr 0.60 (NOV 18) 0.70 (NOV 17) Glu R H 111 (NOV 18) H 109 (NOV 17) Ca 8.4 (NOV 18) L 8.2 (NOV 17) PT H 13.1 (NOV 17) INR H 1.3 (NOV 17) AST H 134 (NOV 18) H 74 (NOV 17) ALT 51 (NOV 18) 26 (NOV 17) ALK P 82 (NOV 18) 80 (NOV 17) T Bili 0.5 (NOV 18) 0.4 (NOV 17) PTN 7.4 (NOV 18) 6.8 (NOV 17) ALB L 2.1 (NOV 18) L 2.0 (NOV 17) . Radiology Results (Last 48 hours) [id number] -- 11/17/2020 01:09 MRI Brain WO (11/17/2020 [...] Will consult Pulmonary. -wbc 19 to 18 2. New diagnosis left upper lobe lung mass: Pulmonary consulted. -ct guided ASHISH bx 2-1 3. E. coli bacteremia: Continue merrem f [...] and bilateral ear pain: CT head at [place] negative for acute process. -consult Neurology. mri- [...] of , age 60, October 2020, hospital. 11. Chronic pain syndrome: Will be on [...] Obviously very concerned about her long-term prognosis. [employer] dictation system used. Computer program makes numerous spelling grammar mistakes. If you have any questions or concerns do not hesitate call Dr. Ramos Kuhn at cell phone number [phone]. documented in this encounter Plan of Treatment Not on file documented as of this encounter Visit Diagnoses Not on filedocumented in this encounter Care Teams Fire Information Officer Relationship Specialty Start Date End Date Mona Levin MD PCP - General Family Medicine 07/19/22 documented as of this encounter
--- OUTSIDE RECORDS SUMMARY | 2025-06-01 11:15 | XMS_ITS | Encounter Summary ---
Author Organization [facility] Address [address] [place] [address] Care Team Providers Care Corporate Development Associate Name Role Phone Jacquelyn Desouza APRN Primary Care Provider [phone]- [phone] Encounter Details Date Type Department Care Team [...] or training? Not on file Preferred Language Arabic 05/13/2023 PHQ-2 Answer Date Recorded Retired PHQ-9: [...] Description 06/01/2025 2:10 PM EDT Office Visit [facility] [address] [address] Delaney Concepcion MD [address] [address] 06/22/2025 1:15 PM EDT Office Visit [facility] PULMONARY & [facility]ITICAL [facility]IC[facility] [address] [place] [id number] Olivia Morales APRN [address] [facility] MED OFFICE BLDG [address] [address] documented as of this encounter Visit Diagnoses Not on filedocumented in this encounter Care Teams Corporate Development Associate Relationship Specialty Start Date End Date Jacquelyn Desouza APRN [address] [facility] [place] [address] PCP - General Nurse Practitioner 08/25/22 documented as of this encounter
--- OUTSIDE RECORDS SUMMARY | 2025-06-01 11:15 | XMS_ITS | Encounter Summary ---
Author Organization [employer] ([place], [place], [place], [place]) Address [address] [place] [place] [address] Care Team Providers Care Crime Scene Technician Name Role Phone Mona Levin MD Primary Care Provider +1- [phone] Encounter Details Date Type Department Care Team (Late st Contact Info) Description 11/22/2020 Transcribed Document [facility] Radiology [address] [place] [address] Ramos Barros MD [address] [place] [address] Social History Tobacco Use Types Packs/Day Years Used Date Smoking Tobacco: Never Assessed Comments Unknown Sex and Gender Information Value Date Recorded Sex Assigned at Not on file Legal Sex Female 10:15 AM CDT Gender Identity Not on file Sexual Orientation Not on file documented as of this encounter Miscellaneous Notes * Cerner Conversion Note - Ramos Barros MD - 11/22/2020 9:04 AM EST Patient: SHIELA JASSO Age: 60 [...] to name date of age 60-year 2020, [facility] she states she lives in [place] and does not have a primary care provider. She is a little bit more alert than 2 days ago when I first saw her quicker to answer the questions. Awaiting procedure later today. Friday, November 20, 2020. No fevers or chills no chest pain palpitations. No nausea vomiting. No diarrhea constipation. She tolerated the biopsy yesterday without difficulty. She states she lives in [place] and primary care provider is Jacquelyn Desouza she does not know the name of the clinic but she states it is not the [facility]. Saturday, November 21, 2020. Patient still with [...] antimicrobials. Discussed the need for long-term amphotericin. Review of Systems Constitutional: Weakness, Decreased activity, [...] At risk for sleep apnea / IMO [id number] / Confirmed Chronic back pain / SNOMED CT 180326372 / Confirmed Depression / SNOMED CT 93808460 / Confirmed Hypertension / SNOMED CT 7298335665 / Confirmed Kidney stones / SNOMED CT 268707428 / Confirmed, Active Problems (8) At risk for sleep apnea Chronic back pain Depression diverticulitis fibromyalgia heartburn Hypertension Kidney stones Current medications: (Selected) Inpatient Medications Ordered AmBisome + Dextrose 5% in Water intravenous solution 250 mL: 400 mg, 125 mL/Hr, IV Piggyback, [id number] Dextrose 5% in Water intravenous solution: 50 mL, 100 mL/Hr, IV Piggyback, R55VBdq Dextrose 5% in Water intravenous solution: 50 mL, 100 mL/Hr, IV Piggyback, Q93INpu DuoNeb 0.5 mg-2.5 mg/3 mL inhalation solution: [...] Q4H, PRN: Nausea acetaminophen: 650 mg, Oral, P19NFtn calcium gluconate + Sodium Chloride 0.9% intravenous [...] (See Comment) diphenhydrAMINE: 25 mg, IV Push, E77NLzy ergocalciferol: 50,000 Units, Oral, T6Nobmk gabapentin: 800 mg, Oral, TID heparin: 5,000 Units, SubCutaneous, S31JCof hydrALAZINE: 10 mg, IV Push, Q6H, PRN: Hypertension magnesium sulfate: 2 Gram, 50 mL, 25 mL/Hr, IV Piggyback, Daily, PRN: Other (See Comment) magnesium sulfate: 2 Gram, 50 mL, 25 mL/Hr, IV Piggyback, Q2H, PRN: Other (See Comment) meropenem + Sodium Chloride 0.9% intravenous solution 50 mL: 500 mg, 16.67 mL/Hr, IV Piggyback, Q6HInt morphine: 2 mg, IV Push, Q2H, PRN: [...] influenza virus vaccine, inactivated: 0.5 mL, IntraMuscular, M91ALzd Documented Medications Documented Percocet 10/325 oral tablet: [...] mg tab 650 mg 2 Tab, Oral, X19QVtq amphoTERICIN B LIPOSOMAL + Dextrose 5% in Water 250 mL 400 mg, IV Piggyback, T59VTql Dextrose 5% in Water 50 mL, IV Piggyback, Y39SKjb Dextrose 5% in Water 50 mL, IV Piggyback, U27BCqv diphenhydrAMINE 50 mg/1 mL inj 25 mg 0.5 mL, IV Push, D51NMmm ergocalciferol 50,000 unit cap 50,000 Units 1 Cap, Oral, J3Xjior famotidine 20 mg tab 20 mg 1 Tab, Oral, Daily gabapentin 400 mg cap 800 mg 2 Cap, Oral, TID heparin 5,000 units/1 mL inj 5,000 Units 1 mL, SubCutaneous, E79GBij meropenem + NaCl 0.9% 50 mL 500 [...] (NOV 22 05:59) 85 (NOV 21 20:17) 103 (NOV 21 14:38) Resp Rate 16 (NOV 22 05:59) 16 (NOV 21 20:17) 18 (NOV 21 14:38) SBP 115 (NOV 22 05:59) 110 (NOV 21 20:17) H 157 (NOV 21 14:38) DBP 65 (NOV 22 05:59) 65 (NOV 22 05:59) 88 (NOV 21 14:38) MAP 78 (NOV 22 05:59) 78 (NOV 22 05:59) 126 (NOV 21 14:38) SpO2 98 (NOV 22 08:07) 94 (NOV 21 17:54) 99 (NOV 22 05:59) Physical Examination VS/Measurements Vitals Signs (last 24 hrs) Last Charted Minimum Maximum Temp 98.2 (NOV 22 05:59) 97.6 (NOV 21 20:17) 98.9 (NOV 21 22:38) Mon HR 91 (NOV 22 05:59) 85 (NOV 21 20:17) 103 (NOV 21 14:38) Resp Rate 16 (NOV 22 05:59) 16 (NOV 21 20:17) 18 (NOV 21 14:38) SBP 115 (NOV 22 05:59) 110 (NOV 21 20:17) H 157 (NOV 21 14:38) DBP 65 (NOV 22 05:59) 65 (NOV 22 05:59) 88 (NOV 21 14:38) MAP 78 (NOV 22 05:59) 78 (NOV 22 05:59) 126 (NOV 21 14:38) SpO2 98 (NOV 22 08:07) 94 (NOV 21 17:54) 99 (NOV 22 05:59) General: Alert and oriented, No acute distress, [...] 141 (NOV 20) 141 (NOV 19) K L 3.2 (NOV 22) 4.0 (NOV 22) 4.4 (NOV 21) 3.7 (NOV 21) Cl H 117 (NOV 22) [...] (NOV 19) L 2.1 (NOV 18) . Radiology Results (Last 48 hours) [id number] -- 11/17/2020 01:09 CR Chest 1 Vw [...] personally viewed, interpreted and dictated the examination. 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 -ct guided ASHISH bx 2-1 -will consult ID for intermediate recs -ambisome started 2-3 Occipital lytic lesion -seen on mri. concern for malignancy -await lung bx E. coli bacteremia:OSH Continue merrem f consult ID for assistance. culture Klebsiella UTI:OSH Continue merrem Acute COPD exacerbation: Continue bronchodilators. She did not have bronchospasm on exam defer steroid treatment. hypokalemia: -Recheck labs and replace as appropriate. -2.6 to 3.7 to 3.8 -k runs and recheck Thrombocytopenia: - Mild, continue to follow. -278 Iron deficiency anemia: -Continue iron supplementation. -9.3 to 9.8 to 9.6 New headaches and bilateral ear pain: CT head at [place] negative for acute process. -consult Neurology. mri- [...] 60-year-old lady I called the pathologist phone #[phone] Dr. Adán Bruno and he stated the [...] tobacco abuse this wanted their input first. Interneer dictation system used. Computer program makes numerous spelling grammar mistakes. If you have any questions or concerns do not hesitate call Dr. Ramos Kuhn at cell phone number [phone]. documented in this encounter Plan of Treatment Not on file documented as of this encounter Visit Diagnoses Not on filedocumented in this encounter Care Teams Crime Scene Technician Relationship Specialty Start Date End Date Mona Levin MD PCP - General Family Medicine 07/19/22 documented as of this encounter
--- OUTSIDE RECORDS SUMMARY | 2025-06-01 11:15 | XMS_ITS | Encounter Summary ---
Author Organization [employer] ([place], [place], [place], [place]) Address [address] [place] [place] [address] Care Team Providers Care Automatic Beading Lathe Operator Name Role Phone Mona Levin MD Primary Care Provider +1- [phone] Encounter Details Date Type Department Care Team (Late st Contact Info) Description 11/24/2020 Transcribed Document [facility] [place] Family Medicine [address] [place] [address] ProviderLeia MD [address] [place], [place] [id number] Social History Tobacco Use Types Packs/Day Years Used Date Smoking Tobacco: Never Assessed Comments Unknown Sex and Gender Information Value Date Recorded Sex Assigned at Not on file Legal Sex Female 10:15 AM CDT Gender Identity Not on file Sexual Orientation Not on file documented as of this encounter Miscellaneous Notes * Cerner Conversion Note - Leia ProviderMD - 11/24/2020 1:30 PM MUSIC LIBRARIAN Pain Assessment Entered On: 11/24/2020 18:18 EST Performed On: 11/24/2020 16:53 EST by MITCH GO RN Intervention Information: acetaminophen Performed by MITCH GO RN on 11/24/2020 15:53:00 EST acetaminophen,650mg Oral Pain Assessment Pain Assessment : Follow-up assessment Pain Scale Goal : 4 Pain Scale Used : 0-10 Scale Pain Improved by Intervention : Yes MITCH GO RN - 11/24/2020 18:17 EST Pain Scale Intensity : 2 MITCH GO RN - 11/24/2020 18:17 EST Image 4 - Images currently included in the form version of this document have not been included in the text rendition version of the form. documented in this encounter Plan of Treatment Not on file documented as of this encounter Visit Diagnoses Not on filedocumented in this encounter Care Teams Automatic Beading Lathe Operator Relationship Specialty Start Date End Date Mona Levin MD PCP - General Family Medicine 07/19/22 documented as of this encounter
--- OUTSIDE RECORDS SUMMARY | 2025-06-01 11:15 | XMS_ITS | Encounter Summary ---
Author Organization [employer] ([place], [place], [place], [place]) Address [address] [place] [address] Care Team Providers Care Fire Suppression Captain Name Role Phone Mona Levin MD Primary Care Provider +1 [phone] Encounter Details Date Type Department Care Team (Late st Contact Info) Description 11/19/2020 Transcribed Document [facility] [place] [address] ProviderLeia MD [address] [place] [address] Social History Tobacco Use Types Packs/Day Years Used Date Smoking Tobacco: Never Assessed Comments Unknown Sex and Gender Information Value Date Recorded Sex Assigned at Not on file Legal Sex Female 10:15 AM CDT Gender Identity Not on file Sexual Orientation Not on file documented as of this encounter Miscellaneous Notes * Cerner Conversion Note - Leia ProviderMD - 11/19/2020 5:13 PM DIRECTOR STERILE PROCESSING On Going Discharge Planning Entered On: 11/19/2020 17:13 EST Performed On: 11/19/2020 17:13 EST by LULA RAMIREZ, RN-Gauge And Weigh Machine AdjusterProduct Controller Progress Note Discharge Arrangements : Patient Post-Acute Information Patient Name: SHIELA JASSO Gender: Female : [birth year] Age: 60 Years No Post-Acute Placement(s) Listed No Post-Acute Service(s) Listed No [place] Referral(s) Listed Discharge Options Discussed with Patient : Discharge transportation, DME, Home Health, Outpatient services LULA RAMIREZ RN-Gauge And Weigh Machine Adjuster - 11/19/2020 17:13 EST Narrative Progress Note Narrative Progress Note : RAR Moderate ELOS: 5 days HD#2 COVID- 11/18 60 year old female transferred from [facility] for higher level of care. Admitted to [facility] on 11/12 for SOB and flank pain. Initially diagnosed with PNA, urine culture positive for Klebsiella and blood culture positive for E. Coli. CT chest showed ASHISH mass. Consults: ID, Neurology and Pulmonary Plan: CT guided biopsy today. Patient was off the floor for her procedure and drowsy when she returned. CM spoke with patient's SO Jarrod Jones per patient request [phone]. He states patient does have a PCP [...] follow for safe discharge plan. LULA RAMIREZ RN-Gauge And Weigh Machine Adjuster - 11/19/2020 17:13 EST documented in this encounter Plan of Treatment Not on file documented as of this encounter Visit Diagnoses Not on filedocumented in this encounter Care Teams Fire Suppression Captain Relationship Specialty Start Date End Date Mona Levin MD PCP - General Family Medicine 07/19/22 documented as of this encounter
--- OUTSIDE RECORDS SUMMARY | 2025-06-01 11:15 | XMS_ITS | Encounter Summary ---
Author Organization [employer] ([place], [place], [place], [place]) Address [address] [place] [address] Care Team Providers Care Vocational Nurse Lvn Name Role Phone Mona Levin MD Primary Care Provider [phone]- [phone] Encounter Details Date Type Department Care Team (Late st Contact Info) Description 11/19/2020 Transcribed Document [facility] [place] [facility] [place] [address] ProviderLeia MD [address] [place], [place] [address] Social History Tobacco Use Types Packs/Day Years Used Date Smoking Tobacco: Never Assessed Comments Unknown Sex and Gender Information Value Date Recorded Sex Assigned at Not on file Legal Sex Female 10:15 AM CDT Gender Identity Not on file Sexual Orientation Not on file documented as of this encounter Miscellaneous Notes * Cerner Conversion Note - Leia ProviderMD - 11/19/2020 10:16 AM WOOD STAINER Patient: SHIELA JASSO Age: 60 years Sex: Female : 1960 Associated Diagnoses: None Author: EDDY MIJARES PA-C PRE PROCEDURE NOTE I have evaluated the patient prior to the procedure. ASA score: _3 Mallampati score: _ 2 ASA SCORE ASA 1: Healthy patients ASA 2 : Mild to moderate systemic disease caused by the surgical condition or by other pathological processes, and medically well controlled. ASA 3: Severe disease process which limits activity but is not incapacitating ASA 4: Severe incapacitating disease process that is a constant threat to life ASA 5: Moribund patient not expected to survive 24 hours with or without an operation ASA 6: Declared brain- patient whose organs are being removed for donor purposes Mallampati Score Class I: Soft palate, uvula, fauces, pillars visible. Class II: Soft palate, major part of uvula, fauces visible Class III: Soft palate, base of uvula visible Class IV: Only hard palate visible Electronically signed by Francisco [facility] Conversion Household Chores Cerner at 02/06/2023 8:44 AM CDT documented in this encounter Plan of Treatment Not on file documented as of this encounter Visit Diagnoses Not on filedocumented in this encounter Care Teams Vocational Nurse Lvn Relationship Specialty Start Date End Date Mona Levin MD PCP - General Family Medicine 07/19/22 documented as of this encounter
--- OUTSIDE RECORDS SUMMARY | 2025-06-01 11:15 | XMS_ITS | Encounter Summary ---
Author Organization [employer] ([place], [place], [place], [place]) Address [address] [place] [place] [address] Care Team Providers Care Ramp Service Agent Name Role Phone Mona Levin MD Primary Care Provider [phone]- [phone] Encounter Details Date Type Department Care Team (Late st Contact Info) Description 11/24/2020 Transcribed Document [facility] [place] Family Medicine [facility] [place] [address] ProviderLeia MD [address] [place], [place] [id number] Social History Tobacco Use Types Packs/Day Years Used Date Smoking Tobacco: Never Assessed Comments Unknown Sex and Gender Information Value Date Recorded Sex Assigned at Not on file Legal Sex Female 10:15 AM CDT Gender Identity Not on file Sexual Orientation Not on file documented as of this encounter Miscellaneous Notes * Cerner Conversion Note - Leia ProviderMD - 11/24/2020 2:00 AM RAISER HELPER Box Car Checker Details Entered On: 11/24/2020 4:00 EST Performed On: 11/24/2020 2:00 EST by Steffanie Jones RN Order Details Transport Mode Order Detail : Wheelchair Isolation Precautions Order Detail : Standard Precautions Order Detail : 0 IV Order Detail : 1 Oxygen Order Detail : 0 Nurse Collect Order Detail : 1 Lift/Transfer : Independent Central Line Order Detail : Yes Room Service : Appropriate Arterial Line : No Patient Needs Meds Crushed/Liquid : No Steffanie Jones RN - 11/24/2020 4:00 EST Electronically signed by Francisco [facility] Conversion Milanese Knitting Machine Operator Cerner at 02/06/2023 8:53 AM CDT documented in this encounter Plan of Treatment Not on file documented as of this encounter Visit Diagnoses Not on filedocumented in this encounter Care Teams Ramp Service Agent Relationship Specialty Start Date End Date Mona Levin MD PCP - General Family Medicine 07/19/22 documented as of this encounter
--- OUTSIDE RECORDS SUMMARY | 2025-06-01 11:15 | XMS_ITS | Encounter Summary ---
Author Organization [employer] ([place], [place], [place], [place]) Address [address] [place] [place] [address] Care Team Providers Care Medical Collector Name Role Phone Mona Levin MD Primary Care Provider [phone] [phone] Encounter Details Date Type Department Care Team (Late st Contact Info) Description 11/24/2020 Transcribed Document [facility] [place] [facility] [place] [address] ProviderLeia MD [address] [place], [place] [id number] Social History Tobacco Use Types Packs/Day Years Used Date Smoking Tobacco: Never Assessed Comments Unknown Sex and Gender Information Value Date Recorded Sex Assigned at Not on file Legal Sex Female 10:15 AM CDT Gender Identity Not on file Sexual Orientation Not on file documented as of this encounter Miscellaneous Notes * Cerner Conversion Note - Leia ProviderMD - 11/24/2020 5:00 PM PROFESSIONAL APPLICATION DESIGNER Chart Check - Review Order Profile Entered On: 11/24/2020 18:23 EST Performed On: 11/24/2020 17:00 EST by MITCH GO RN Chart Check Powerplans Initiated/Discontinued as Appropriate : Yes MITCH GO RN - 11/24/2020 18:23 EST documented in this encounter Plan of Treatment Not on file documented as of this encounter Visit Diagnoses Not on filedocumented in this encounter Care Teams Medical Collector Relationship Specialty Start Date End Date Mona Levin MD PCP - General Family Medicine 07/19/22 documented as of this encounter
--- OUTSIDE RECORDS SUMMARY | 2025-06-01 11:15 | XMS_ITS | Encounter Summary ---
Author Organization [employer] ([place], [place], [place], [place]) Address [address] [place] [place] [address] Care Team Providers Care Way Inspector Name Role Phone Mona Levin MD Primary Care Provider [phone]- [phone] Encounter Details Date Type Department Care Team (Late st Contact Info) Description 11/18/2020 Transcribed Document [facility] [place] Medicine [facility] [place] [address] ProviderLeia MD [address] [place], [place] [phone] Social History Tobacco Use Types Packs/Day Years Used Date Smoking Tobacco: Never Assessed Comments Unknown Sex and Gender Information Value Date Recorded Sex Assigned at Not on file Legal Sex Female 10:15 AM CDT Gender Identity Not on file Sexual Orientation Not on file documented as of this encounter Miscellaneous Notes * Cerner Conversion Note - Leia ProviderMD - 11/18/2020 5:00 PM POINT OF CARE SPECIALIST Chart Check - Review Order Profile Entered On: 11/18/2020 20:03 EST Performed On: 11/18/2020 17:00 EST by Nelson Chavez, RN Chart Check Powerplans Initiated/Discontinued as Appropriate : Yes All Active Orders Reviewed : Yes Nelson Chavez, RN - 11/18/2020 20:03 EST Electronically signed by Francisco [facility] Conversion Pie Icer Machine Cerner at 02/06/2023 8:44 AM CDT documented in this encounter Plan of Treatment Not on file documented as of this encounter Visit Diagnoses Not on filedocumented in this encounter Care Teams Way Inspector Relationship Specialty Start Date End Date Mona Levin MD PCP - General Family Medicine 07/19/22 documented as of this encounter
--- OUTSIDE RECORDS SUMMARY | 2025-06-01 11:15 | XMS_ITS | Encounter Summary ---
Author Organization [employer] ([place], [place], [place], [place]) Address [address] [place] [address] Care Team Providers Care Motion Picture Camera Lens Technician Name Role Phone Mona Levin MD Primary Care Provider [phone] Encounter Details Date Type Department Care Team (Late st Contact Info) Description 11/23/2020 Transcribed Document [facility] Pulm & Critical Care Medicine [address] [place] [address] [address] [id number] [place] [address] [place] [address] [address] [place] [address] Social History Tobacco Use Types Packs/Day Years Used Date Smoking Tobacco: Never Assessed Comments Unknown Sex and Gender Information Value Date Recorded Sex Assigned at Not on file Legal Sex Female 10:15 AM CDT Gender Identity Not on file Sexual Orientation Not on file documented as of this encounter Miscellaneous Notes * Cerner Conversion Note - Kaelyn Levi MD - 11/23/2020 5:03 PM EST Patient: SHIELA JASSO Age: 60 years Sex: Female : 1960 Associated Diagnoses: None Author: KAELYN LEVI MD [facility] Pulmonary CCM Consultation Note Requesting: Dr. Arellano Reason: Lung mass Basic Information CC: I dont know HPI: 60 year old female with stated history of COPD, tobacco abuse, Diverticulitis in the past with colectomy and colostomy-- later reversed, HTN, chronic pain and kidney stones who presented to [facility] on 11/11/20 with 2-3 days worth of [...] and worsening symptoms, she was transferred to [facility] on 11/17/20 for further care and evaluation. [...] stable. Serum procalcitonin level significantly elevated still. 11/23: Patient seen and examined bedside. On IV meropenem for acute pyonephritis on the right side with renal abscess. White count and procalcitonin levels trending down. 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 Reports feeling well. Denies any specific complaints. Respiratory status richardson she is doing well and maintaining good saturation on room air. Review of Systems Constitutional: Weakness, Fatigue. Eye: [...] mL: 400 mg, 125 mL/Hr, IV Piggyback, C58RWog Dextrose 5% in Water intravenous solution: 50 mL, 100 mL/Hr, IV Piggyback, D88LFqs Dextrose 5% in Water intravenous solution: 50 mL, 100 mL/Hr, IV Piggyback, Q85BLbz DuoNeb 0.5 mg-2.5 mg/3 mL inhalation solution: 3 mL, Nebulized Inhalation, RT_Q6H, PRN: Shortness of Breath Habitrol 21 mg/24 hr transdermal film, extended release: 1 Patch, TransDermal, Daily MiraLax: 17 Gram, Oral, Daily, PRN: Constipation Normal Saline 500 mL: 999 mL/Hr, IntraVENous, Stop: 11/28/20 16:14:00 EST Pepcid: 20 mg, Oral, Daily Roxicodone: 5 mg, Oral, Q4H, PRN: Pain (Moderate 4-6) Tylenol: 650 mg, Oral, Q4H, PRN: Pain (Mild 1-3) Zofran: 4 mg, IV Push, Q4H, PRN: Nausea acetaminophen: 650 mg, Oral, R33BLtg calcium gluconate + Sodium Chloride 0.9% intravenous [...] (See Comment) diphenhydrAMINE: 25 mg, IV Push, G06UDeo ergocalciferol: 50,000 Units, Oral, F9Ynwur gabapentin: 800 mg, Oral, TID heparin: 5,000 Units, SubCutaneous, L17ROsy hydrALAZINE: 10 mg, IV Push, Q6H, PRN: [...] IV Piggyback, Q6H, PRN: Other (See Comment) Pending Complete influenza virus vaccine, inactivated: 0.5 mL, IntraMuscular, S38TVhx Documented Medications Documented Percocet 10/325 oral tablet: [...] Tab, 0 Refill(s), Medications (31) Active Scheduled: (12) acetaminophen 325 mg tab 650 mg 2 Tab, Oral, D64XUtp amphoTERICIN B LIPOSOMAL + Dextrose 5% in Water 250 mL 400 mg, IV Piggyback, O11ZJel Dextrose 5% in Water 50 mL, IV Piggyback, H95NUwl Dextrose 5% in Water 50 mL, IV Piggyback, M56GEli diphenhydrAMINE 50 mg/1 mL inj 25 mg 0.5 mL, IV Push, Z90SMvx ergocalciferol 50,000 unit cap 50,000 Units 1 Cap, Oral, Z6Dmrdk famotidine 20 mg tab 20 mg 1 Tab, Oral, Daily gabapentin 400 mg cap 800 mg 2 Cap, Oral, TID heparin 5,000 units/1 mL inj 5,000 Units 1 mL, SubCutaneous, O26DZgj meropenem + NaCl 0.9% 50 mL 500 mg, IV Piggyback, Q6HInt nicotine 21 mg/24 hr patch 1 Patch, TransDermal, Daily potassium chloride CR 10 mEq tab 20 mEq 2 Tab, Oral, BID Continuous: (1) NaCl 0.9% 500 mL 500 mL, IntraVENous, 999 mL/Hr PRN: (18) acetaminophen 325 mg tab 650 [...] At risk for sleep apnea / IMO 77629079 / Confirmed Chronic back pain / SNOMED CT 440502118 / Confirmed Depression / SNOMED CT 91677843 / Confirmed Hypertension / SNOMED CT 7481400277 / Confirmed Kidney stones / SNOMED CT 559860177 / Confirmed, Active Problems (8) At risk for sleep apnea Chronic back pain Depression diverticulitis fibromyalgia heartburn Hypertension Kidney stones Physical Examination VS/Measurements Vitals Signs (last 24 hrs) Last Charted Minimum Maximum Temp 98.9 (NOV 23:00) 97.5 (NOV 23:) 98.3 (NOV 22:22) Mon HR 102 (NOV 23 15:00) 83 (NOV 23:) 103 (NOV 22:22) Resp Rate 18 (NOV 23:00) 16 (NOV 23 03:00) 18 (NOV 22:00) SBP 119 (NOV 23 15:00) 114 (NOV 23:28) 128 (NOV 23 10:07) DBP 68 (NOV 23 15:00) 60 (NOV 23 09:10) 74 (NOV 22:22) MAP 82 (NOV 23 15:00) 75 (NOV 23 09:10) 94 (NOV 23 10:07) SpO2 96 (NOV 23 08:33) 95 (NOV 23:28) 98 (NOV 22 19:56) General: Alert and oriented, No acute distress. [...] 142 (NOV 21) 141 (NOV 20) K 4.0 (NOV 23) 3.8 (NOV 23) 4.0 (NOV 23) 4.0 (NOV 22) Cl H 114 (NOV 23) [...] (NOV 21) L 2.4 (NOV 19) . NOV 20 09:26 141 112 17 / 106 L 3.1 L 20 0.60 \ Blood Gases (Current Encounter/Past 24 Hours) No Blood Gas Results Found (Past 24 Hours) Radiology Results (Last 48 hours) [id number] -- 11/17/2020 01:09 CR Chest 1 Vw [...] - E coli, Klebsiella, and Enterobacteriaceae at [facility] Acute pyelonephritis Post -Obstructive PNA. Elevated serum procalcitonin level. Trending down. Heme/Onc: Leukocytosis. Ongoing but improving. Anemia Neuro: Drowsy at admission secondary sepsis. Resolved ? Trigeminal Neuralgia CT head a [facility] showed a lytic osseous lesion in the midline occipital bone; measuring 19 mm MRI brain Localized signal abnormality within the midline cavarum of the occipital skull, corresponds to a lytic lesion see on recent CT. possible metastasis. Needs further work-up. Renal: ISAK on admission to [facility] initially. Resolved Hypokalemia. Improved. GI: History of diverticulitis with colectomy in the past with colostomy and later reversal of colostomy Elevated AST. Improved. Urology: Acute pyelonephritis with CT abd/pelvis outlying showing mild right renal enlargement with right perinephric stranding and periureteral inflammatory stranding. CT scan abdomen and pelvis done on 11/21/20 showed acute pyelonephritis with developing renal abscess. General: Chronic pain PLAN: White count and serum procalcitonin level trending down. CT scan abdomen and pelvis showed acute pyelonephritis with developing renal abscess. On IV meropenem and p.o. vancomycin was stopped by ID today. 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 monitor renal and liver functions closely. S/p CT guided ASHISH mass on 11/19/20 [...] for further evaluation. ID following. Antibiotics: IV Merrem. 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 Electrolyte replacement: Serum potassium normalized now. Strep/Leg urine - negative. Resp panel PCR - negative. Repeat COVID-19 nasopharyngeal PCR - Neg. Blood cultures here no growth so far. OSH blood cultures positive for E coli and Klebs MRSA surv - Neg. GI proph: Pepcid DVT proph: Heparin Prognosis: Fair. FULL CODE. D/w Dr. Macario Toscano from [place] today. I saw and examined the patient at [...] on filedocumented in this encounter Care Teams Motion Picture Camera Lens Technician Relationship Specialty Start Date End Date Mona Levin MD PCP - General Family Medicine 07/19/22 documented as of this encounter
--- OUTSIDE RECORDS SUMMARY | 2025-06-01 11:15 | XMS_ITS | Encounter Summary ---
Author Organization [employer] ([place], [place], [place], [place]) Address [address] [place] [address] Care Team Providers Care Department Head Name Role Phone Mona Levin MD Primary Care Provider Encounter Details Date Type Department Care Team (Late st Contact Info) Description 11/22/2020 Transcribed Document [facility] [place] [address] ProviderLeia MD [address] [place] [id number] Social History Tobacco Use Types Packs/Day Years Used Date Smoking Tobacco: Never Assessed Comments Unknown Sex and Gender Information Value Date Recorded Sex Assigned at Not on file Legal Sex Female 10:15 AM CDT Gender Identity Not on file Sexual Orientation Not on file documented as of this encounter Miscellaneous Notes * Cerner Conversion Note - Leia ProviderMD - 11/22/2020 8:06 AM PUBLIC ADDRESS SYSTEMS MECHANIC Patient: SHIELA JASSO Age: 60 Years Sex: Female : 1960 Assessment/Plan #1 blastomycosis, 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 fungal cultures still pending. ID treating primarily. she will be starting treatment with amphotericin B and itraconazole for one week. will follow peripherally and follow ID treatment plan. VTE Prophylaxis - Medical Heparin 5,000 Units, SubCutaneous, Inj, E19OKyl, Routine, Start 11/17/20 6:00:00 EST (FIFI JIN) Subjective no complaints of pain,dizziness,MILTON, weakness. no other complaints Vital Signs T: 36.8 ??C TMIN: 36.4 ??C TMAX: 37.2 ??C HR: 91(Monitored) RR: 16 BP: 115/65 SpO2: 99% Oxygen Settings (Last) Oxygen Therapy Mode: Room air (11/22/20 05:59:00) Oxygen Flow Rate: 5 Liter/Min (11/17/20 17:00:00) Intake & Output Totals Last 24 Hours (7a-7a) Input Total: 959 mL Output Total: 0 mL Balance: 959 mL Physical Exam aaox3. patient lying comfortably in bed. good strength throughout BUE and BLE. normal sensation to touch throughout. CN I-XII grossly intact Medications acetaminophen, 650 mg= 2 Tab, Oral, C91LHvl AmBisome + Dextrose 5% in Water intravenous solution 250 mL calcium gluconate calcium gluconate + Sodium Chloride 0.9% intravenous solution 100 mL calcium gluconate + Sodium Chloride 0.9% intravenous solution 100 mL Dextrose 5% in Water intravenous solution, 50 mL, IV Piggyback, D54JQqt Dextrose 5% in Water intravenous solution, 50 mL, IV Piggyback, P89YJzu diphenhydrAMINE, 25 mg= 0.5 mL, IV Push, B89FUef DuoNeb 0.5 mg-2.5 mg/3 mL inhalation solution, 3 mL, Nebulized Inhalation , RT_Q6H, PRN ergocalciferol, 41064 Units= 1 Cap, Oral, U2Zjjqc gabapentin, 800 mg= 2 Cap, Oral, TID Habitrol 21 mg/24 hr transdermal film, extended release, 1 Patch, TransDermal, Daily heparin, 5000 Units= 1 mL, SubCutaneous, W29MQrt hydrALAZINE, 10 mg= 0.5 mL, IV Push, Q6H, PRN magnesium sulfate, 2 Gram= 50 mL, IV Piggyback, Daily, PRN magnesium sulfate, 2 Gram= 50 mL, IV Piggyback, Q2H, PRN meropenem + Sodium Chloride 0.9% intravenous solution 50 mL MiraLax, 17 Gram= 1 Packet, Oral, Daily, PRN morphine, 2 mg= 1 mL, IV Push, Q2H, PRN nystatin, 195506 Units= 5 mL, Swish and Spit, QID, PRN Pepcid, 20 mg= 1 Tab, Oral, Daily potassium chloride 10 mEq oral tablet, extended release, 20 mEq= 2 Tab, Oral, BID potassium chloride 10 mEq/50 mL intravenous solution, 10 mEq= 50 mL, IV Piggyback, Q1H, PRN potassium chloride 20 mEq oral tablet, extended release, 20 mEq= 1 Tab, Oral, Q2H, PRN potassium chloride 20 mEq oral tablet, extended release, 60 mEq= 3 Tab, Oral, Q2H, PRN Roxicodone, 5 mg= 1 Tab, Oral, Q4H, PRN sodium phosphate sodium phosphate Tylenol, 650 mg= 2 Tab, Oral, Q4H, PRN vancomycin oral solution, 125 mg= 2.5 mL, Oral, Q6H Zofran, 4 mg= 2 mL, IV Push, Q4H, PRN Lab Results Test Name Test Result Date/Time Sodium Level 140 mmol/L 11/22/2020 02:53 EST Potassium Level 4.0 mmol/L 11/22/2020 02:53 EST Potassium Level 4.4 mmol/L 11/21/2020 21:00 EST Potassium Level 3.7 mmol/L 11/21/2020 14:51 EST Potassium Level 3.7 mmol/L 11/21/2020 09:27 EST Chloride Level 117 mmol/L (High) 11/22/2020 02:53 EST Carbon Dioxide Level 12 mmol/L (Low) 11/22/2020 02:53 EST Anion Gap 15 11/22/2020 02:53 EST Glucose Level 103 mg/dL 11/22/2020 02:53 EST Blood Urea Nitrogen 15 mg/dL 11/22/2020 02:53 EST Creatinine Level 0.80 mg/dL 11/22/2020 02:53 EST eGFR >60 mL/min/1.73m2 11/22/2020 02:53 EST eGFR NonAfrican >60 mL/min/1.73m2 11/22/2020 02:53 EST Bun/Creatinine 18.8 11/22/2020 02:53 EST Calcium Level 8.5 mg/dL 11/22/2020 02:53 EST Protein Total 7.8 Gram/dL 11/22/2020 02:53 EST Albumin Level 2.3 Gram/dL (Low) 11/22/2020 02:53 EST Globulin 5.5 Gram/dL (High) 11/22/2020 02:53 EST A/G Ratio 0.4 (Low) 11/22/2020 02:53 EST Bilirubin Total 0.5 mg/dL 11/22/2020 02:53 EST Alk Phos 88 Units/Liter 11/22/2020 02:53 EST AST 22 Units/Liter 11/22/2020 02:53 EST ALT 23 Units/Liter 11/22/2020 02:53 EST Magnesium Level 1.7 mg/dL 11/22/2020 02:53 EST Phosphorus 3.8 mg/dL 11/22/2020 02:53 EST CRP 7.8 mg/dL (High) 11/21/2020 09:27 EST Lactate Dehydrogenase 264 Units/Liter (High) 11/22/2020 02:53 EST Lactic Acid Level 1.2 mmol/L 11/22/2020 02:20 EST WBC 21.6 K/uL (High) 11/22/2020 02:20 EST RBC 3.06 Million/uL (Low) 11/22/2020 02:20 EST Hgb 10.3 g/dL (Low) 11/22/2020 02:20 EST Hct 32.9 % (Low) 11/22/2020 02:20 EST MCV 107.5 fL (High) 11/22/2020 02:20 EST MCH 33.7 pg (High) 11/22/2020 02:20 EST MCHC 31.3 Gram/dL (Low) 11/22/2020 02:20 EST Platelet Count 334 K/uL 11/22/2020 02:20 EST MPV 11.0 fL 11/22/2020 02:20 EST RDW 14.0 % 11/22/2020 02:20 EST Neutrophil Percent Man 69 % (High) 11/22/2020 02:20 EST Band Percent Man 2 % (Low) 11/22/2020 02:20 EST ANC # 15 K/uL 11/22/2020 02:20 EST Lymph Percent Man 23 % (Low) 11/22/2020 02:20 EST ALYC # 5 K/uL 11/22/2020 02:20 EST Ray Percent Man 6 % (High) 11/22/2020 02:20 EST Eos Percent Man 0 % 11/22/2020 02:20 EST Baso Percent Man 0 % 11/22/2020 02:20 EST RBC Morphology Abnormal 11/22/2020 02:20 EST Hypochromia 1+ (Abnormal) 11/22/2020 02:20 EST Ovalocytes 1+ (Abnormal) 11/22/2020 02:20 EST Macrocytosis 1+ (Abnormal) 11/22/2020 02:[address] Estimate Adequate 11/22/2020 02:20 EST Slide Review Add Diff 11/22/2020 02:20 EST Procalcitonin 102.83 ng/mL (High) 11/22/2020 02:53 EST Procalcitonin 77.13 ng/mL (High) 11/21/2020 09:27 EST Specimen Type urine 11/21/2020 10:58 EST Specimen Type blood 11/21/2020 09:27 EST Electronically signed by Interface, [facility] Conversion Facing Grinder Cerner at 02/06/2023 8:55 AM CDT documented in this encounter Plan of Treatment Not on file documented as of this encounter Visit Diagnoses Not on filedocumented in this encounter Care Teams Department Head Relationship Specialty Start Date End Date Mona Levin MD PCP - General Family Medicine 07/19/22 documented as of this encounter
--- OUTSIDE RECORDS SUMMARY | 2025-06-01 11:15 | XMS_ITS | Encounter Summary ---
Author Organization [employer] ([place], [place], [place], [place]) Address [address] [place] [place] [address] Care Team Providers Care Shellfish Bed Worker Name Role Phone Mona Levin MD Primary Care Provider [phone] Encounter Details Date Type Department Care Team (Late st Contact Info) Description 11/23/2020 Transcribed Document [facility] Family Medicine [facility] [place] [address] ProviderLeia MD [address] [place] [address] Social History Tobacco Use Types Packs/Day Years Used Date Smoking Tobacco: Never Assessed Comments Unknown Sex and Gender Information Value Date Recorded Sex Assigned at Not on file Legal Sex Female 10:15 AM CDT Gender Identity Not on file Sexual Orientation Not on file documented as of this encounter Miscellaneous Notes * Cerner Conversion Note - Leia ProviderMD - 11/23/2020 1:49 PM FLUOROSCOPE OPERATOR UM Authorization Entered On: 11/23/2020 13:50 EST Performed On: 11/23/2020 13:49 EST by KATIANA PECK, Calender Operator Primary Insurance Authorization Authorization and Policy Numbers : Insurance 1 Health Plan: [employer] MANAGED MEDICARE Policy Number: [id number] Authorization Number: Insurance Primary Name : [employer] MANAGED MEDICARE Policy Number: [id number] Authorization Status-Primary : Admit approved Reference Number-Primary : [id number] Authorization Number-Primary : [id number] Number of Days Authorized-Primary : 9 Day(s) Authorized Service Begin Date-Primary : 11/17/2020 EST Authorized Service End Date-Primary : 11/26/2020 EST Authorization Comments-Primary : Rec fax from [facility] 11/23/20 10 days approved auth# [id number] NRD 11/27/20 Historical Authorization Comments-Primary : Comment 1: Clinicals faxed via [employer] 11/20-11/22. (KODY ESPARZA, Rn-Utilization Review 11/22/2020 13:38) Comment 2: Per [facility] site, Inpt Auth approved 5 days. NRD 11/22 (KODY ESPARZA, Rn-Utilization Review 11/19/2020 09:38) Comment 3: AUTH SUBMITTED ON WEBSITE WITH CLINCAL ATTACHED (Jacque Mckeon, Rn-Utilization Review 11/17/2020 11:44) KATIANA PECK, Calender Operator - 11/23/2020 13:49 EST Electronically signed by Francisco [facility] Conversion Jig Box Operator Cerner at 02/06/2023 8:50 AM CDT documented in this encounter Plan of Treatment Not on file documented as of this encounter Visit Diagnoses Not on filedocumented in this encounter Care Teams Shellfish Bed Worker Relationship Specialty Start Date End Date Mona Levin MD PCP - General Family Medicine 07/19/22 documented as of this encounter
--- OUTSIDE RECORDS SUMMARY | 2025-06-01 11:15 | XMS_ITS | Encounter Summary ---
Author Organization [employer] ([place], [place], [place], [place]) Address [address] [place] [address] Care Team Providers Care Broadcast Operations Engineer Name Role Phone Mona Levin MD Primary Care Provider [phone] Encounter Details Date Type Department Care Team (Late st Contact Info) Description 11/17/2020 Transcribed Document [facility] [place] [address] [place] [address] ProviderLeia MD [address] [place] [address] Social History Tobacco Use Types Packs/Day Years Used Date Smoking Tobacco: Never Assessed Comments Unknown Sex and Gender Information Value Date Recorded Sex Assigned at Not on file Legal Sex Female 10:15 AM CDT Gender Identity Not on file Sexual Orientation Not on file documented as of this encounter Miscellaneous Notes * [employer]ner Conversion Note - Leia ProviderMD - 11/17/2020 11:44 AM TIE BINDER UM Authorization Entered On: 11/17/2020 11:44 EST Performed On: 11/17/2020 11:44 EST by Jacque Mckeon Rn-Utilization Review Primary Insurance Authorization Authorization and Policy Numbers : Insurance 1 Health Plan: [employer] MANAGED MEDICARE Policy Number: [id number] Authorization Number: Insurance Primary Name : [facility] MANAGED MEDICARE Policy Number: [id number] Authorization Status-Primary : Awaiting callback Reference Number-Primary : [id number] Authorized Service Begin Date-Primary : 11/16/2020 EST Authorization Comments-Primary : AUTH SUBMITTED ON WEBSITE WITH CLINCAL ATTACHED Historical Authorization Comments-Primary : No Authorization Comments Found Jacque Mckeon, Rn-Utilization Review - 11/17/2020 11:44 EST Electronically signed by Francisco, [facility] Conversion Surveillance Camera Technician Cerner at 02/06/2023 8:54 AM CDT documented in this encounter Plan of Treatment Not on file documented as of this encounter Visit Diagnoses Not on filedocumented in this encounter Care Teams Broadcast Operations Engineer Relationship Specialty Start Date End Date Mona Levin MD PCP - General Family Medicine 07/19/22 documented as of this encounter
--- OUTSIDE RECORDS SUMMARY | 2025-06-01 11:15 | XMS_ITS | Encounter Summary ---
Author Organization [employer] ([place], [place], [place], [place]) Address [address] [place] [address] Care Team Providers Care Meteorology Teacher Name Role Phone Mona Levin MD Primary Care Provider [phone] Encounter Details Date Type Department Care Team (Late st Contact Info) Description 11/25/2020 Transcribed Document [facility] Family [place] [facility] [place] [address] ProviderLeia MD [address] [place], [place] [address] Social History Tobacco Use Types Packs/Day Years Used Date Smoking Tobacco: Never Assessed Comments Unknown Sex and Gender Information Value Date Recorded Sex Assigned at Not on file Legal Sex Female 10:15 AM CDT Gender Identity Not on file Sexual Orientation Not on file documented as of this encounter Miscellaneous Notes * Cerner Conversion Note - Leia ProviderMD - 11/25/2020 1:30 PM SENIOR CENTER MANAGER Pain Assessment Entered On: 11/25/2020 16:27 EST Performed On: 11/25/2020 16:20 EST by FIFI KENNEDY RN Intervention Information: acetaminophen Performed by FIFI KENNEDY RN on 11/25/2020 15:20:00 EST acetaminophen,650mg Oral Pain Assessment Pain Assessment : Follow-up assessment Pain Scale Goal : 4 Pain Scale Used : 0-10 Scale FIFI KENNEDY RN - 11/25/2020 16:26 EST Pain Scale Intensity : 0 FIFI KENNEDY RN - 11/25/2020 16:26 EST Image 4 - Images currently included in the form version of this document have not been included in the text rendition version of the form. Electronically signed by Lyla Singh Conversion Ophthalmic Technician Apprentice Cerner at 02/06/2023 8:44 AM CDT documented in this encounter Plan of Treatment Not on file documented as of this encounter Visit Diagnoses Not on filedocumented in this encounter Care Teams Meteorology Teacher Relationship Specialty Start Date End Date Mona Levin MD PCP - General Family Medicine 07/19/22 documented as of this encounter
--- OUTSIDE RECORDS SUMMARY | 2025-06-01 11:15 | XMS_ITS | Encounter Summary ---
Author Organization [employer] ([place], [place], [place], [place]) Address [address] [place] [address] Care Team Providers Care Stonehand Name Role Phone Mona Levin MD Primary Care Provider [phone] Encounter Details Date Type Department Care Team (Late st Contact Info) Description 11/22/2020 Transcribed Document [facility] Family Medicine [facility] [place] [address] ProviderLeia MD [address] [place] [address] Social History Tobacco Use Types Packs/Day Years Used Date Smoking Tobacco: Never Assessed Comments Unknown Sex and Gender Information Value Date Recorded Sex Assigned at Not on file Legal Sex Female 10:15 AM CDT Gender Identity Not on file Sexual Orientation Not on file documented as of this encounter Miscellaneous Notes * Cerner Conversion Note - Leia Gutiérrez MD - 11/22/2020 9:00 AM SENIOR PRODUCT MANAGER Patient: SHIELA JASSO Age: 60 years Sex: Female : 1960 Associated Diagnoses: None Author: DEMETRIS WILCOX MD INFECTIOUS DISEASES Progress Note EVNATALIIA RAMOS: Dr. Demetris iWlcox Date of Admission: 11/17/20 Reason for Consultation: Bacteremia, UTI, pneumonia HPI: 60 yo female with h/o fibromyalgia, chronic pain, HTN, and nephrolithiasis who presented to [facility] on 11/12/20 with shortness of breath [...] Merrem after cultures. She was transferred to [facility] on 11/17/20 and arrived confused, lethargic, and [...] denies f/c, sob, n/v/d, rashes. Still has Ortiz cath in place. 11/20/20: doing ok today. had CT-guided biopsy procedure yesterday with cultures and path pending. no fevers. breathing ok on room air. no n/v, diarrhea, or new rash. : feeling ok. no fevers. no shortness of breath. no abdominal pain. no fevers. having some diarrhea, about 4-5 episodes per day. no new rashes. lung biopsy path c/w blastomyces. 11/22/20: still having some diarrhea. no fevers. no abdominal pain. no n/v. no new rash. no rigors. tolerating ambisome well so far. ROS: see above Allergies: Allergies (2) Active Reaction codeine nausea, vomiting penicillin nausea, vomiting Medications: Medications by Classification Antimicrobials meropenem + Sodium Chloride 0.9% intravenous solution 50 mL - 500 mg, IV Piggyback, Inj, Q6HInt, infuse over 3 Hour(s), Routine vancomycin (vancomycin oral solution) - 125 mg, Oral, Liquid, Q6H, Routine amphotericin B liposomal + Dextrose 5% in Water intravenous - 400 mg, IV Piggyback, Inj, [id number], infuse over 2 Hour(s) Anticoagulant heparin - 5,000 Units, SubCutaneous, Inj, [id number], Routine Respiratory albuterol-ipratropium (DuoNeb 0.5 mg-2.5 mg/3 mL inhalation - 3 mL, Nebulized Inhalation, Inh, RT_Q6H, PRN for Shortness of Breath, Routine GI ondansetron (Zofran) - 4 mg, IV Push, Inj, Q4H, PRN for Nausea, Routine famotidine (Pepcid) - 20 mg, Oral, Tab, Daily, Routine magnesium sulfate - 2 Gram 50 mL, IV Piggyback, Inj, Daily, PRN for Other (See Comment), Routine magnesium sulfate - 2 Gram 50 mL, IV Piggyback, Inj, Q2H, PRN for Other (See Comment), Routine polyethylene glycol 3350 (MiraLax) - 17 Gram, Oral, Powder, Daily, PRN for Constipation, Routine sodium phosphate - 15 mMole 5 mL, IV Piggyback, Inj, Daily, PRN for Other (See Comment), Routine sodium phosphate - 15 mMole 5 mL, IV Piggyback, Inj, Q6H, PRN for Other (See Comment), Routine Neuro gabapentin - 800 mg, Oral, Cap, TID, Routine magnesium sulfate - 2 Gram 50 mL, IV Piggyback, Inj, Daily, PRN for Other (See Comment), Routine *Duplicate* magnesium sulfate - 2 Gram 50 mL, IV Piggyback, Inj, Q2H, PRN for Other (See Comment), Routine *Duplicate* HEENT nystatin - 500,000 Units, Swish and Spit, Liquid, QID, PRN for Other (See Comment), Routine Pain Meds morphine - 2 mg, IV Push, Inj, Q6H, PRN for Pain (Severe 7-10), Routine oxyCODONE (Roxicodone) - 5 mg, Oral, Tab, Q4H, PRN for Pain (Moderate 4-6), Routine acetaminophen - 650 mg, Oral, Tab, [id number] acetaminophen (Tylenol) - 650 mg, Oral, Tab, Q4H, PRN for Pain (Mild 1-3), Routine Sedatives diphenhydrAMINE - 25 mg, IV Push, Inj, [id number] Vitamins calcium gluconate - 1 Gram 10 mL, IV Piggyback, Inj, Daily, PRN for Other (See Comment), Routine calcium gluconate + Sodium Chloride 0.9% intravenous solutio - 2 Gram 20 mL, IV Piggyback, Inj, Daily, PRN for Other (See Comment), Routine calcium gluconate + Sodium Chloride 0.9% intravenous solutio - 2 Gram 20 mL, IV Piggyback, Inj, Q12H, PRN for Other (See Comment), Routine ergocalciferol - 50,000 Units, Oral, Cap, [id number], Routine magnesium sulfate - 2 Gram 50 mL, IV Piggyback, Inj, Daily, PRN for Other (See Comment), Routine *Duplicate* magnesium sulfate - 2 Gram 50 mL, IV Piggyback, Inj, Q2H, PRN for Other (See Comment), Routine *Duplicate* potassium chloride (potassium chloride 10 mEq oral tablet, e - 20 mEq 2 Tab, Oral, CR Tab, BID, Routine potassium chloride (potassium chloride 10 mEq/50 mL intraven - 10 mEq 50 mL, IV Piggyback, Inj, Q1H, PRN for Other (See Comment), Routine potassium chloride (potassium chloride 20 mEq oral tablet, e - 20 mEq 1 Tab, Oral, CR Tab, Q2H, PRN for Other (See Comment), Routine potassium chloride (potassium chloride 20 mEq oral tablet, e - 60 mEq 3 Tab, Oral, CR Tab, Q2H, PRN for Other (See Comment), Routine Other nicotine (Habitrol 21 mg/24 hr transdermal film, extended re - 1 Patch, TransDermal, Patch, Daily, Routine Undefined Medications hydrALAZINE - 10 mg, IV Push, Inj, Q6H, PRN for Hypertension, Routine PE: Vitals Signs (last 24 hrs) Last Charted Minimum Maximum Temp 98.5 (NOV 22 14:16) 97.6 (NOV 21 20:17) 98.9 (NOV 21 22:38) Mon HR 97 (NOV 22 14:16) 85 (NOV 21 20:17) 100 (NOV 22 02:28) Resp Rate 18 (NOV 22 14:16) 16 (NOV 21 20:17) 18 (NOV 21 22:38) SBP H 143 (NOV 22 14:16) 110 (NOV 21 20:17) H 143 (NOV 22 14:16) DBP 72 (NOV 22 14:16) 60 (NOV 22 09:58) 72 (NOV 22 14:16) MAP 88 (NOV 22 14:16) 78 (NOV 22 05:59) 113 (NOV 21 22:38) SpO2 98 (NOV 22 08:07) 94 (NOV 21 20:17) 99 (NOV 22 05:59) Exam: Constitutional: NAD, lying in bed. comfortable HEENT: NC/AT, No external oral lesions. Respiratory: CTAB. nonlabored breathing on room air Cardio: RRR. no murmur GI: BS+, non-tender, non-distended, no HSM. has abdominal hernia MS: normal ROM, no joint swelling. Derm: No rashes, abrasions, breakdown, or lesions Neuro: no focal deficits, Alert and oriented x 3. normal speech and cognition Psych: cooperative, normal affect RUE PICC site without erythema Labs: Labs (Last four charted values) WBC [...] 2.4 (NOV 19) L 2.1 (NOV 18) Creatinine Clearance (Current Encounter/Past 24 Hours) Creatinine Level 0.80 mg/dL 11/22/2020 03:16 Bun/Creatinine 18.8 11/22/2020 03:16 Estimated Creatinine Clearance 68.13 mL/Min 11/22/2020 03:17 Micro: Blood cx NGSF MRSA surveillance: negative SJB: (called and talked to tech at [facility] on 11/17/20) Blood cx: E. coli in 2 of 2 sets/Klebsiella in 1 set all sensitive to Rocephin Urine cx: Klebsiella pneumoniae sensitive to Rocephin Rad: Radiology Results (Last 48 hours) [id number] -- 11/17/2020 01:09 CR Chest 1 Vw [...] agree with the above final transcribed report. 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 path from lung biopsy c/w blasto. fungal culture pending. She does not want biopsy of lytic lesion in calvarium and given the likelihood of disseminated Blastomycosis, I think we should do at least 1 week of induction therapy with Liposomal amphotericin B followed by a long course of itraconazole. - E. coli/Klebsiella bacteremia at OSH. 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 does not want biopsy - Bilateral ear pain with no evidence of infection by exam - Essential hypertension - Fibromyalgia - Chronic pain - Pcn intolerance (N/V). tolerated Rocephin. -Diarrhea RECOMMENDATIONS/PLANS: - follow biopsy cultures and path - continue to monitor cbc with diff, cmp, mag, phos, esr, crp, and procalcitonin daily. replete electrolytes prn -C diff test pending. continue enteric precautions until negative result -empiric vancomycin 125mg PO Q6h pending c diff test - broadened from ceftriaxone to meropenem empirically given newly noted possible renal abscesses, increasing WBC count, and increasing procalcitonin - continue Ambisome 5mg/kg IV q24h with premedications. I d/w with Eric Rhodes Pharm.D. today complex set of medial issues requiring a high level of medical decision making. She has significant risk for further morbidity. documented in this encounter Plan of Treatment Not on file documented as of this encounter Visit Diagnoses Not on filedocumented in this encounter Care Teams Stonehand Relationship Specialty Start Date End Date Mona Levin MD PCP - General Family Medicine 07/19/22 documented as of this encounter
--- OUTSIDE RECORDS SUMMARY | 2025-06-01 11:15 | XMS_ITS | Clinical Summary ---
Author Organization [employer] ([place], [place], [place], [place]) Address [address] [place] [address] Care Team Providers Care Physical Therapist Name Role Phone Mona Levin MD Primary Care Provider [phone] Allergies Active Allergy Reactions Criticality Noted Date [...] Date Yung rded Speak language other than Hebrew at home Not on file 11/05/2023 Want [...] 12/01/2024 2:13 PM EST Plan of Treatment Health Maintenance Due Date Last Done Comments CT Colonography 1960 Colonoscopy 1960 Colorectal Cancer Screening 1960 FOBT/FIT 1960 Fit-DNA (Cologuard) 1960 Sigmoidoscopy 1960 Depression Screening (12+) 1973 Tobacco Cessation Counseling and Screening (12+) 05/29 HIV Screening 1976 Hepatitis C Screening 1979 Pneumococcal 50+ years (1 of 2 - PCV) 1980 Pap Smear 1982 Breast Cancer Screening 2001 Shingles Vaccine (Zoster) (1 of 2) 2011 Respiratory Syncytial Virus (RSV) Adult or (1 - Risk 60-74 years 1-dose series) 2021 Lipid Panel 11/17/2023 11/17/2020 COVID-19 VACCINE ( - season) 2024 DTAP/TDAP/TD VACCINES (2 - Td or Tdap) 10/19/2024 Medicare Initial AWV [id number] 11/19/2024 Influenza Vaccine (#1) 2025 Procedures Procedure Name Priority Date/Time Associated Diagnosis [...] 4 AM EST 11/17/2020 4:01 PM EST [facility] Historical Provider PATHOLOGY/CYTOLOGY ORDE HUONG Final Result [facility] [address] [phone] from Last 3 Months or Most Recently Relevant to Health Maintenance Insurance [facility] [employer] ADV Advance Directives For more information, please contact: [phone] * Full Code (Latest Code Status on File) Date Activated Date Inactivated Comments 08/11/2022 1:30 PM 08/13/2022 7:53 PM -Attempt R esuscitation if person has no pulse and is not breathing. -If no pulse or not breathing attempt CPR/CODE. -Call Rapid Response if patient is in distress. * Full Code Date Activated Date Inactivated Comments 07/19/2022 3:32 PM 08/11/2022 9:02 AM Care Teams Physical Therapist Relationship Specialty Start Date End Date Mona Levin MD PCP - General Family Medicine 07/19/22
--- OUTSIDE RECORDS SUMMARY | 2025-06-01 11:15 | XMS_ITS | Encounter Summary ---
Author Organization [employer] ([place], [place], [place], [place]) Address [address] [place] [address] Care Team Providers Care Behaviour Support Teacher Name Role Phone Mona Levin MD Primary Care Provider [phone] Encounter Details Date Type Department Care Team (Late st Contact Info) Description 11/17/[address] [facility] Family [place] [facility] [place] [address] ProviderLeia MD [address] [place], [place] [id number] Social History Tobacco Use Types Packs/Day Years Used Date Smoking Tobacco: Never Assessed Comments Unknown Sex and Gender Information Value Date Recorded Sex Assigned at Not on file Legal Sex Female 10:15 AM CDT Gender Identity Not on file Sexual Orientation Not on file documented as of this encounter Miscellaneous Notes * Cerner Conversion Note - Leia ProviderMD - 11/17/2020 2:14 AM MORTGAGE CLOSER Consult Phone Call Documentation Entered On: 11/17/2020 9:30 EST Performed On: 11/17/2020 2:14 EST by Clint Honeycutt, ONCOLOGY PATIENT NAVIGATOR-[facility] Phone Call for Consults Consult Phone Call/Page Attempt : First call Consult Reason : bacteremia, uti, pnuemonia Provider Service Notified Name : Infectious Disease Date and Time Call Returned : 11/17/2020 9:30 EST Clint Honeycutt ONCOLOGY PATIENT NAVIGATOR-[facility] - 11/17/2020 9:28 EST documented in this encounter Plan of Treatment Not on file documented as of this encounter Visit Diagnoses Not on filedocumented in this encounter Care Teams Behaviour Support Teacher Relationship Specialty Start Date End Date Mona Levin MD PCP - General Family Medicine 07/19/22 documented as of this encounter
--- OUTSIDE RECORDS SUMMARY | 2025-06-01 11:15 | XMS_ITS | Encounter Summary ---
Author Organization [employer] ([place], [place], [place], [place]) Address [address] [place] [address] Care Team Providers Care Natural Resources Professor Name Role Phone Mona Levin MD Primary Care Provider [phone] Encounter Details Date Type Department Care Team (Late st Contact Info) Description 11/23/2020 Transcribed Document [facility] Family Medicine [facility] [place] [address] ProviderLeia MD [address] [place] [address] Social History Tobacco Use Types Packs/Day Years Used Date Smoking Tobacco: Never Assessed Comments Unknown Sex and Gender Information Value Date Recorded Sex Assigned at Not on file Legal Sex Female 10:15 AM CDT Gender Identity Not on file Sexual Orientation Not on file documented as of this encounter Miscellaneous Notes * Cerner Conversion Note - Leia Gutiérrez MD - 11/23/2020 4:26 PM MANUFACTURING WEAVER Patient: SHIELA JASSO Age: 60 years Sex: Female : 1960 Associated Diagnoses: None Author: DEMETRIS WILCOX MD INFECTIOUS DISEASES Progress Note EVNATALIIA RAMOS: Dr. Demetris Wilcox Date of Admission: 11/17/20 Reason for Consultation: Bacteremia, UTI, pneumonia HPI: 60 yo female with h/o fibromyalgia, chronic pain, HTN, and nephrolithiasis who presented to [facility] on 11/12/20 with shortness of [...] Merrem after cultures. She was transferred to [facility] on 11/17/20 and arrived confused, lethargic, and [...] no rigors. tolerating ambisome well so far. 11/23/20: doing ok although complaining of some right ear pain. still having ~5 episodes of diarrhea per day. C diff test was negative. no rigors. tolerating the ambisome fairly well. no rashes. no n/v. No fevers. no shortness of breath. ROS: see above Allergies: Allergies (2) Active Reaction codeine nausea, vomiting penicillin nausea, vomiting Medications: Medications by Classification Antimicrobials meropenem + Sodium Chloride 0.9% intravenous solution 50 mL - 500 mg, IV Piggyback, Inj, Q6HInt, infuse over 3 Hour(s), Routine amphotericin B liposomal + Dextrose 5% in Water intravenous - 400 mg, IV Piggyback, Inj, [id number], infuse over 2 Hour(s) Anticoagulant heparin - 5,000 Units, SubCutaneous, Inj, [id number], Routine Respiratory albuterol-ipratropium (DuoNeb 0.5 mg-2.5 mg/3 [...] Routine acetaminophen - 650 mg, Oral, Tab, [id number] acetaminophen (Tylenol) - 650 mg, Oral, Tab, Q4H, PRN for Pain (Mild 1-3), Routine Sedatives diphenhydrAMINE - 25 mg, IV Push, Inj, [id number] Vitamins calcium gluconate - 1 Gram 10 [...] Routine ergocalciferol - 50,000 Units, Oral, Cap, [id number], Routine magnesium sulfate - 2 Gram 50 [...] Last Charted Minimum Maximum Temp 98.9 (NOV 23 15:00) 97.5 (NOV 23 05:28) 98.3 (NOV 22 20:22) Mon HR 102 (NOV 23 15:00) 83 (NOV 23 05:28) 103 (NOV 22 20:22) Resp Rate 18 (NOV 23 05:00) 16 (NOV 23 03:00) 18 (NOV 22 20:00) SBP 119 (NOV 23 15:00) 114 (NOV 23 05:28) 128 (NOV 23 10:07) DBP 68 (NOV 23 15:00) 60 (NOV 23 09:10) 74 (NOV 22 20:22) MAP 82 (NOV 23 15:00) 75 (NOV 23 09:10) 94 (NOV 23 10:07) SpO2 96 (NOV 23 08:33) 95 (NOV 23 05:28) 98 (NOV 22 19:56) Exam: Constitutional: lying in bed. NAD HEENT: NC/AT, No external oral lesions. Respiratory: CTAB. nonlabored breathing on room air Cardio: RRR. no murmur GI: BS+, non-tender, non-distended, no HSM. has abdominal hernia MS: no joint effusions noted. FROM throughout Derm: No rashes. no jaundice Neuro: no focal deficits, Alert and oriented [...] L 29.9 (NOV 21) L 30.4 (NOV 02) Plt 258 (NOV 23) 334 (NOV 22) H 374 (NOV 03) 363 (NOV 20) Na 138 (NOV 23) 140 (NOV 22) 142 (NOV 03) 141 (NOV 02) K 4.0 (NOV 23) 3.8 (NOV 23) 4.0 (NOV 23) 4.0 (NOV 04) Cl H 114 (NOV 23) H 117 (NOV 04) H 115 (NOV 21) 112 (FEB 02) CO2 L 11 (NOV 23) L 12 [...] 2.2 (NOV 21) L 2.4 (NOV 19) Creatinine Clearance (Current Encounter/Past 24 Hours) Creatinine Level 1.00 mg/dL 11/23/2020 06:34 Bun/Creatinine 16.4 11/23/2020 06:34 Estimated Creatinine Clearance 54.51 mL/Min 11/23/2020 06:34 Micro: Blood cx NGSF MRSA surveillance: negative SJB: (called and talked to scanR at [facility] on 11/17/20) Blood cx: E. coli in 2 of 2 sets/Klebsiella in 1 set all sensitive to Rocephin Urine cx: Klebsiella pneumoniae sensitive to Rocephin Rad: Radiology Results (Last 48 hours) [id number] -- 11/17/2020 01:09 CR Chest 1 Vw [...] followed by a long course of itraconazole. -ISAK- Cr is slightly creeping up to 1.0. Will need to closely monitor while on Ambisome. Will start 500cc NS daily for now - E. coli/Klebsiella bacteremia at OSH. Likely urinary source - possible small right renal abscesses - Klebsiella UTI/pyelonephritis - Leukocytosis/neutrophilia- improving - Encephalopathy - Calvarium lytic lesion- possibly [...] daily. replete electrolytes prn -C diff test was negative -stop oral vancomycin - switch from meropenem. Had likely renal abscesses, increasing WBC count, and increasing procalcitonin that is now finally improving after she was broadened from ceftriaxone. Would like to continue IV antibiotics for another week after her discharge. -continue Ambisome 5mg/kg IV q24h with premedications. -start 500 cc bolus of normal saline daily due to mild renal dysfunction WBC and procal improving today. C diff test was negative. can discontinue enteric precautions complex set of medial issues requiring a high level of medical decision making. She has significant risk for further morbidity. documented in this encounter Plan of Treatment Not on file documented as of this encounter Visit Diagnoses Not on filedocumented in this encounter Care Teams Natural Resources Professor Relationship Specialty Start Date End Date Mona Levin MD PCP - General Family Medicine 07/19/22 documented as of this encounter
--- OUTSIDE RECORDS SUMMARY | 2025-06-01 11:15 | XMS_ITS | Encounter Summary ---
Author Organization [employer] ([place], [place], [place], [place]) Address [address] [place] [address] Care Team Providers Care Publishing Manager Name Role Phone Mona Levin MD Primary Care Provider [phone] Encounter Details Date Type Department Care Team (Late st Contact Info) Description 11/22/2020 Transcribed Document [facility] Family Medicine [facility] [place] [address] ProviderLeia MD [address] [place], [place] [id number] Social History Tobacco Use Types Packs/Day Years Used Date Smoking Tobacco: Never Assessed Comments Unknown Sex and Gender Information Value Date Recorded Sex Assigned at Not on file Legal Sex Female 10:15 AM CDT Gender Identity Not on file Sexual Orientation Not on file documented as of this encounter Miscellaneous Notes * Cerner Conversion Note - Leia ProviderMD - 11/22/2020 5:00 AM DRY HEAT ROOM ATTENDANT Chart Check - Review Order Profile Entered On: 11/22/2020 5:22 EST Performed On: 11/22/2020 5:00 EST by SHIRLEY RAMIREZ RN Chart Check [employer] Initiated/Discontinued as Appropriate : Yes All Active Orders Reviewed : Yes SHIRLEY RAMIREZ RN - 11/22/2020 5:22 EST Electronically signed by [facility] Conversion Production Engine Repairer Cerner at 02/06/2023 8:43 AM CDT documented in this encounter Plan of Treatment Not on file documented as of this encounter Visit Diagnoses Not on filedocumented in this encounter Care Teams Publishing Manager Relationship Specialty Start Date End Date Mona Levin MD PCP - General Family Medicine 07/19/22 documented as of this encounter
--- OUTSIDE RECORDS SUMMARY | 2025-06-01 11:15 | XMS_ITS | Encounter Summary ---
Author Organization [employer] ([place], [place], [place], [place]) Address [address] [place] [address] Care Team Providers Care Marble Rubber Name Role Phone Mona Levin MD Primary Care Provider [phone]- [phone] Encounter Details Date Type Department Care Team (Late st Contact Info) Description 11/18/2020 Transcribed Document [facility] [place] [facility] [place] [address] ProviderLeia MD [address] [place] [address] Social History Tobacco Use Types Packs/Day Years Used Date Smoking Tobacco: Never Assessed Comments Unknown Sex and Gender Information Value Date Recorded Sex Assigned at Not on file Legal Sex Female 10:15 AM CDT Gender Identity Not on file Sexual Orientation Not on file documented as of this encounter Miscellaneous Notes * Cerner Conversion Note - Leia Gutiérrez MD - 11/18/2020 1:47 PM COMPUTER SUPPORT TECHNICIAN Patient: SHIELA JASSO Age: 60 years Sex: Female : 1960 Associated Diagnoses: None Author: DEMETRIS WILCOX MD INFECTIOUS DISEASES Progress Note EVNATALIIA RAMOS: Dr. Demetris Wilcox Date of Admission: 11/17/20 Reason for Consultation: Bacteremia, UTI, pneumonia HPI: 60 yo female with h/o fibromyalgia, chronic pain, HTN, and nephrolithiasis who presented to [facility] on 11/12/20 with shortness of breath and flank pain. She was diagnosed with pneumonia from CXR with a CT scan of chest showing a ASHSIH lung mass. A CT scan of a/p showed right kidney perinephric stranding with urine culture positive for Klebsiella pneumoniae sensitive to Ceftriaxone. Blood cultures also became positive for E. coli in 2 of 2 sets along with Klebsiella pneumoniae in 1 of 2 sets. She initially was treated with Rocephin and Azithromycin and then changed to Merrem after cultures. She was transferred to [facility] on 11/17/20 and arrived confused, lethargic, [...] rashes. Still has Matthew cath in place. ROS: see above Allergies: Allergies (2) Active Reaction codeine nausea, vomiting penicillin nausea, vomiting Medications: Medications by Classification Antimicrobials meropenem + Sodium Chloride 0.9% intravenous solution 50 mL - 500 mg, IV Piggyback, Inj, Q6HInt, infuse over 3 Hour(s), Routine Anticoagulant heparin - 5,000 Units, SubCutaneous, Inj, [id number], Routine Respiratory albuterol-ipratropium (DuoNeb 0.5 mg-2.5 mg/3 [...] Vitamins ergocalciferol - 50,000 Units, Oral, Cap, [id number], Routine Other nicotine (Habitrol 21 mg/24 hr transdermal film, extended re - 1 Patch, TransDermal, Patch, Daily, Routine Undefined Medications hydrALAZINE - 10 mg, IV Push, Inj, Q6H, PRN for Hypertension, Routine PE: Vitals Signs (last 24 hrs) Last Charted Minimum Maximum Temp 99.7 (NOV 18 05:33) 98.3 (NOV 18 02:42) 99.7 (NOV 18:) Apical HR L 41 (NOV 18 13:42) L 41 (NOV 18 13:42) L 41 (NOV 18 13:42) Mon HR 100 (NOV 18 05:33) 94 (NOV 18 02:42) 100 (NOV 17 21:29) SBP 127 (NOV 18 05:33) 127 (NOV 18 05:33) H 144 (NOV 17 21:29) DBP 89 (NOV 18 05:33) 70 (NOV 18 02:42) 89 (NOV 18 05:33) MAP 104 (NOV 18:33) 98 (NOV 17 21:29) 104 (NOV 18:) SpO2 94 (NOV 18:33) 94 (NOV 18 05:33) 97 (NOV 17 21:29) Exam: Constitutional: NAD, alert, WD/WN, appears stated age, ill appearing. Obese HEENT: NC/AT, no thrush, no exudate. No external oral lesions. Respiratory: diminished at lung bases bilaterally, non-labored breathing. Cardio: bradycardia S1, S2, no murmurs, gallops, or rubs. [...] Clearance (Current Encounter/Past 24 Hours) Creatinine Level 0.60 mg/dL 11/18/2020 08:37 Bun/Creatinine 21.7 HI 11/18/2020 08:42 Estimated Creatinine Clearance 90.84 mL/Min 11/18/2020 08:37 Micro: Blood cx NGSF MRSA surveillance: negative SJB: (called and talked to Ohai at [facility] on 11/17/20) Blood cx: E. coli in 2 of 2 sets/Klebsiella in 1 set all sensitive to Rocephin Urine cx: Klebsiella pneumoniae sensitive to Rocephin Rad: Radiology Results (Last 48 hours) [id number] -- 11/17/2020 01:09 MRI Brain WO (11/17/2020 [...] - Monitor blood and MRSA cultures - D/c Merrem and change to Ceftriaxone 2 GM IV daily - Pulmonology following. Planning for biopsy of ASHISH mass on Thursday - D/c Matthew cath to reduce risk for CAUTI. Can use Purewick if necessary. Demetris Wilcox MD saw and examined patient, verified findings, reviewed labs and radiographic data, formulated diagnosis, plan for treatment, and all medical decision making. Ricki Fairbanks for Dr. Demetris Wilcox. Electronically signed by Francisco [facility] Conversion Golf Ball Trimmer Cerner at 02/06/2023 8:45 AM CDT documented in this encounter Plan of Treatment Not on file documented as of this encounter Visit Diagnoses Not on filedocumented in this encounter Care Teams Marble Rubber Relationship Specialty Start Date End Date Mona Levin MD PCP - General Family Medicine 07/19/22 documented as of this encounter
--- OUTSIDE RECORDS SUMMARY | 2025-06-01 11:15 | XMS_ITS | Encounter Summary ---
Author Organization [employer] ([place], [place], [place], [place]) Address [address] [place] [address] Care Team Providers Care Three Dimensional Map Modeler Name Role Phone Mona Levin MD Primary Care Provider +1- [phone] Encounter Details Date Type Department Care Team (Late st Contact Info) Description 11/23/2020 Transcribed Document [facility] Family Medicine [facility] [address] ProviderLeia MD [address] [place], [place] [id number] Social History Tobacco Use Types Packs/Day Years Used Date Smoking Tobacco: Never Assessed Comments Unknown Sex and Gender Information Value Date Recorded Sex Assigned at Not on file Legal Sex Female 10:15 AM CDT Gender Identity Not on file Sexual Orientation Not on file documented as of this encounter Miscellaneous Notes * Cerner Conversion Note - Leia ProviderMD - 11/23/2020 2:00 AM LIBRARY CIRCULATION ASSISTANT Landscape Painter Details Entered On: 11/23/2020 3:43 EST Performed On: 11/23/2020 2:00 EST by Steffanie Jones RN Order Details Transport Mode Order Detail : Wheelchair Isolation Precautions Order Detail : Standard Precautions Order Detail : 0 IV Order Detail : 1 Oxygen Order Detail : 0 Nurse Collect Order Detail : 0 Lift/Transfer : Minimal Central Line Order Detail : Yes Room Service : Appropriate Arterial Line : No Patient Needs Meds Crushed/Liquid : No Steffanie Jones RN - 11/23/2020 3:40 EST Electronically signed by Francisco [facility] Conversion Oral And Maxillofacial Surgeon Cerner at 02/06/2023 8:45 AM CDT documented in this encounter Plan of Treatment Not on file documented as of this encounter Visit Diagnoses Not on filedocumented in this encounter Care Teams Three Dimensional Map Modeler Relationship Specialty Start Date End Date Mona Levin MD PCP - General Family Medicine 07/19/22 documented as of this encounter
--- OUTSIDE RECORDS SUMMARY | 2025-06-01 11:16 | XMS_ITS | Encounter Summary ---
Author Organization [employer] ([place], [place], [place], [place]) Address [address] [place] [address] Care Team Providers Care Hat Lining Paster Name Role Phone Mona Levin MD Primary Care Provider +1- [phone] Encounter Details Date Type Department Care Team (Late st Contact Info) Description 11/17/2020 Transcribed Document [facility] [place] [address] ProviderLeia MD [address] [place] [address] Social History Tobacco Use Types Packs/Day Years Used Date Smoking Tobacco: Never Assessed Comments Unknown Sex and Gender Information Value Date Recorded Sex Assigned at Not on file Legal Sex Female 10:15 AM CDT Gender Identity Not on file Sexual Orientation Not on file documented as of this encounter Miscellaneous Notes * Cerner Conversion Note - Leia Gutiérrez MD - 11/17/2020 2:14 AM RATE INSERTER Consult Phone Call Documentation Entered On: 11/17/2020 8:59 EST Performed On: 11/17/2020 2:14 EST by Clint Honeycutt SOIL FERTILITY SPECIALIST[facility] Phone Call for Consults Consult Phone Call/Page Attempt : First call Consult Reason : lung mass pnuemonia Provider Team Notified Name : Pulmonary medicine Physician Covering for Consult : JEANMARIE HWANG MD Date and Time Call Returned : 11/17/2020 8:59 EST Clint Honeycutt [facility] - 11/17/2020 8:59 EST Electronically signed by Francisco [facility] Conversion Ice Cream Shop Associate Cerner at 02/06/2023 8:46 AM CDT documented in this encounter Plan of Treatment Not on file documented as of this encounter Visit Diagnoses Not on filedocumented in this encounter Care Teams Hat Lining Paster Relationship Specialty Start Date End Date Mona Levin MD PCP - General Family Medicine 07/19/22 documented as of this encounter
--- OUTSIDE RECORDS SUMMARY | 2025-06-01 11:16 | XMS_ITS | Encounter Summary ---
Author Organization [employer] ([place], [place], [place], [place]) Address [address] [place] [address] Care Team Providers Care Global Marketing Specialist Name Role Phone Mona Levin MD Primary Care Provider +1- [phone] Encounter Details Date Type Department Care Team (Late st Contact Info) Description 05/10/2020 Transcribed Document [facility] [place] [facility] [place] [address] ProviderLeia MD [address] [place] [address] Social History Tobacco Use Types Packs/Day Years Used Date Smoking Tobacco: Never Assessed Comments Unknown Sex and Gender Information Value Date Recorded Sex Assigned at Not on file Legal Sex Female 10:15 AM CDT Gender Identity Not on file Sexual Orientation Not on file documented as of this encounter Miscellaneous Notes * Cerner Conversion Note - Leia Gutiérrez MD - 05/10/2020 11:54 AM CDT Patient: SHIELA JASSO Age: 59 Years Sex: Female : 1960 FOLLOW-UP Date of Service: 04/18/2020 CHIEF COMPLAINT: Low back and knee pain. HISTORY OF PRESENT ILLNESS: This is a 59 y/o female being seen in follow-up with a 4 year history of low back and bilateral knee pain that she overall describes as constant, aching, radiating, tingling, dull and sharp. The pain is exacerbated with walking and prolonged standing and reduced with ice, heat, rest and medication. She currently rates the pain as a 7/10 VAS and reports an 80% reduction with medication. Medication list reviewed. Pertinent medications are noted to be Percocet 10 mg 1 p.o. q.8h., gabapentin 800 mg 1 p.o. q.8h. and diclofenac gel which she states she rarely uses. Nursing intake reviewed. Fall info sheet provided. HISTORY: Allergies: Penicillin, Hydrocodone. Social History: Marital status: . Current work status: Not stated. Illicit drug use: Denies. Alcohol use: Denies. Current tobacco use: Enjoys nicotine tobacco. Caffeine use: Enjoys caffeine. Past Medical History: Reviewed. Past Surgical History: Reviewed. Past Family History: Reviewed. REVIEW OF SYSTEMS: General: Negative. Respiratory: Negative. Neurological: Negative. Gastrointestinal: Negative. Musculoskeletal: Joint pain, back pain. Cardiovascular: Negative. Psychiatric: Negative. HEENT: Negative. Endocrine: Negative. Hematology: Negative. Skin: Negative. Genitourinary: Negative. VITAL SIGNS: Vital signs are reviewed. BP 153/89, heart rate 75, respiratory rate 18, O2 SATs 94% on room air, height 5???4?? , weight 190 lbs. PHYSICAL EXAMINATION: Constitutional: Conversant, no acute distress, well-nourished. Integumentary: Deferred. HEENT: Normocephalic. Neck: Deferred. Chest and Lung: Deferred. Cardiovascular: Deferred. Abdomen: Deferred. Peripheral Vascular: Deferred Neurologic: Deferred. Musculoskeletal: Ambulatory with a cane. Able to transition independently. Psychiatric: Alert and oriented x 3. Denies suicidal ideation. Normal mood and affect. No signs of impairment. DIAGNOSTIC STUDIES: Not present MEDICAL DECISION MAKING: Stable. ASSESSMENT: 1. Chronic pain syndrome secondary to multisite osteoarthritis, primarily the bilateral knees. 2. Lumbar degenerative disc disease. 3. Lumbar spondylosis. 4. Lumbar facet arthropathy. PROCEDURE/TEST ORDERED: Not present. CURRENT PLAN: Urine tox screen today. We will discontinue diclofenac gel secondary to low utilization. It is now available over the counter. We will continue her other medications. Questions answered to her satisfaction and she verbalized understanding. DARREN reviewed. Return to the clinic in two months. MIGUEL Levi/kyungl documented in this encounter Plan of Treatment Not on file documented as of this encounter Visit Diagnoses Not on filedocumented in this encounter Care Teams Global Marketing Specialist Relationship Specialty Start Date End Date Mona Levin MD PCP - General Family Medicine 07/19/22 documented as of this encounter
--- OUTSIDE RECORDS SUMMARY | 2025-06-01 11:16 | XMS_ITS | Encounter Summary ---
Author Organization [employer] ([place], [place], [place], [place]) Address [address] [place] [address] Care Team Providers Care Information Services Vice President Name Role Phone Mona Levin MD Primary Care Provider [phone]- [phone] Encounter Details Date Type Department Care Team (Late st Contact Info) Description 10/25/2019 Transcribed Document [facility] [place] Medicine [facility] [place] [address] ProviderLeia MD [address] [place] [address] Social History Tobacco Use Types Packs/Day Years Used Date Smoking Tobacco: Never Assessed Comments Unknown Sex and Gender Information Value Date Recorded Sex Assigned at Not on file Legal Sex Female 10:15 AM CDT Gender Identity Not on file Sexual Orientation Not on file documented as of this encounter Miscellaneous Notes * Cerner Conversion Note - Leia ProviderMD - 10/25/2019 11:24 AM GREENS LABORER Patient: SHIELA JASSO Age: 59 Years Sex: Female : 1960 FOLLOWUP DATE OF SERVICE: 10/20/19 CHIEF COMPLAINT: Low back pain. HISTORY OF PRESENT ILLNESS: This is a 59-year-old female being seen in followup with a 4-year history of low back pain as well as left knee pain that she overall describes as constant, aching, radiating, dull and sharp. It is exacerbated with standing, walking, and reduced with ice, heat, rest, and medication. Currently rates pain a 6/10 VAS. Reports 50% reduction with medication. Med list reviewed. Pertinent meds noted to be Percocet 10 mg 1 p.o. q8h, gabapentin 800 mg 1 p.o. q8h. Nursing intake reviewed. Fall info sheet provided. HISTORY: Allergies: Penicillin, hydrocodone. Social: Marital status: . Current work status: Disabled. Current tobacco use: Enjoys nicotine/tobacco in the form of cigarettes. Illicit drug use: Denied Alcohol use: Denied Past Medical History: Positive for arthritis, heartburn, hypertension, kidney stones, osteoporosis. Past Surgical History: Positive for gallbladder, gastric bypass, knee, ovaries. Past Family History: Reviewed and noncontributory. REVIEW OF SYSTEMS: Gastrointestinal: Last BM 10/20/19, soft. Musculoskeletal: Joint pain, stiffness, back pain, muscle aches and pain. All other systems reviewed and were found to be negative. VITAL SIGNS: Vital signs are reviewed. BP 154/90, heart rate 92, respiratory rate 20, O2 SAT 95% on room air, height 5???4?? , weight 185 lbs. PHYSICAL EXAMINATION: Constitutional: Conversant, no acute distress. Well nourished. HEENT: Normocephalic. Neuropsychiatric: A&O x 3. PHQ-9 score of 2. Normal mood and affect. No signs of impairment. Musculoskeletal: Able to transition independently from walking, sitting, standing; she is ambulatory with a cane. Mildly antalgic gait. Physical examination is deferred. MEDICAL DECISION MAKING: E-DARREN is reviewed and is appropriate. ASSESSMENT: 1. Chronic pain syndrome secondary to multisite osteoarthritis, primarily of the left knee, status post arthroplasty. 2. Lumbar spondylosis. 3. Lumbar degenerative disc disease. 4. Lumbar facet arthropathy. CURRENT PLAN: We will continue current medications. Return to clinic in two months. Mady Love APRN Electronically signed by Francisco [facility] Conversion Data Systems Analyst Cerner at 02/02/2023 6:27 PM CDT documented in this encounter Plan of Treatment Not on file documented as of this encounter Visit Diagnoses Not on filedocumented in this encounter Care Teams Information Services Vice President Relationship Specialty Start Date End Date Mona Levin MD PCP - General Family Medicine 07/19/22 documented as of this encounter
--- OUTSIDE RECORDS SUMMARY | 2025-06-01 11:16 | XMS_ITS | Encounter Summary ---
Author Organization [employer] ([place], [place], [place], [place]) Address [address] [place] [address] Care Team Providers Care Grease Man Name Role Phone Mona Levin MD Primary Care Provider +1- [phone] Encounter Details Date Type Department Care Team (Late st Contact Info) Description 08/22/2019 Transcribed Document [facility] [place] [facility] [place] [address] ProviderLeia MD [address] [place] [address] Social History Tobacco Use Types Packs/Day Years Used Date Smoking Tobacco: Never Assessed Comments Unknown Sex and Gender Information Value Date Recorded Sex Assigned at Not on file Legal Sex Female 10:15 AM CDT Gender Identity Not on file Sexual Orientation Not on file documented as of this encounter Miscellaneous Notes * Cerner Conversion Note - Leia Gutiérrez MD - 08/22/2019 1:12 PM TRANSPORT SPECIALIST Patient: SHIELA JASSO Age: 59 Years Sex: Female : 1960 FOLLOWUP DATE OF SERVICE: 08/19/2019 CHIEF COMPLAINT: Left knee and back pain. HISTORY OF PRESENT ILLNESS: This patient is a 59-year-old female who returns to clinic for followup on her lower back pain, left knee pain up into her hip this a.m. She rates the pain as 8/10 on the pain scale. Quality is aching, radiating, dull and sharp. The pain is constant. Heat and ice therapy are beneficial. She has had her pain for 4 years. She has increased pain with walking, decreased pain with rest and medication. She gets 30% relief with her current medication. Fall risk info sheet provided. HISTORY: Allergies: Penicillin, hydrocodone. Social: Marital status: . Current work status: Disabled. Current tobacco use: She smokes tobacco. Illicit drug use: Denied Alcohol use: Denied Caffeine use: Shee drinks caffeine. Past Medical History: Positive for high blood pressure, kidney stones, osteoporosis. Past Surgical History: Positive for gallbladder, hernia, hysterectomy, intestine, colon, knee, ovaries, tonsillectomy and adenoidectomy. Past Family History: Noncontributory. REVIEW OF SYSTEMS: Complete ten-system review is performed and positives include: Gastrointestinal: Diarrhea. Musculoskeletal: Joint pain and stiffness, back pain. Cardiovascular: Leg pain with walking. All other systems are negative. VITAL SIGNS: Vital signs are reviewed. BP 130/85, heart rate 82, respiratory rate 16, O2 SAT 97% on room air, height 5???4?? , weight - not listed. PHYSICAL EXAMINATION: Constitutional: Freely conversant, no acute distress. Neuropsychiatric: A&O x 3. Normal mood and affect. She scored zero on the depression questionnaire. Musculoskeletal: Gait is antalgic. Uses a cane. Established patient exam is deferred. MEDICAL DECISION MAKING: E-DARREN is reviewed and is appropriate. Patient???s medications are reviewed. See list in patient???s file. ASSESSMENT: 1. Chronic pain syndrome secondary to multisite osteoarthritis, primarily of the left knee, status post arthroplasty. 2. Lumbar spondylosis. 3. Lumbar facet arthropathy. 4. Lumbar degenerative disc disease. PROCEDURE/TEST ORDERED: Urine tox screen today. CURRENT PLAN: We will continue Ms Jasso on the current medication of Percocet 10 mg q8h, gabapentin 800 mg q8h. She denies any side effects. Less than 3 minutes spent on smoking cessation counseling. She is in agreement with the above plan. We will see her back in followup in two months. Nora Mitchell MD documented in this encounter Plan of Treatment Not on file documented as of this encounter Visit Diagnoses Not on filedocumented in this encounter Care Teams Grease Man Relationship Specialty Start Date End Date Mona Levin MD PCP - General Family Medicine 07/19/22 documented as of this encounter
--- OUTSIDE RECORDS SUMMARY | 2025-06-01 11:16 | XMS_ITS | Encounter Summary ---
Author Organization [employer] ([place], [place], [place], [place]) Address [address] [place] [address] Care Team Providers Care Television Maintenance Man Name Role Phone Mona Levin MD Primary Care Provider +1- [phone] Encounter Details Date Type Department Care Team (Late st Contact Info) Description 11/17/2020 Transcribed Document [facility] [place] [facility] [place] [address] ProviderLeia MD [address] [place], [place] [id number] Social History Tobacco Use Types Packs/Day Years Used Date Smoking Tobacco: Never Assessed Comments Unknown Sex and Gender Information Value Date Recorded Sex Assigned at Not on file Legal Sex Female 10:15 AM CDT Gender Identity Not on file Sexual Orientation Not on file documented as of this encounter Miscellaneous Notes * Cerner Conversion Note - Leia ProviderMD - 11/17/2020 2:13 AM UTILIZATION SUPERVISOR Consult Phone Call Documentation Entered On: 11/17/2020 9:09 EST Performed On: 11/17/2020 2:13 EST by Clint Honeycutt [facility] Phone Call for Consults Consult Phone Call/Page Attempt : First call Consult Reason : bilateral ear pain, headaches, confusion Provider Service Notified Name : Neurology Physician Covering for Consult : SHAILESH BACON MD Date and Time Call Returned : 11/17/2020 9:09 EST Clint Honeycutt [facility] - 11/17/2020 9:09 EST Electronically signed by Francisco [facility] Conversion Pathology Lab Technician Cerner at 02/06/2023 8:45 AM CDT documented in this encounter Plan of Treatment Not on file documented as of this encounter Visit Diagnoses Not on filedocumented in this encounter Care Teams Television Maintenance Man Relationship Specialty Start Date End Date Mona Levin MD PCP - General Family Medicine 07/19/22 documented as of this encounter
--- OUTSIDE RECORDS SUMMARY | 2025-06-01 11:16 | XMS_ITS | Encounter Summary ---
Author Organization [employer] ([place], [place], [place], [place]) Address [address] [place] [address] Care Team Providers Care Senior Business Intelligence Analyst Name Role Phone Mona Levin MD Primary Care Provider +1- [phone] Encounter Details Date Type Department Care Team (Late st Contact Info) Description 11/17/2020 Transcribed Document [facility] [place] [facility] [place] [address] ProviderLeia MD [address] [place], [place] [id number] Social History Tobacco Use Types Packs/Day Years Used Date Smoking Tobacco: Never Assessed Comments Unknown Sex and Gender Information Value Date Recorded Sex Assigned at Not on file Legal Sex Female 10:15 AM CDT Gender Identity Not on file Sexual Orientation Not on file documented as of this encounter Miscellaneous Notes * Cerner Conversion Note - Leia ProviderMD - 11/17/2020 2:13 AM STATISTICAL ASSISTANT Pain Assessment Entered On: 11/26/2020 15:12 EST Performed On: 11/26/2020 14:29 EST by Radha Harvey Rn Intervention Information: acetaminophen Performed by Radha Harvey Rn on 11/26/2020 13:29:00 EST acetaminophen,650mg Oral,Pain (Mild 1-3) Pain Assessment Pain Assessment : Follow-up assessment Pain Scale Goal : 4 Pain Scale Used : 0-10 Scale Radha Harvey Rn - 11/26/2020 15:12 EST Pain Scale Intensity : 3 Radha Harvey Rn - 11/26/2020 15:12 EST Image 4 - Images currently included in the form version of this document have not been included in the text rendition version of the form. Electronically signed by Lyla Singh Conversion Local Area Network Systems Adminstrator Cerner at 02/06/2023 8:55 AM CDT documented in this encounter Plan of Treatment Not on file documented as of this encounter Visit Diagnoses Not on filedocumented in this encounter Care Teams Senior Business Intelligence Analyst Relationship Specialty Start Date End Date Mona Levin MD PCP - General Family Medicine 07/19/22 documented as of this encounter
--- OUTSIDE RECORDS SUMMARY | 2025-06-01 11:16 | XMS_ITS | Encounter Summary ---
Author Organization [employer] ([place], [place], [place], [place]) Address [address] [place] [address] Care Team Providers Care Crew Trainer Name Role Phone Mona Levin MD Primary Care Provider +1- [phone] Encounter Details Date Type Department Care Team (Late st Contact Info) Description 11/17/2020 Transcribed Document [facility] [place] [facility] [place] [address] ProviderLeia MD [address] [place], [place] [id number] Social History Tobacco Use Types Packs/Day Years Used Date Smoking Tobacco: Never Assessed Comments Unknown Sex and Gender Information Value Date Recorded Sex Assigned at Not on file Legal Sex Female 10:15 AM CDT Gender Identity Not on file Sexual Orientation Not on file documented as of this encounter Miscellaneous Notes * Cerner Conversion Note - Leia ProviderMD - 11/17/2020 2:13 AM WAREHOUSEMAN Pain Assessment Entered On: 11/24/2020 14:16 EST Performed On: 11/24/2020 11:10 EST by MITCH GO RN Intervention Information: oxyCODONE Performed by MITCH GO RN on 11/24/2020 10:10:00 EST oxyCODONE,5mg Oral,Pain (Moderate 4-6) Pain Assessment Pain Assessment : Follow-up assessment Pain Scale Goal : 4 Pain Scale Used : 0-10 Scale Onset : Chronic Pain Improved by Intervention : Yes MITCH GO RN - 11/24/2020 14:16 EST Pain Scale Intensity : 2 MITCH GO RN - 11/24/2020 14:16 EST Image 4 - Images currently included in the form version of this document have not been included in the text rendition version of the form. documented in this encounter Plan of Treatment Not on file documented as of this encounter Visit Diagnoses Not on filedocumented in this encounter Care Teams Crew Trainer Relationship Specialty Start Date End Date Mona Levin MD PCP - General Family Medicine 07/19/22 documented as of this encounter
--- OUTSIDE RECORDS SUMMARY | 2025-06-01 11:16 | XMS_ITS | Encounter Summary ---
Author Organization [facility] Address [address] [place] [address] Care Team Providers Care Solar/Renewable Energy Sales Name Role Phone Jacquelyn Desouza APRN Primary Care Provider [phone]- [phone] Reason for Visit * Reason Onset Date Comments DR LEE: 05/19/25 P/O CONCERNS & MED REFILL REQUEST 05/22/2025 Encounter Details Date Type Department Care Team (Late st Contact Info) Description 05/22/2025 Telephone [facility] [address] [place] [address] Delaney Lee MD [address] [place] [address] DR LEE: 05/19/25 P/O CONCERNS & MED [...] place to sleep or slept in a residential (including now)? No 02/21/2023 Abuse Screen Answer [...] or training? Not on file Preferred Language Gambian 05/13/2023 PHQ-2 Answer Date Recorded Retired PHQ-9: [...] Nathan / PATIENT Best call back number: [phone] Requested Prescriptions: OXYCODONE 5 MG (PATIENT WAS TAKING ONE TABLET WITH ONE 800 MG IBUPROFEN ALSO PRESCRIBED 05-19-25) Pharmacy where request should be sent: [facility] Last office visit with prescribing clinician: [...] DR LEE 05-19-25 & HAS POST-OP NEXT TH06/01 Does the patient have less than a 3 day supply: [x] Yes - WAS ONLY ABLE TO RETRIEVE A COUPLE TABLETS Would you like a call back once the refill request has been completed: [x] Yes documented in this encounter Plan of Treatment Upcoming Encounters Date Type Department Care Team (Late st Contact Info) Description 06/01/2025 2:10 PM EDT Office Visit [facility] [address] [address] Delaney Lee MD [address] [facility] [address] [place] [address] 06/22/2025 1:15 PM EDT Office Visit [facility] [address] [place] [phone] Olivia Morales APRN [address] [facility] [address] [facility] [address] [place] [address] documented as of this encounter Visit Diagnoses Not on filedocumented in this encounter Care Teams Solar/Renewable Energy Sales Relationship Specialty Start Date End Date [place] [address] PCP - General Nurse Practitioner 08/25/22 documented as of this encounter
--- OUTSIDE RECORDS SUMMARY | 2025-06-01 11:16 | XMS_ITS | Encounter Summary ---
Author Organization [employer] ([place], [place], [place], [place]) Address [address] [place] [address] Care Team Providers Care Appliance Counselor Name Role Phone Mona Levin MD Primary Care Provider +1 [phone] Encounter Details Date Type Department Care Team (Late st Contact Info) Description 11/17/2020 Transcribed Document [facility] [place] [address] [place] [address] ProviderLeia MD [address] [place], [place] [address] Social History Tobacco Use Types Packs/Day Years Used Date Smoking Tobacco: Never Assessed Comments Unknown Sex and Gender Information Value Date Recorded Sex Assigned at Not on file Legal Sex Female 10:15 AM CDT Gender Identity Not on file Sexual Orientation Not on file documented as of this encounter Miscellaneous Notes * Cerner Conversion Note - Leia ProviderMD - 11/17/2020 11:34 AM IVORY POLISHER UM Authorization Entered On: 11/17/2020 11:35 EST Performed On: 11/17/2020 11:34 EST by Jacque Mckeon Rn-Utilization Review Primary Insurance Authorization Authorization and Policy Numbers : Insurance 1 Health Plan: [employer] MANAGED MEDICARE Policy Number: [id number] Authorization Number: Insurance Primary Name : [employer] MANAGED MEDICARE Policy Number: [id number] Authorization Status-Primary : Awaiting callback Authorized Service Begin Date-Primary : 11/16/2020 EST Historical Authorization Comments-Primary : No Authorization Comments Found Jacque Mckeon Rn-Utilization Review - 11/17/2020 11:34 EST Electronically signed by Francisco, [facility] Conversion Animal Keeper Head Cerner at 02/06/2023 8:43 AM CDT documented in this encounter Plan of Treatment Not on file documented as of this encounter Visit Diagnoses Not on filedocumented in this encounter Care Teams Appliance Counselor Relationship Specialty Start Date End Date Mona Levin MD PCP - General Family Medicine 07/19/22 documented as of this encounter
--- OUTSIDE RECORDS SUMMARY | 2025-06-01 11:16 | XMS_ITS | Encounter Summary ---
Author Organization [employer] ([place], [place], [place], [place]) Address [address] [place] [address] Care Team Providers Care Assistant Tennis Professional Name Role Phone Mona Levin MD Primary Care Provider +1- [phone] Encounter Details Date Type Department Care Team (Late st Contact Info) Description 06/25/2019 Transcribed Document [facility] [place] [address] ProviderLeia MD [address] [place] [address] Social History Tobacco Use Types Packs/Day Years Used Date Smoking Tobacco: Never Assessed Comments Unknown Sex and Gender Information Value Date Recorded Sex Assigned at Not on file Legal Sex Female 10:15 AM CDT Gender Identity Not on file Sexual Orientation Not on file documented as of this encounter Miscellaneous Notes * Cerner Conversion Note - Leia Gutiérrez MD - 06/25/2019 2:11 PM CDT Patient: SHIELA JASSO Age: 59 Years Sex: Female : 1960 FOLLOW-UP Date of Service: 06/21/2019 CHIEF COMPLAINT: Low back pain, left knee pain. HISTORY OF PRESENT ILLNESS: The patient is a 59 y/o female who returns to the Clinic today with a 4 year history significant for back pain as well as left knee pain. The patient denies any significant radiation to the lower extremities at this time. We had this individual scheduled for a genicular nerve block but she did not get the appointment secondary to financial issues and transportation issues. She does want to have this done in the very near future. Her pain level today is an 8/10 on the numerical pain scale rating. She is reporting 40% pain relief at this time with Percocet 10/325 mg three times daily dosing, Gabapentin 800 mg three times daily dosing. She states that the Gabapentin had been increased at her last visit. Nursing intake was reviewed and noted on today's visit. VITAL SIGNS: Vital signs are reviewed today. B/P: 182/122; Heart rate: 84; Respirations: 18; Oxygen saturation is 99% on room air; Height 5???4?? , weight 180 lbs HISTORY: Allergies: Penicillin, Hydrocodone. Social History: Marital status: The patient is currently . Current work status: The patient does not list occupation at this time. Current tobacco use: Nicotine use in the form of cigarettes one pack a day for 40 years. Illicit drug use: Denies. Alcohol use: Denies. Caffeine use: Not reported. Past Medical History: Hypertension. Kidney stones. Osteoporosis. Past Surgical History: Cholecystectomy. Herniorrhaphy. Colonoscopy. Arthroscopic knee surgery. Oophorectomy. Salpingectomy. Tonsillectomy and adenoidectomy. Past Family History: Type 2 diabetes. Heart disease. REVIEW OF SYSTEMS: The patient's ten system review of systems was reviewed and on today's visit this individual complains of the following: General: Negative. Respiratory: Negative. Neurological: Negative. Gastrointestinal: Negative. Musculoskeletal: Joint pain, back pain, muscle aches and pains. Cardiovascular: Negative. Psychiatric: Negative. HEENT: Negative. Endocrine: Negative. Hematology: Negative. Skin: Negative. Genitourinary: Negative. PHYSICAL EXAMINATION: Constitutional: The patient is conversant and well-nourished. Vital signs are reviewed today. Integumentary: Deferred. HEENT: Deferred. Neck: Deferred. Chest and Lung: Deferred. Cardiovascular: Deferred. Abdomen: Deferred. Peripheral Vascular: Deferred Neurologic: Deferred. Musculoskeletal: Deferred. Psychiatric: The patient is alert and oriented to self, time, and place today. The patient has a normal mood and affect on today's visit and there is mild depression on the depression questionnaire that was completed today. DIAGNOSTIC STUDIES: Not present MEDICAL DECISION MAKING: Stable. ASSESSMENT: 1. Chronic pain syndrome secondary to multisite osteoarthritis involving primarily the left knee, status post arthroplasty. 2. Lumbar spondylosis. 3. Lumbar facet arthropathy. 4. Lumbar degenerative disc disease. PROCEDURE/TEST ORDERED: Not present. CURRENT PLAN: I am going to continue Ms. Jasso on her current medication regimen from our facility at this time. Her DARREN report was appropriate upon review today. We will see the patient back in the Clinic in two months for a follow-up appointment. WILLIAMS Torres/desmond Electronically signed by Francisco [facility] Conversion Instructor Ballroom Dancing Cerner at 02/02/2023 6:19 PM CDT documented in this encounter Plan of Treatment Not on file documented as of this encounter Visit Diagnoses Not on filedocumented in this encounter Care Teams Assistant Tennis Professional Relationship Specialty Start Date End Date Mona Levin MD PCP - General Family Medicine 07/19/22 documented as of this encounter
--- OUTSIDE RECORDS SUMMARY | 2025-06-01 11:16 | XMS_ITS | Encounter Summary ---
Author Organization [facility] Address [address] [place] [address] Care Team Providers Care Senior Packaging Engineer Name Role Phone Jacquelyn Desouza APRN Primary Care Provider +1- [phone] Encounter Details Date Type Department Care Team (Late st Contact Info) Description 02/25/2023 Retail Pharmacy Consultation [facility] [address] [place] [address] [facility] [address] [place] [address] Social History Tobacco Use Types [...] place to sleep or slept in a jail (including now)? No 02/21/2023 Comments No Sex and Gender Information Value Date Recorded Sex Assigned at Not on file Legal Sex Female 10:41 AM EDT Gender Identity Not on file Sexual Orientation Not on file documented as of this encounter Plan of Treatment Upcoming Encounters Date Type Department Care Team (Late st Contact Info) Description 06/01/2025 2:10 PM EDT Office Visit [facility]ICINE [address] [place] [id number] Delaney Concepcion MD [address] [address] 06/22/2025 1:15 PM EDT Office Visit [facility] PULMON[facility] & CRITICAL CARE MEDICINE [address] [place] [phone] Olivia Morales APRN [address] [facility] [address] [address] documented as of this encounter Visit Diagnoses Not on filedocumented in this encounter Care Teams Senior Packaging Engineer Relationship Specialty Start Date End Date [place] [address] PCP - General Nurse Practitioner 08/25/22 documented as of this encounter
--- OUTSIDE RECORDS SUMMARY | 2025-06-01 11:16 | XMS_ITS | Encounter Summary ---
Author Organization [employer] ([place], [place], [place], [place]) Address [address] [place] [address] Care Team Providers Care Former Hand Name Role Phone Mona Levin MD Primary Care Provider +1- [phone] Encounter Details Date Type Department Care Team (Late st Contact Info) Description 12/22/2019 Transcribed Document [facility] [place] Family Medicine [facility] [place] [address] ProviderLeia MD [address] [place] [address] Social History Tobacco Use Types Packs/Day Years Used Date Smoking Tobacco: Never Assessed Comments Unknown Sex and Gender Information Value Date Recorded Sex Assigned at Not on file Legal Sex Female 10:15 AM CDT Gender Identity Not on file Sexual Orientation Not on file documented as of this encounter Miscellaneous Notes * Cerner Conversion Note - Leia Gutiérrez MD - 12/22/2019 11:02 AM BUNCH MAKER Patient: SHIELA JASSO [facility]: [id number] Age: 59 Years Sex: Female : 1960 FOLLOW-UP Date of Service: 12/16/2019 CHIEF COMPLAINT: Low back pain, left leg pain, left knee pain. HISTORY OF PRESENT ILLNESS: The patient is a 59 y/o female who returns to the Clinic today with a 4 year history significant for low back pain with radiation to the left lower extremity involving the patient's foot. She is having increase pain with the left knee over the last 3 months. She is now reporting that it is involving the right knee. She is afraid that she is over-compensating from the left knee pain. The patient states the pain is worse with activities around the home, walking long distances. She does get relief with the application of heat. She describes the pain level today is a 7/10 on the numerical pain scale rating. She is reporting 50% pain relief at this time with Percocet 10/325 mg three times daily dosing, Gabapentin 800 mg three times daily dosing, Nursing intake was reviewed and noted on today's visit. VITAL SIGNS: Vital signs are reviewed today. B/P: 140/84; Heart rate: 85; Respirations: 14; Oxygen saturation is 96% on room air; Height 5???5?? , weight 190 lbs HISTORY: Allergies: Penicillin and Hydrocodone Social History: Marital status: The patient is currently . Current work status: Retired Illicit drug use: Denies. Current tobacco use: Nicotine use in the form of cigarettes one pack a day for the last 25 years. Alcohol use: Denies. Caffeine use: Daily Past Medical History: Hypertension. Kidney stones. Past Surgical History: Cholecystectomy. Tonsillectomy Tubal ligation. Past Family History: This individual reports nothing. REVIEW OF SYSTEMS: The patient's ten system review of systems was reviewed and on today's visit this individual has complaints of the following: General: Negative. Respiratory: Negative. Neurological: Negative. Gastrointestinal: Negative. Musculoskeletal: Joint pain, back pain. Cardiovascular: Leg pain with walking. Psychiatric: Negative. HEENT: Negative. Endocrine: Negative. Hematology: Negative. PHYSICAL EXAMINATION: Constitutional: The patient is conversant and well-nourished. Vital signs are reviewed today. Integumentary: Deferred. HEENT: Deferred. Neck: Deferred. Chest and Lung: Deferred. Cardiovascular: Deferred. Abdomen: Deferred. Peripheral Vascular: Deferred Neurologic: Deferred. Musculoskeletal: Deferred. Psychiatric: The patient is alert and oriented to self, time, and place today. The patient has a normal mood and affect on today's visit and there is no evidence of depression on the depression questionnaire that was completed today. DIAGNOSTIC STUDIES: Not present MEDICAL DECISION MAKING: Stable. ASSESSMENT: 1. Chronic pain syndrome secondary to multisite osteoarthritis involving primarily the bilateral knees, right worse than left, status post left total knee replacement surgery. 2. Lumbar degenerative disc disease. 3. Lumbar spondylosis. 4. Lumbar facet arthropathy. 5. Nicotine misuse. PROCEDURE/TEST ORDERED: Not present. CURRENT PLAN: I am going to continue this individual on her current medication regimen from our facility at this time. She has never tried Diclofenac Gel before so we are going to try that, 1% to apply 4 gm four times daily to both knees. DARREN report was appropriate upon review today. I did spend 3-5 minutes today discussing nicotine cessation with this individual. We will see the patient back in the Clinic in two months for a follow-up appointment. WILLIAMS Torres/desmond Electronically signed by [facility] Conversion Finished Goods Inspector Cerner at 02/02/2023 6:19 PM CDT documented in this encounter Plan of Treatment Not on file documented as of this encounter Visit Diagnoses Not on filedocumented in this encounter Care Teams Former Hand Relationship Specialty Start Date End Date Mona Levin MD PCP - General Family Medicine 07/19/22 documented as of this encounter
--- OUTSIDE RECORDS SUMMARY | 2025-06-01 11:16 | XMS_ITS | Encounter Summary ---
Author Organization [employer] ([place], [place], [place], [place]) Address [address] [place] [address] Care Team Providers Care Cda Teacher Name Role Phone Mona Levin MD Primary Care Provider [phone]- [phone] Encounter Details Date Type Department Care Team (Late st Contact Info) Description 04/04/2019 Transcribed Document [facility] [place] [address] [place] [address] ProviderLeia MD [address] [place] [address] Social History Tobacco Use Types Packs/Day Years Used Date Smoking Tobacco: Never Assessed Comments Unknown Sex and Gender Information Value Date Recorded Sex Assigned at Not on file Legal Sex Female 10:15 AM CDT Gender Identity Not on file Sexual Orientation Not on file documented as of this encounter Miscellaneous Notes * Cerner Conversion Note - Leia Gutiérrez MD - 04/04/2019 5:36 PM CDT [facility] ADDRESS [place], [place] [phone] Name:Shiela Nathan Visit Date:04/04/2019 11:45:00 Emergency Department Care Providers: Physician: CLIFF RESENDIZ Physician: Our doctors and staff appreciate your choice of [facility] for your emergency medical care. Read these instructions carefully. Please call us if you have any questions about your medical problem. [facility] Emergency Department [phone] [facility] Emergency Department [phone] [facility] [place] [facility] Emergency Department [phone] Patient Education Materials Shiela Nathan Disha has been given the following patient education materials: Infectious Disease Community-Acquired Pneumonia, Adult Pneumonia is an infection of the lungs. There are different types of pneumonia. One type can develop while a person is in a hospital. A different type, called community-acquired pneumonia, develops in people who are not, or have not recently been, in the hospital or other health care facility. What are the causes? Pneumonia may be caused by bacteria, viruses, or funguses. Community-acquired pneumonia is often caused by Streptococcus pneumonia bacteria. These bacteria are often passed from one person to another by breathing in droplets from the cough or sneeze of an infected person. What increases the risk? The condition is more likely to develop in: ??? People who have?chronic diseases, such as chronic obstructive pulmonary disease (COPD), asthma, congestive heart failure, cystic fibrosis, diabetes, or kidney disease. ??? People who have?early-stage or late-stage HIV. ??? People who have?sickle cell disease. ??? People who have?had their spleen removed (splenectomy). ??? People who have?poor dental hygiene. ??? People who have?medical conditions that increase the risk of breathing in (aspirating) secretions their own mouth and nose. ??? People who have?a weakened immune system (immunocompromised). ??? People who smoke. ??? People who?travel to areas where pneumonia-causing germs commonly exist. ??? People who?are around animal habitats or animals that have pneumonia-causing germs, including birds, bats, rabbits, cats, and farm animals. What are the signs or symptoms? Symptoms of this condition include: ??? A?dry cough. ??? A wet (productive) cough. ??? Fever. ??? Sweating. ??? Chest pain, especially when breathing deeply or coughing. ??? Rapid breathing or difficulty breathing. ??? Shortness of breath. ??? Shaking chills. ??? Fatigue. ??? Muscle aches. How is this diagnosed? Your health care provider will take a medical history and perform a physical exam. You may also have other tests, including: ??? Imaging studies of your chest, including X-rays. ??? Tests to check your blood oxygen level and other blood gases. ??? Other tests on blood, mucus (sputum), fluid around your lungs (pleural fluid), and urine. If your pneumonia is severe, other tests may be done to identify the specific cause of your illness. How is this treated? The type of treatment that you receive depends on many factors, such as the cause of your pneumonia, the medicines you take, and other medical conditions that you have. For most adults, treatment and recovery from pneumonia may occur at home. In some cases, treatment must happen in a hospital. Treatment may include: ??? Antibiotic medicines, if the pneumonia was caused by bacteria. ??? Antiviral medicines, if the pneumonia was caused by a virus. ??? Medicines that are given by mouth or through an IV tube. ??? Oxygen. ??? Respiratory therapy. Although rare, treating severe pneumonia may include: ??? Mechanical ventilation. This is done if you are not breathing well on your own and you cannot maintain a safe blood oxygen level. ??? Thoracentesis. This procedure?removes fluid around one lung or both lungs to help you breathe better. Follow these instructions at home: ??? Take fgme-tzh-dmtfeqz and prescription medicines only as told by your health care provider. ? Only take?cough medicine if you are losing sleep. Understand that cough medicine can prevent your body?s natural ability to remove mucus from your lungs. ? If you were prescribed an antibiotic medicine, take it as told by your health care provider. Do not stop taking the antibiotic even if you start to feel better. ??? Sleep in a semi-upright position at night. Try sleeping in a reclining chair, or place a few pillows under your head. ??? Do not use tobacco products, including cigarettes, chewing tobacco, and e-cigarettes. If you need help quitting, ask your health care provider. ??? Drink enough water to keep your urine clear or pale yellow. This will help to thin out mucus secretions in your lungs. How is this prevented? There are ways that you can decrease your risk of developing community-acquired pneumonia. Consider getting a pneumococcal vaccine if: ??? You are older than 65 years of age. ??? You are older than 19 years of age and are undergoing cancer treatment, have chronic lung disease, or have other medical conditions that affect your immune system. Ask your health care provider if this applies to you. There are different types and schedules of pneumococcal vaccines. Ask your health care provider which vaccination option is best for you. You may also prevent community-acquired pneumonia if you take these actions: ??? Get an influenza vaccine every year. Ask your health care provider which type of influenza vaccine is best for you. ??? Go to the dentist on a regular basis. ??? Wash your hands often. Use hand cna instructor if soap and water are not available. Contact a health care provider if: ??? You have a fever. ??? You are losing sleep because you cannot control your cough with cough medicine. Get help right away if: ??? You have worsening shortness of breath. ??? You have increased chest pain. ??? Your sickness becomes worse, especially if you are an older adult or have a weakened immune system. ??? You cough up blood. This information is not intended to replace advice given to you by your health care provider. Make sure you discuss any questions you have with your health care provider. Document Released: 10/05/2006 Document Revised: 06/24/2018 Document Reviewed: 01/30/2016 [employer] Patient Education ? 2019 [employer] FOLLOW UP CARE Most conditions that require emergency care require follow up. This can be with ?? Your own doctor ?? The doctor listed on this form. You will need to call for an appointment. Tell the doctor or clinic that we referred you. ?? If you do not have a regular physician, please choose one from the list given to you upon discharge from the Emergency Department. PRESCRIPTIONS ?? Fill all the prescriptions. Take them as directed. ?? If you have been given an antibiotic, be sure to take the medication for as many days and times a day listed on the instructions. ?? STOP your medicine and call the Emergency Department if you have drug allergy symptoms, if you are vomiting and cannot keep the medicine down. Call the pharmacist if you have other side effects, ?? Pain medication can make you drowsy. Do not drive or operate machinery for at least 6 hours after leaving the Emergency Department. ?? We DO NOT provide telephone refill for any prescriptions. TESTS PERFORMED TODAY ?? X-ray results are preliminary and will be read over the next day by a Radiologist. If the Doctors find any discrepancy between the preliminary reading and the final reading we will notify you. ?? If we advise you to take your x-rays to your follow up physician, please call the x-ray department to pick them up o [facility] # [phone] [facility] # [phone] o [facility] # [phone] ?? If you had cultures done and the results require a change in your treatment, we will notify you. Culture results are usually final in 2 days after your visit. IF YOU SMOKE ?? Cigarette smoking threatens your health and the health of non-smokers. Smoking is the most preventable cause of illness and in the [place]. ?? Smoking is a hard habit to quit, but you can do it. Call any of these numbers for a resource to help you quit. o National Network of Tobacco Cessation DAjeanbdr6-370-HYIR-NOW o [employer] o [employer] 8-523353-8979 o Omar/Raymundo Erickson [phone] FINANCIAL INFORMATION ?? [facility] provides financial counseling to anyone who requests our services. ?? Emergency Physicians are independently contracted to provide your care. You will receive a bill for the care provided to you by the Physician and/or the Physician Aeronautical Test Engineer. This will be a separate bill from your hospital bill. ?? Radiologists are independently contracted. You will receive a bill for any radiology service you receive. This will be a separate bill from your hospital bill. YOU ARE THE MOST IMPORTANT FACTOR IN YOUR RECOVERY. Follow these instructions carefully. Take your medicine as prescribed. Most importantly, follow up with a doctor. If you have problems that we have not discussed, call or visit your doctor right away. If you cannot reach your doctor, return to the Emergency Department. Patient Visit Summary Shiela Nathan has been given the following list of patient education materials, prescriptions and follow-up instructions: Patient Education Materials: Infectious Disease Community-Acquired Pneumonia, Adult Follow-Up Instructions: Follow Up With: Where: When: Follow up with primary care provider Within 2-4 days Comments: Venita Burns Kathy Lynn, have received a copy of these discharge instructions and acknowledge understanding of these instructions. . I understand that my condition may require more care and will arrange for further treatment as recommended Patient Signature / or Patient Acting Manager Provider Signature Date Date/Time 04/04/2019 13:36 [place] [facility] Home Medications Name Shiela Nathan Allergy Info: penicillins; codeine Allergy Comment: HOME MEDICATIONS Medication Dose Route Frequency Reason For Taking Next Dose ibuprofen losartan 100 mg oral tablet Neurontin Percocet 10/325 Home Medications Comment: YOU SHOULD NO LONGER TAKE THESE MEDICATIONS Medication Dose Frequency Comment: This med list is based on information you provided. Please take this form with you to check with your doctor(s) the appropriateness and dosages of all your medications. I, Venita Shiela Gauthier, have received a copy of discharge home medications and acknowledged understanding of these instructions. I hereby certify that I have received the above instructions and that all of my concerns/questions regarding this visit have been adequately answered. Patient Signature Date Witnessed and/or instructed by (signature) Date documented in this encounter Plan of Treatment Not on file documented as of this encounter Visit Diagnoses Not on filedocumented in this encounter Care Teams Cda Teacher Relationship Specialty Start Date End Date Mona Levin MD PCP - General Family Medicine 07/19/22 documented as of this encounter
--- OUTSIDE RECORDS SUMMARY | 2025-06-01 11:16 | XMS_ITS | Encounter Summary ---
Author Organization [facility] Address [address] [place] [address] Care Team Providers Care 4Th Grade Math Teacher Name Role Phone Jacquelyn Desouza APRN Primary Care Provider [phone]- [phone] Encounter Details Date Type Department Care Team [...] in a jail (including now)? No 02/21/2023 Abuse Screen Answer [...] or training? Not on file Preferred Language Polish 05/13/2023 PHQ-2 Answer Date Recorded Retired PHQ-9: [...] Description 06/01/2025 2:10 PM EDT Office Visit [facility] ORTHOPEDICS & SPORTS MEDICINE [address] [address] Delaney Concepcion MD [address] [address] 06/22/2025 1:15 PM EDT Office Visit [facility] PULMONARY & CRITICAL CARE MEDICINE [address] [place] [phone] Olivia Morales APRN [address] [facility] MED OFFICE BLDG [address] [address] documented as of this encounter Visit Diagnoses Not on filedocumented in this encounter Care Teams 4Th Grade Math Teacher Relationship Specialty Start Date End Date Jacquelyn Desouza APRN [address] [facility] [place] [address] PCP - General Nurse Practitioner 08/25/22 documented as of this encounter
--- OUTSIDE RECORDS SUMMARY | 2025-06-01 11:16 | XMS_ITS | Encounter Summary ---
Author Organization [employer] ([place], [place], [place], [place]) Address [address] [place] [address] Care Team Providers Care Spine Nurse Name Role Phone Mona Levin MD Primary Care Provider [phone] Encounter Details Date Type Department Care Team (Late st Contact Info) Description 11/17/2020 Transcribed Document [facility] [place] Family Medicine [facility] [place] [address] ProviderLeia MD [address] [place], [place] [id number] Social History Tobacco Use Types Packs/Day Years Used Date Smoking Tobacco: Never Assessed Comments Unknown Sex and Gender Information Value Date Recorded Sex Assigned at Not on file Legal Sex Female 10:15 AM CDT Gender Identity Not on file Sexual Orientation Not on file documented as of this encounter Miscellaneous Notes * Cerner Conversion Note - Leia ProviderMD - 11/17/2020 1:05 AM SORTER PACKER Admission History, Adult Entered On: 11/17/2020 2:24 EST Performed On: 11/17/2020 1:05 EST by Steffanie Mcdonald Rn Advance Directive Patient has Advance Directive *Q : No, patient refuses Advance Directive information Steffanie Mcdonald Rn - 11/17/2020 1:45 EST Anesthesia/Transfusion History Family History of Anesthesia Reaction : No prior transfusion(s) Transfusion History : Prior anesthesia without reaction Family History of Anesthesia Reaction : None Steffanie Mcdonald Rn - 11/17/2020 1:45 EST Functional Assessment Living Situation : Acute Care Facility Current Home Treatments : None Steffanie Mcdonald Rn - 11/17/2020 1:45 EST General Info Contact Password : [id number] Family/Rep/Phys Notified of Admit : No Emergency Contact #1 : Jarrod Jones Emergency Contact #1 Emergency Contact #1 Relationship : Significant other Emergency Contact #2 : . Emergency Contact #2 Phone Number : . Emergency Contact #2 Relationship : . Primary Language : Mosotho Communication Barrier : None Back Padder Needed : No Steffanie Mcdonald Rn - 11/17/2020 1:45 EST Fall Risk Scales ABCs Fall Injury Risk Identification : None MEHTA Hx Falls Immediate/Within 3 Months : No Mehta Secondary Diagnosis : Yes MEHTA Use of Ambulatory Aid : Bed rest/Nurse assist MEHTA IV Therapy or IV Access : Yes Mehta Gait/Transferring : Weak Mehta Mental Status : Overestimates/Forgets limitations Mehta Fall Risk Score : 60 MEHTA Fall Scale Risk Level : 46 or > High Risk [place] Fall Interventions : Adequate lighting, Bed in low position, Call device within reach, Fall prevention handout/education per facility policy, Frequent orientation to call device, Frequent orientation to surroundings, Hourly comfort/safety rounds, Non-slip footwear, Personal items within reach, Reinforced to call for assistance before getting out of bed, Room free of clutter/spills, Upper side-rails up, Wheels locked, Wires/Cords secured Fall Moderate to High Risk Interventions : High Risk for Fall sign in place per policy, Patient room close to nurses station, Supervise toileting as indicated, Transport methods appropriate to patient, Visual cues in place Fall Risk Scale Calc Temp : 0 Steffanie Mcdonald Rn - 11/17/2020 1:45 EST Health Histories Smoking Status : 10 or more cigarettes (1/2 pack or more)/day in last 30 days Smokeless Tobacco Status : Never Desires Tobacco Cessation Medication : Yes Steffanie Mcdonald Rn - 11/17/2020 1:45 EST Social History (As Of: 11/17/2020 02:24:04 EST) Tobacco: Smoking Status Current every day smoker. Packs/Tins Daily: 1. (Last Updated: 08/04/2014 14:22:05 EDT by AVNI SOLORZANO RN) Use in Last 12 Months: Cigarettes. Smoking Status Current every day smoker. Years of Use: 33. Packs/Tins Daily: 1. Last Used: November 2014. (Last Updated: 11/30/2015 15:35:40 EST by MITCH JOHNSON RN) Use in Last 12 Months: Cigarettes. Years of Use: 40. Packs/Tins Daily: 1. (Last Updated: 12/12/2015 08:43:09 EST by Luli Artis RN) Alcohol: Use in Last 12 Months: No. (Last Updated: 08/04/2014 14:22:08 EDT by AVNI SOLORZANO RN) Substance Abuse: Drug Use Hx: No. Use in Last 12 Months: No. (Last Updated: 08/04/2014 14:22:13 EDT by AVNI SOLORZANO RN) Height and Weight, Clinical Dosing Height Source : Stated Height Entry Format : Peach Height, Feet : 5 ft(Converted to: 152 cm, 60 Inch) Height, Inches : 5 Inch(Converted to: 0 ft 5 Inch, 12.70 cm) Clinical Height : 165.1 cm Weight Source : Bed scale Weight Entry Format : Metric, kilograms Weight, Kilograms : 95.2 kg(Converted to: 209 lb 14 oz) Clinical Dosing Weight : 95.2 kg Body Surface Area (BSA) : 2.02 m2 Body Mass Index : 34.9 kg/m2 (HI) [place] Body Weight : 57 kg Steffanie Mcdonald Rn - 11/17/2020 1:45 EST Infectious Disease History Has the patient ever been tested for COVID-19? : Yes, Patient stated results Negative Date of COVID-19 test known? : No Does patient have symptoms of COVID-19? : No COVID19 Screening : No Experiencing Infectious Disease Symptoms : Fever >/=38.6C/101 F /, Chills, Repeated shaking with chills, Difficulty breathing, Headache, Muscle pain Physical contact outside [place] in the last 30 days : No Infectious Disease History : Chicken pox/Shingles, Measles, Mumps Tuberculosis Symptoms : None Steffanie Mcdonald Rn - 11/17/2020 1:45 EST Influenza Vaccine Asmt, Adult Previous Vaccines from Immunization Schedule : No qualifying data available. Influenza Immunization, Current Season : No Inactivated Flu Vaccine Contraindications : No contraindications to inactivated influenza vaccine Transplant Workup/Recent Transplant : No Order for Influenza Vaccine : Order for influenza vaccine sent to pharmacy Steffanie Mcdonald Rn - 11/17/2020 1:45 EST Pneumococcal Vaccine Previous Vaccines from Immunization Schedule : No qualifying data available. Pneumonia Immunization Received : No Pneumococcal Risk Assessment < Age 65 : None Steffanie Mcdonald Rn - 11/17/2020 1:45 EST Order Details Transport Mode Order Detail : Wheelchair Isolation Precautions Order Detail : Standard Precautions Order Detail : 0 IV Order Detail : 0 Oxygen Order Detail : 0 Nurse Collect Order Detail : 0 Lift/Transfer : Minimal Central Line Order Detail : Yes Room Service : Appropriate Patient Needs Meds Crushed/Liquid : No Steffanie Mcdonald Rn - 11/17/2020 1:45 EST Nutrition History Eating Poorly Due to Decreased Appetite : No Unplanned Weight Loss in Past 3-6 Months : No Malnutrition Screening Tool Total(mal) : 0 Malnutrition Screening Tool Risk Level : Patient not at risk Steffanie Mcdonald Rn - 11/17/2020 1:45 EST [place] Suicide Severity Rating Scale (C-SSRS) CSSRS Past Month Wish to be : No CSSRS Past Month Suicidal Thoughts : No CSSRS Lifetime Suicide Behavior : No Suicide Severity Rating Score : 0 Suicide Severity Rating : No Additional Care Required at this time Steffanie Mcdonald Rn - 11/17/2020 1:45 EST Psychosocial History Does Someone Depend on You for Care? : No Do You Have a History of the Following? : Depression Currently in Unsafe Situation : No Steffanie Mcdonald Rn - 11/17/2020 1:45 EST Sleep Apnea Risk Assmt Hx of Obstructive Sleep Apnea Diagnosis : No Snore Loudly : No Tired, Fatigued, or Sleepy During Day : Yes Observed Stopping Breathing During Sleep : No Have/Are Being Treated for Hypertension : Yes BMI Greater Than 35 kg/m2 : Yes Age over 50 Years Old : Yes Neck Circumference Greater Than 40 cm : No Gender Male : No STOP-BANG Sleep Apnea Risk Level Score : 4 Steffanie Mcdonald Rn - 11/17/2020 1:45 EST Spiritual/Cultural Needs Spiritual/Cultural Needs Comment : prayer Steffanie Mcdonald Rn - 11/17/2020 1:45 EST Valuables and Belongings Valuables and Belongings : Clothing, Jewelry, Personal devices, Personal items, Medications Clothing : Common streetwear Clothing Disposition : Bedside Personal Device Disposition : Bedside Jewelry : Ring Jewelry Disposition : With patient Personal Devices : Glasses Personal Items : Hodges, Cell phone, Purse, Wallet Personal Items Disposition : Bedside Medication Disposition : Bedside Medication Brought With Patient : Yes Belongings Disposition Comment : clothes shoes and purse which contains wallet. loose hodges, cigarette lighters, nitroglycerin, super poly sales agent fire insurance. glasses, cell phone and fire apparatus sprinkler inspector in seperate bag. Steffanie Mcdonald Rn - 11/17/2020 1:45 EST Electronically signed by [facility] Conversion Transportation Agent Cerner at 02/06/2023 8:45 AM CDT documented in this encounter Plan of Treatment Not on file documented as of this encounter Visit Diagnoses Not on filedocumented in this encounter Care Teams Spine Nurse Relationship Specialty Start Date End Date Mona Levin MD PCP - General Family Medicine 07/19/22 documented as of this encounter
--- OUTSIDE RECORDS SUMMARY | 2025-06-01 11:16 | XMS_ITS | Encounter Summary ---
[facility] Organization [facility] Address [address] [place] [address] Care Team Providers Care Lead Database Developer Name Role Phone Jacquelyn Desouza APRN Primary Care Provider [phone]- [phone] Reason for Visit * Reason Onset Date Comments SAMPLES 05/25/2025 Encounter Details Date Type Department Care Team (Late st Contact Info) Description 05/25/2025 Telephone [facility] PULMONARY CRITICAL CARE & SLEEP MEDICINE [address] [facility] [address] [phone] Olivia Morales APRN 793 [facility] MED OFFICE BLDG [address] [address] SAMPLES Social History Tobacco Use [...] or training? 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 TODAY * Telephone Encounter - Wendi Ro RegSched Rep - 05/25/2025 2:00 PM EDT Caller: SHIELA JASSO Relationship:SELF Callback number: [phone] Is it ok to leave a message: [x] Yes [] No Requested medication for samples: Hdpyblr-Jcvgfwbmfjr-Mddsyoygvu (Breztri Aerosphere) 160-9-4.8 MCG/ACT aerosol inhaler 2 [...] Description 06/01/2025 2:10 PM EDT Office Visit [facility] ORTHOPEDICS & SPORTS MEDICINE [address] [id number] Delaney Concepcion MD [address] [phone] 06/22/2025 1:15 PM EDT Office Visit [facility] PULMONARY & CRITICAL CARE MEDICINE [address] [place] [phone] Olivia Morales APRN [address] [facility] MED OFFICE BLDG 3 [facility] [address] [place] [address] documented as of this encounter Visit Diagnoses Not on filedocumented in this encounter Care Teams Lead Database Developer Relationship Specialty Start Date End Date Jacquelyn Desouza APRN Carmella Solomon [facility] [place] [address] PCP - General Nurse Practitioner 08/25/22 documented as of this encounter
--- OUTSIDE RECORDS SUMMARY | 2025-06-01 11:16 | XMS_ITS | Encounter Summary ---
Author Organization [employer] ([place], [place], [place], [place]) Address [address] [place] [address] Care Team Providers Care Dry Finisher Name Role Phone Mona Levin MD Primary Care Provider [phone]- [phone] Encounter Details Date Type Department Care Team (Late st Contact Info) Description 11/17/2020 Transcribed Document [facility] Family Medicine [facility] [place] [address] ProviderLeia MD [address] [place], [place] [address] Social History Tobacco Use Types Packs/Day Years Used Date Smoking Tobacco: Never Assessed Comments Unknown Sex and Gender Information Value Date Recorded Sex Assigned at Not on file Legal Sex Female 10:15 AM CDT Gender Identity Not on file Sexual Orientation Not on file documented as of this encounter Miscellaneous Notes * Cerner Conversion Note - Leia ProviderMD - 11/17/2020 2:13 AM FIXTURE DESIGNER Pain Assessment Entered On: 11/20/2020 18:56 EST Performed On: 11/20/2020 15:08 EST by Nelson Chavez RN Intervention Information: morphine Performed by Nelson Chavez RN on 11/20/2020 14:38:00 EST morphine,2mg IV Push,PICC medial,Pain (Severe 7-10) Pain Assessment Pain Assessment : Follow-up assessment Pain Scale Goal : 4 Pain Scale Used : 0-10 Scale Nelson Chavez RN - 11/20/2020 18:56 EST Pain Scale Intensity : 7 Nelson Chavez RN - 11/20/2020 18:56 EST Image 4 - Images currently included in the form version of this document have not been included in the text rendition version of the form. Electronically signed by Lyla Singh Conversion Food Equipment Service Technician Cerner at 02/06/2023 8:55 AM CDT documented in this encounter Plan of Treatment Not on file documented as of this encounter Visit Diagnoses Not on filedocumented in this encounter Care Teams Dry Finisher Relationship Specialty Start Date End Date Mona Levin MD PCP - General Family Medicine 07/19/22 documented as of this encounter
--- OUTSIDE RECORDS SUMMARY | 2025-06-01 11:16 | XMS_ITS | Clinical Summary ---
Author Organization [facility] Address [address] [place] [address] Phone Care Team Providers Care Brusher Tender Name Role Phone Brenden RAMOS, Macario F Unavailable [phone] Conditions or Problems Problem Name Problem Code Onset Date Status Entry Date Provider Comment Standard Description Annotate Smoking cessation education 606626559 (SNOMED CT) 12/12 Active 12/12 Tiana Madison Smoking cessation education Abscess, Right kidney 0536184 (SNOMED CT) 12/12 Active 12/12 Ada W Renal abscess UTI N39.0 (ICD-10-CM ) 12/12 Active 12/12 Ada W Urinary tract infection, site not specified Ear pain, bilateral 20583456 (SNOMED CT) 12/12 Active 12/12 Ada W Otalgia Diarrhea 46270912 (SNOMED CT) 12/12 Active 12/12 Ada W Diarrhea 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 Coli sepsis/septic emia A41.51 (ICD-10-CM ) 11/29 Active 11/29 Blanca Greer Sepsis due to Escherichia coli [E. coli] Klebsiella Sepsis 356927295 (SNOMED CT) 11/29 Active 11/29 Blanca Greer Sepsis caused by Enterobacter Klebsiella infection B96.1 (ICD-10-CM ) 11/29 Active 11/29 Blanca Greer Klebsiella pneumoniae [K. pneumoniae] as the cause of diseases classified elsewhere Fibromyalgia 73489172 (SNOMED CT) 11/29 Active 11/29 Blanca Greer Fibromyositis Diverticuliti s of large intestine with abscess K57.20 (ICD-10-CM ) 12/10 Resolved 12/10 Blanca Greer Diverticulitis of large intestine with perforation and abscess without bleeding Diverticuliti s of large intestine with abscess K57.20 (ICD-10-CM ) 12/10 Removed 12/10 Blanca Greer Diverticulitis of large intestine with perforation and abscess without bleeding Benign Essential Hypertension 6151775 (SNOMED CT) 12/10 Active 12/10 Blanca Greer Benign essential hypertension Allergy to penicillin 60721145 (SNOMED CT) 12/10 Active 12/10 Blanca Greer Allergy to penicillin Leukemoid reaction 22720295 (SNOMED CT) 12/10 Active 12/10 Blanca Greer Leukemoid reaction Medications Medication Instructions Start Date Stop Date Generic Name [facility] Provider ONDANSETRON HCL 4 MG TABS Take one (1) tablet by mouth twice a day as needed for nausea ONDANSETRON HCL 93220607037 Macario Wilcox MD INVANZ SOLUTION RECONSTITUTED 1 gm IV Q 24 [facility] VNA 12/04 ERTAPENEM SODIUM SOLR 00130115545 Erin Pak INVANZ SOLUTION RECONSTITUTED 1 gm IV Q 24 [facility]I VNA 12/04 ERTAPENEM SODIUM SOLR 29539319518 Eun Aguayo VITAMIN D3 50 MCG (1999 VT) CAPS Take one by mouth daily CHOLECALCIFEROL 18554561214 Sharlene Anne SODIUM BICARBONATE 650 MG TABS Take by mouth twice a day SODIUM BICARBONATE 71004661089 Sharlene Anne OXYCODONE-ACETAM INOPHEN 10-325 MG TABS Take one by mouth 3 times daily, morning, afternoon and evening. OXYCODONE-ACETAMI NOPHEN 98743833025 Sharlene Anne PANTOPRAZOLE SODIUM 40 MG TBEC Take one by mouth daily PANTOPRAZOLE SODIUM 94762093869 Sharlene Anne ITRACONAZOLE 100 MG CAPS as directed ITRACONAZOLE 82273368916 Sharlene Anne IBUPROFEN 200 MG TABS 2 Tab, PRN, Oral, Q4H IBUPROFEN 36485419070 Sharlene Anne GABAPENTIN 800 MG TABS Take one by mouth 3 times daily, morning, afternoon and evening. GABAPENTIN 37915114133 Sharlene Anne CETIRIZINE HCL 10 MG TABS Take one by mouth daily CETIRIZINE HCL 63962294542 Sharlene Anne ZANTAC 150 MG ORAL TABLET twice daily 11/28 RANITIDINE HCL 79649440904 Sharlene Anne PERCOCET 10-325 MG TABS every 8 hours as needed 11/28 OXYCODONE-ACETAMI NOPHEN 10386846701 Sharlene Anne IBUPROFEN 400 MG TABS every 4 hours as needed for pain 11/28 IBUPROFEN 26034188595 Sharlene Anne GABAPENTIN 800 MG TABS four times a day 11/28 GABAPENTIN 06673884626 Sharlene Anne DIFLUCAN 200 MG ORAL TABLET daily / FLUCONAZOLE 73463848576 Sharlene Anne FLAGYL 500 MG ORAL TABLET three times a day 11/28 METRONIDAZOLE 82753179480 Sharlene Anne INVANZ 1 GM INTRAVENOUS SOLUTION RECONSTITUTED [facility]/22 ERTAPENEM SODIUM 86865285584 Frida Valiente RN CUBICIN 500 MG INTRAVENOUS SOLUTION RECONSTITUTED 500mg IV q 24 [employer]/ ANC 20160 10/22 DAPTOMYCIN 79704934139 Frida Valiente RN FLAGYL 500 MG ORAL TABLET three times a day 2/ METRONIDAZOLE 46279843031 Med Krishna MD CUBICIN 500 MG INTRAVENOUS SOLUTION RECONSTITUTED 500mg IV q 24 [facility] 0 10/22 DAPTOMYCIN 59729487956 Chey Briggs GABAPENTIN 800 MG TABS four times a day 2/ GABAPENTIN 12658458456 Med Bermudez IBUPROFEN 400 MG TABS every 4 hours as needed for pain 2 IBUPROFEN 12101886886 Med Bermudez FLAGYL 500 MG ORAL TABLET three times a day 12/16 METRONIDAZOLE 09882702573 Med Krishna MD DIFLUCAN 200 MG ORAL TABLET daily 01/17 FLUCONAZOLE 33593200009 Med Krishna MD PERCOCET 10-325 MG TABS every 8 hours as needed 4 OXYCODONE-ACETAMI NOPHEN 84009421320 Med Bermudez ZANTAC 150 MG ORAL TABLET twice daily 210 RANITIDINE HCL 20210102469 Med Bermudez INVANZ 1 GM INTRAVENOUS SOLUTION RECONSTITUTED 1gm IV q 24 [facility] 0 10/22 ERTAPENEM SODIUM 38726122558 Chey Briggs Medications Administered No information available. [...]
--- OUTSIDE RECORDS SUMMARY | 2025-06-01 11:16 | XMS_ITS | Encounter Summary ---
Author Organization [employer] ([place], [place], [place], [place]) Address [address] [place] [address] Care Team Providers Care Assistant Store Leader Name Role Phone Mona Levin MD Primary Care Provider [phone]- [phone] Encounter Details Date Type Department Care Team (Late st Contact Info) Description 11/17/2020 Transcribed Document [facility] [place] [facility] [place] [address] ProviderLeia MD [address] [place], [place] [address] Social History Tobacco Use Types Packs/Day Years Used Date Smoking Tobacco: Never Assessed Comments Unknown Sex and Gender Information Value Date Recorded Sex Assigned at Not on file Legal Sex Female 10:15 AM CDT Gender Identity Not on file Sexual Orientation Not on file documented as of this encounter Miscellaneous Notes * Cerner Conversion Note - Leia Gutiérrez MD - 11/17/2020 10:01 AM LAY UP OPERATOR Patient: SHIELA JASSO Age: 60 Years Sex: Female : 1960 Chief Complaint Shortness of air Reason for Consultation Fusion History of Present Illness 60 yo female with history of chronic pain, who presented transferred to [facility] on 11/17/20 and arrived confused, lethargic, [...] to evaluate and manage her antibiotic therapy. The patient has significant medical problems that complicates care and evaluation, and puts the patient in a higher risk category, see Medical problems and HPI. Complex set of medical issues requiring a high level of medical decision making. There is significant risk for further morbidity. Review of Systems ROS negative 10 system complete review except for symptoms in HPI Vital Signs T: 36.9 ??C HR: 104(Monitored) RR: 16 BP: 145/80 HT: 165.1 cm WT: 95.2 kg BMI: 34.9 Oxygen Settings (Last) No qualifying data available. Physical Exam Eyes, ENT-negative Pulmonary clear Cardiac without murmur Mental Status: normal Orientation to time place [...] to pt condition Psychiatric: negative Musculoskeletal: negative Assessment/Plan 60-year-old female possible lung mass, sepsis, transferred here with right ear pain persistent, and confusion that is resolving. It is reasonable to obtain metabolics and an MRI brain. The MRI may help with etiology of the ear pain. Ear infection is a possibility, she is being seen by ID and there managing sepsis and subsequent therapy. She has a history of chronic pain is on gabapentin and narcotics at home. I would like to be notified of any significant change in Neuro status. Further recommendations will be based on test results, healthcare marketer communication, and clinical course. The above evaluation and recommendations were explained to patient and family present, understanding and agreement was expressed. VTE Prophylaxis - Medical Heparin 5,000 Units, SubCutaneous, Inj, [id number], Routine, Start 11/17/20 6:00:00 EST (FIFI JIN) Provider Information Primary Care Physician - MARINE, UNKNOWN Attending Physician - TRISTEN MITCHELL DO Admitting Physician - TRISTEN MITCHELL DO Consulting Physician - SHAILESH BACON MD (Call in a.m. 11/17)- Bilateral ear pain and headaches, confusion Consulting Physician - TESSA MYLES MD-INF (Call in a.m. 11/17)- Bacteremia, UTI, pneumonia Consulting Physician - JEANMARIE HWANG MD (Call in a.m. 11/17)- New lung mass, pneumonia Consulting Physician - DIANE BARROS MD-INT Referring Physician - MARINE, UNKNOWN Problem List/Past Medical History Ongoing At risk for sleep apnea Chronic back pain Depression diverticulitis fibromyalgia heartburn Hypertension Kidney stones Historical No qualifying data Procedure/Surgical History left knee surgery (07/06/2015), gallbladder removal, hysterectomy, surgery for diverticulitis Sep 2015. Medications Inpatient DuoNeb 0.5 mg-2.5 mg/3 mL inhalation solution, 3 mL, Nebulized Inhalation , RT_Q6H, PRN gabapentin, 800 mg= 2 Cap, Oral, QID Habitrol 21 mg/24 hr transdermal film, extended release, 1 Patch, TransDermal, Daily heparin, 5000 Units= 1 mL, SubCutaneous, [id number] hydrALAZINE, 10 mg= 0.5 mL, IV Push, Q6H, PRN influenza virus vaccine, inactivated, 0.5 mL, IntraMuscular, [id number] Merrem + Sodium Chloride 0.9% intravenous solution 50 mL MiraLax, 17 Gram= 1 Packet, Oral, Daily, PRN morphine, 2 mg= 1 mL, IV Push, Q2H, PRN Pepcid, 20 mg= 1 Tab, Oral, Daily Roxicodone, 5 mg= 1 Tab, Oral, Q4H, PRN Tylenol, 650 mg= 2 Tab, Oral, Q4H, PRN Zofran, 4 mg= 2 mL, IV Push, Q4H, PRN Home gabapentin 800 mg oral tablet, 800 mg= 1 Tab, Oral, QID ibuprofen 200 mg oral tablet, 400 mg= 2 Tab, Oral, Q4H, PRN Macrobid, 100 mg, Oral, BID Percocet 10/325 oral tablet, 1 Tab, Oral, Q8H, PRN Zantac, 150 mg, Oral, BID, PRN Allergies codeine (nausea, vomiting) penicillin (nausea, vomiting) Social History Alcohol Use in Last 12 Months: No. Substance Abuse Drug Use Hx: No. Use in Last 12 Months: No. Tobacco Use in Last 12 Months: Cigarettes. Years of Use: 40. Packs/Tins Daily: 1. Use in Last 12 Months: Cigarettes. Smoking Status Current every day smoker. Years of Use: 33. Packs/Tins Daily: 1. Last Used: November 2014. Smoking Status Current every day smoker. Packs/Tins Daily: 1. Family History No significant Family History Immunizations Non contributory Diagnostic Results CT head read as negative Imaging shows lung mass question pneumonia Lab positive for oxycodone, white count 19 The results were personally reviewed by me. Lab Results Test Name Test Result Date/Time Sodium Level 141 mmol/L 11/17/2020 02:36 EST Potassium Level 3.2 mmol/L (Low) 11/17/2020 02:36 EST Chloride Level 111 mmol/L 11/17/2020 02:36 EST Carbon Dioxide Level 23 mmol/L 11/17/2020 02:36 EST Anion Gap 10 11/17/2020 02:36 EST Glucose Level 109 mg/dL (High) 11/17/2020 02:36 EST Blood Urea Nitrogen 18 mg/dL 11/17/2020 02:36 EST Creatinine Level 0.70 mg/dL 11/17/2020 02:36 EST eGFR >60 mL/min/1.73m2 11/17/2020 02:36 EST eGFR NonAfrican >60 mL/min/1.73m2 11/17/2020 02:36 EST Bun/Creatinine 25.7 (High) 11/17/2020 02:36 EST Calcium Level 8.2 mg/dL (Low) 11/17/2020 02:36 EST Protein Total 6.8 Gram/dL 11/17/2020 02:36 EST Albumin Level 2.0 Gram/dL (Low) 11/17/2020 02:36 EST Globulin 4.8 Gram/dL (High) 11/17/2020 02:36 EST A/G Ratio 0.4 (Low) 11/17/2020 02:36 EST Bilirubin Total 0.4 mg/dL 11/17/2020 02:36 EST Alk Phos 80 Units/Liter 11/17/2020 02:36 EST AST 74 Units/Liter (High) 11/17/2020 02:36 EST ALT 26 Units/Liter 11/17/2020 02:36 EST Magnesium Level 1.9 mg/dL 11/17/2020 02:36 EST WBC 19.0 K/uL (High) 11/17/2020 02:36 EST RBC 2.72 Million/uL (Low) 11/17/2020 02:36 EST Hgb 9.3 g/dL (Low) 11/17/2020 02:36 EST Hct 27.8 % (Low) 11/17/2020 02:36 EST MCV 102.2 fL (High) 11/17/2020 02:36 EST MCH 34.2 pg (High) 11/17/2020 02:36 EST MCHC 33.5 Gram/dL 11/17/2020 02:36 EST Platelet Count 213 K/uL 11/17/2020 02:36 EST MPV 11.0 fL 11/17/2020 02:36 EST RDW 13.5 % 11/17/2020 02:36 EST Neut % 77.7 % (High) 11/17/2020 02:36 EST Neut # 14.75 K/uL (High) 11/17/2020 02:36 EST Lymph % 10.6 % (Low) 11/17/2020 02:36 EST Lymph # 2.01 x10(3)/uL 11/17/2020 02:36 EST Roane % 8.9 % 11/17/2020 02:36 EST Roane # 1.69 K/uL (High) 11/17/2020 02:36 EST Eos % 0.7 % 11/17/2020 02:36 EST Eos # 0.13 x10(3)/uL 11/17/2020 02:36 EST Baso % 0.3 % 11/17/2020 02:36 EST Baso # 0.06 x10(3)/uL 11/17/2020 02:36 EST Slide Review No 11/17/2020 02:36 EST IG# 0.34 x10(3)/uL (High) 11/17/2020 02:36 EST IG% 1.80 % (High) 11/17/2020 02:36 EST Electronically signed by Francisco, [facility] Conversion Trade Analyst Cerner at 02/06/2023 8:47 AM CDT documented in this encounter Plan of Treatment Not on file documented as of this encounter Visit Diagnoses Not on filedocumented in this encounter Care Teams Assistant Store Leader Relationship Specialty Start Date End Date Mona Levin MD PCP - General Family Medicine 07/19/22 documented as of this encounter
--- OUTSIDE RECORDS SUMMARY | 2025-06-01 11:16 | XMS_ITS | Encounter Summary ---
Author Organization [employer] ([place], [place], [place], [place]) Address [address] [place] [address] Care Team Providers Care Flat Spring Assembler Name Role Phone Mona Levin MD Primary Care Provider [phone]- [phone] Encounter Details Date Type Department Care Team (Late st Contact Info) Description 03/09/[address] [facility] Family Medicine [facility] [place] [address] ProviderLeia MD [address] [place] [address] Social History Tobacco Use Types Packs/Day Years Used Date Smoking Tobacco: Never Assessed Comments Unknown Sex and Gender Information Value Date Recorded Sex Assigned at Not on file Legal Sex Female 10:15 AM CDT Gender Identity Not on file Sexual Orientation Not on file documented as of this encounter Miscellaneous Notes * Cerner Conversion Note - Leia Gutiérrez MD - 03/09/2020 2:25 PM CDT Patient: SHIELA JASSO Age: 59 Years Sex: Female : 1960 FOLLOWUP DATE OF SERVICE: 02/17/2020 CHIEF COMPLAINT: Back and knee pain. HISTORY OF PRESENT ILLNESS: The patient is a 59-year-old female who returns to the clinic for followup on her back and knee pain. She rates her pain as 8/10 on the pain scale. Quality is aching, burning, radiating, dull and sharp. She has had her pain for four years. She has increased pain with weather change, housework, walking and decreased pain with rest. She gets 50% relief with her current medication. Fall risk information sheet provided. HISTORY: Allergies: Penicillin, Hydrocodone. Social History: Marital status: . Current work status: She does not work. Current tobacco use: She smokes tobacco. Illicit drug use: Denies. Alcohol use: Denies. Caffeine use: She drinks caffeine. Past Medical History: Not filled in. Past Surgical History: Not filled in. Past Family History: Noncontributory. REVIEW OF SYSTEMS: The patient's ten system Review of Systems was not filled in. VITAL SIGNS: Vital signs are reviewed. BP 145/79, heart rate 80, respiratory rate 18, O2 SATs 96%, height 5'4 , weight 190 lb. PHYSICAL EXAMINATION: Constitutional: Freely conversant and in no acute distress. Integumentary: Deferred. HEENT: Deferred. Neck: Deferred. Chest and Lung: Deferred. Cardiovascular: Deferred. Abdomen: Deferred. Peripheral Vascular: Deferred Neurologic: Deferred. Neuropsychiatric: Alert and oriented x3. Normal mood and affect. She scored a 2 on her depression questionnaire. Musculoskeletal: Negative. MEDICAL DECISION MAKING: DARREN is reviewed and is appropriate. Patient???s medications are reviewed. See list in patient???s file. PROCEDURE/TEST ORDERED: Not present. ASSESSMENT: Stable. 1. Chronic pain syndrome secondary to multisite osteoarthritis, primarily of the bilateral knees, right greater than left, status post left total knee replacement. 2. Lumbar degenerative disc disease. 3. Lumbar spondylosis. 4. Lumbar facet arthropathy. 5. Nicotine misuse. CURRENT PLAN: I am going to continue Ms. Jasso on her current medication of Diclofenac Gel 1% 4 grams q.i.d., Percocet 10 mg one p.o. q.8h, Gabapentin 800 mg q.8h. She denies any side-effects. Less than 3 minutes was spent on smoking cessation counseling. She is in agreement with the above plan. We will see her back in followup in two months. Nora Mitchell M.D. Zakiya documented in this encounter Plan of Treatment Not on file documented as of this encounter Visit Diagnoses Not on filedocumented in this encounter Care Teams Flat Spring Assembler Relationship Specialty Start Date End Date Mona Levin MD PCP - General Family Medicine 07/19/22 documented as of this encounter
--- OUTSIDE RECORDS SUMMARY | 2025-06-01 11:16 | XMS_ITS | Encounter Summary ---
Author Organization [employer] ([place], [place], [place], [place]) Address [address] [place] [address] Care Team Providers Care Chemistry Intern Name Role Phone Mona Levin MD Primary Care Provider [phone]- [phone] Encounter Details Date Type Department Care Team (Late st Contact Info) Description 04/04/2019 Transcribed Document [facility] [place] Medicine [address] [place] [address] ProviderLeia MD [address] [place] [address] Social History Tobacco Use Types Packs/Day Years [...] Gutiérrez MD - 04/04/2019 5:36 PM CDT [facility] AD[address]ESS [place], [place] [phone] Name:Shiela Nathan Visit Date:04/04/2019 11:45:00 Emergency Department Care Providers: Physician: CLIFF RESENDIZ Physician: Our doctors and staff appreciate your choice of [facility] for your emergency medical care. Read these instructions carefully. Please call us if you have any questions about your medical problem. [facility] Emergency Department [phone] [facility] Emergency Department [phone] [facility] Emergency Department [phone] Patient Education Materials Shiela Nathan Disha has [...] Follow these instructions at home: ??? Take icov-ftt-nesclof and prescription medicines only as told by [...] ??? Wash your hands often. Use hand handhole machine operator if soap and water are not available. [...] 10/05/2006 Document Revised: 06/24/2018 Document Reviewed: 01/30/2016 [employer] Interactive Patient Education ? 2019 [employer] FOLLOW UP CARE Most conditions that [...] x-ray department to pick them up o [facility] # [phone] o [facility] # [phone] o [facility] # [phone] ?? If you had cultures done and [...] quit. o National Network of Tobacco Cessation VSnafchra9-817-JXSB-NOW o [employer] o [employer] 0-352350-0145 o Omar/Raymundo Erickson [phone] FINANCIAL INFORMATION ?? [facility] provides financial counseling to anyone who requests our services. ?? Emergency Physicians are independently contracted to provide your care. You will receive a bill for the care provided to you by the Physician and/or the Physician Research Contracts Supervisor. This will be a separate bill from [...] as recommended Patient Signature / or Patient Financial Counselor Provider Signature Date documented in this encounter Plan of Treatment Not on file documented as of this encounter Visit Diagnoses Not on filedocumented in this encounter Care Teams Chemistry Intern Relationship Specialty Start Date End Date Mona Levin MD PCP - General Family Medicine 07/19/22 documented as of this encounter
--- OUTSIDE RECORDS SUMMARY | 2025-06-01 11:16 | XMS_ITS | Encounter Summary ---
Author Organization [employer] ([place], [place], [place], [place]) Address [address] [place] [address] Care Team Providers Care Tape Machine Tailer Name Role Phone Mona Levin MD Primary Care Provider [phone]- [phone] Encounter Details Date Type Department Care Team (Late st Contact Info) Description 11/17/2020 Transcribed Document [facility] [place] Family Medicine [facility] [place] [address] ProviderLeia MD [address] [place], [place] [address] Social History Tobacco Use Types Packs/Day Years Used Date Smoking Tobacco: Never Assessed Comments Unknown Sex and Gender Information Value Date Recorded Sex Assigned at Not on file Legal Sex Female 10:15 AM CDT Gender Identity Not on file Sexual Orientation Not on file documented as of this encounter Miscellaneous Notes * Cerner Conversion Note - Leia Gutiérrez MD - 11/17/2020 11:49 AM GROUNDSKEEPER SUPERVISOR Patient: SHIELA JASSO Age: 60 years Sex: Female : 1960 Associated Diagnoses: None Author: JEANMARIE HWANG MD [facility] Pulmonary CCM Consultation Note Requesting: Dr. Arellano Reason: Lung mass Basic Information CC: I dont know HPI: 60 year old female with stated history of COPD, tobacco abuse, Diverticulitis in the past with colectomy and colostomy-- later reversed, HTN, chronic pain and kidney stones who presented to [facility] on 11/11/20 with 2-3 days worth [...] and worsening symptoms, she was transferred to [facility] on 11/17/20 for further care and [...] Cigarette smoker 1 pack for 40 years PLEASE NOTE on initial evaluation the patient is drowsy and not able to give reliable history, all information is obtained from the patients chart. Review of Systems Constitutional: Weakness, Fatigue. Ear/Nose/Mouth/Throat: No decreased hearing. Respiratory: No shortness of breath, No cough, No sputum production. Cardiovascular: No chest pain. Musculoskeletal: Back pain. limited - drowsy and did not answer full questions / not reliable information Health Status Allergies: Allergic Reactions (Selected) Severity [...] mg, Oral, QID heparin: 5,000 Units, SubCutaneous, P43QOnm hydrALAZINE: 10 mg, IV Push, Q6H, PRN: Hypertension influenza virus vaccine, inactivated: 0.5 mL, IntraMuscular, L38TIsp morphine: 2 mg, IV Push, Q2H, PRN: Pain (Severe 7-10) Documented Medications Documented Macrobid: 100 mg, Oral, BID, 0 Refill(s) Percocet 10/325 oral tablet: 1 Tab, Oral, Q8H, PRN: for pain, 0 Refill(s) Zantac: 150 mg, Oral, BID, PRN: Heartburn, 0 Refill(s) gabapentin 800 mg oral tablet: 1 Tab, Oral, QID, 0 Refill(s) ibuprofen 200 mg oral tablet: 2 Tab, Oral, Q4H, PRN: for pain, 120 Tab, 0 Refill(s), Medications (13) Active Scheduled: (6) famotidine 20 mg tab 20 mg 1 Tab, Oral, Daily gabapentin 400 mg cap 800 mg 2 Cap, Oral, QID heparin 5,000 units/1 mL inj 5,000 Units 1 mL, SubCutaneous, R51KKnr influenza virus vaccine, mdck cell inj 0.5 mL, IntraMuscular, [id number] meropenem + NaCl 0.9% 50 mL 500 mg, IV Piggyback, Q6HInt nicotine 21 mg/24 hr patch 1 Patch, TransDermal, Daily Continuous: (0) PRN: (7) acetaminophen 325 mg [...] Gram 1 Packet, Oral, Daily Problem list: All Problems At risk for sleep apnea / IMO [id number] / Confirmed Chronic back pain / SNOMED CT 075132835 / Confirmed Depression / SNOMED CT 74429958 / Confirmed diverticulitis / SNOMED CT 056007685 / Confirmed fibromyalgia / SNOMED CT 246209665 / Confirmed heartburn / SNOMED CT 67625926 / Confirmed Hypertension / SNOMED CT 2529666047 / Confirmed Kidney stones / SNOMED CT 235416321 / Confirmed, Active Problems (8) At risk for sleep apnea Chronic back pain Depression diverticulitis fibromyalgia heartburn Hypertension Kidney stones Physical Examination VS/Measurements Vitals Signs (last 24 hrs) Last Charted Minimum Maximum Temp 98.5 (NOV 17:) 98.5 (NOV 17:) 98.5 (NOV 17:) Mon HR 104 (NOV 17 08:) 104 (NOV 17 08:30) 105 (NOV 17:) Resp Rate 16 (NOV 17:) 16 (NOV 17:) 16 (NOV 17:) SBP H 145 (NOV 17 08:30) 140 (NOV 17:) H 145 (NOV 17 08:) DBP 80 (NOV 17 08:30) 73 (NOV 17:) 80 (NOV 17 08:30) MAP 102 (NOV 17 08:30) 102 (NOV 17 08:30) 112 (NOV 17 01:30) General: Sleepin on entrance - arouses after calling name, drowsy, slow to speak, states name, repeats year over and over, states she is at [facility], she states I dont know to other queestions. . Eye: Pupils are equal, round and reactive to light. HENT: Normocephalic. Neck: Supple. Respiratory: Respirations are non-labored, Breath sounds are equal, Symmetrical chest wall expansion. Breath sounds: Bilateral, Base, Diminished. Cardiovascular: Normal rate, Regular rhythm, No edema. Gastrointestinal: Soft, Non-tender, Non-distended, Normal bowel sounds. Musculoskeletal: Normal range of motion, she moves all extremities and sits up on her side during visit. Integumentary: Warm, Dry. Neurologic: drowsy, arouses, follows simple commands. equal tip banding machine operator bilaterally. . Psychiatric: Cooperative. Review / Management Results review: [...] (NOV 17) Ca L 8.2 (NOV 17) PT H 13.1 (NOV 17) INR H 1.3 (NOV 17) AST H 74 (NOV 17) ALT 26 (NOV 17) ALK P 80 (NOV 17) T Bili 0.4 (NOV 17) PTN 6.8 (NOV 17) ALB L 2.0 (NOV 17) . No qualifying data available Blood Gases (Current Encounter/Past 24 Hours) No Blood Gas Results Found (Past 24 Hours) No Radiology Results Found Impression and Plan Pulmonary: ASHISH Lung mass measuring 42 mm in size Bilateral patchy groundglass opacification more anteriorly Atelectasis Stated COPD; unknown severity Previous tobacco abuse ID: Leukocytosis Sepsis on arrival outlying (tachycardia, tachypnea, and now confusion) Gram negative ervin bacteremia - E coli, Klebsiella, and Enterobacteriaceae at [facility] Pyelonephritis Post -Obstructive PNA Heme/Onc: Anemia Neuro: Drowsy ? Trigeminal Neuralgia CT head a [place] showed a lytic osseous lesion in the midline occipital bone; measuring 19 mm MRI brain Localized signal abnormality within the midline calvarium of the occipital skull, corresponds to a lytic lesion see on recent CT. Renal: ISAK on admission to [facility] initially Hypokalemia GI: History of diverticulitis with colectomy in the past with colostomy and later reversal of colostomy Elevated AST Urology: Pyelonephritis with CT abd/pelvis outlying showing mild right renal enlargement with right perinephric stranding and periureteral inflammatory stranding. 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 Patient smokes tobacco since age 12 and continue to do so. She states that she smokes pack a day at least. I have personally evaluated the patient; history and review of systems, physical examination, laboratory studies and radiology data. I have actively directed the medical care, formulated diagnosis and plan and discussed it with our team. Prognosis: guarded Full code Complex case documented in this encounter Plan of Treatment Not on file documented as of this encounter Visit Diagnoses Not on filedocumented in this encounter Care Teams Tape Machine Tailer Relationship Specialty Start Date End Date Mona Levin MD PCP - General Family Medicine 07/19/22 documented as of this encounter
--- OUTSIDE RECORDS SUMMARY | 2025-06-01 11:16 | XMS_ITS | Encounter Summary ---
Author Organization [employer] ([place], [place], [place], [place]) Address [address] [place] [address] Care Team Providers Care Fisher Trammel Net Name Role Phone Mona Levin MD Primary Care Provider [phone]- [phone] Encounter Details Date Type Department Care Team (Late st Contact Info) Description 11/17/2020 Transcribed Document [facility] [place] [facility] [address] ProviderLeia MD [address] [place], [place] [address] Social History Tobacco Use Types Packs/Day Years Used Date Smoking Tobacco: Never Assessed Comments Unknown Sex and Gender Information Value Date Recorded Sex Assigned at Not on file Legal Sex Female 10:15 AM CDT Gender Identity Not on file Sexual Orientation Not on file documented as of this encounter Miscellaneous Notes * Cerner Conversion Note - Leia ProviderMD - 11/17/2020 1:09 AM ALUMINUM BOAT INSPECTOR Meds to Bed Enrollment Entered On: 11/18/2020 15:35 EST Performed On: 11/17/2020 1:09 EST by ANALISA SNOW PHARMACIST-MEDICATION RECON Meds to Bed Enrollment Patient Enrollment Decision: : Yes/enroll in meds to bed program ANALISA SNOW PHARMACIST-MEDICATION LESLIE - 11/18/2020 15:35 EST documented in this encounter Plan of Treatment Not on file documented as of this encounter Visit Diagnoses Not on filedocumented in this encounter Care Teams Fisher Trammel Net Relationship Specialty Start Date End Date Mona Levin MD PCP - General Family Medicine 07/19/22 documented as of this encounter
--- OUTSIDE RECORDS SUMMARY | 2025-06-01 11:17 | XMS_ITS | Encounter Summary ---
Author Organization [facility] Address [address] [place] [address] Care Team Providers Care Chef De Froid Name Role Phone Jacquelyn Desouza APRN Primary Care Provider [phone]- [phone] Reason for Visit * Reason Onset Date Comments SAMPLES 04/05/2025 Encounter Details Date Type Department Care Team (Late st Contact Info) Description 04/05/2025 Telephone [facility] PULMONARY CRITICAL CARE & SLEEP MEDICINE [address] [facility] [address] [address] Olivia Ramachandran APRN [address] [facility] MED OFFICE [facility] [address] [address] SAMPLES Social History Tobacco Use [...] place to sleep or slept in a prison (including now)? No 02/21/2023 Abuse Screen Answer [...] or training? Not on file Preferred Language Wallisian 05/13/2023 PHQ-2 Answer Date Recorded Retired PHQ-9: [...] PATIENT IS HAVING HER BOYFRIEND Jarrod Jones LACE WEAVER THE SAMPLE * Telephone Encounter - Sharlene Mendieta MA - 04/06/2025 1:13 PM EDT One sample available at [facility] * Telephone Encounter - Sharlene Mendieta MA - 04/05/2025 4:09 PM EDT Informed patient that I would check [facility] for refills tomorrow and call her back. * Telephone Encounter - Ann Leung RegSched Rep - 04/05/2025 3:28 PM EDT Caller: SHIELA JASSO Relationship:SELF Callback number: [phone] Is it ok to leave a message: [x] Yes [] No Requested medication for samples: RODTRKaty How much medication does the patient currently [...] 2:10 PM EDT Office Visit [facility] ORTHOPEDICS & SPORTS MEDICINE [address] [place] [address] Delaney Concepcion MD [address] [facility] [address] [place], [place] [id number] 06/22/2025 1:15 PM EDT Office Visit [facility] PULMONARY & CRITICAL CARE MEDICINE [address] [place] [address] Olivia Ramachandran APRN [address] [facility] MED OFFICE [facility] 3 [facility] [address] [place] [address] documented as of this encounter Visit Diagnoses Not on filedocumented in this encounter Care Teams Chef De Froid Relationship Specialty Start Date End Date Jacquelyn Desouza APRN [address] [place] [address] PCP - General Nurse Practitioner 08/25/22 documented as of this encounter
--- OUTSIDE RECORDS SUMMARY | 2025-06-01 11:17 | XMS_ITS | Encounter Summary ---
Author Organization [employer] ([place], [place], [place], [place]) Address [address] [place] [address] Care Team Providers Care Pyridine Recovery Operator Name Role Phone Mona Levin MD Primary Care Provider [phone]- [phone] Encounter Details Date Type Department Care Team (Late st Contact Info) Description 04/04/2019 Transcribed Document [facility] [place] Family Medicine [address] [place] [address] ProviderLeia MD [address] [place] [address] Social History Tobacco Use Types Packs/Day Years Used Date Smoking Tobacco: Never Assessed Comments Unknown Sex and Gender Information Value Date Recorded Sex Assigned at Not on file Legal Sex Female 10:15 AM CDT Gender Identity Not on file Sexual Orientation Not on file documented as of this encounter Miscellaneous Notes * Cerner Conversion Note - Leia Gutiérrez MD - 04/04/2019 3:53 PM CDT BBK Triage ED Entered On: 04/04/2019 11:56 EDT Performed On: 04/04/2019 11:53 EDT by Justine Sheikh, Triage Assessment Triage Date/Time : 04/04/2019 11:53 EDT Justine Sheikh, - 04/04/2019 11:53 EDT DCP GENERIC CODE Tracking Acuity : 3 - Urgent [facility] Tracking Group : LASHANDA [place] Justine Sheikh, - 04/04/2019 11:53 EDT ED Visit Reason : Cough Primary Care Provider : Poonam Accompanied By : Family/Spouse/SO Arrival Mode : Ambulatory Chief Complaint : Pt c/o continous nonproductive cough x2 weeks. Pt states that it is causing her to have pain in chest, ribs, and back. Health History Reviewed : Yes Justine Sheikh, - 04/04/2019 11:53 EDT Health History ED Grid Alcohol Use : No Caffeine Use : Yes Substance Abuse : No Tobacco Use : Yes, 1/2 ppd Asthma/COPD : No Cancer : No CVA/TIA : No Mental Illness : Yes, depression Dementia : No Diabetes : No General Cardiac : No GI Medical History : No, colostomy Contact Center Rep Hx : No Heart Attack : No Heart Failure : No High Blood Pressure : Yes High Cholesterol : No Liver Disease : No Renal : No Seizure : No Surgical History : Yes, lt knee,hysterectomy Thyroid Disease : No AIDS/HIV : No MRSA : No Tuberculosis : No VRE : No Other Medical History : Yes, back inj, neuropathy, kidney stone Pathway Planning : No Justine Sheikh, - 04/04/2019 11:53 EDT Temp : 98.0 Deg F(Converted to: 36.7 Deg C) Temp Route : Oral/Mouth Systolic Blood Pressure : 180 mmHg (HI) Diastolic Blood Pressure : 108 mmHg (HI) Pulse Rate : 87 bpm Respiratory Rate : 20 Breaths/Min Oxygen Saturation : 100 % Oxygen Therapy Resp Assess : Room air Pain Symptoms : Yes Height/Weight Med Rec : Open Medication Profile, Med Rec : Open Allergy Profile, Med Rec : Open Workman's Compensation : No Preferred Communication Mode : Verbal Languages : Tanzanian Child/Parent Domestic Concerns : None Threats of Suicide : No Justine Sheikh, - 04/04/2019 11:53 EDT Height and Weight Height Source : Stated Height Entry Format : [place] Height, Inches : 64 Inch(Converted to: 5 ft 4 Inch, 162.56 cm) Clinical Height : 162.56 cm Weight Source : Stated Type of Weight Measurement Est : [place] Weight, est lb : 198 lb Estimated Clinical Dosing Weight : 90 kg [place] Body Weight : 54 kg Body Surface Area Estimated : 2.02 m2 Body Mass Index Estimated : 34.06 kg/m2 Justine Sheikh, - 04/04/2019 11:53 EDT Medication List ED Medications Reviewed : Yes Source of Information : Patient Justine Sheikh, - 04/04/2019 11:53 EDT Medication List (As Of: 04/04/2019 11:56:21 EDT) Home Meds Status: Processing ; Ordered As Mnemonic: Percocet ; Simple Display Line: 0 Refill(s) ; Action Display: Document ; Catalog Code: acetaminophen-oxyCODONE ; Order Dt/Tm: 04/04/2019 11:55:49 gabapentin : gabapentin ; Status: Documented ; Ordered As Mnemonic: Neurontin ; Catalog Code: gabapentin ; Order Dt/Tm: 07/20/2013 23:15:46 ibuprofen : ibuprofen ; Status: Documented ; Ordered As Mnemonic: ibuprofen ; Catalog Code: ibuprofen ; Order Dt/Tm: 07/20/2013 23:15:42 losartan : losartan ; Status: Documented ; Ordered As Mnemonic: losartan 100 mg oral tablet ; Simple Display Line: 100 mg, 1 Tab, Oral, Daily, 30 Tab, 0 Refill(s) ; Catalog Code: losartan ; Order Dt/Tm: 04/18/2018 21:15:26 Allergy Profile (As Of: 04/04/2019 11:56:21 EDT) Allergies (Active) codeine Estimated Onset Date: Unspecified ; Created By: KALI DAS; Reaction Status: Active ; Category: Drug ; Substance: codeine ; Type: Allergy ; Updated By: KALI DAS; Reviewed Date: 04/04/2019 11:55 EDT penicillins Estimated Onset Date: Unspecified ; Created By: KALI DAS; Reaction Status: Active ; Category: Drug ; Substance: penicillins ; Type: Allergy ; Updated By: KALI DAS; Reviewed Date: 04/04/2019 11:55 EDT Pain Pain Assessment Grid Intensity : 7 Justine Sheikh, - 04/04/2019 11:53 EDT documented in this encounter Plan of Treatment Not on file documented as of this encounter Visit Diagnoses Not on filedocumented in this encounter Care Teams Pyridine Recovery Operator Relationship Specialty Start Date End Date Mona Levin MD PCP - General Family Medicine 07/19/22 documented as of this encounter
--- OUTSIDE RECORDS SUMMARY | 2025-06-01 11:17 | XMS_ITS | Encounter Summary ---
Author Organization [facility] ([place], [place], [place], [place]) Address [address] [place] [address] Care Team Providers Care Medical Sales Representative Name Role Phone Mona Levin MD Primary Care Provider [phone] Encounter Details Date Type Department Care Team (Late st Contact Info) Description 11/21/2020 Transcribed Document [facility] Radiology [address] [place] [address] Ramos Morelos MD [address] [place] [address] Social History Tobacco Use Types Packs/Day Years Used Date Smoking Tobacco: Never Assessed Comments Unknown Sex and Gender Information Value Date Recorded Sex Assigned at Not on file Legal Sex Female 10:15 AM CDT Gender Identity Not on file Sexual Orientation Not on file documented as of this encounter Miscellaneous Notes * Cerner Conversion Note - Ramos Morelos MD - 11/21/2020 9:23 AM EST PLEASE MODIFY BEFORE SIGNING CLINICAL DOCUMENTATION CLARIFICATION FORM: Dear : Jethro____ Date: ___11/21/2020 Please exercise your independent, professional judgment in responding to the clarification form. Clinical indicators are provided on the bottom of this form for your review Please check appropriate box(es): [ x ] Sepsis due to UTI, Pneumonia Present on Admission [ ] Sepsis due to UTI, Pneumonia not Present on Admission [ ] Severe sepsis with acute organ dysfunction of acute encephalopathy Present on Admission [ ] Severe Sepsis with acute organ dysfunction of acute encephalopathy not Present on Admission [ ] Localized infection without sepsis [ ] Other diagnosis [ ] Unable to determine For continuity of documentation, please document condition throughout progress notes and discharge summary. Thank You. To be completed by CDI/Coding staff for physician review: Present Clinical Indicators - Signs / Symptoms / Labs Results and Location in Medical Record [ x ] Altered mental status, increased confusion, obtunded 11/17-H&P-she is confused, lethargic, acute encephalopathy [ x ] Fever or hypothermia (<96.8 F/36 C or > 100.4 F/38C) 11/1882-Akgrrm-Ocyu-99.7 [ x ] Documentation of Sepsis 11/1722-ILJ-Gozyca on arrival [ x ] Heart Rate/Tachycardia (>90 bpm) 11/1784-Oozntj-NJ-105 (on admission) 11/1874-Trhzzd-MW-100 [ x ] Acute organ dysfunction/failure 11/17-H&P-acute encephalopathy [ x ] WBC count (>12,000/mm^4 or <4000/mm^3 or 70% neuts, 10% bands) 11/1741-Egqo-AYS-19.0/MEDINA-77.7 On admission) 11/1835-Gieo-GLD-18.2/MEDINA-79.0 Present Risk Factors Results and Location in Medical Record [x ] Infection/Bacteremia 11/17-H&P-E coli bacteremia, COPD exacerbation [ x ] Pneumonia, UTI 11/17-H&P-post obstructive Pneumonia, Klebsiella UTI [ x ] Tobacco abuse 11/17-H&P-tobacco abuse Present Treatments Results and Location in Medical Record [x ] Daily CBC, blood cx 11/17-MD orders-CBC, blood cultures [ x ] ID Consult 11/17-MD orders-ID consult [ x ] IV Antibiotics ??? broad spectrum 11/17-MD orders-Merrem IV 11/18-MD orders-Rocephin IV CDS Signature: ____Efrem Rodas RN, MSN, CDS Phone #: __[phone]____ Date: ____11/21/2020__ This is a permanent part of the Medical Record Q56 2020 [facility] Updated: documented in this encounter Plan of Treatment Not on file documented as of this encounter Visit Diagnoses Not on filedocumented in this encounter Care Teams Medical Sales Representative Relationship Specialty Start Date End Date Mona Levin MD PCP - General Family Medicine 07/19/22 documented as of this encounter
--- OUTSIDE RECORDS SUMMARY | 2025-06-01 11:17 | XMS_ITS | Encounter Summary ---
Author Organization [employer] ([place], [place], [place], [place]) Address [address] [place] [address] Care Team Providers Care Hydroelectric Plant Maintainer Name Role Phone oMna Levin MD Primary Care Provider [phone] Encounter Details Date Type Department Care Team (Late st Contact Info) Description 10/25/2020 Transcribed Document [facility] [place] Medicine [facility] [place] [address] ProviderLeia MD [address] [place] [id number] Social History Tobacco Use Types Packs/Day Years Used Date Smoking Tobacco: Never Assessed Comments Unknown Sex and Gender Information Value Date Recorded Sex Assigned at Not on file Legal Sex Female 10:15 AM CDT Gender Identity Not on file Sexual Orientation Not on file documented as of this encounter Miscellaneous Notes * Cerner Conversion Note - Leia Gutiérrez MD - 10/25/2020 4:10 PM SENIOR RESEARCH CONSULTANT Patient: SHIELA JASSO Age: 60 Years Sex: Female : 1960 FOLLOWUP DATE OF SERVICE: 10/03/2020 CHIEF COMPLAINT: Left knee pain, right shoulder pain, low back pain. HISTORY OF PRESENT ILLNESS: The patient is a 60-year-old female who returns to the clinic today with a history significant for low back pain and multifocal joint pain that has been ongoing since 2016. The patient describes that the pain is worse with physical activity as well as cold wet weather changes. She does get relief with medication use from our facility as well as rest. She describes her pain level today as 7.5/10 on the numerical pain scale rating. She is reporting 50% pain relief at this time with the use of Percocet 10/325 mg three times daily dosing, Gabapentin 800 mg three times daily dosing, Lidocaine Ointment 5% that the patient applies four times daily. Nursing intake is reviewed and noted on today's visit this individual has a BP 159/94, heart rate 88, respiratory rate 18, O2 SATs 95% on room air, height 5'4 , weight 196 lb. HISTORY: Allergies: Penicillin, [place]. Social History: Marital status: . Current work status: The patient does not report occupation at this time. Current tobacco use: Nicotine use in the form of cigarettes, one-half pack a day for 40 years Illicit drug use: Denies. Alcohol use: Denies. Caffeine use: Not reported. Past Medical History: Kidney stones. Past Surgical History: Cholecystectomy. Arthroscopic knee surgery. Arthroscopic shoulder surgery. Tubal ligation. Past Family History: Cancer. Type 2 diabetes. Strokes. REVIEW OF SYSTEMS: The patient's ten system Review of Systems was reviewed and on today's visit this individual has complaints of the following: General: Negative. Respiratory: Shortness of breath. Neurological: Negative. Gastrointestinal: Diarrhea. Musculoskeletal: Negative. Cardiovascular: Leg pain with walking. Psychiatric: Negative. HEENT: Negative. Endocrine: Negative. Hematology: Negative. Skin: Negative. Genitourinary: Negative. PHYSICAL EXAMINATION: Constitutional: Conversant and well-nourished. Vital signs were reviewed today. Integumentary: Deferred. HEENT: Deferred. Neck: Deferred. Chest and Lung: Deferred. Cardiovascular: Deferred. Abdomen: Deferred. Peripheral Vascular: Deferred. Neurologic: Deferred. Psychiatric: The patient is alert and oriented to self, time and place today. The patient has a normal mood and affect at today's visit and there is minimal evidence of depression on the depression questionnaire that was completed today. Musculoskeletal: Deferred. ASSESSMENT: 1. Chronic pain syndrome secondary to multisite osteoarthritis involving primarily the bilateral knees. 2. Lumbar degenerative disc disease. 3. Lumbar spondylosis. 4. Lumbar facet arthropathy. 5. Nicotine misuse. CURRENT PLAN: I am going to continue Ms. Jasso on her current medication regimen from our facility at this time. Her DARREN report was appropriate upon review today. I spent 3-5 minutes today discussing nicotine cessation with this individual at today's visit. We will see the patient back in the clinic in two months for a followup appointment. The patient has an understanding and agrees with the above plans. WILLIAMS Torres/ra Electronically signed by Francisco, [facility] Conversion Small Engine Trainer Cerner at 02/02/2023 6:28 PM CDT documented in this encounter Plan of Treatment Not on file documented as of this encounter Visit Diagnoses Not on filedocumented in this encounter Care Teams Hydroelectric Plant Maintainer Relationship Specialty Start Date End Date Mona Levin MD PCP - General Family Medicine 07/19/22 documented as of this encounter
--- OUTSIDE RECORDS SUMMARY | 2025-06-01 11:17 | XMS_ITS | Encounter Summary ---
Author Organization [employer] ([place], [place], [place], [place]) Address [address] [place] [address] Care Team Providers Care Brush Clearer Surveying Name Role Phone Mona Levin MD Primary Care Provider [phone]- [phone] Encounter Details Date Type Department Care Team (Late st Contact Info) Description 11/26/2020 Transcribed Document [facility] [place] [facility] [place] [address] ProviderLeia MD [address], [place] [id number] Social History Tobacco Use Types Packs/Day Years Used Date Smoking Tobacco: Never Assessed Comments Unknown Sex and Gender Information Value Date Recorded Sex Assigned at Not on file Legal Sex Female 10:15 AM CDT Gender Identity Not on file Sexual Orientation Not on file documented as of this encounter Miscellaneous Notes * Cerner Conversion Note - Leia ProviderMD - 11/26/2020 2:35 PM CARGO WORKER Patient: SHIELA JASSO Age: 60 years Sex: Female : 1960 Associated Diagnoses: None Author: TRISTEN MITCHELL DO Subjective Ms. Jasso was seen by me this morning. she tells me that she slept better last night. still having some sob and coughing. no abdp ain or n/v, no diarrhea. still having ear pain and pound in her ears. Objective Intake and Output Intake & Output Totals Last 24 Hours (7a-7a) Intake (22 Events) Medications (500.52 mL) Oral Intake (365 mL) Output (0 Events) No output events found in the last 24 hours. Input Total: 865.52 mL Output Total: 0 mL Balance: 865.52 mL VS/Measurements Vitals Signs (last 24 hrs) Last Charted Minimum Maximum Temp 98.1 (NOV 26 10:34) 98 (NOV 25 17:21) 98 (NOV 25 17:21) Mon HR 96 (NOV 26 10:34) 81 (NOV 25 17:21) 96 (NOV 26 10:34) Resp Rate 16 (NOV 26 06:00) 16 (NOV 25 17:21) 18 (NOV 25:20) SBP 119 (NOV 26 10:34) 107 (NOV 26 06:00) 133 (NOV 25 21:20) DBP 63 (NOV 26 10:34) 63 (NOV 26 10:34) 70 (NOV 26 02:00) MAP 76 (NOV 26 10:34) 76 (NOV 26 10:34) 82 (NOV 25 17:21) SpO2 97 (NOV 26 08:40) 97 (NOV 25 21:02) 98 (NOV 26 06:00) General: Alert and oriented, No acute distress. [...] affect. Results Review General results Interpretation: NOV 26 07:17 139 H 114 15 / 99 4.2 L 14 0.90 \ NOV 26 07:17 \ L 8.8 / H 12.6 354 / L 27.9 \ Labs (Last four charted values) WBC H 12.6 (NOV 08) H 12.3 (NOV 07) H 17.8 (NOV 05) H 21.6 (B ) HB L 8.8 (B 08) L 8.4 (B 07) L 9.0 (B 05) L 10.3 (B ) HCT L 27.9 (NOV 08) L 26.6 (B 07) L 28.4 (B 05) L 32.9 (B 04) Plt 354 (NOV 08) 325 (NOV 07) 258 (NOV 23) 334 (NOV 22) Na 139 (NOV 26) 141 (NOV 25) 141 (NOV 24) 138 (NOV 23) K 4.2 (NOV 26) 4.1 (NOV 25) 3.8 (B ) 3.6 (B ) Cl H 114 (NOV 26) H 117 (NOV 25) H 118 (NOV 24) H 114 (NOV 23) CO2 L 14 (NOV 26) L 13 (NOV 25) L 10 (NOV 06) L 11 (NOV 23) BUN 15 (NOV 26) 18 (NOV 25) 15 (NOV 24) 18 (NOV 23) Cr 0.90 (NOV 26) 0.80 (NOV 25) 0.80 (NOV 24) 1.00 (NOV 23) Glu R 99 (NOV 26) 101 (NOV 25) 90 (NOV 24) 94 (NOV 23) Ca 9.4 (NOV 26) 9.2 (NOV 25) 8.4 (NOV 24) 8.8 (NOV 23) Lactic 1.2 (NOV 22) PT H 13.1 (NOV 17) INR H 1.3 (NOV 17) AST 20 (NOV 23) 22 (NOV 22) 16 (NOV 03) H 66 (NOV 19) ALT 23 (NOV 23) 23 (NOV 22) 20 (NOV 03) 42 (NOV 19) ALK P 121 (NOV 23) 88 (NOV 22) 70 (NOV 03) 84 (NOV 19) T Bili 0.3 (FEB 05) 0.5 (NOV 22) 0.3 (NOV 21) 0.5 (NOV 19) PTN 7.5 (NOV 23) 7.8 (NOV 22) 7.5 (NOV 21) H 8.3 (NOV 19) ALB L 2.2 (NOV 23) L 2.3 (NOV 22) L 2.2 (NOV 21) L 2.4 (NOV 19) Radiology Results (Last 48 hours) [id number] -- 11/17/2020 01:09 CR Chest 1 Vw Portable (11/26/2020 11:35) Result: PORTABLE CHEST 11/26/2020 8:45 AM HISTORY: Cough.COMPARISON: 11/23/2020.FINDINGS: The heart is normal in size . Right-sided PICC line tip is inthe SVC. There is a density in the periphery of the left upper lobemeasuring 5.4 x 3.0 cm. This is slightly less evident when compared tothe prior. There is no pneumothorax . The osseous structures areunremarkable . IMPRESSION: Left upper lobe density, slightly less evident than seenpreviously.Images reviewed, interpreted, and dictated by Dr. Jae Shabazz.Transcribed by Alex Grigsby PA-C.I have personally viewed, interpreted and dictated the examination. Ihave read and agree with the above final transcribed report. 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 Tristen Nunes Hospitalist pager- [phone] Electronically signed by Francisco, [facility] Conversion Correctional Supervisor Cerner at 02/06/2023 8:50 AM CDT documented in this encounter Plan of Treatment Not on file documented as of this encounter Visit Diagnoses Not on filedocumented in this encounter Care Teams Brush Clearer Surveying Relationship Specialty Start Date End Date Mona Levin MD PCP - General Family Medicine 07/19/22 documented as of this encounter
--- OUTSIDE RECORDS SUMMARY | 2025-06-01 11:17 | XMS_ITS | Encounter Summary ---
Author Organization [employer] ([place], [place], [place], [place]) Address [address] [place] [address] Care Team Providers Care It Administrator Name Role Phone Mona Levin MD Primary Care Provider [phone] Encounter Details Date Type Department Care Team (Late st Contact Info) Description 04/04/2019 Transcribed Document [facility] [place] [address] [place] [address] ProviderLeia MD [address] [place] [address] Social History Tobacco Use Types Packs/Day Years Used Date Smoking Tobacco: Never Assessed Comments Unknown Sex and Gender Information Value Date Recorded Sex Assigned at Not on file Legal Sex Female 10:15 AM CDT Gender Identity Not on file Sexual Orientation Not on file documented as of this encounter Miscellaneous Notes * Cerner Conversion Note - Leia ProviderMD - 04/04/2019 5:36 PM CDT [facility] Emergency Department Depart Summary PERSON INFORMATION Name Shiela Nathan Age 58 Years 1960 Sex Female Language PCP Marital Status Phone [phone] Visit Id Visit Reason Specialty Enc Type Emergency Med Service Referred by Track Group [facility] [place] Discharge Tracking Id [id number] Checkout 04/04/2019 13:36:49 Checkin 04/04/2019 11:45:00 Acuity 3 - Urgent [place] Dispo Type Arrival 04/04/2019 11:45:00 Reg Status LOS 000 01:51 Address: [address] [place] [address] [place] [address] POWERFORMS PHYSICIAN NOTES VITALS INFORMATION Vital Sign Triage Temp 98.0 Temp Route Oral/Mouth Pulse Rate 87 Respiratory Rate 20 Blood Pressure 180/ 108 LOCATION INFORMATION Arrival Nurse Unit Room Bed 04/04/2019 11:45:00 [facility] ED Waitroom ([facility]) 04/04/2019 11:48:14 [facility] ED 6 04/04/2019 11:51:34 [facility] ED Waitroom ([facility]) 04/04/2019 12:15:21 [facility] ED 6 04/04/2019 13:36:49 [facility] ED Checkout ([facility]) MEDICAL INFORMATION Allergy Info: penicillins; codeine PATIENT EDUCATION INFORMATION Instructions: Community-Acquired Pneumonia, Adult Follow up: With: Address: When: Follow up with primary care provider Within 2-4 days DIAGNOSIS documented in this encounter Plan of Treatment Not on file documented as of this encounter Visit Diagnoses Not on filedocumented in this encounter Care Teams It Administrator Relationship Specialty Start Date End Date Mona Levin MD PCP - General Family Medicine 07/19/22 documented as of this encounter
--- OUTSIDE RECORDS SUMMARY | 2025-06-01 11:17 | XMS_ITS | Encounter Summary ---
Author Organization [employer] ([place], [place], [place], [place]) Address [address] [place] [address] Care Team Providers Care Product Sales Representative Name Role Phone Mona Levin MD Primary Care Provider [phone] Encounter Details Date Type Department Care Team (Late st Contact Info) Description 11/27/2020 Transcribed Document [facility] [place] [facility] [place] [address] ProviderLeia MD [address] [place], [place] [id number] Social History Tobacco Use Types Packs/Day Years Used Date Smoking Tobacco: Never Assessed Comments Unknown Sex and Gender Information Value Date Recorded Sex Assigned at Not on file Legal Sex Female 10:15 AM CDT Gender Identity Not on file Sexual Orientation Not on file documented as of this encounter Miscellaneous Notes * Cerner Conversion Note - Leia ProviderMD - 11/27/2020 11:33 AM FUNDRAISING DIRECTOR Patient: SHIELA JASSO Age: 60 years Sex: Female : 1960 Associated Diagnoses: None Author: EUN MITCHELL DO Results Review Admission Date: Admit Date 11/17/2020 01:09 Discharge Date: 11/27/2020 Discharge Information discharge to home with home health. Physical Examination VS/Measurements Vitals Signs (last 24 hrs) Last Charted Minimum Maximum Temp 98 (NOV 27:25) 98 (NOV 27:25) 98.1 (NOV 26 14:00) Mon HR 94 (NOV 27:25) 84 (NOV 26 17:00) 104 (NOV 26:25) Resp Rate 18 (NOV 27:25) 18 (NOV 26:25) 18 (NOV 26:25) SBP 126 (NOV 27:25) 100 (NOV 26:00) 126 (NOV 26:25) DBP 76 (NOV 27:25) 64 (NOV 26 17:00) 78 (NOV 26:25) MAP 90 (NOV 27:) 86 (NOV 26 17:00) 93 (NOV 26:) SpO2 97 (NOV 27:) 96 (NOV 26 14:00) 98 (NOV 26 17:00) awake, alert, pleasant, on room air, heart RRR, lungs cta bilaterally, no le edema. no focal neurological deficits. Hospital Course Significant labs/imaging: Radiology Results (Last 48 hours) [id number] -- 11/17/2020 01:09 CR Chest 1 Vw [...] transcribed report. CR Chest 1 Vw Portable (11/27/2020 07:15) Result: PORTABLE CHEST 11/27/2020 6:00 AM HISTORY: Shortness of breath.COMPARISON: November 26, 2020.FINDINGS: The heart is proper size. There is ectasia the aorta. RightPICC line tip terminates in the superior vena cava. There is apersistent peripheral opacity within the left upper lobe. Right lung isclear. There is no pneumothorax. IMPRESSION: Left upper lobe peripheral opacity. Please see recent biopsyresults.Images reviewed, interpreted, and dictated by Dr. Ronald Gerber.Transcribed by OSCAR Acuña have personally viewed, interpreted and dictated the examination. Ihave read and agree with the above final transcribed report. CBC Results (Current Encounter/Past 24 Hours) WBC 13.2 K/uL HI 11/27/2020 09:03 Hct 27.5 % LOW 11/27/2020 06:52 Hgb 8.8 g/dL LOW 11/27/2020 06:52 Platelet Count 381 K/uL HI 11/27/2020 09:03 CMP Results (Current Encounter/Past 24 Hours) A/G Ratio 0.4 LOW 11/27/2020 07:09 Globulin 5.5 Gram/dL ME 11/27/2020 07:09 Bun/Creatinine 18.2 11/27/2020 07:09 eGFR >60 mL/min/1.73m2 11/27/2020 07:09 eGFR NonAfrican 51 mL/min/1.73m2 LOW 11/27/2020 07:09 Globulin 5.5 Gram/dL HI 11/27/2020 09:03 Creatinine Level 1.10 mg/dL HI 11/27/2020 09:03 A/G Ratio 0.4 LOW 11/27/2020 09:03 eGFR NonAfrican 51 mL/min/1.73m2 LOW 11/27/2020 09:03 Creatinine Level 1.10 mg/dL ME 11/27/2020 07:09 Protein Total 7.9 Gram/dL 11/27/2020 07:09 Sodium Level 138 mmol/L 11/27/2020 07:09 Potassium Level 4.3 mmol/L 11/27/2020 07:09 Chloride Level 112 mmol/L 11/27/2020 07:09 Carbon Dioxide Level 16 mmol/L LOW 11/27/2020 09:03 Anion Gap 14 11/27/2020 07:09 Alk Phos 102 Units/Liter 11/27/2020 07:09 ALT 38 Units/Liter 11/27/2020 07:09 AST 47 Units/Liter ME 11/27/2020 09:03 Blood Urea Nitrogen 20 mg/dL 11/27/2020 07:09 Glucose Level 100 mg/dL 11/27/2020 07:09 Albumin Level 2.4 Gram/dL LOW 11/27/2020 09:03 Bilirubin Total 0.4 mg/dL 11/27/2020 07:09 Calcium Level 9.4 mg/dL 11/27/2020 07:09 Consultants: dr demetris gunn pulmonology dr lopes- neurosurgery Procedures: gt guided lung biopsy on 11/19 Problem List: 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 id planning on itraconazole on discharge. metabolic acidosis- improved -po bicarb started on 11/25 - continue to monitor occipital lytic lesion - as seen on mri, initially concern for malignancy now thinking it is blastomycosis - was seen by neurosurgery while here e coli bacteremia at OSH - ID consult appreciated - ertapenem until 12/03 post-obstructive pneumonia - pulmonology consult appreciated - resp PCR negative, covid negative possible small right renal abscess - as seen on ct abd from 11/21 - ertapenem until 12/03 klebsiella uti - ertapenem acute copd exacerbation - improved - did not require steroids chronic pain narcotic dependent - resume home percocet hypokalemia - repleted thrombocytopenia - resolved iron deficiency anemia - continue iron supplementation headaches and bilateral ear pain - seen by neurology on 11/18, no specific recommendations acute encephalopathy - resolved tobacco abuse - nicotine patch hospital course: Ms. Jasso is a 60 year old female with history of chronic pain who presented to [facility] for evaluation of headache and sob. She was found to have lung mass with possible occipital lytic lesions on scans, she was transferred to [facility] for evaluation on 11/17. She was seen by pulmonology, infectious disease, neurosurgery and neurology here. She underwent CT guided lung biopsy on 11/19 and this showed blastomycosis. ID feels that the lytic bone lesion is likely blastomycosis. She was started on amphotericin on 11/21 and completed 7 days on 11/27, she will be discahrged to home on po intraconazole on 11/27. She also had ct abd done for elevated procal level, this showed renal abscess- she was on merrem while here and will be dc'd on invanz via picc line until 12/03. She is being discharged to home on 11/27. discharge orders per dr gunn: UM/KEY: 1. Ertapenem 1g IV q24h. Plan to continue at least until 12/03/20 2. Starting at time of discharge: Itraconazole 200 mg PO Tab TID x 3 days, then 200 mg PO BID. Case mgmt needs to check and get prior authorization prior to discharge. Needs script 3. Will plan to get labs on 12/03 at clinic appointment. cbc with diff, cmp, esr, crp, procalcitonin, and itraconazole level 4. weekly PICC dressing changes 5. Follow up in my clinic on 12/03/20. Clinic to call with appointment time 6. Please fax a copy of my orders to [facility] at [phone] and call [phone] with final discharge plans Discharge Follow Up DEMETRIS GUNN - In 1 week 12/03/2020 SOSA LOPES - Within 1 month JEANMARIE HWANG - Within 2 to 4 weeks KAROLINA COLIN - Within 1 week Discharge Activity Activity as tolerated Discharge Plan Discharge Summary Plan Discharge Status: stable. Discharge instructions given: to patient. Prescriptions: Home Medications (9) Active cetirizine 10 mg oral tablet 10 mg = 1 Tab, Oral, Daily ertapenem 1 Gram, IV Piggyback, [id number] gabapentin 800 mg oral tablet 800 mg = 1 Tab, Oral, Q8H ibuprofen 200 mg oral tablet 400 mg = 2 Tab, PRN, Oral, Q4H itraconazole 100 mg oral capsule See Instructions pantoprazole 40 mg oral delayed release tablet 40 mg = 1 Tab, Oral, Daily Percocet 10/325 oral tablet 1 Tab, Oral, Q8H sodium bicarbonate 650 mg oral tablet 650 mg = 1 Tab, Oral, BID Vitamin D3 2000 units oral tablet 2,000 Int Units = 1 Tab, Oral, Daily . Time spent on discharge: 35 min Eun Nunes Hospitalist documented in this encounter Plan of Treatment Not on file documented as of this encounter Visit Diagnoses Not on filedocumented in this encounter Care Teams Product Sales Representative Relationship Specialty Start Date End Date Mona Levin MD PCP - General Family Medicine 07/19/22 documented as of this encounter
--- OUTSIDE RECORDS SUMMARY | 2025-06-01 11:17 | XMS_ITS | Encounter Summary ---
Author Organization [employer] ([place], [place], [place], [place]) Address [address] [place] [place] [address] Care Team Providers Care Pens And Pencils Dipper Name Role Phone Mona Levin MD Primary Care Provider [phone] Encounter Details Date Type Department Care Team (Late st Contact Info) Description 11/27/2020 Transcribed Document [facility] Family Medicine [facility] [place] [address] ProviderLeia MD [address] [place] [address] Social History Tobacco Use Types Packs/Day Years Used Date Smoking Tobacco: Never Assessed Comments Unknown Sex and Gender Information Value Date Recorded Sex Assigned at Not on file Legal Sex Female 10:15 AM CDT Gender Identity Not on file Sexual Orientation Not on file documented as of this encounter Miscellaneous Notes * Cerner Conversion Note - Leia Gutiérrez MD - 11/27/2020 5:37 PM PEARL DIGGER [facility] [place], [place] [id number] SHIELA JASSO :1960 Visit Time:11/17/2020 Your Visit Summary Your Care Team Admitting Physician - TRISTEN MITCHELL, DO Attending Physician - TRISTEN MITCHELL, DO Primary Care Physician - MARINE, UNKNOWN Referring Physician - MARINE, UNKNOWN Your Diagnosis Bacterial pneumonia, Bacterial pneumonia Other nonspecific abnormal finding of lung field, Other nonspecific abnormal finding of lung field Discharge Vitals Temperature 36.4 ??C Heart Rate (Monitored) 108 Respiratory Rate 18 Blood Pressure 114/76 What to do next Instructions From Your Care Team [facility] will be your provider. Someone will call you on Thursday, 11/28 to schedule a home visit. If you need a nurse prior to that please call [phone] [facility] will provide your IV antibiotics. Discharge Activity: Discharge Activity: Activity as tolerated Diet: Discharge Diet: Resume usual diet as tolerated Follow-Up Appointments Follow Up with JEANMARIE HWANG When 12/06/2020 01:15 PM EST Comments Pulmonary follow up: [facility] [address] [place] [address]- Business (1) Follow Up with DEMETRIS GONZALEZ When 12/03/2020 01:30 PM EST Comments Appointment has been made Where: [address] [place] [address]- Business (1) Follow Up with SOSA BRANNON When Within 1 month Comments patient will follow up with us in clinic in one month with a CT head w/o. January 10, 2021 at 0830 Where: [address] [facility] [address] [place] [address]- Business (1) Follow Up with KAROLINA COLIN When Within 1 week Comments Office to contact you with appointment information. Where: [address] [place] [address]- Medications What How Much When Instructions Next Dose cholecalciferol (Vitamin D3 2000 units oral tablet) 1 Tablet(s) Oral Every Day Duration: 30 Day(s) NEW !! Pickup at [facility] ertapenem 1 Gram(s) IV Piggyback Interval Every 24 Hours Through itraconazole (itraconazole 100 mg oral capsule) See instructions 2 tab oral TID x 3 days then continue with 2 tab po BID. Pickup at [facility] sodium bicarbonate (sodium bicarbonate 650 mg oral tablet) 1 Tablet(s) Oral Two Times A Day Duration: 14 Day(s) NEW !! Pickup at [facility] acetaminophen-oxyCODONE (Percocet 10/ 325 oral tablet) 1 Tablet(s) Oral Every 8 Hours gabapentin (gabapentin 800 mg oral tablet) 1 Tablet(s) Oral Every 8 Hours cetirizine (cetirizine 10 mg oral tablet) 1 Tablet(s) Oral Every Day ibuprofen (ibuprofen 200 mg oral tablet) 2 Tablet(s) Oral Every 4 Hours as needed for for pain pantoprazole (pantoprazole 40 mg oral delayed release tablet) 1 Tablet(s) Oral Every Day Pharmacy Information [facility]: [address] [place], [place] [id number] [phone] Take your medications faithfully. Do NOT skip medication. Do NOT stop taking medications without the direction of a physician. Carry a list of your medications with you at all times, and take this medication list with you to your first follow up visit. Report any side effects. Avoid herbal remedies unless discussed with your physician. As part of your treatment plan, your physician may have prescribed a limited course of a controlled substance. This medication may be given to help people with moderate or severe pain or for other medical conditions, but there are risks involved with treatment. Common side effects may include nausea, constipation, drowsiness, sweating, itching, dry mouth, and rash. More serious side effects may include cognitive and motor impairment, like problems with thinking, concentrating, alertness, and movement (e.g. slowed reflexes), and driving and operating heavy machinery can be dangerous. It is important for you to talk to your physician if you have these side effects or questions. These controlled substances can produce physical dependence and be habit-forming if taken for an extended period of time, which means that the body has gotten used to them and may experience withdrawal symptoms if they are abruptly stopped. Withdrawal symptoms can include runny nose, sweating, goose bumps, diarrhea, abdominal cramping, rapid heartbeat, difficulty sleeping, and nervousness. Please dispose of unused and medications per your retail pharmacy guidance. Allergies codeine (nausea, vomiting) penicillin (nausea, vomiting) Immunizations This Visit No Immunizations Found Education Materials Community-Acquired Pneumonia, Adult Pneumonia is an infection of the lungs. It causes swelling in the airways of the lungs. Mucus and fluid may also build up inside the airways. One type of pneumonia can happen while a person is in a hospital. A different type can happen when a person is not in a hospital (community-acquired pneumonia). What are the causes? This condition is caused by germs (viruses, bacteria, or fungi). Some types of germs can be passed from one person to another. This can happen when you breathe in droplets from the cough or sneeze of an infected person. What increases the risk? You are more likely to develop this condition if you: ??? Have a long-term (chronic) disease, such as: ? Chronic obstructive pulmonary disease (COPD). ? Asthma. ? Cystic fibrosis. ? Congestive heart failure. ? Diabetes. ? Kidney disease. ??? Have HIV. ??? Have sickle cell disease. ??? Have had your spleen removed. ??? Do not take good care of your teeth and mouth (poor dental hygiene). ??? Have a medical condition that increases the risk of breathing in droplets from your own mouth and nose. ??? Have a weakened body defense system (immune system). ??? Are a smoker. ??? Travel to areas where the germs that cause this illness are common. ??? Are around certain animals or the places they live. What are the signs or symptoms? A dry cough. ??? A wet (productive) cough. ??? Fever. ??? Sweating. ??? Chest pain. This often happens when breathing deeply or coughing. ??? Fast breathing or trouble breathing. ??? Shortness of breath. ??? Shaking chills. ??? Feeling tired (fatigue). ??? Muscle aches. How is this treated? Treatment for this condition depends on many things. Most adults can be treated at home. In some cases, treatment must happen in a hospital. Treatment may include: ??? Medicines given by mouth or through an IV tube. ??? Being given extra oxygen. ??? Respiratory therapy. In rare cases, treatment for very bad pneumonia may include: ??? Using a machine to help you breathe. ??? Having a procedure to remove fluid from around your lungs. Follow these instructions at home: Medicines ??? Take lekl-tkl-aaqlefg and prescription medicines only as told by your doctor. ? Only take cough medicine if you are losing sleep. ??? If you were prescribed an antibiotic medicine, take it as told by your doctor. Do not stop taking the antibiotic even if you start to feel better. General instructions ??? Sleep with your head and neck raised (elevated). You can do this by sleeping in a recliner or by putting a few pillows under your head. ??? Rest as needed. Get at least 8 hours of sleep each night. ??? Drink enough water to keep your pee (urine) pale yellow. ??? Eat a healthy diet that includes plenty of vegetables, fruits, whole grains, low-fat dairy products, and lean protein. ??? Do not use any products that contain nicotine or tobacco. These include cigarettes, e-cigarettes, and chewing tobacco. If you need help quitting, ask your doctor. ??? Keep all follow-up visits as told by your doctor. This is important. How is this prevented? A shot (vaccine) can help prevent pneumonia. Shots are often suggested for: ??? People older than 65 years of age. ??? People older than 19 years of age who: ? Are having cancer treatment. ? Have long-term (chronic) lung disease. ? Have problems with their body's defense system. You may also prevent pneumonia if you take these actions: ??? Get the flu (influenza) shot every year. ??? Go to the dentist as often as told. ??? Wash your hands often. If you cannot use soap and water, use hand patent prosecution attorney. Contact a doctor if: ??? You have a fever. ??? You lose sleep because your cough medicine does not help. Get help right away if: ??? You are short of breath and it gets worse. ??? You have more chest pain. ??? Your sickness gets worse. This is very serious if: ? You are an older adult. ? Your body's defense system is weak. ??? You cough up blood. Summary ??? Pneumonia is an infection of the lungs. ??? Most adults can be treated at home. Some will need treatment in a hospital. ??? Drink enough water to keep your pee pale yellow. ??? Get at least 8 hours of sleep each night. This information is not intended to replace advice given to you by your health care provider. Make sure you discuss any questions you have with your health care provider. Document Released: 03/23/2009 Document Revised: 01/25/2020 Document Reviewed: 06/02/2019 [employer] Patient Education ?? 2019 [employer]. Emergency Awareness and Preventative Care STROKE is an EMERGENCY Every Minute Counts Act FAST and Check for these signs: FACE Does the face look uneven? ARM Does one arm drift down? SPEECH Does their speech sound strange? TIME Call at any sign of stroke Stroke Risk Factors Atrial Fibrillation (irregular heartbeat) Diabetes Family history of stroke Heart Disease Heavy alcohol use High Blood Pressure High Cholesterol Physical inactivity and obesity Smoking Cigarette Smoking The facts are clear, cigarette smoking will shorten your life. Smoking can cause many illnesses along the way. As a healthcare provider, we recommend that you stop smoking. Assistance with quitting is available by contacting 9-225-UXVH-NOW. This is a free resource providing counseling, support, and referral. Or you may contact your personal physician. [employer] Suicide Prevention Lifeline: The National Suicide Prevention Lifeline is a national network of local crisis centers that provides free and confidential emotional support to people in suicidal crisis or emotional distress 24 hours a day, 7 days a week. Don't Wait! Stop a Heart Attack Before it Starts What is a heart attack? A heart attack is damage or to a part of the heart from severely decreased or lack of blood flow to the heart. Over time, arteries can become narrow from the buildup of fat and cholesterol, which is called plaque. The plaque can rupture causing a blood clot to form. When the blood clot forms, the artery can become severely narrowed or completely blocked, causing a heart attack. Heart attack is the leading cause of in the [place]. 85% of muscle damage occurs within the first 2 hours. Delay in the recognition of heart attack symptoms increases the chances of . Know the early symptoms of a heart attack: Nausea Feeling of fullness in chest Jaw Pain Pain that travels down one or both arms Fatigue/being tired Anxiety Back Pain Chest pressure, squeezing, or discomfort Shortness of breath Sweating, or a cold sweat Feeling of impending doom There are unusual signs of a heart attack, too! Women, the elderly, and diabetics may present with atypical symptoms: Fainting/dizziness Weakness Confusion Risk Factors for a Heart Attack Some heart disease risk factors, such as age and family history, cannot be changed. Others, like smoking and lack of exercise, can be changed. Smoking High Cholesterol High Blood Pressure Family History Obesity Age Gender (Males are at higher risk) Lack of Exercise Diabetes Diet Stress Excessive Alcohol Intake If you or someone you know is experiencing the signs and symptoms of a heart attack, DON???T DELAY. Call immediately and seek help. If someone collapses, perform CPR! Do not attempt to drive if you are having symptoms of heart attack. Hands-Only CPR Why Hands-Only CPR? Hands-Only CPR has been shown to be as effective as conventional CPR for cardiac arrests that occur outside of a hospital. Survival depends on immediately receiving CPR from someone nearby. How do you perform Hands-Only CPR? There are two easy steps: Call if you see a teen or adult collapse Push hard and fast in the center of the chest at a beat of 100 beats per minute. Save a life! 4 WAYS TO GET AHEAD OF SEPSIS SEPSIS is a MEDICAL EMERGENCY. Time matters! Infections put you and your family at risk for a life-threatening condition called sepsis. Sepsis is the body's extreme response to an infection. It is life-threatening, and without timely treatment, sepsis can rapidly lead to tissue damage, organ failure, and . Sepsis happens when an infection you already have-in your skin, lungs, urinary tract or somewhere else-triggers a chain reaction throughout your body. 1 PREVENT INFECTIONS Take good care of chronic conditions. Talk to your doctor about getting the recommended vaccines. 2 PRACTICE GOOD HYGIENE Wash your hands frequently. Keep cuts or open sores clean and covered until they are healed. 3 KNOW THE SYMPTOMS Confusion or disorientation Shortness of breath High heart rate Fever, shivering, or feeling very cold Extreme pain or discomfort Clammy or sweaty skin 4 ACT FAST Get medical care IMMEDIATELY if you suspect sepsis or if you have an infection that is not getting better or is getting worse. To learn more about sepsis and how to prevent infections, visit www.cdc.gov/sepsis. Test Results Laboratory or Other Results This Visit (last charted value for your 11/17/2020 visit) Blood Gases 11/17/2020 4:48 PM HCO3 Art: 23.6 mmol/L -- Normal range between ( 20.0 and 26.0 ) sO2 Art: 92.3 % -- Normal range between ( 95.0 and 100.0 ) pCO2 Art: 29.8 mmHg -- Normal range between ( 35.0 and 45.0 ) pH Art: 7.51 -- Normal range between ( 7.35 and 7.45 ) pO2 Art: 57.3 mmHg -- Normal range between ( 80.0 and 100.0 ) ABG Num of Draw Attempts: 1 Acceptable Sigifredo's Test Art: Non-Applicable BE Art: 1.1 mmol/L Delivery Device Type Art: Room Air tHb Art: 10.3 Gram/dL -- Normal range between ( 12.0 and 18.0 ) Ventilator Mode Art: N/A Temperature, F Art: 98.6 Deg F ctO2: 13.1 mmol/L FHHb: 7.5 % Art Blood Gas (ABG) Site: Arterial Line Hematology 11/27/2020 6:30 AM WBC: 13.2 K/uL -- Normal range between ( 4.5 and 10.5 ) RBC: 2.62 Million/uL -- Normal range between ( 3.93 and 5.22 ) Hct: 27.5 % -- Normal range between ( 34.1 and 44.9 ) Hgb: 8.8 g/dL -- Normal range between ( 11.2 and 15.7 ) Platelet Count: 381 K/uL -- Normal range between ( 163 and 369 ) MCH: 33.6 pg -- Normal range between ( 25.6 and 32.2 ) MCHC: 32.0 Gram/dL -- Normal range between ( 32.2 and 36.5 ) MCV: 105.0 fL -- Normal range between ( 79.0 and 94.8 ) Slide Review: No RDW: 13.6 % -- Normal range between ( 11.7 and 14.9 ) MPV: 9.9 fL -- Normal range between ( 9.4 and 12.4 ) 11/26/2020 7:17 AM Eos %: 0.4 % -- Normal range between ( 0.0 and 7.0 ) [place] #: 1.37 K/uL -- Normal range between ( 0.16 and 1.00 ) Eos #: 0.05 x10(3)/uL -- Normal range between ( 0.00 and 0.80 ) [place] %: 10.8 % -- Normal range between ( 3.0 and 9.0 ) Baso %: 0.8 % -- Normal range between ( 0.0 and 1.5 ) Baso #: 0.10 x10(3)/uL -- Normal range between ( 0.00 and 0.20 ) Neut %: 58.1 % -- Normal range between ( 34.0 and 71.0 ) Neut #: 7.34 K/uL -- Normal range between ( 1.56 and 6.13 ) Lymph %: 28.3 % -- Normal range between ( 19.3 and 53.1 ) Lymph #: 3.58 x10(3)/uL -- Normal range between ( 1.00 and 3.90 ) IG#: 0.20 x10(3)/uL -- Normal range between ( 0.00 and 0.05 ) IG%: 1.60 % -- Normal range between ( 0.00 and 0.60 ) 11/25/2020 5:46 AM ALYC #: 5 K/uL Hypochromia: 1+ RBC Morphology: Abnormal ANC #: 6 K/uL [place] Percent Man: 8 % -- Normal range between ( 4 and 5 ) Neutrophil Percent Man: 52 % -- Normal range between ( 50 and 65 ) Platelet Ct Estimate: Adequate Lymph Percent Man: 40 % -- Normal range between ( 24 and 44 ) 11/23/2020 5:50 AM Band Percent Man: 2 % -- Normal range between ( 5 and 11 ) Macrocytosis: 1+ Baso Percent Man: 0 % -- Normal range between ( 0 and 1 ) Eos Percent Man: 1 % -- Normal range between ( 0 and 3 ) 11/22/2020 2:20 AM Ovalocytes: 1+ Microbiology 11/21/2020 10:58 AM Specimen Type: urine Blastomyces dermatitidis Antigen: 0.49 ng/mL 11/19/2020 10:50 AM Anaerobic Culture: See Result Body Fluid Culture: See Result 11/17/2020 2:35 PM Influenza A: Not Detected Respiratory Syncytial Virus: Not Detected Influenza B: Not Detected Influenza A H3: Not Detected Parainfluenza 3: Not Detected Influenza A H1: Not Detected Rhinovirus/Enterovirus: Not Detected Human metapneumovirus: Not Detected Parainfluenza 1: Not Detected Parainfluenza 2: Not Detected Adenovirus: Not Detected Parainfluenza 4: Not Detected Bordatella pertussis: Not Detected Coronavirus HKU1: Not Detected Coronavirus NL63: Not Detected Coronavirus OC43: Not Detected Coronavirus 229E: Not Detected Influenza A 2009 H1N1: Not Detected Mycoplasma pneumoniae: Not Detected Chlamydia pneumoniae: Not Detected SARS-CoV-2 (COVID19 PCR): Not Detected Bordatella parapertussis: Not Detected 11/17/2020 2:45 AM MRSA Surveillance: See Result 11/17/2020 2:36 AM Blood Culture: See Result General Chemistry 11/27/2020 6:30 AM Creatinine Level: 1.10 mg/dL -- Normal range between ( 0.55 and 1.02 ) Sodium Level: 138 mmol/L -- Normal range between ( 136 and 146 ) Potassium Level: 4.3 mmol/L -- Normal range between ( 3.5 and 5.1 ) Chloride Level: 112 mmol/L -- Normal range between ( 102 and 112 ) Carbon Dioxide Level: 16 mmol/L -- Normal range between ( 21 and 32 ) Anion Gap: 14 -- Normal range between ( 9 and 20 ) Bilirubin Total: 0.4 mg/dL -- Normal range between ( 0.2 and 1.2 ) A/G Ratio: 0.4 -- Normal range between ( 1.1 and 2.5 ) ALT: 38 Units/Liter -- Normal range between ( 13 and 56 ) AST: 47 Units/Liter -- Normal range between ( 5 and 37 ) Globulin: 5.5 Gram/dL -- Normal range between ( 1.5 and 4.5 ) Alk Phos: 102 Units/Liter -- Normal range between ( 27 and 136 ) Bun/Creatinine: 18.2 -- Normal range between ( 8.0 and 20.0 ) Calcium Level: 9.4 mg/dL -- Normal range between ( 8.4 and 10.1 ) eGFR : >60 mL/min/1.73m2 eGFR NonAfrican: 51 mL/min/1.73m2 Glucose Level: 100 mg/dL -- Normal range between ( 74 and 106 ) Blood Urea Nitrogen: 20 mg/dL -- Normal range between ( 7 and 22 ) Protein Total: 7.9 Gram/dL -- Normal range between ( 6.4 and 8.2 ) Albumin Level: 2.4 Gram/dL -- Normal range between ( 3.4 and 5.0 ) 11/23/2020 6:11 AM CRP: 5.7 mg/dL -- Normal range between ( 0.0 and 0.9 ) Magnesium Level: 1.8 mg/dL -- Normal range between ( 1.5 and 2.4 ) Phosphorus: 4.2 mg/dL -- Normal range between ( 2.5 and 4.9 ) 11/22/2020 2:53 AM Lactate Dehydrogenase: 264 Units/Liter -- Normal range between ( 84 and 246 ) 11/22/2020 2:20 AM Lactic Acid Level: 1.2 mmol/L -- Normal range between ( 0.4 and 2.0 ) 11/17/2020 4:23 PM Ammonia Level: 33.0 uMol/L -- Normal range between ( 11.0 and 32.0 ) Cardiac Specific Markers 11/21/2020 3:24 AM ProBNP: 370 pg/mL -- Normal range between ( 0 and 125 ) Coagulation 11/17/2020 10:44 AM INR: 1.3 -- Normal range between ( 0.9 and 1.2 ) PT: 13.1 Second(s) -- Normal range between ( 9.2 and 12.0 ) Lipid Studies 11/17/2020 10:44 AM Cholesterol Tot: 107 mg/dL -- Normal range between ( 0 and 199 ) Cholesterol HDL: 11.0 mg/dL Cholesterol LDL Calculation: 56.6 mg/dL -- Normal range between ( 0.0 and 99.0 ) Cholesterol VLDL Calculation: 39.4 mg/dL -- Normal range between ( 5.0 and 40.0 ) Cholesterol/HDL Ratio: 9.7 -- Normal range between ( 0.0 and 3.2 ) Triglyceride: 197 mg/dL -- Normal range between ( 0 and 249 ) LDL/HDL Ratio: 5.2 -- Normal range between ( 0.0 and 3.2 ) Endocrinology 11/26/2020 7:17 AM Procalcitonin: 7.02 ng/mL -- Normal range between ( 0.00 and 2.00 ) 11/17/2020 10:44 AM TSH: 0.897 mcInt Units/mL -- Normal range between ( 0.358 and 3.740 ) Infectious Disease 11/21/2020 1:14 PM C. Difficile Result: Negative 11/17/2020 2:35 PM Strep pneumoniae Direct Antigen: Negative Legionella Urine Ag: Negative Vitamin Chemistry 11/26/2020 7:17 AM Folate Level: 4.30 ng/mL -- Normal range between ( 3.10 and 17.50 ) Vitamin B12 Level: 1286 pg/mL -- Normal range between ( 193 and 986 ) 11/22/2020 9:16 AM (1,3)-xuag-w-dfdobv: <31 pg/mL 11/17/2020 10:44 AM Vitamin D 25 Hydroxy: 8 ng/mL -- Normal range between ( 30 and 100 ) Computed Tomography 11/21/2020 2:[address] Abdomen Pelvis WO W: CT Abdomen Pelvis WO W 11/19/2020 10:[address] Bx Lung Mediastinum LT: CT Bx Lung Mediastinum LT Diagnostic Radiology 11/27/2020 7:15 AM CR Chest 1 Vw Portable: CR Chest 1 Vw Portable 11/19/2020 1:12 PM CR Chest 2 Vws: CR Chest 2 Vws Magnetic Resonance Imaging 11/17/2020 12:24 PM MRI Brain WO: MRI Brain WO Patient Name:SHIELA JASSO I have received and understand this information and was given the opportunity to ask questions. 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
--- OUTSIDE RECORDS SUMMARY | 2025-06-01 11:17 | XMS_ITS | Encounter Summary ---
Author Organization [employer] ([place], [place], [place], [place]) Address [address] [place] [address] Care Team Providers Care Ice Rink Attendant Name Role Phone Mona Levin MD Primary Care Provider +1- [phone] Encounter Details Date Type Department Care Team (Late st Contact Info) Description 08/24/2020 Transcribed Document [facility] [place] [address] [place] [address] ProviderLeia MD [address] [place] [address] Social History Tobacco Use Types Packs/Day Years Used Date Smoking Tobacco: Never Assessed Comments Unknown Sex and Gender Information Value Date Recorded Sex Assigned at Not on file Legal Sex Female 10:15 AM CDT Gender Identity Not on file Sexual Orientation Not on file documented as of this encounter Miscellaneous Notes * Cerner Conversion Note - Leia Gutiérrez MD - 08/24/2020 10:47 AM COMBINER Patient: SHIELA JASSO Age: 60 Years Sex: Female : 1960 FOLLOW-UP Date of Service: 08/06/2020 CHIEF COMPLAINT: Bilateral knee and low back. HISTORY OF PRESENT ILLNESS: Mrs. Jasso is a 60-year old female who presents to the clinic with pain since 2016. Today, she is describing bilateral knee pain and low back pain. She states rainy weather, walking, bending and lifting increases her pain while meds decrease her pain. Severity of pain today is a 7/10on the pain scale and states 50% relief with her current medication. We currently prescribe Percocet 10/325 mg 1 p.o. q.8h., gabapentin 800 mg 1 p.o. q.8h. and lidocaine ointment 5% that she applies 4 times a day. Nursing intake is reviewed. Medication list is reviewed. Fall risk info sheet has been provided. HISTORY: Allergies: Ms. Jasso states she is allergic to penicillin and Hydrocodone. Social History: Marital status: She is . Current work status: Disabled. Illicit drug use: Denies. Alcohol use: Denies. Current tobacco use: She smokes 1 pack a day. Caffeine use: Not stated. Past Medical History: Arthritis. Heartburn. Kidney stones. Osteoporosis. Past Surgical History: Hysterectomy. Knee surgery. Shoulder surgery. Past Family History: Reviewed with the patient and is noted. REVIEW OF SYSTEMS: General: Weight gain. Respiratory: Negative. Neurological: Negative. Gastrointestinal: Negative. Musculoskeletal: Joint pain, stiffness, back pain, muscle aches and pains. Cardiovascular: Negative. Psychiatric: Negative. HEENT: Negative. Endocrine: Negative. Hematology: Negative. Skin: Negative. Genitourinary: Negative. VITAL SIGNS: Vital signs are reviewed. BP 166/119, heart rate 65, respiratory rate 16, O2 SATs 93%. This patient is 5???4?? tall and weighs 190 lbs. PHYSICAL EXAMINATION: Constitutional: Conversant, well-nourished. Integumentary: Deferred. HEENT: Deferred. Neck: Deferred. Chest and Lung: Deferred. Cardiovascular: Deferred. Abdomen: Deferred. Peripheral Vascular: Deferred Neurologic: Deferred. Musculoskeletal: She ambulates with a cane. Able to transition from walking, sitting and standing without difficulty and ambulates with an antalgic gait. Psychiatric: Alert and oriented x 3 with normal mood and affect. Established patient exam is deferred. DIAGNOSTIC STUDIES: Not present MEDICAL DECISION MAKING: Stable. ASSESSMENT: 1. Chronic pain syndrome secondary to multisite osteoarthritis, primarily bilateral knees. 2. Lumbar degenerative disc disease. 3. Lumbar spondylosis. 4. Lumbar facet arthropathy. PROCEDURE/TEST ORDERED: Not present. CURRENT PLAN: EKASPER has been reviewed and is appropriate. This patient is stable. We are not going to make any changes today. We will refill her medications and see her back in clinic in two months. Klaudia Gagan, RN acting as scribe for Mady Love APRN I, Mady Love APRN, personally performed the service described in this documentation, as scribed by, Klaudia Farah RN in my presence, and it is both accurate and complete. Mady Love APRN SF/SS/lll Electronically signed by [facility], [facility] Conversion Mortgage Professional Cerner at 02/02/2023 6:27 PM CDT documented in this encounter Plan of Treatment Not on file documented as of this encounter Visit Diagnoses Not on filedocumented in this encounter Care Teams Ice Rink Attendant Relationship Specialty Start Date End Date Mona Levin MD PCP - General Family Medicine 07/19/22 documented as of this encounter
--- OUTSIDE RECORDS SUMMARY | 2025-06-01 11:17 | XMS_ITS | Encounter Summary ---
Author Organization [employer] ([employer] [place] ([place], [place], [place], [place]) Address [address] [place] [address] Care Team Providers Care Senior Air Director Name Role Phone Mona Levin MD Primary Care Provider [phone]- [phone] Encounter Details Date Type Department Care Team (Late st Contact Info) Description 11/11/2020 Transcribed Document [facility] [place] [address] ProviderLeia MD [address] [place] [address] Social History Tobacco Use Types Packs/Day Years Used Date Smoking Tobacco: Never Assessed Comments Unknown Sex and Gender Information Value Date Recorded Sex Assigned at Not on file Legal Sex Female 10:15 AM CDT Gender Identity Not on file Sexual Orientation Not on file documented as of this encounter Miscellaneous Notes * Cerner Conversion Note - Leia ProviderMD - 11/11/2020 10:36 PM BIOINFORMATICS COMPUTER SCIENTIST BBK Triage ED Entered On: 11/11/2020 17:42 EST Performed On: 11/11/2020 17:36 EST by Corry Mauricio Triage Assessment Triage Date/Time : 11/11/2020 17:36 EST Corry Mauricio - 11/11/2020 17:36 EST DCP GENERIC CODE Tracking Acuity : 2 - Emergent BBK Tracking Group : Corry Cornell 11/11/2020 17:36 EST ED Visit Reason : SOB/Dyspnea Primary Care Provider : chris Accompanied By : Family/Spouse/SO Arrival Mode : Private vehicle Chief Complaint : pt. presents to er with c/o soa onset yesterday reports hx of copd . denies fever. c/o cough with brown/yellow sputum pt. also c/o bilateral flank pain. c/o urinary retention. Corry Mauricio Marko 11/11/2020 17:36 EST Health History ED Grid Alcohol Use : No Caffeine Use : Yes Substance Abuse : No Tobacco Use : Yes, 1/2 ppd Asthma/COPD : No Cancer : No CVA/TIA : No Mental Illness : Yes, depression Dementia : No Diabetes : No General Cardiac : No GI Medical History : No, colostomy Concrete Rod Buster Hx : No Heart Attack : No Heart Failure : No High Blood Pressure : Yes High Cholesterol : No Liver Disease : No Renal : No Seizure : No Surgical History : Yes, lt knee,hysterectomy, hernia Thyroid Disease : No AIDS/HIV : No MRSA : No Tuberculosis : No VRE : No Other Medical History : Yes, back inj, neuropathy, kidney stone Pathway Planning : No Luly Corry R - 11/11/2020 17:36 EST Temp : 99.0 Deg F(Converted to: 37.2 Deg C) Temp Route : Oral/Mouth Systolic Blood Pressure : 149 mmHg (HI) Diastolic Blood Pressure : 77 mmHg Pulse Rate : 145 bpm (HI) Respiratory Rate : 26 Breaths/Min (HI) Oxygen Saturation : 95 % Pain Symptoms : Yes Gynecologic Hx : Hysterectomy Height/Weight Med Rec : Open Allergy Profile, Med Rec : Open Workman's Compensation : No Preferred Communication Mode : Verbal Languages : Kinyarwanda Child/Parent Domestic Concerns : None Threats of Suicide : No LulyCorry 11/11/2020 17:36 EST Height and Weight Height Source : Stated Height Entry Format : [place] Height, Inches : 65 Inch(Converted to: 5 ft 5 Inch, 165.10 cm) Clinical Height : 165.1 cm Weight Source : Bed scale Weight Entry Format : [place] Weight, Pounds : 211 lb Clinical Dosing Weight : 95.91 kg Body Surface Area-(BSA) : 2.1 m2 Body Mass Index : 35.2 kg/m2 (HI) [place] Body Weight : 57 kg Corry Mauricio Marko Mattson 11/11/2020 17:36 EST Allergy Profile (As Of: 11/11/2020 17:42:10 EST) Allergies (Active) codeine Estimated Onset Date: Unspecified [...] 04/04/2019 11:55 EDT Pain Pain Assessment Grid Location : Other: bilateral flank pain Intensity : 10 Corry Mauricio R - 11/11/2020 17:36 EST Electronically signed by [facility] Conversion Packing Tractor Machine Operator Cerner at 01/20/2023 11:59 AM CDT documented in this encounter Plan of Treatment Not on file documented as of this encounter Visit Diagnoses Not on filedocumented in this encounter Care Teams Senior Air Director Relationship Specialty Start Date End Date Mona Levin MD PCP - General Family Medicine 07/19/22 documented as of this encounter
--- OUTSIDE RECORDS SUMMARY | 2025-06-01 11:17 | XMS_ITS | Encounter Summary ---
Author Organization [facility] Address [address] [place] [address] Care Team Providers Care Carpenter Streetcar Name Role Phone Jacquelyn Desouza APRN Primary Care Provider +1- [phone] Encounter Details Date Type Department Care Team [...] or training? Not on file Preferred Language Yi 05/13/2023 PHQ-2 Answer Date Recorded Retired PHQ-9: [...] [facility] [address] [address] Delaney Concepcion MD [address] [address] 06/22/2025 1:15 PM EDT Office Visit [facility] [address] [place] [id number] Olivia Morales APRN [address] [facility] [address] [address] [address] documented as of this encounter Visit Diagnoses Not on filedocumented in this encounter Care Teams Carpenter Streetcar Relationship Specialty Start Date End Date Jacquelyn Desouza [place] [address] PCP - General Nurse Practitioner 08/25/22 documented as of this encounter
--- OUTSIDE RECORDS SUMMARY | 2025-06-01 11:17 | XMS_ITS | Encounter Summary ---
Author Organization [employer] ([place], [place], [place], [place]) Address [address] [place] [address] Care Team Providers Care Health Insurance Specialist Name Role Phone Mona Levin MD Primary Care Provider [phone] Encounter Details Date Type Department Care Team (Late st Contact Info) Description 11/26/2020 Transcribed Document [facility] [place] Family Medicine [address] [place] [address] ProviderLeia MD [address] [place] [address] Social History Tobacco Use Types Packs/Day Years Used Date Smoking Tobacco: Never Assessed Comments Unknown Sex and Gender Information Value Date Recorded Sex Assigned at Not on file Legal Sex Female 10:15 AM CDT Gender Identity Not on file Sexual Orientation Not on file documented as of this encounter Miscellaneous Notes * Cerner Conversion Note - Leia ProviderMD - 11/26/2020 11:02 AM HAIRSPRING STUDDER On Going Discharge Planning Entered On: 11/26/2020 11:06 EST Performed On: 11/26/2020 11:02 EST by LULA RAMIREZ, RN-Journeyman GlazierMarble Rubber Progress Note Discharge Arrangements : Patient Post-Acute Information Patient Name: SHIELA JASSO Gender: Female : [birth year] Age: 60 Years No Post-Acute Placement(s) Listed No Post-Acute Service(s) Listed No [place] Referral(s) Listed Discharge Options Discussed with Patient : Discharge transportation, DME, Home Health Barriers to Discharge Identified : Clinical Condition of Patient, Follow-Up appointments needed Barriers to Discharge Unresolved : Clinical Condition of Patient, Follow-Up appointments needed Patient Offered Choice/Affiliations Explained : Yes (Comment: Patient was given a list of agencies in [facility]. Patient choiced [facility] [LULA RAMIREZ RN-Journeyman Glazier - 11/26/2020 11:02 EST] ) List/Info Provided Pt/Fam/Support Person : Home care Is the Patient Meeting Medical Necessity : Yes Physician Agreeable to Move Forward with D/C Plan? : Yes Did you Attend Multidisciplinary Rounds? : Yes LULA RAMIREZ RN-Journeyman Glazier - 11/26/2020 11:02 EST Narrative Progress Note Narrative Progress Note : RAR Moderate ELOS: 9 days HD#9 COVID- 11/18 60 year old female transferred from [facility] for higher level of care. Admitted to [facility] on 11/12 for SOB and flank pain. Initially diagnosed with PNA, urine culture positive for Klebsiella and blood culture positive for E. Coli. CT chest showed ASHISH mass. Consults: ID, Neurology, Pulmonary, [place] CT guided biopsy 11/19. [place] - Increased frontal head ache waxing and waning. Labs: WBC 12.6, Procalcitonin 7.02. Ambulating independently. IV Amp B q 24 hours through 11/28, IV Merrem q 6 hours both via PICC. O2 sat 97% on RA. DCP: Anticipate patient will discharge home with SO +/- IV abx and po antifungal. Patient choiced [facility] if IV abx are needed. CM will continue to follow. Historical Progress Note : RAR Moderate ELOS: 9 days HD#6 COVID- 11/18 60 year old female transferred from [facility] for higher level of care. Admitted to [facility] on 11/12 for SOB and flank pain. [...] CM will continue to follow. LULA RAMIREZ RN-Journeyman Glazier - 11/23/20 13:46:03 RAR Moderate ELOS: 9 days HD#5 COVID- 11/18 60 year old female transferred from [facility] for higher level of care. Admitted to [facility] on 11/12 for SOB and flank pain. [...] CM will continue to follow. LULA RAMIREZ RN-Journeyman Glazier - 11/22/20 16:40:11 RAR Moderate ELOS: 5 days HD#4 COVID- 11/18 60 year old female transferred from [facility] for higher level of care. Admitted to [facility] on 11/12 for SOB and flank pain. [...] CM will continue to follow. LULA RAMIREZ RN-Journeyman Glazier - 11/21/20 13:40:56 RAR Moderate ELOS: 5 days HD#3 COVID- 11/18 60 year old female transferred from [facility] for higher level of care. Admitted to [facility] on 11/12 for SOB and flank pain. [...] follow for safe discharge plan. LULA RAMIREZ RN-Journeyman Glazier - 11/20/20 16:16:59 RAR Moderate ELOS: 5 days HD#2 COVID- 11/18 60 year old female transferred from [facility] for higher level of care. Admitted to [facility] on 11/12 for SOB and flank pain. Initially diagnosed with PNA, urine culture positive for Klebsiella and blood culture positive for E. Coli. CT chest showed ASHISH mass. Consults: ID, Neurology and Pulmonary Plan: CT guided biopsy today. Patient was off the floor for her procedure and drowsy when she returned. CM spoke with patient's SO Jarrod Jones per patient request [phone]. He states patient does have a PCP [...] follow for safe discharge plan. LULA RAMIREZ RN-Journeyman Glazier - 11/19/20 17:13:35 LULA RAMIREZ RN-Journeyman Glazier - 11/26/2020 11:02 EST Electronically signed by [facility] Conversion Vp Of Global Marketing Cerner at 02/06/2023 8:51 AM CDT documented in this encounter Plan of Treatment Not on file documented as of this encounter Visit Diagnoses Not on filedocumented in this encounter Care Teams Health Insurance Specialist Relationship Specialty Start Date End Date Mona Levin MD PCP - General Family Medicine 07/19/22 documented as of this encounter
--- OUTSIDE RECORDS SUMMARY | 2025-06-01 11:17 | XMS_ITS | Encounter Summary ---
Author Organization [employer] ([place], [place], [place], [place]) Address [address] [place] [address] Care Team Providers Care Radial Drill Operator Name Role Phone Mona Levin MD Primary Care Provider [phone]- [phone] Encounter Details Date Type Department Care Team (Late st Contact Info) Description 11/20/2020 Transcribed Document [facility] [place] Family Medicine [facility] [place] [address] ProviderLeia MD [address] [place], [place] [id number] Social History Tobacco Use Types Packs/Day Years Used Date Smoking Tobacco: Never Assessed Comments Unknown Sex and Gender Information Value Date Recorded Sex Assigned at Not on file Legal Sex Female 10:15 AM CDT Gender Identity Not on file Sexual Orientation Not on file documented as of this encounter Miscellaneous Notes * Cerner Conversion Note - Leia ProviderMD - 11/20/2020 2:00 AM PAINTING MANAGER Nursing Home Manager Details Entered On: 11/20/2020 3:31 EST Performed On: 11/20/2020 2:00 EST by KRISTINA MCKEON, RN Order Details Transport Mode Order Detail : Wheelchair Isolation Precautions Order Detail : Standard Precautions Order Detail : 0 IV Order Detail : 1 Oxygen Order Detail : 1 Nurse Collect Order Detail : 0 Lift/Transfer : Minimal Central Line Order Detail : Yes Room Service : Appropriate Arterial Line : No Patient Needs Meds Crushed/Liquid : No KRISTINA MCKEON, ARIN - 11/20/2020 3:29 EST Electronically signed by [facility] Conversion Photogrammetric Technician Cerner at 02/06/2023 8:46 AM CDT documented in this encounter Plan of Treatment Not on file documented as of this encounter Visit Diagnoses Not on filedocumented in this encounter Care Teams Radial Drill Operator Relationship Specialty Start Date End Date Mona Levin MD PCP - General Family Medicine 07/19/22 documented as of this encounter
--- OUTSIDE RECORDS SUMMARY | 2025-06-01 11:17 | XMS_ITS | Encounter Summary ---
Author Organization [employer] ([place], [place], [place], [place]) Address [address] [place] [address] Care Team Providers Care Patient Escort Name Role Phone Mona Levin MD Primary Care Provider +1- [phone] Encounter Details Date Type Department Care Team (Late st Contact Info) Description 11/21/2020 Transcribed Document [facility] [place] [facility] [address] ProviderLeia MD [address] [place] [address] Social History Tobacco Use Types Packs/Day Years Used Date Smoking Tobacco: Never Assessed Comments Unknown Sex and Gender Information Value Date Recorded Sex Assigned at Not on file Legal Sex Female 10:15 AM CDT Gender Identity Not on file Sexual Orientation Not on file documented as of this encounter Miscellaneous Notes * Cerner Conversion Note - Leia Gutiérrez MD - 11/21/2020 9:28 PM COLOR EXPERT Patient: SHIELA JASSO Age: 60 years Sex: Female : 1960 Associated Diagnoses: None Author: DEMETRIS WILCOX MD INFECTIOUS DISEASES Progress Note EVNATALIIA RAMOS: Dr. Demetris Wilcox Date of Admission: 11/17/20 Reason for Consultation: Bacteremia, UTI, pneumonia HPI: 60 yo female with h/o fibromyalgia, chronic pain, HTN, and nephrolithiasis who presented to [facility] on 11/12/20 with shortness of breath [...] Merrem after cultures. She was transferred to [facility] on 11/17/20 and arrived confused, lethargic, and [...] rashes. Still has Matthew cath in place. 11/20/20: doing ok today. had CT-guided biopsy procedure yesterday with cultures and path pending. no fevers. breathing ok on room air. no n/v, diarrhea, or new rash. : feeling ok. no fevers. no shortness of breath. no abdominal pain. no fevers. having some diarrhea, about 4-5 episodes per day. no new rashes. lung biopsy path c/w blastomyces. ROS: see above Allergies: Allergies (2) Active Reaction codeine nausea, vomiting penicillin nausea, vomiting Medications: Medications by Classification Antimicrobials cefTRIAXone (Rocephin) - 2 Gram, IV Piggyback, Inj, [id number], infuse over 30 Minute(s), Routine vancomycin (vancomycin oral solution) - 125 mg, Oral, Liquid, Q6H, Routine amphotericin B liposomal + Dextrose 5% in Water intravenous - 400 mg, IV Piggyback, Inj, [id number], infuse over 2 Hour(s) Anticoagulant heparin - 5,000 Units, SubCutaneous, Inj, [id number], Routine Respiratory albuterol-ipratropium (DuoNeb 0.5 mg-2.5 mg/3 [...] Routine acetaminophen - 650 mg, Oral, Tab, [id number] acetaminophen (Tylenol) - 650 mg, Oral, Tab, Q4H, PRN for Pain (Mild 1-3), Routine Sedatives diphenhydrAMINE - 25 mg, IV Push, Inj, [id number] Vitamins calcium gluconate - 1 Gram 10 [...] Routine ergocalciferol - 50,000 Units, Oral, Cap, [id number], Routine magnesium sulfate - 2 Gram 50 [...] 24 hrs) Last Charted Minimum Maximum Temp 97.6 (NOV 21 20:17) 97.6 (NOV 21 20:17) 98.3 (NOV 21 02:35) Mon HR 85 (NOV 21 20:17) 83 (NOV 21 02:35) 103 (NOV 21:38) Resp Rate 16 (NOV 21 20:17) 14 (NOV 21:38) 18 (NOV 20 22:10) SBP 110 (NOV 21 20:17) 110 (NOV 21 20:17) H 157 (NOV 21 14:38) DBP 70 (NOV 21 20:17) 65 (NOV 21 05:38) 88 (NOV 21 14:38) MAP 84 (NOV 21 20:17) 84 (NOV 21 20:17) 126 (NOV 21 14:38) SpO2 94 (NOV 21 20:17) 94 (NOV 21 17:54) 98 (NOV 21 05:38) Exam: Constitutional: NAD, lying in bed HEENT: NC/AT, No external oral lesions. Respiratory: CTAB. nonlabored breathing on room air Cardio: RRR. no murmur GI: BS+, non-tender, non-distended, no HSM : + matthew MS: normal ROM, no joint swelling. Derm: No rashes, abrasions, breakdown, or lesions Neuro: no focal deficits, Alert and oriented x 3. normal speech and cognition Psych: cooperative, normal affect RUE PICC site without erythema Labs: Labs (Last four charted values) WBC H 17.1 (NOV 21) H 18.5 (NOV 20) H 18.3 (NOV 19) H 18.2 (NOV 18) HB L 9.6 (NOV 21) L 9.7 (NOV 20) L 10.8 (NOV 19) L 9.8 (NOV 18) HCT L 29.9 (NOV 21) L 30.4 (NOV 20) L 32.1 (NOV 19) L 29.2 (NOV 18) Plt H 374 (NOV 21) 363 (NOV 20) 330 (NOV 19) 278 (NOV 18) Na 142 (NOV 21) 141 (NOV 20) 141 (NOV 19) 139 (NOV 18) K 3.7 (NOV 21) 3.7 (NOV 21) 3.8 (NOV 21) 3.7 (NOV 21) Cl H 115 (NOV 21) 112 (NOV 20) 109 (NOV 19) 108 (NOV 18) CO2 L 17 (NOV 21) L 20 (NOV 20) 24 (NOV 19) 24 (NOV 18) BUN 16 (NOV 21) 17 (NOV 20) 14 (NOV 19) 13 (NOV 18) Cr 0.70 (NOV 21) 0.60 (NOV 20) 0.70 (NOV 19) 0.60 (NOV 18) Glu R 100 (NOV 21) 106 (NOV 20) H 124 (NOV 19) H 111 (NOV 18) Ca 8.6 (NOV 21) 8.4 (NOV 20) 8.7 (NOV 19) 8.4 (NOV 18) PT H 13.1 (NOV 17) INR H 1.3 (NOV 17) AST 16 (NOV 21) H 66 (NOV 19) H 134 (NOV 18) H 74 (NOV 17) ALT 20 (NOV 21) 42 (NOV 19) 51 (NOV 18) 26 (NOV 17) ALK P 70 (NOV 21) 84 (NOV 19) 82 (NOV 18) 80 (NOV 17) T Bili 0.3 (NOV 21) 0.5 (NOV 19) 0.5 (NOV 18) 0.4 (NOV 17) PTN 7.5 (NOV 21) H 8.3 (NOV 19) 7.4 (NOV 18) 6.8 (NOV 17) ALB L 2.2 (NOV 21) L 2.4 (NOV 19) L 2.1 (NOV 18) L 2.0 (NOV 17) Creatinine Clearance (Current Encounter/Past 24 Hours) Creatinine Level 0.70 mg/dL 11/21/2020 04:00 Bun/Creatinine 22.9 HI 11/21/2020 04:00 Estimated Creatinine Clearance 77.87 mL/Min 11/21/2020 04:00 Micro: Blood cx NGSF MRSA surveillance: negative SJB: (called and talked to tech at [facility] on 11/17/20) Blood cx: E. coli in 2 of 2 sets/Klebsiella in 1 set all sensitive to Rocephin Urine cx: Klebsiella pneumoniae sensitive to Rocephin Rad: Radiology Results (Last 48 hours) [id number] -- 11/17/2020 01:09 CR Chest 1 Vw [...] and dictated by Dr. Med Lozano.Transcribed by OSCAR Acuña have personally viewed, interpreted [...] personally viewed, interpreted and dictated the examination. Mylapedro read and agree with the above final transcribed report. 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 tolerated Rocephin. RECOMMENDATIONS/PLANS: - follow biopsy cultures and path - continue to monitor cbc with diff, cmp, mag, phos, esr, crp, and procalcitonin daily. replete electrolytes prn - continue Ceftriaxone 2 GM IV daily - start Ambisome 5mg/kg IV q24h with premedications. I d/w with Eric Rhodes Pharm.Kristel. today complex set of medial issues requiring a high level of medical decision making. She has significant risk for further morbidity. I discussed with case mgmt today I discussed with Eric Murphy.Desean today I discussed with Dr. Morelos and Dr. Hamilton today Electronically signed by Lyla Singh Conversion Manager Environmental Health And Safety Tisha at 02/06/2023 8:54 AM CDT documented in this encounter Plan of Treatment Not on file documented as of this encounter Visit Diagnoses Not on filedocumented in this encounter Care Teams Patient Escort Relationship Specialty Start Date End Date Mona Levin MD PCP - General Family Medicine 07/19/22 documented as of this encounter
--- OUTSIDE RECORDS SUMMARY | 2025-06-01 11:17 | XMS_ITS | Encounter Summary ---
Author Organization [employer] ([place], [place], [place], [place]) Address [address] [place] [address] Care Team Providers Care Crop Grain Or Livestock Farm Manager Name Role Phone Mona Levin MD Primary Care Provider [phone]- [phone] Encounter Details Date Type Department Care Team (Late st Contact Info) Description 11/27/2020 Transcribed Document [facility] [place] Family Medicine [facility] [place] [address] ProviderLeia MD [address] [place], [place] [id number] Social History Tobacco Use Types Packs/Day Years Used Date Smoking Tobacco: Never Assessed Comments Unknown Sex and Gender Information Value Date Recorded Sex Assigned at Not on file Legal Sex Female 10:15 AM CDT Gender Identity Not on file Sexual Orientation Not on file documented as of this encounter Miscellaneous Notes * Cerner Conversion Note - Leia ProviderMD - 11/27/2020 2:00 AM CORN DETASSELER Budget Engineer Details Entered On: 11/27/2020 8:18 EST Performed On: 11/27/2020 2:00 EST by Arti Rosales RN Order Details Transport Mode Order Detail : Wheelchair Isolation Precautions Order Detail : Standard Precautions Order Detail : 0 IV Order Detail : 0 Oxygen Order Detail : 0 Nurse Collect Order Detail : 1 Lift/Transfer : Independent Central Line Order Detail : Yes Room Service : Appropriate Arterial Line : No Patient Needs Meds Crushed/Liquid : No Arti Rosales RN - 11/27/2020 8:17 EST Electronically signed by Francisco [facility] Conversion Regrind Mill Operator Cerner at 02/06/2023 8:43 AM CDT documented in this encounter Plan of Treatment Not on file documented as of this encounter Visit Diagnoses Not on filedocumented in this encounter Care Teams Crop Grain Or Livestock Farm Manager Relationship Specialty Start Date End Date Mona Levin MD PCP - General Family Medicine 07/19/22 documented as of this encounter
--- OUTSIDE RECORDS SUMMARY | 2025-06-01 11:17 | XMS_ITS | Encounter Summary ---
Author Organization [employer] ([place], [place], [place], [place]) Address [address] [place] [place] [address] Care Team Providers Care Telephone Coin Box Collector Name Role Phone Mona Levin MD Primary Care Provider [phone]- [phone] Encounter Details Date Type Department Care Team (Late st Contact Info) Description 11/20/2020 Transcribed Document [facility] Radiology [address] [place] [address] Ramos Barros MD [address] [place] [address] Social History Tobacco Use Types Packs/Day Years Used Date Smoking Tobacco: Never Assessed Comments Unknown Sex and Gender Information Value Date Recorded Sex Assigned at Not on file Legal Sex Female 10:15 AM CDT Gender Identity Not on file Sexual Orientation Not on file documented as of this encounter Miscellaneous Notes * Cerner Conversion Note - Ramos Barros MD - 11/20/2020 8:26 AM EST Patient: SHIELA JASSO Age: 60 [...] to name date of age 60-year 2020, [facility] she states she lives in [place] and does not have a primary care provider. She is a little bit more alert than 2 days ago when I first saw her quicker to answer the questions. Awaiting procedure later today. Friday, November 20, 2020. No fevers or chills no chest pain palpitations. No nausea vomiting. No diarrhea constipation. She tolerated the biopsy yesterday without difficulty. She states she lives in [place] and primary care provider is Jacquelyn Desouza she does not know the name of the clinic but she states it is not the [facility]. Review of Systems Constitutional: Weakness, Decreased activity, [...] At risk for sleep apnea / IMO [id number] / Confirmed Chronic back pain / SNOMED CT 841814518 / Confirmed Depression / SNOMED CT 26781748 / Confirmed Hypertension / SNOMED CT 8784603588 / Confirmed Kidney stones / SNOMED CT 481170032 / Confirmed, Active Problems (8) At risk [...] Rocephin: 2 Gram, 100 mL/Hr, IV Piggyback, [id number] Roxicodone: 5 mg, Oral, Q4H, PRN: Pain (Moderate 4-6) Tylenol: 650 mg, Oral, Q4H, PRN: Pain (Mild 1-3) Zofran: 4 mg, IV Push, Q4H, PRN: Nausea calcium gluconate + Sodium Chloride 0.9% intravenous solution 100 mL: 2 Gram, 20 mL, 120 mL/Hr, IV Piggyback, Daily, PRN: Other (See Comment) calcium gluconate + Sodium Chloride 0.9% intravenous solution 100 mL: 2 Gram, 20 mL, 120 mL/Hr, IV Piggyback, Q12H, PRN: Other (See Comment) calcium gluconate: 1 Gram, 10 mL, 60 mL/Hr, IV Piggyback, Daily, PRN: Other (See Comment) ergocalciferol: 50,000 Units, Oral, N2Yfjyi gabapentin: 800 mg, Oral, QID heparin: 5,000 Units, SubCutaneous, [id number] hydrALAZINE: 10 mg, IV Push, Q6H, PRN: Hypertension magnesium sulfate: 2 Gram, 50 mL, 25 mL/Hr, IV Piggyback, Daily, PRN: Other (See Comment) magnesium sulfate: 2 Gram, 50 mL, 25 mL/Hr, IV Piggyback, Q2H, PRN: Other (See Comment) morphine: 2 mg, IV Push, Q2H, PRN: Pain (Severe 7-10) nystatin: 500,000 Units, Swish and Spit, QID, PRN: Other (See Comment) potassium chloride 10 mEq oral tablet, extended release: 20 mEq, 2 Tab, Oral, BID potassium chloride 10 mEq oral tablet, extended release: 40 mEq, 4 Tab, Oral, 1-Time potassium chloride 10 mEq/50 mL intravenous solution: [...] influenza virus vaccine, inactivated: 0.5 mL, IntraMuscular, [id number] Documented Medications Documented Percocet 10/325 oral tablet: [...] tablet 1 Tab, Oral, Q8H , Medications (26) Active Scheduled: (8) cefTRIAXone 2 Gram, IV Piggyback, [id number] ergocalciferol 50,000 unit cap 50,000 Units 1 Cap, Oral, T3Hyrdw famotidine 20 mg tab 20 mg 1 Tab, Oral, Daily gabapentin 400 mg cap 800 mg 2 Cap, Oral, QID heparin 5,000 units/1 mL inj 5,000 Units 1 mL, SubCutaneous, E25BJst nicotine 21 mg/24 hr patch 1 Patch, TransDermal, Daily potassium chloride CR 10 mEq tab 20 mEq 2 Tab, Oral, BID potassium chloride CR 10 mEq tab 40 mEq 4 Tab, Oral, 1-Time Continuous: (0) PRN: (18) acetaminophen 325 mg [...] Last Charted Minimum Maximum Temp 98 (NOV 20 10:00) 97.8 (NOV 19 20:53) 98.7 (NOV 19 15:00) Mon HR 87 (NOV 20 10:00) 81 (NOV 20 01:44) 100 (NOV 19 20:53) Resp Rate 15 (NOV 20 05:38) 15 (NOV 20 05:38) 18 (NOV 19 15:00) SBP 131 (NOV 20 10:00) 105 (NOV 20 05:38) 138 (NOV 19 20:53) DBP 79 (NOV 20 10:00) 62 (NOV 20 05:38) 79 (NOV 20 10:00) MAP 98 (NOV 20 10:00) 72 (NOV 20 05:38) 99 (NOV 19 20:53) SpO2 95 (NOV 19 20:29) L 92 (NOV 19 15:00) 95 (NOV 19 20:29) Physical Examination VS/Measurements Vitals Signs (last 24 hrs) Last Charted Minimum Maximum Temp 98 (NOV 20 10:00) 97.8 (NOV 19 20:53) 98.7 (NOV 19 15:00) Mon HR 87 (NOV 20 10:00) 81 (NOV 20 01:44) 100 (NOV 19 20:53) Resp Rate 15 (NOV 20:38) 15 (NOV 20 05:38) 18 (NOV 19 15:00) SBP 131 (NOV 20 10:00) 105 (NOV 20:38) 138 (NOV 19 20:53) DBP 79 (NOV 20 10:00) 62 (NOV 20 05:38) 79 (NOV 20 10:00) MAP 98 (NOV 20 10:00) 72 (NOV 20 05:38) 99 (NOV 19 20:53) SpO2 95 (NOV 19 20:29) L 92 (NOV 19 15:00) 95 (NOV 19 20:29) General: Alert and oriented, No acute distress. [...] Labs (Last four charted values) WBC H 18.5 (NOV 20) H 18.3 (NOV 19) H 18.2 (NOV 18) H 19.0 (NOV 17) HB L 9.7 (NOV 20) L 10.8 (NOV 19) L 9.8 (NOV 18) L 9.3 (NOV 17) HCT L 30.4 (NOV 20) L 32.1 (NOV 19) L 29.2 (NOV 18) L 27.8 (NOV 17) Plt 363 (NOV 20) 330 (NOV 19) 278 (NOV 18) 213 (NOV 17) Na 141 (NOV 20) 141 (NOV 19) 139 (NOV 18) 141 (NOV 17) K L 3.1 (NOV 20) 3.5 (NOV 20) L 3.0 (NOV 19) 4.1 (NOV 19) Cl 112 (NOV 20) 109 (NOV 19) 108 (NOV 18) 111 (NOV 17) CO2 L 20 (NOV 20) 24 (NOV 19) 24 (NOV 18) 23 (NOV 17) BUN 17 (NOV 20) 14 (NOV 19) 13 (NOV 18) 18 (NOV 17) Cr 0.60 (NOV 20) 0.70 (NOV 19) 0.60 (NOV 18) 0.70 (NOV 17) Glu R 106 (NOV 20) H 124 (NOV 19) H 111 (NOV 18) H 109 (NOV 17) Ca 8.4 (NOV 20) 8.7 (NOV 19) 8.4 (NOV 18) L [...] 17) . Radiology Results (Last 48 hours) [id number] -- 11/17/2020 01:09 CT Bx Lung Mediastinum LT (11/19/2020 10:59) Result: CT GUIDED FINE-NEEDLE ASPIRATION AND CORE BIOPSY OF LEFT LUNG MASSHISTORY: Left upper lobe mass. ATTENDING RADIOLOGIST: Dr. Byrne.PHYSICIAN SYS DIR: Vin Cortez PA-C.PROCEDURE: After informed consent was [...] and dictated by Dr. Abdirashid Byrne.Transcribed by OSCAR Acuña have personally viewed, interpreted and dictated the examination. Ihave read and agree with the above final transcribed report. CR Chest 2 Vws (11/19/2020 11:15) Result: [...] and dictated by Dr. Med Lozano.Transcribed by LISANDRO Acuña-CI have personally viewed, interpreted and dictated the [...] and bilateral ear pain: CT head at [place] negative for acute process. -consult Neurology. mri- [...] recheck a CBC CMP in the morning. [employer] Technologiesation system used. Computer program makes numerous spelling grammar mistakes. If you have any questions or concerns do not hesitate call Dr. Ramos Kuhn at cell phone number [phone]. documented in this encounter Plan of Treatment Not on file documented as of this encounter Visit Diagnoses Not on filedocumented in this encounter Care Teams Telephone Coin Box Collector Relationship Specialty Start Date End Date Mona Levin MD PCP - General Family Medicine 07/19/22 documented as of this encounter
--- OUTSIDE RECORDS SUMMARY | 2025-06-01 11:17 | XMS_ITS | Encounter Summary ---
[facility] Address [address] [place] [address] Care Team Providers Care Sales Representative Metals Name Role Phone Jacquelyn Desouza APRN Primary Care Provider +1- [phone] Reason for Visit * Reason Onset Date Comments Med Refill 05/15/2025 Encounter Details Date Type Department Care Team (Late st Contact Info) Description 05/15/2025 Refill [facility]THOP[facility]ICS & SPORTS MEDICINE [address] [facility] [address] [place] [address] Ramos Lamb MD [address], [address] [place] [address] Closed displaced fracture of proximal [...] or training? Not on file Preferred Language Sami 05/13/2023 PHQ-2 Answer Date Recorded Retired PHQ-9: [...] Description 06/01/2025 2:10 PM EDT Office Visit [facility] ORTHOPEDICS & SPORTS MEDICINE [address] [facility] [address] [place] [address] Delaney Concepcion MD [address] [facility] [address] [place] [address] 06/22/2025 1:15 PM EDT Office Visit [facility] PULMONARY & CRITICAL CARE MEDICINE [address] [place] [id number] Olivia Morales APRN [address] [facility] MED OFFICE [address] [address] documented as of this encounter Visit Diagnoses Diagnosis Closed displaced fracture of proximal phalanx of right ring finger, initial encounter- Primary documented in this encounter Care Teams Sales Representative Metals Relationship Specialty Start Date End Date Jacquelyn Desouza APRN [address] [facility] [place] [address] PCP - General Nurse Practitioner 08/25/22 documented as of this encounter
--- OUTSIDE RECORDS SUMMARY | 2025-06-01 11:17 | XMS_ITS | Encounter Summary ---
Author Organization [employer] ([place], [place], [place], [place]) Address [address] [place] [address] Care Team Providers Care Departmental Shipping Clerk Name Role Phone Mona Levin MD Primary Care Provider [phone]- [phone] Encounter Details Date Type Department Care Team (Late st Contact Info) Description 11/21/2020 Transcribed Document [facility] [place] [facility] [place] [address] ProviderLeia MD [address] [place] [address] Social History Tobacco Use Types Packs/Day Years Used Date Smoking Tobacco: Never Assessed Comments Unknown Sex and Gender Information Value Date Recorded Sex Assigned at Not on file Legal Sex Female 10:15 AM CDT Gender Identity Not on file Sexual Orientation Not on file documented as of this encounter Miscellaneous Notes * Cerner Conversion Note - Leia ProviderMD - 11/21/2020 1:32 PM DIESEL POWER SHOVEL OPERATOR On Going Discharge Planning Entered On: 11/21/2020 13:40 EST Performed On: 11/21/2020 13:32 EST by LULA RAMIREZ, RN-Tele TechEligibility Worker Progress Note Discharge Arrangements : Patient Post-Acute [...] Attend Multidisciplinary Rounds? : Yes LULA RAMIREZ RN-Tele Tech - 11/21/2020 13:32 EST Narrative Progress Note Narrative Progress Note : RAR Moderate ELOS: 5 days HD#4 COVID- 11/18 60 year old female transferred from [facility] for higher level of care. Admitted to [facility] on 11/12 for SOB and flank pain. [...] Note : RAR Moderate ELOS: 5 days HD#3 COVID- 11/18 60 year old female transferred from [facility] for higher level of care. Admitted to [facility] on 11/12 for SOB and flank pain. [...] follow for safe discharge plan. LULA RAMIREZ RN-Tele Tech - 11/20/20 16:16:59 RAR Moderate ELOS: 5 days HD#2 COVID- 11/18 60 year old female transferred from [facility] for higher level of care. Admitted to [facility] on 11/12 for SOB and flank pain. Initially diagnosed with PNA, urine culture positive for Klebsiella and blood culture positive for E. Coli. CT chest showed ASHISH mass. Consults: ID, Neurology and Pulmonary Plan: CT guided biopsy today. Patient was off the floor for her procedure and drowsy when she returned. CM spoke with patient's SO Jarrod Jones per patient request [phone]. He states patient does have a PCP [...] follow for safe discharge plan. LULA RAMIREZ, RN-Tele Tech - 11/19/20 17:13:35 LULA RAMIREZ RN-Tele Tech - 11/21/2020 13:32 EST Electronically signed by Francisco [facility] Conversion Incident Manager Cerner at 02/06/2023 8:55 AM CDT documented in this encounter Plan of Treatment Not on file documented as of this encounter Visit Diagnoses Not on filedocumented in this encounter Care Teams Departmental Shipping Clerk Relationship Specialty Start Date End Date Mona Levin MD PCP - General Family Medicine 07/19/22 documented as of this encounter
--- OUTSIDE RECORDS SUMMARY | 2025-06-01 11:17 | XMS_ITS | Encounter Summary ---
Author Organization [employer] ([place], [place], [place], [place]) Address [address] [place] [address] Care Team Providers Care Employment Advisor Name Role Phone Mona Levin MD Primary Care Provider [phone] [phone] Encounter Details Date Type Department Care Team (Late st Contact Info) Description 11/14/2020 Transcribed Document [facility] [place] [address] [place] [address] ProviderLeia MD [address] [place] [id number] Social History Tobacco Use Types Packs/Day Years Used Date Smoking Tobacco: Never Assessed Comments Unknown Sex and Gender Information Value Date Recorded Sex Assigned at Not on file Legal Sex Female 10:15 AM CDT Gender Identity Not on file Sexual Orientation Not on file documented as of this encounter Miscellaneous Notes * Cerner Conversion Note - Leia ProviderMD - 11/14/2020 3:22 AM POLYSOMNOGRAPHY TECHNOLOGIST [address] [address] PROGRESS NOTE PATIENT IDENTIFICATION: SHIELA JASSO (Female - 1960) ACCOUNT / UNIT NUMBER: [id number] / [id number] PRIMARY CARE PHYSICIAN: JEF FAMILY DOCTOR PATIENT LOCATION: ICU 0200-02 ADMIT DATE / TIME: 11/12/20 0105 DISCHARGE DATE / TIME: DICTATED: 11/13/202221 by NICOLE TAN TRANSCRIBED: 11/13/202341 by DAYANA IMPORTED: 11/13/207 CC: \R\ DATE OF SERVICE: 11/13/2020 SUBJECTIVE: A 60-year-old female admitted with severe sepsis. The patient has been diagnosed with pyelonephritis, but I have a suspicion of pneumonia with a newly appreciated left upper lobe mass. The patient was initially started on Rocephin and azithromycin. Then we broadened her out to Merrem today as she is still having fevers. The patient was found to be bacteremic. She has had persistent fever throughout the day and necessitating nearly around the clock Tylenol. The patient's stay today has been complicated by persistent severe bilateral ear pain and headache. There has been some associated tinnitus. Her pain has not been well relieved with analgesics. Ultimately, the patient was transferred to the ICU for closer evaluation and monitoring. OBJECTIVE: VITAL SIGNS: Temperature 99.8, pulse 110, respiratory rate 18, blood pressure is 157/82, sats are 94% on 2 L. GENERAL: This is a somewhat ill-appearing 60-year-old female, seen today, tearful in bed complaining of severe bilateral ear pain. HEENT: Atraumatic and normocephalic. Pupils are equal, round, and reactive to light. TMs are clear bilaterally. External canal appears normal. There is no pain with palpation of the mastoids. No pain with palpation of the tragus. Hearing appears intact. CHEST: Rhonchorous in the upper lobes bilaterally. HEART: Slightly tachycardic, regular rhythm. ABDOMEN: Soft, obese, nontender, nondistended. EXTREMITIES: No clubbing or cyanosis. There is trace edema. NEUROLOGIC: Nonfocal. LABORATORY DATA: Stat BMP showed glucose 128, BUN and creatinine of 18 and 1.26. Sodium 140, potassium 2.9. Bicarb 18. Lactic acid 0.7. White count 8.1, hemoglobin 9.8, platelet count 73. As noted earlier, urine and blood cultures are both showing gram-negative rods. ASSESSMENT/PLAN: 1. Severe sepsis without shock; hemodynamically markers are stabilized. Lactate normalized. White count is back to normal. She is still afebrile; however requiring frequent Tylenol dosages. Repeat blood cultures were obtained this evening. 2. Community-acquired pneumonia complicated by suspected neoplasm; the patient was initially on Rocephin and Zithromax. Rocephin was switched to Merrem to broaden out coverage. Continue Zithromax for atypical coverage. As she is still afebrile, I am going to add in Zyvox pending repeat blood cultures. Sputum culture has been ordered. Continue Mucinex and pulmonary hygiene techniques. The patient was placed on supplemental oxygen earlier this afternoon. Sats had been 90% or greater throughout this hospitalization. We will need to confirm, if there was in fact a significant desaturating event. 3. Pyelonephritis; patient has bacteremia with gram-negative rods. Merrem should broadly cover most urinary tract organisms. Await definitive culture and sensitivity. 4. Bacteremia with gram-negative rods as aforementioned. Switch to meropenem for broader coverage until definitive cultures obtained. 5. Severe bilateral ear pain without definitive source. She is also having headaches and I am going to CT her head and rule out any intracranial abnormalities that could be contributing to her symptoms. She does have some tinnitus as well. Hearing does appear intact. 6. Chronic obstructive pulmonary disease with acute exacerbation; the patient has moderate wheezing as well as bilateral rhonchi. Continue incentive spirometry, acapella flutter valve, mucolytic and nebulizer therapy. 7. Acute kidney injury, present on admission; improved with fluid rehydration. I have been reluctant to add in any nonsteroidals even with fevers due to impaired kidney function. We will further continue cooling measures and Tylenol. 8. Hypokalemia; potassium this evening was 2.9. We are going to replace orally and check a magnesium level. 9. Anemia; I suspect some of this is dilutional from aggressive fluid rehydration. She has had no evidence of active bleeding. Hemoglobin was 12.8 on arrival. Continue to monitor and check routine labs. 10. Thrombocytopenia, likely reactive from acute illness. Lovenox held. Continue sequential compression devices for deep venous thrombosis. PLAN: Plan of care has been discussed with the patient. Concerned about the persistent fevers in this patient who appears to otherwise be clinically responding. Over the past 12 to 18 hours, she has developed acute onset of uncontrolled ear pain of uncertain etiology. Physical exam did not elicit any obvious source. We are going to further investigate. We are going to broaden out antibiotics further, but hopefully deescalate with definitive cultures and negative repeat blood cultures. Sputum culture would be benefit. Also would like to get a rapid flu. She was COVID negative. This is a complicated case and she was moved to the ICU this evening for closer monitoring. Ultimately I do suspect, the patient has an underlying malignancy based on initial CT scan and we will need a pulmonology followup versus transfer to a tertiary care facility with appropriate services. The patient's condition continued to be responsive to initial efforts. The patient has been advised of the treatment plan and agreeable to care. I spent about 40 minutes with her this evening of critical care. /[id number] CC: Primary Care Physician Dictated By: NICOLE TAN-Signed By: KRISTAN/DAYANA 21 2342 [\R\ rep ct labl] [\R\ rep ct ivnm] Medical Disclaimer: This report is to be considered preliminary until reviewed and signed. documented in this encounter Plan of Treatment Not on file documented as of this encounter Visit Diagnoses Not on filedocumented in this encounter Care Teams Employment Advisor Relationship Specialty Start Date End Date Mona Levin MD PCP - General Family Medicine 07/19/22 documented as of this encounter
--- OUTSIDE RECORDS SUMMARY | 2025-06-01 11:17 | XMS_ITS | Encounter Summary ---
Author Organization [employer] ([place], [place], [place], [place]) Address [address] [place] [address] Care Team Providers Care Western Tack Assembly Line Worker Name Role Phone Mona Levin MD Primary Care Provider [phone] Encounter Details Date Type Department Care Team (Late st Contact Info) Description 11/27/[address] [facility] [place] [address] ProviderLeia MD [address] [place], [place] [id number] Social History Tobacco Use Types Packs/Day Years Used Date Smoking Tobacco: Never Assessed Comments Unknown Sex and Gender Information Value Date Recorded Sex Assigned at Not on file Legal Sex Female 10:15 AM CDT Gender Identity Not on file Sexual Orientation Not on file documented as of this encounter Miscellaneous Notes * Cerner Conversion Note - Leia Gutiérrez MD - 11/27/2020 9:38 PM SUPERVISOR FISH BAIT PROCESSING From: JEANMARIE HWANG MD To: CATRACHITA MIRANDA, RN-MITER CUTTER; CATRACHITA MIRANDA, RN-Care Management; Sent: 11/27/2020 21:38:14 LAWSON Dixon, I was not sure to whom I reach but you are the first to come to my mind. Can you help me to schedule this patient in my clinic (any time within 3 months). She was discharged and I was not sure she had an stepan with us in clinic documented in this encounter Plan of Treatment Not on file documented as of this encounter Visit Diagnoses Not on filedocumented in this encounter Care Teams Western Tack Assembly Line Worker Relationship Specialty Start Date End Date Mona Levin MD PCP - General Family Medicine 07/19/22 documented as of this encounter
--- OUTSIDE RECORDS SUMMARY | 2025-06-01 11:17 | XMS_ITS | Encounter Summary ---
Author Organization [employer] ([place], [place], [place], [place]) Address [address] [place] [address] Care Team Providers Care Tooling Manager Name Role Phone Mona Levin MD Primary Care Provider Encounter Details Date Type Department Care Team (Late st Contact Info) Description 11/26/2020 Transcribed Document [facility] [place] [facility] [place] [address] ProviderLeia MD [address] [place], [place] [id number] Social History Tobacco Use Types Packs/Day Years Used Date Smoking Tobacco: Never Assessed Comments Unknown Sex and Gender Information Value Date Recorded Sex Assigned at Not on file Legal Sex Female 10:15 AM CDT Gender Identity Not on file Sexual Orientation Not on file documented as of this encounter Miscellaneous Notes * Cerner Conversion Note - Leia ProviderMD - 11/26/2020 8:25 AM RN TELEPHONIC Patient: SHIELA JASSO Age: 60 Years Sex: Female : 1960 Assessment/Plan 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 She does complain of some increased frontal headache that has been waxing and waning during her inpatient stay. Otherwise patient has no new complaints of upper or lower extremity weakness, visual changes, nausea, vomiting, or any other complaints. Patient is still in the middle of her course of amphotericin B. She has a few more days on this medication then will switch over to itraconazole per ID notes. We still have no plans for surgical intervention at this time and defer to infectious disease for treatment of this. We will continue to follow the patient. VTE Prophylaxis - Medical Heparin 5,000 Units, SubCutaneous, Inj, [id number], Routine, Start 11/17/20 6:00:00 EST (FIFI JIN) Subjective Complains of increased frontal headache with no other complaints Vital Signs T: 36.9 ??C TMIN: 36.7 ??C TMAX: 37 ??C HR: 87(Monitored) RR: 16 BP: 107/65 SpO2: 98% Oxygen Settings (Last) Oxygen Therapy Mode: Room air (11/26/20 06:00:00) Oxygen Flow Rate: 5 Liter/Min (11/17/20 17:00:00) Intake & Output Totals Last 24 Hours (7a-7a) Input Total: 865.52 mL Output Total: 0 mL Balance: 865.52 mL Physical Exam Alert and oriented x3. Patient sitting comfortably in bed. Patient still has 5 out of 5 strength in bilateral upper and lower extremity. Normal sensation to touch bilateral upper and lower extremities. Cranial nerves I through XII grossly intact. Medications acetaminophen, 650 mg= 2 Tab, Oral, [id number] AmBisome + Dextrose 5% in Water intravenous solution 250 mL calcium gluconate calcium gluconate + Sodium Chloride 0.9% intravenous solution 100 mL calcium gluconate + Sodium Chloride 0.9% intravenous solution 100 mL Dextrose 5% in Water intravenous solution, 50 mL, IV Piggyback, [id number] Dextrose 5% in Water intravenous solution, 50 mL, IV Piggyback, [id number] diphenhydrAMINE, 25 mg= 0.5 mL, IV Push, R36TPlf DuoNeb 0.5 mg-2.5 mg/3 mL inhalation solution, 3 mL, Nebulized Inhalation , RT_Q6H, PRN ergocalciferol, 14298 Units= 1 Cap, Oral, F9Sliem gabapentin, 800 mg= 2 Cap, Oral, TID Habitrol 21 mg/24 hr transdermal film, extended release, 1 Patch, TransDermal, Daily heparin, 5000 Units= 1 mL, SubCutaneous, [id number] hydrALAZINE, 10 mg= 0.5 mL, IV Push, Q6H, PRN magnesium sulfate, 2 Gram= 50 mL, IV Piggyback, Daily, PRN magnesium sulfate, 2 Gram= 50 mL, IV Piggyback, Q2H, PRN meropenem + Sodium Chloride 0.9% intravenous solution 50 mL MiraLax, 17 Gram= 1 Packet, Oral, Daily, PRN Normal Saline 500 mL, 500 mL, IntraVENous, Daily nystatin, 782252 Units= 5 mL, Swish and Spit, QID, PRN Pepcid, 20 mg= 1 Tab, Oral, Daily Percocet 10/325, 1 Tab, Oral, Q6H, PRN potassium chloride 10 mEq oral tablet, extended release, 20 mEq= 2 Tab, Oral, BID potassium chloride 10 mEq/50 mL intravenous solution, 10 mEq= 50 mL, IV Piggyback, Q1H, PRN potassium chloride 20 mEq oral tablet, extended release, 20 mEq= 1 Tab, Oral, Q2H, PRN potassium chloride 20 mEq oral tablet, extended release, 60 mEq= 3 Tab, Oral, Q2H, PRN Restoril, 15 mg= 1 Cap, Oral, At Bedtime, PRN sodium bicarbonate 650 mg oral tablet, 1300 mg= 2 Tab, Oral, BID sodium phosphate sodium phosphate Tylenol, 650 mg= 2 Tab, Oral, Q4H, PRN Zofran, 4 mg= 2 mL, IV Push, Q4H, PRN Lab Results Test Name Test Result Date/Time Sodium Level 139 mmol/L 11/26/2020 07:17 EST Potassium Level 4.2 mmol/L 11/26/2020 07:17 EST Chloride Level 114 mmol/L (High) 11/26/2020 07:17 EST Carbon Dioxide Level 14 mmol/L (Low) 11/26/2020 07:17 EST Anion Gap 15 11/26/2020 07:17 EST Glucose Level 99 mg/dL 11/26/2020 07:17 EST Blood Urea Nitrogen 15 mg/dL 11/26/2020 07:17 EST Creatinine Level 0.90 mg/dL 11/26/2020 07:17 EST eGFR >60 mL/min/1.73m2 11/26/2020 07:17 EST eGFR NonAfrican >60 mL/min/1.73m2 11/26/2020 07:17 EST Bun/Creatinine 16.7 11/26/2020 07:17 EST Calcium Level 9.4 mg/dL 11/26/2020 07:17 EST Folate Level 4.30 ng/mL 11/26/2020 07:17 EST Vitamin B12 Level 1286 pg/mL (High) 11/26/2020 07:17 EST WBC 12.6 K/uL (High) 11/26/2020 07:17 EST RBC 2.61 Million/uL (Low) 11/26/2020 07:17 EST Hgb 8.8 g/dL (Low) 11/26/2020 07:17 EST Hct 27.9 % (Low) 11/26/2020 07:17 EST MCV 106.9 fL (High) 11/26/2020 07:17 EST MCH 33.7 pg (High) 11/26/2020 07:17 EST MCHC 31.5 Gram/dL (Low) 11/26/2020 07:17 EST Platelet Count 354 K/uL 11/26/2020 07:17 EST MPV 9.9 fL 11/26/2020 07:17 EST RDW 13.9 % 11/26/2020 07:17 EST Neut % 58.1 % 11/26/2020 07:17 EST Neut # 7.34 K/uL (High) 11/26/2020 07:17 EST Lymph % 28.3 % 11/26/2020 07:17 EST Lymph # 3.58 x10(3)/uL 11/26/2020 07:17 EST [place] % 10.8 % (High) 11/26/2020 07:17 EST [place] # 1.37 K/uL (High) 11/26/2020 07:17 EST Eos % 0.4 % 11/26/2020 07:17 EST Eos # 0.05 x10(3)/uL 11/26/2020 07:17 EST Baso % 0.8 % 11/26/2020 07:17 EST Baso # 0.10 x10(3)/uL 11/26/2020 07:17 EST Slide Review No 11/26/2020 07:17 EST IG# 0.20 x10(3)/uL (High) 11/26/2020 07:17 EST IG% 1.60 % (High) 11/26/2020 07:17 EST Procalcitonin 7.02 ng/mL (High) 11/26/2020 07:17 EST Electronically signed by Francisco, [facility] Conversion Detective [employer] Cerner at 02/06/2023 8:52 AM CDT documented in this encounter Plan of Treatment Not on file documented as of this encounter Visit Diagnoses Not on filedocumented in this encounter Care Teams Tooling Manager Relationship Specialty Start Date End Date Mona Levin MD PCP - General Family Medicine 07/19/22 documented as of this encounter
--- OUTSIDE RECORDS SUMMARY | 2025-06-01 11:17 | XMS_ITS | Encounter Summary ---
Author Organization [employer] ([place], [place], [place], [place]) Address [address] [place] [address] Care Team Providers Care Refrigeration Installer Name Role Phone Mona Levin MD Primary Care Provider [phone]- [phone] Encounter Details Date Type Department Care Team (Late st Contact Info) Description 11/27/2020 Transcribed Document [facility] [place] [facility] [place] [address] ProviderLeia MD [address] [place], [place] [address] Social History Tobacco Use Types Packs/Day Years Used Date Smoking Tobacco: Never Assessed Comments Unknown Sex and Gender Information Value Date Recorded Sex Assigned at Not on file Legal Sex Female 10:15 AM CDT Gender Identity Not on file Sexual Orientation Not on file documented as of this encounter Miscellaneous Notes * Cerner Conversion Note - Leia ProviderMD - 11/27/2020 5:00 AM BULLET SWAGING MACHINE ADJUSTER Chart Check - Review Order Profile Entered On: 11/27/2020 8:19 EST Performed On: 11/27/2020 5:00 EST by Arti Rosales RN Chart Check Powerplans Initiated/Discontinued as Appropriate : Yes All Active Orders Reviewed : Yes Arti Rosales RN - 11/27/2020 8:19 EST Electronically signed by Francisco [facility] Conversion [place] Adviser Cerner at 02/06/2023 8:52 AM CDT documented in this encounter Plan of Treatment Not on file documented as of this encounter Visit Diagnoses Not on filedocumented in this encounter Care Teams Refrigeration Installer Relationship Specialty Start Date End Date Mona Levin MD PCP - General Family Medicine 07/19/22 documented as of this encounter
--- OUTSIDE RECORDS SUMMARY | 2025-06-01 11:17 | XMS_ITS | Encounter Summary ---
Author Organization [employer] ([place], [place], [place], [place]) Address [address] [place] [address] Care Team Providers Care Grid Operator Name Role Phone Mona Levin MD Primary Care Provider [phone]- [phone] Encounter Details Date Type Department Care Team (Late st Contact Info) Description 11/16/2020 Transcribed Document [facility] [place] [address] [place] [address] ProviderLeia MD [address] [place] [id number] Social History Tobacco Use Types Packs/Day Years Used Date Smoking Tobacco: Never Assessed Comments Unknown Sex and Gender Information Value Date Recorded Sex Assigned at Not on file Legal Sex Female 10:15 AM CDT Gender Identity Not on file Sexual Orientation Not on file documented as of this encounter Miscellaneous Notes * Cerner Conversion Note - Leia Gutiérrez MD - 11/16/2020 9:00 PM FISCAL CLERK [address] [address] DISCHARGE SUMMARY PATIENT IDENTIFICATION: SHIELA JASSO (Female - 1960) ACCOUNT / UNIT NUMBER: [id number] / [id number] PRIMARY CARE PHYSICIAN: JEF FAMILY DOCTOR PATIENT LOCATION: ICU 0200-02 ADMIT DATE / TIME: 11/12/20 0105 DISCHARGE DATE / TIME: DICTATED: 11/16/20 1600 by REINA SAMUELS TRANSCRIBED: 11/16/20 1713 by DAYANA IMPORTED: 11/16/20 1719 CC: REINA SAMUELS; NO FAMILY DOCTOR\R\ DATE OF ADMISSION: 11/12/2020 DATE OF DISCHARGE: 11/16/2020 DISCHARGE DIAGNOSES: 1. Lung mass with postobstructive pneumonia. 2. Escherichia coli bacteremia. 3. Klebsiella pneumoniae pyelonephritis. 4. Community-acquired pneumonia. 5. Chronic obstructive pulmonary disease. 6. Acute kidney injury (resolved). 7. Hypokalemia. 8. Hypomagnesemia. 9. Tobacco abuse. 10. Trigeminal neuralgia. HOSPITAL COURSE: Please refer to the discharge summary dictated on 11/14/2020 for details of the inpatient stay. In short, she has been waiting for the past 48 hours for a bed up in [place]. Today, we performed a brain MRI because of her trigeminal neuralgia symptoms. This was negative. She has been started on carbamazepine 200 mg p.o. b.i.d. with some improvement. I do recommend periodic lab monitoring, especially with sodium levels. The patient's clinical condition is otherwise unchanged. Her rising white count is somewhat of a concern. Although repeat blood cultures have been negative. We have again contacted [place] and are anxious to get the patient transferred there when bed becomes available. CONDITION AT DISCHARGE: VITAL SIGNS: Blood pressure 176/80, heart rate 106, respirations 18, temperature 100, 95% on 1 L. HEART: RRR. LUNGS: Clear to auscultation bilaterally. DISCHARGE INSTRUCTIONS: She can be discharged via EMS to [place] for pulmonary consult to evaluate lung mass as well as Neurology consult to evaluate trigeminal neuralgia. DISCHARGE MEDICATIONS: 1. Azithromycin 500 mg daily. 2. Merrem 1 g IV q.8 hours. 3. Vitamin C daily. 4. Ferrous sulfate daily. 5. Flonase 2 puffs each nostril daily. 6. Folic acid 1 mg daily. 7. Neurontin 800 mg q.8 hours. 8. Claritin 10 mg daily. 9. Nicotine patch 21 mg daily. 10. Protonix 40 mg daily. 11. Carbamazepine 200 mg b.i.d. 12. Mucinex 600 mg b.i.d. 13. Dulera 2 puffs b.i.d. 14. Spiriva 2 puffs once daily. 15. Toradol 30 mg IV q.6 hours p.r.n. 16. Oxycodone 10 mg q.4 hours p.r.n. 17. Ventolin 1-2 puffs q.4 hours p.r.n. I spent about 35 minutes with this patient to go over discharge instructions. /[id number] Dictated By: REINA SAMUELS E-Signed By: NATTY 1600 1713 [\R\ rep ct labl] [\R\ rep ct ivnm] Medical Disclaimer: This report is to be considered preliminary until reviewed and signed. documented in this encounter Plan of Treatment Not on file documented as of this encounter Visit Diagnoses Not on filedocumented in this encounter Care Teams Grid Operator Relationship Specialty Start Date End Date Mona Levin MD PCP - General Family Medicine 07/19/22 documented as of this encounter
--- OUTSIDE RECORDS SUMMARY | 2025-06-01 11:17 | XMS_ITS | Encounter Summary ---
Author Organization [employer] ([place], [place], [place], [place]) Address [address] [place] [address] Care Team Providers Care Planer Stone Name Role Phone Mona Levin MD Primary Care Provider [phone]- [phone] Encounter Details Date Type Department Care Team (Late st Contact Info) Description 11/27/2020 Transcribed Document [facility] [place] [facility] [address] ProviderLeia MD [address] [place], [place] [phone] Social History Tobacco Use Types Packs/Day Years Used Date Smoking Tobacco: Never Assessed Comments Unknown Sex and Gender Information Value Date Recorded Sex Assigned at Not on file Legal Sex Female 10:15 AM CDT Gender Identity Not on file Sexual Orientation Not on file documented as of this encounter Miscellaneous Notes * [employer]ner Conversion Note - Leia Gutiérrez MD - 11/27/2020 5:32 PM [facility] CERTIFIED [employer] Patient Education Materials Follows:Disease Community-Acquired Pneumonia, Adult Pneumonia is an infection [...] these instructions at home: Medicines ??? Take qrox-jai-zpgpnnt and prescription medicines only as told by [...] cannot use soap and water, use hand cocktail server. Contact a doctor if: ??? You have [...] 03/23/2009 Document Revised: 01/25/2020 Document Reviewed: 06/02/2019 [employer] Patient Education ? 2020 [employer] documented in this encounter Plan of Treatment Not on file documented as of this encounter Visit Diagnoses Not on filedocumented in this encounter Care Teams Planer Stone Relationship Specialty Start Date End Date Mona Levin MD PCP - General Family Medicine 07/19/22 documented as of this encounter
--- OUTSIDE RECORDS SUMMARY | 2025-06-01 11:17 | XMS_ITS | Encounter Summary ---
Author Organization [employer] ([place], [place], [place], [place]) Address [address] [place] [address] Care Team Providers Care Geospatial Technologist Name Role Phone Mona Levin MD Primary Care Provider [phone]- [phone] Encounter Details Date Type Department Care Team (Late st Contact Info) Description 11/21/2020 Transcribed Document [facility] [place] Family Medicine [facility] [place] [address] ProviderLeia MD [address] [place], [place] [id number] Social History Tobacco Use Types Packs/Day Years Used Date Smoking Tobacco: Never Assessed Comments Unknown Sex and Gender Information Value Date Recorded Sex Assigned at Not on file Legal Sex Female 10:15 AM CDT Gender Identity Not on file Sexual Orientation Not on file documented as of this encounter Miscellaneous Notes * Cerner Conversion Note - Leia Gutiérrez MD - 11/21/2020 12:37 PM MEDICAL RECORD LIBRARIAN Patient: SHIELA JASSO Age: 60 Years Sex: Female : 1960 Reason for Consultation occipital lesion noted on MRI History of Present Illness patient is a 60-year-old female with history of hypertension who presented to the [facility] emergency department on 11/12/20 with complaints of shortness of air, chest pain, and persistent cough.she had a chest x-ray done that did reveal pneumonia. The patient was also complaining of flank pain at that time and workup with imaging was consistent for pyelonephritis. During her workup they did see a lesion the left upper lobe.she was then transferred to [facility]. He was here the patient started complaining of headache and bilateral ear pain her which they then did a CT head followed by a brain MRI with and without contrast. Patient did have CT-guided FNA on 11/19/20 did result in blastomycosis today. Neurology is currently evaluating patient for trigeminal neuralgia due to extreme pain in the right eye and on the entire right side of the face. We were consulted as a result of the brain MRI showing a lesion in the occipital lobe. Patient denies any new or recent headache, visual changes, dizziness, upper or lower shoulder mini weakness, pain, chest pain, shortness of air, or any other complaints. She also currently denies any facial pain or numbness. Electively she has at this time is still that she has residual pain in the right ear. Review of Systems Constitutional: [No fevers, chills, sweats] Eye: [No recent visual problems, eye discharge, eye pain, redness] HEENT: patient reports some pain in the right ear Respiratory: [No shortness of breath, cough, pain on breathing, sputum production] Cardiovascular: [No Chest pain, palpitations, syncope, shortness of breath while laying flat] Gastrointestinal: [No nausea, vomiting, diarrhea, constipation] Genitourinary: [No hematuria, dysuria, incontinence, lesions on genitalia] Lalo/Lymph: [Negative for bruising tendency, swollen lymph glands, nosebleeds, history of anticoagulation] Endocrine: [Negative for excessive thirst, excessive hunger, excessive urination, heat or cold intolerance] Musculoskeletal: [No back pain, neck pain, joint pain, muscle pain, decreased range of motion] Integumentary: [No rash, pruritus, abrasions, lesions] Neurologic: [No weakness, numbness, frequent headaches, tremors, blackouts] Psychiatric: [No anxiety, depression, mood changes, hallucinations] Vital Signs T: 36.6 ??C TMIN: 36.6 ??C TMAX: 37.4 ??C HR: 97(Monitored) RR: 14 BP: 123/69 SpO2: 98% Oxygen Settings (Last) Oxygen Therapy Mode: Room air (11/21/20 08:13:00) Oxygen Flow Rate: 5 Liter/Min (11/17/20 17:00:00) Physical Exam General: [Alert and oriented, well nourished, no acute distress]. Neurologic: [Awake, alert, and oriented X3, CN II-XII intact. patient had normal sensation to touch in bilateral upper and lower extremities and in the face. Face symmetrical. No pain elicited when palpating face or scalp Eye: [PERRL, EOMI, normal conjuctiva]. HENT: [Normocephalic, clear tympanic membranes, normal hearing, moist oral mucosa, no scleral icterus, no sinus tenderness]. Neck: [Supple, non-tender, no carotid bruits, no JVD, no lymphadenopathy]. Lungs: [Clear to auscultation and percussion, non-labored respiration]. Heart: [Normal rate, regular rhythm, no murmur, gallop or edema]. Abdomen: [Soft, non-tender, non-distended, normal bowel sounds, no masses]. Musculoskeletal: 5 out of 5 strength bilateral upper and lower extremities. Normal sensation to touch bilateral upper and lower extremities. 2+ reflexes throughout bilateral upper and lower extremity.no drift. Skin: [Skin is warm, dry and pink, no rashes or lesions]. Psychiatric: [Cooperative, appropriate mood and affect]. Assessment/Plan patient is a 60-year-old female with no neurosurgical history who presents to us today with recently diagnosed pneumonia, pyelonephritis, possible trigeminal neuralgia, and now blastomycosis who we were consulted on due to CT and brain MRI showing occipital lesion measuring roughly 2 cm. An incidental finding on patient's initial workup for her pyelonephritis showed a left upper lobe lung mass on x-ray. A CT-guided FNA was performed on 11/19/20 which did result today in blastomycosis as I was told by nursing staff.Official reports that than posted yet. Due to the lung mass FNA showing blastomycosis, at this time we will be deferring to infectious disease and other care team opinions for treatment plan. We do not plan for any surgical intervention at this time. We will continue following the patient and following recommendations given by another care teams involved. VTE Prophylaxis - Medical Heparin 5,000 Units, SubCutaneous, Inj, [id number], Routine, Start 11/17/20 6:00:00 LAWSON (FIFI JIN) Provider Information Primary Care Physician - MARINE, UNKNOWN Attending Physician - DIANE BARROS MD-INT Admitting Physician - TRISTEN MITCHELL DO Consulting Physician - TESSA MYLES MD-INF (Call in a.m. 11/17)- Bacteremia, UTI, pneumonia Consulting Physician - JEANMARIE HWANG MD (Call in a.m. 11/17)- New lung mass, pneumonia Consulting Physician - DIANE BARROS MD-INT Consulting Physician - DEMETRIS GONZALEZ MD Consulting Physician - KAELYN LEVI MD Consulting Physician - SVETA SMYTH MD-SNU - occipatal lesionn. lung bx- blastomycosis. hx heavy tobacco Referring Physician - MARINE, UNKNOWN Problem List/Past Medical History Ongoing At risk for sleep apnea Chronic back pain Depression diverticulitis fibromyalgia heartburn Hypertension Kidney stones Historical No qualifying data Procedure/Surgical History left knee surgery (07/06/2015), gallbladder removal, hysterectomy, surgery for diverticulitis Sep 2015. Medications Inpatient acetaminophen, 650 mg= 2 Tab, Oral, [id number] AmBisome + Dextrose 5% in Water intravenous solution 250 mL calcium gluconate calcium gluconate + Sodium Chloride 0.9% intravenous solution 100 mL calcium gluconate + Sodium Chloride 0.9% intravenous solution 100 mL diphenhydrAMINE, 25 mg= 0.5 mL, IV Push, [id number] DuoNeb 0.5 mg-2.5 mg/3 mL inhalation solution, 3 mL, Nebulized Inhalation , RT_Q6H, PRN ergocalciferol, 28852 Units= 1 Cap, Oral, [id number] gabapentin, 800 mg= 2 Cap, Oral, TID Habitrol 21 mg/24 hr transdermal film, extended release, 1 Patch, TransDermal, Daily heparin, 5000 Units= 1 mL, SubCutaneous, [id number] hydrALAZINE, 10 mg= 0.5 mL, IV Push, Q6H, PRN magnesium sulfate, 2 Gram= 50 mL, IV Piggyback, Daily, PRN magnesium sulfate, 2 Gram= 50 mL, IV Piggyback, Q2H, PRN MiraLax, 17 Gram= 1 Packet, Oral, Daily, PRN morphine, 2 mg= 1 mL, IV Push, Q2H, PRN nystatin, [id number] Units= 5 mL, Swish and Spit, QID, [...] 60 mEq= 3 Tab, Oral, Q2H, PRN Rocephin Roxicodone, 5 mg= 1 Tab, Oral, Q4H, PRN Sodium Chloride 0.9% intravenous solution 1,000 mL, 1000 mL, IntraVENous sodium phosphate sodium phosphate Tylenol, 650 mg= 2 Tab, Oral, Q4H, PRN Zofran, 4 mg= 2 mL, IV Push, Q4H, PRN Home cetirizine 10 mg oral tablet, 10 mg= 1 Tab, Oral, Daily gabapentin 800 mg oral tablet, 800 mg= 1 Tab, Oral, Q8H ibuprofen 200 mg oral tablet, 400 mg= 2 Tab, Oral, Q4H, PRN pantoprazole 40 mg oral delayed release tablet, 40 mg= 1 Tab, Oral, Daily Percocet 10/325 oral tablet, 1 Tab, Oral, Q8H Allergies codeine (nausea, vomiting) penicillin (nausea, vomiting) [...] Current every day smoker. Packs/Tins Daily: 1. Lab Results Test Name Test Result Date/Time Sodium Level 142 mmol/L 11/21/2020 03:24 EST Potassium Level 3.7 mmol/L 11/21/2020 09:27 EST Potassium Level 3.7 mmol/L 11/21/2020 03:24 EST Potassium Level 3.8 mmol/L 11/21/2020 03:24 EST Potassium Level 3.5 mmol/L 11/20/2020 20:29 EST Potassium Level 3.6 mmol/L 11/20/2020 14:36 EST Chloride Level 115 mmol/L (High) 11/21/2020 03:24 EST Carbon Dioxide Level 17 mmol/L (Low) 11/21/2020 03:24 EST Anion Gap 14 11/21/2020 03:24 EST Glucose Level 100 mg/dL 11/21/2020 03:24 EST Blood Urea Nitrogen 16 mg/dL 11/21/2020 03:24 EST Creatinine Level 0.70 mg/dL 11/21/2020 03:24 EST eGFR >60 mL/min/1.73m2 11/21/2020 03:24 EST eGFR NonAfrican >60 mL/min/1.73m2 11/21/2020 03:24 EST Bun/Creatinine 22.9 (High) 11/21/2020 03:24 EST Calcium Level 8.6 mg/dL 11/21/2020 03:24 EST Protein Total 7.5 Gram/dL 11/21/2020 03:24 EST Albumin Level 2.2 Gram/dL (Low) 11/21/2020 03:24 EST Globulin 5.3 Gram/dL (High) 11/21/2020 03:24 EST A/G Ratio 0.4 (Low) 11/21/2020 03:24 EST Bilirubin Total 0.3 mg/dL 11/21/2020 03:24 EST Alk Phos 70 Units/Liter 11/21/2020 03:24 EST AST 16 Units/Liter 11/21/2020 03:24 EST ALT 20 Units/Liter 11/21/2020 03:24 EST Magnesium Level 1.7 mg/dL 11/21/2020 03:24 EST Phosphorus 3.6 mg/dL 11/21/2020 03:24 EST CRP 7.4 mg/dL (High) 11/21/2020 03:24 EST ProBNP 370 pg/mL (High) 11/21/2020 03:24 EST WBC 17.1 K/uL (High) 11/21/2020 03:24 EST RBC 2.84 Million/uL (Low) 11/21/2020 03:24 EST Hgb 9.6 g/dL (Low) 11/21/2020 03:24 EST Hct 29.9 % (Low) 11/21/2020 03:24 EST MCV 105.3 fL (High) 11/21/2020 03:24 EST MCH 33.8 pg (High) 11/21/2020 03:24 EST MCHC 32.1 Gram/dL (Low) 11/21/2020 03:24 EST Platelet Count 374 K/uL (High) 11/21/2020 03:24 EST MPV 11.0 fL 11/21/2020 03:24 EST RDW 13.7 % 11/21/2020 03:24 EST Neut % 73.5 % (High) 11/21/2020 03:24 EST Neut # 12.60 K/uL (High) 11/21/2020 03:24 EST Lymph % 16.9 % (Low) 11/21/2020 03:24 EST Lymph # 2.90 x10(3)/uL 11/21/2020 03:24 EST Blount % 7.2 % 11/21/2020 03:24 EST Blount # 1.23 K/uL (High) 11/21/2020 03:24 EST Eos % 0.7 % 11/21/2020 03:24 EST Eos # 0.12 x10(3)/uL 11/21/2020 03:24 EST Baso % 0.8 % 11/21/2020 03:24 EST Baso # 0.13 x10(3)/uL 11/21/2020 03:24 EST Slide Review No 11/21/2020 03:24 EST IG# 0.15 x10(3)/uL (High) 11/21/2020 03:24 EST IG% 0.90 % (High) 11/21/2020 03:24 EST Procalcitonin 77.13 ng/mL (High) 11/21/2020 09:27 EST Procalcitonin 86.18 ng/mL (High) 11/21/2020 03:24 EST Specimen Type blood 11/21/2020 09:27 EST Electronically signed by Francisco, [facility] Conversion Beverage Distiller Cerner at 02/06/2023 8:51 AM CDT documented in this encounter Plan of Treatment Not on file documented as of this encounter Visit Diagnoses Not on filedocumented in this encounter Care Teams Geospatial Technologist Relationship Specialty Start Date End Date Mona Levin MD PCP - General Family Medicine 07/19/22 documented as of this encounter
--- OUTSIDE RECORDS SUMMARY | 2025-06-01 11:17 | XMS_ITS | Encounter Summary ---
Author Organization [employer] ([place], [place], [place], [place]) Address [address] [place] [address] Care Team Providers Care Real Estate Specialist Name Role Phone Mona Levin MD Primary Care Provider [phone]- [phone] Encounter Details Date Type Department Care Team (Late st Contact Info) Description 11/20/2020 Transcribed Document [facility] [place] Family Medicine [facility] [place] [address] ProviderLeia MD [address] [place] [address] Social History Tobacco Use Types Packs/Day Years Used Date Smoking Tobacco: Never Assessed Comments Unknown Sex and Gender Information Value Date Recorded Sex Assigned at Not on file Legal Sex Female 10:15 AM CDT Gender Identity Not on file Sexual Orientation Not on file documented as of this encounter Miscellaneous Notes * Cerner Conversion Note - Leia Gutiérrez MD - 11/20/2020 6:46 PM VENDING MACHINE OPERATOR Patient: SHIELA JASSO Age: 60 years Sex: Female : 1960 Associated Diagnoses: None Author: DEMETRIS WILCOX MD INFECTIOUS DISEASES Progress Note EVNATALIIA RAMOS: Dr. Demetris Wilcox Date of Admission: 11/17/20 Reason for Consultation: Bacteremia, UTI, pneumonia HPI: 60 yo female with h/o fibromyalgia, chronic pain, HTN, and nephrolithiasis who presented to [facility] on 11/12/20 with shortness of breath and [...] Merrem after cultures. She was transferred to [facility] on 11/17/20 and arrived confused, lethargic, [...] air. no n/v, diarrhea, or new rash. ROS: see above Allergies: Allergies (2) Active Reaction codeine nausea, vomiting penicillin nausea, vomiting Medications: Medications by Classification Antimicrobials cefTRIAXone (Rocephin) - 2 Gram, IV Piggyback, Inj, [id number], infuse over 30 Minute(s), Routine Anticoagulant heparin - 5,000 Units, SubCutaneous, Inj, [id number], Routine Respiratory albuterol-ipratropium (DuoNeb 0.5 mg-2.5 mg/3 [...] PRN for Pain (Moderate 4-6), Routine acetaminophen (Tylenol) - 650 mg, Oral, Tab, Q4H, PRN for Pain (Mild 1-3), Routine Vitamins calcium gluconate - 1 Gram 10 [...] Routine ergocalciferol - 50,000 Units, Oral, Cap, [id number], Routine magnesium sulfate - 2 Gram 50 [...] 24 hrs) Last Charted Minimum Maximum Temp 99.3 (NOV 20:00) 97.8 (NOV 19:53) 99.3 (NOV 20:00) Mon HR 84 (NOV 20 14:00) 81 (NOV 20 01:44) 100 (NOV 19 20:53) Resp Rate 15 (NOV 20 05:38) 15 (NOV 20 05:38) 15 (NOV 20 05:38) SBP 97 (NOV 20 14:00) 97 (NOV 20 14:00) 138 (NOV 19 20:53) DBP L 55 (NOV 20 14:00) L 55 (NOV 20:00) 79 (NOV 20 10:00) MAP 71 (NOV 20 14:00) 71 (NOV 20 14:00) 99 (NOV 19 20:53) SpO2 96 (NOV 20 14:00) 95 (NOV 19 20:29) 96 (NOV 20 10:00) Exam: Constitutional: NAD, sitting up in bed, HEENT: NC/AT, No external oral lesions. Respiratory: diminished at lung bases bilaterally, non-labored breathing. Cardio: RRR. no murmur GI: BS+, non-tender, [...] 139 (NOV 18) 141 (NOV 17) K 3.6 (NOV 20) L 3.1 (NOV 20) 3.5 (NOV 20) L 3.0 (NOV 19) Cl 112 (NOV 20) 109 [...] Encounter/Past 24 Hours) Creatinine Level 0.60 mg/dL 11/20/2020 10:04 Bun/Creatinine 28.3 HI 11/20/2020 10:04 Estimated Creatinine Clearance 90.84 mL/Min 11/20/2020 10:04 Micro: Blood cx NGSF MRSA surveillance: negative [facility]: (called and talked to Benhauer at [facility] on 11/17/20) Blood cx: E. coli in 2 of 2 sets/Klebsiella in 1 set all sensitive to Rocephin Urine cx: Klebsiella pneumoniae sensitive to Rocephin Rad: Radiology Results (Last 48 hours) [id number] -- 11/17/2020 01:09 CT Bx Lung Mediastinum LT (11/19/2020 10:59) Result: CT GUIDED FINE-NEEDLE ASPIRATION AND CORE BIOPSY OF LEFT LUNG MASSHISTORY: Left upper lobe mass. ATTENDING RADIOLOGIST: Dr. Byrne.PHYSICIAN CNC TECHNICIAN: Vin Cortez PA-C.PROCEDURE: After informed consent was [...] with the above final transcribed report. IMPRESSION: - E. coli/Klebsiella bacteremia at OSH. [...] follow biopsy cultures and path - continue Ceftriaxone 2 GM IV daily When she is cleared by pulmonology and other teams, I am ok with discharge with the below plan. May need to stay pending biopsy results but she wants to leave and follow up closely: UM/KEY: 1. Ceftriaxone 2g IV q24h. Anticipate continuing this antibiotic at least until 11/26/20 for a 2 week course. Case mgmt to arrange home infusion. 2. weekly cbc with diff, bmp, esr, crp 3. weekly PICC dressing change 4. Follow up with me in clinic 11/26/20. 5. please fax a copy of my plans to [facility] at [phone] and call [phone] with final discharge plans documented in this encounter Plan of Treatment Not on file documented as of this encounter Visit Diagnoses Not on filedocumented in this encounter Care Teams Real Estate Specialist Relationship Specialty Start Date End Date Mona Levin MD PCP - General Family Medicine 07/19/22 documented as of this encounter
--- OUTSIDE RECORDS SUMMARY | 2025-06-01 11:17 | XMS_ITS | Encounter Summary ---
Author Organization [employer] ([place], [place], [place], [place]) Address [address] [place] [address] Care Team Providers Care Customer Experience Analyst Name Role Phone Mona Levin MD Primary Care Provider [phone]- [phone] Encounter Details Date Type Department Care Team (Late st Contact Info) Description 11/21/2020 Transcribed Document [facility] [place] [address] [place] [address] ProviderLeia MD [address] [place] [address] Social History Tobacco Use Types Packs/Day Years Used Date Smoking Tobacco: Never Assessed Comments Unknown Sex and Gender Information Value Date Recorded Sex Assigned at Not on file Legal Sex Female 10:15 AM CDT Gender Identity Not on file Sexual Orientation Not on file documented as of this encounter Miscellaneous Notes * Cerner Conversion Note - Leia ProviderMD - 11/21/2020 10:54 AM SENIOR SOFTWARE QUALITY ENGINEER Consult Phone Call Documentation Entered On: 11/21/2020 11:03 EST Performed On: 11/21/2020 10:54 EST by Katelyn Dickson [facility] Phone Call for Consults Consult Phone Call/Page Attempt : First call Consult Reason : Occipatal lesion, lung biopsy-blastomycytosis Physician Requesting Consult : DIANE BARROS MD-INT Physician Requested for Consult : SOSA BRANNON MD Provider Service Notified Name : Neurosurgery Date and Time Call Returned : 11/21/2020 11:03 EST Katelyn Dickson REHABILITATION TE[facility] - 11/21/2020 11:02 EST Electronically signed by Interface, [facility] Conversion Machine Set Up Operator Cerner at 02/06/2023 8:52 AM CDT documented in this encounter Plan of Treatment Not on file documented as of this encounter Visit Diagnoses Not on filedocumented in this encounter Care Teams Customer Experience Analyst Relationship Specialty Start Date End Date Mona Levin MD PCP - General Family Medicine 07/19/22 documented as of this encounter
--- OUTSIDE RECORDS SUMMARY | 2025-06-01 11:17 | XMS_ITS | Encounter Summary ---
Author Organization [employer] ([place], [place], [place], [place]) Address [address] [place] [address] Care Team Providers Care Hospice Liaison Name Role Phone Mona Levin MD Primary Care Provider +1- [phone] Encounter Details Date Type Department Care Team (Late st Contact Info) Description 11/21/[address] [facility] [place] Family Medicine [facility] [place] [address] ProviderLeia MD [address] [place], [place] [address] Social History Tobacco Use Types Packs/Day Years Used Date Smoking Tobacco: Never Assessed Comments Unknown Sex and Gender Information Value Date Recorded Sex Assigned at Not on file Legal Sex Female 10:15 AM CDT Gender Identity Not on file Sexual Orientation Not on file documented as of this encounter Miscellaneous Notes * Cerner Conversion Note - Historical ProviderMD - 11/21/2020 2:00 AM PAPER DELIVERER Body Recall Instructor Details Entered On: 11/21/2020 1:31 EST Performed On: 11/21/2020 2:00 EST by Keli Conklin RN-RESOURCE Order Details Transport Mode Order Detail : Wheelchair Isolation Precautions Order Detail : Standard Precautions Order Detail : 0 IV Order Detail : 1 Oxygen Order Detail : 1 Nurse Collect Order Detail : 0 Lift/Transfer : Minimal Central Line Order Detail : Yes Room Service : Appropriate Arterial Line : No Patient Needs Meds Crushed/Liquid : No Keli Conklin RN-RESOURCE - 11/21/2020 1:31 EST Electronically signed by Francisco [facility] Conversion Bilingual Customer Service Specialist Cerner at 02/06/2023 8:52 AM CDT documented in this encounter Plan of Treatment Not on file documented as of this encounter Visit Diagnoses Not on filedocumented in this encounter Care Teams Hospice Liaison Relationship Specialty Start Date End Date Mona Levin MD PCP - General Family Medicine 07/19/22 documented as of this encounter
--- OUTSIDE RECORDS SUMMARY | 2025-06-01 11:17 | XMS_ITS | Encounter Summary ---
Author Organization [employer] ([place], [place], [place], [place]) Address [address] [place] [address] Care Team Providers Care Proof Sorter Name Role Phone Mona Levin MD Primary Care Provider +1- [phone] Encounter Details Date Type Department Care Team (Late st Contact Info) Description 11/26/2020 Transcribed Document [facility] [place] [facility] [place] [address] ProviderLeia MD [address] [place], [place] [id number] Social History Tobacco Use Types Packs/Day Years Used Date Smoking Tobacco: Never Assessed Comments Unknown Sex and Gender Information Value Date Recorded Sex Assigned at Not on file Legal Sex Female 10:15 AM CDT Gender Identity Not on file Sexual Orientation Not on file documented as of this encounter Miscellaneous Notes * Cerner Conversion Note - Leia ProviderMD - 11/26/2020 1:30 PM POUND KEEPER Pain Assessment Entered On: 11/26/2020 15:12 EST Performed On: 11/26/2020 14:29 EST by Radha Harvey Rn Intervention Information: acetaminophen Performed by Radha Harvey Rn on 11/26/2020 13:29:00 EST acetaminophen,650mg Oral Pain Assessment Pain Assessment [...] on filedocumented in this encounter Care Teams Proof Sorter Relationship Specialty Start Date End Date Mona Levin MD PCP - General Family Medicine 07/19/22 documented as of this encounter
--- OUTSIDE RECORDS SUMMARY | 2025-06-01 11:17 | XMS_ITS | Encounter Summary ---
Author Organization [employer] ([place], [place], [place], [place]) Address [address] [place] [address] Care Team Providers Care Marking Room Supervisor Name Role Phone Mona Levin MD Primary Care Provider +1- [phone] Encounter Details Date Type Department Care Team (Late st Contact Info) Description 11/27/2020 Transcribed Document [facility] [place] [facility] [place] [address] ProviderLeia MD [address] [place] [address] Social History Tobacco Use Types Packs/Day Years Used Date Smoking Tobacco: Never Assessed Comments Unknown Sex and Gender Information Value Date Recorded Sex Assigned at Not on file Legal Sex Female 10:15 AM CDT Gender Identity Not on file Sexual Orientation Not on file documented as of this encounter Miscellaneous Notes * Cerner Conversion Note - eLia ProviderMD - 11/27/2020 5:32 PM CASE ASSISTANT Stroke/Warfarin Instructions Entered On: 11/27/2020 17:33 EST Performed On: 11/27/2020 17:32 EST by ROSIBEL MANCIA RN Stroke/Warfarin Instructions Stroke/TIA Discharge Ins : N/A Warfarin Discharge Ins : N/A ROSIBEL MANCIA RN - 11/27/2020 17:32 EST Electronically signed by Francisco [facility] Conversion Ring Barker Operator Cerner at 02/06/2023 8:43 AM CDT documented in this encounter Plan of Treatment Not on file documented as of this encounter Visit Diagnoses Not on filedocumented in this encounter Care Teams Marking Room Supervisor Relationship Specialty Start Date End Date Mona Levin MD PCP - General Family Medicine 07/19/22 documented as of this encounter
--- OUTSIDE RECORDS SUMMARY | 2025-06-01 11:17 | XMS_ITS | Encounter Summary ---
Author Organization [employer] ([place], [place], [place], [place]) Address [address] [place] [address] Care Team Providers Care Internet Sales Director Name Role Phone Mona Levin MD Primary Care Provider [phone] Encounter Details Date Type Department Care Team (Late st Contact Info) Description 11/13/2020 Transcribed Document [facility] [place] [address] [place] [address] ProviderLeia MD [address] [place] [address] [id number] Social History Tobacco Use Types Packs/Day Years Used Date Smoking Tobacco: Never Assessed Comments Unknown Sex and Gender Information Value Date Recorded Sex Assigned at Not on file Legal Sex Female 10:15 AM CDT Gender Identity Not on file Sexual Orientation Not on file documented as of this encounter Miscellaneous Notes * Cerner Conversion Note - Leia Gutiérrez MD - 11/13/2020 5:04 PM SIDEWALK REPAIRER [address] [address] PROGRESS NOTE PATIENT IDENTIFICATION: SHIELA JASSO (Female - 1960) ACCOUNT / UNIT NUMBER: [id number] / [id number] PRIMARY CARE PHYSICIAN: JEF FAMILY DOCTOR PATIENT LOCATION: [facility] 300-10 ADMIT DATE / TIME: 11/12/20 0105 DISCHARGE DATE / TIME: DICTATED: 11/13/20 1204 by NICOLE TAN TRANSCRIBED: 11/13/20 1241 by DAYANA IMPORTED: 11/13/20 1254 CC: \R\ DATE OF SERVICE: 11/13/2020 SUBJECTIVE: A 60-year-old female, admitted with severe sepsis. The patient diagnosed with pyelonephritis. Also had pneumonia with suspicious lesion. The patient overnight had intermittent fevers. Her white counts improved. She still complains of back and abdominal pain as well as bilateral ear pain. She denies any other specific complaints at this time. PHYSICAL EXAMINATION: VITAL SIGNS: Temperature 101.7, pulse 111, respiratory rate 20, sats 96% on room air, and blood pressure 136/79. GENERAL: This is a moderately ill-appearing 60-year-old female, seen today, lying in bed, awake, alert, and oriented x3, in no distress. HEENT: Atraumatic, normocephalic. NECK: Supple. No JVD or carotid bruits. CHEST: Rhonchorous bilaterally, mostly in the upper lobes. Lower lung barrios are generally clear. HEART: Regular rate and rhythm without murmurs. ABDOMEN: Soft, diffusely tender, nondistended with normoactive bowel sounds. : She has bilateral flank pain. Ortiz catheter in place with clear yellow urine. EXTREMITIES: No clubbing or cyanosis. Trace edema. NEUROLOGIC: Nonfocal. PSYCH: Anxious, appropriate affect. LABORATORY DATA AND DIAGNOSTICS: Once again, COVID-19 is negative. BUN and creatinine have improved to 20 and 1.3 respectively. Potassium 3.4, bicarb 18, magnesium 1.4. White count 9.3, hemoglobin 10.7, and platelet count 80. Blood cultures growing gram-negative rods. Urine culture showing gram-negative rods. ASSESSMENT AND PLAN: 1. Severe sepsis without shock, present on admission; the patient has hemodynamically been stable. Lactate improved. She is still febrile. Leukocytosis resolved. Broaden out antibiotics due to persistent fever until definitive cultures are obtained. Continue hemodynamic monitoring closely. 2. Community-acquired pneumonia, complicated by possible neoplasm; I will continue Zithromax. Discontinue Rocephin and broaden out to meropenem. Consider MRSA agent if the patient remains febrile. Sputum culture ordered. Continue pulmonary hygiene techniques as well as mucolytics. She is off supplemental oxygen. 3. Pyelonephritis; the patient is bacteremic with gram-negative rods as well as gram-negative rods in the urine. Broaden out to cover more resistant pathogens with meropenem until definitive cultures are obtained. Still with some bilateral flank pain. Continue Ortiz catheterization. 4. Bacteremia with gram-negative rods; meropenem ordered until definitive ID and sensitivities are obtained. 5. Chronic obstructive pulmonary disease with acute exacerbation; lower lung barrios clear, but still quite rhonchorous in the upper lobes. Continue incentive spirometry, mucolytics, Acapella flutter valve, and nebulizer therapy. 6. Acute kidney injury, improved with aggressive fluid rehydration. Avoid nephrotoxins. Continue daily monitoring. 7. Tobacco abuse, offered Nicoderm. 8. Code status, full. 9. Deep venous thrombosis prophylaxis, SCDs in light of thrombocytopenia. Care of plan has been discussed with the patient. Continue close monitoring. We offered transfer to a tertiary care facility with Infectious Disease and Pulmonology to the patient. She may very well have an underlying malignancy that has been identified on CAT scan. At this point, she would prefer to stay here with medical management and outpatient followup with Pulmonology. I think that is reasonable given the circumstances unless condition changes. The patient is advised of the treatment plan and is agreeable to care. I spent about 30 minutes with her today. /[id number] Dictated By: NICOLE TAN-Signed By: , LUISA 1204 1241 [\R\ rep ct labl] [\R\ rep ct ivnm] Medical Disclaimer: This report is to be considered preliminary until reviewed and signed. documented in this encounter Plan of Treatment Not on file documented as of this encounter Visit Diagnoses Not on filedocumented in this encounter Care Teams Internet Sales Director Relationship Specialty Start Date End Date Mona Levin MD PCP - General Family Medicine 07/19/22 documented as of this encounter
--- OUTSIDE RECORDS SUMMARY | 2025-06-01 11:17 | XMS_ITS | Encounter Summary ---
Author Organization [employer] ([place], [place], [place], [place]) Address [address] [place] [address] Care Team Providers Care Tool Filer Name Role Phone Mona Levin MD Primary Care Provider [phone] Encounter Details Date Type Department Care Team (Late st Contact Info) Description 11/27/2020 Transcribed Document [facility] [place] [address] ProviderLeia MD [address] [place] [id number] Social History Tobacco Use Types Packs/Day Years Used Date Smoking Tobacco: Never Assessed Comments Unknown Sex and Gender Information Value Date Recorded Sex Assigned at Not on file Legal Sex Female 10:15 AM CDT Gender Identity Not on file Sexual Orientation Not on file documented as of this encounter Miscellaneous Notes * Cerner Conversion Note - Leia ProviderMD - 11/27/2020 11:35 AM SUPERVISOR HOME ENERGY CONSULTANT Final Discharge Planning Entered On: 11/27/2020 11:37 EST Performed On: 11/27/2020 11:35 EST by LULA RAMIREZ RN-Independent Contractor Final Discharge Planning Discharge Arrangements : Patient Post-Acute Information Patient Name: SHIELA JASSO Gender: Female : [birth year] Age: 60 Years No Post-Acute Placement(s) Listed No Post-Acute Service(s) Listed No [place] Referral(s) Listed Patient Offered Choice/Affiliations Explained : Yes Designation of Choice Signed : Yes Important Medicare Message Reviewed With : Patient Important Medicare Message Reviewed D/T : 11/26/2020 14:00 EST Transportation Needs : Family/Friend Follow Up Appointment Scheduled : Yes Is Patient High/Moderate Readmission Risk? : Yes High Readmission Risk - Home with Home Health : Make post-discharge physician appointment within 72 hours of discharge, Notify liaison that patient is high risk for readmission, request patient be assessed day after D/C and frequent evaluations next 1-2 weeks Patient/Family Notified of Plan : Yes Support Person/Pt Rep Notified of Plan : Yes Patient/Family Notified : Patient/Spouse Is Patient Ready for Discharge? : Yes Physician Notified Patient is Ready for Discharge? : Yes Discharge To Care Management : Home Health Services (Related/SOC within 3 days)- LULA RAMIREZ, RN-Independent Contractor - 11/27/2020 11:35 EST Final Narrative Note Final Narrative Note : RAR Moderate ELOS: 9 days HD#10 COVID- 11/18 60 year old female transferred from [facility] for higher level of care. Admitted to [facility] on 11/12 for SOB and flank pain. Initially diagnosed with PNA, urine culture positive for Klebsiella and blood culture positive for E. Coli. CT chest showed ASHISH mass. Consults: ID, Neurology, Pulmonary, [place] CT guided biopsy 11/19. DCP: Patient discharged home with her . [facility] Home will follow for IV abx, lab work and PICC line care/dressing changes. [facility] will provide IV abx at $57/week X 1 week. Oral Itraconazole will be $91.91 (included deductible) for the first month. Patient is in agreement with the cost. Her will transport. LULA RAMIREZ, RN-Independent Contractor - 11/27/2020 11:37 EST documented in this encounter Plan of Treatment Not on file documented as of this encounter Visit Diagnoses Not on filedocumented in this encounter Care Teams Tool Filer Relationship Specialty Start Date End Date Mona Levin MD PCP - General Family Medicine 07/19/22 documented as of this encounter
--- OUTSIDE RECORDS SUMMARY | 2025-06-01 11:17 | XMS_ITS | Encounter Summary ---
Author Organization [employer] ([place], [place], [place], [place]) Address [address] [place] [address] Care Team Providers Care Pool Hand Name Role Phone Mona Levin MD Primary Care Provider [phone] Encounter Details Date Type Department Care Team (Late st Contact Info) Description 11/15/2020 Transcribed Document [facility] [place] [address] [place] [address] ProviderLeia MD [address] [place] [address] [id number] Social History Tobacco Use Types Packs/Day Years Used Date Smoking Tobacco: Never Assessed Comments Unknown Sex and Gender Information Value Date Recorded Sex Assigned at Not on file Legal Sex Female 10:15 AM CDT Gender Identity Not on file Sexual Orientation Not on file documented as of this encounter Miscellaneous Notes * Cerner Conversion Note - Leia Gutiérrez MD - 11/15/2020 8:10 PM STRAND FORMING MACHINE OPERATOR [address] [address] DISCHARGE SUMMARY PATIENT IDENTIFICATION: SHIELA JASSO (Female - 1960) ACCOUNT / UNIT NUMBER: [id number] / [id number] PRIMARY CARE PHYSICIAN: JEF FAMILY DOCTOR PATIENT LOCATION: ICU 0200-02 ADMIT DATE / TIME: 11/12/20 0105 DISCHARGE DATE / TIME: DICTATED: 11/15/20 1510 by REINA SAMUELS TRANSCRIBED: 11/15/20 1517 by DAYANA IMPORTED: 11/15/20 1525 CC: REINA SAMUELS; NO FAMILY DOCTOR\R\ DATE OF ADMISSION: 11/12/2020 DATE OF DISCHARGE: 11/15/2020 ADDENDUM: This is a discharge addendum to the note dictated yesterday. We are still waiting for a bed in [place]. The patient's labs are more notable for potassium of 2.6. This is being replaced. Magnesium was replaced as well. For the trigeminal neuralgia I have started carbamazepine 200mg po BID. And I have ordered a brain MRI with and without contrast. For the pneumonia I resumed Azithro 500mg IV daily. CONDITION AT DISCHARGE: Unchanged. DISCHARGE PHYSICAL EXAMINATION: VITAL SIGNS: Blood pressure 130/72, heart rate 102, respirations 16, temperature 99.1, T-max 101.5, and 96% on 2 L. Repeat blood cultures are now negative. DISCHARGE FOLLOWUP: To [facility] when bed becomes available, which I anticipate will be later today. She may also benefit from a neurology consultation in [place] once she is there. I've spent an additional 35 minutes. /[id number] Dictated By: REINA SAMUELS E-Signed By: NATTY 09 151 [\R\ rep ct labl] [\R\ rep ct ivnm] Medical Disclaimer: This report is to be considered preliminary until reviewed and signed. documented in this encounter Plan of Treatment Not on file documented as of this encounter Visit Diagnoses Not on filedocumented in this encounter Care Teams Pool Hand Relationship Specialty Start Date End Date Little, Mona [place], MD PCP - General Family Medicine 07/19/22 documented as of this encounter
--- OUTSIDE RECORDS SUMMARY | 2025-06-01 11:17 | XMS_ITS | Encounter Summary ---
Author Organization [employer] ([place], [place], [place], [place]) Address [address] [place] [address] Care Team Providers Care Railcar Carpenter Name Role Phone Mona Levin MD Primary Care Provider [phone] Encounter Details Date Type Department Care Team (Late st Contact Info) Description 11/26/2020 Transcribed Document [facility] [place] [facility] [place] [address] ProviderLeia MD [address] [place], [place] [id number] Social History Tobacco Use Types Packs/Day Years Used Date Smoking Tobacco: Never Assessed Comments Unknown Sex and Gender Information Value Date Recorded Sex Assigned at Not on file Legal Sex Female 10:15 AM CDT Gender Identity Not on file Sexual Orientation Not on file documented as of this encounter Miscellaneous Notes * Cerner Conversion Note - Leia ProviderMD - 11/26/2020 2:00 AM ASSISTED LIVING CARE MANAGER [employer] Cook Details Entered On: 11/26/2020 4:32 EST Performed On: 11/26/2020 2:00 EST by Hector Kennedy RN Order Details Transport Mode Order Detail : Wheelchair Isolation Precautions Order Detail : Standard Precautions Order Detail : 0 IV Order Detail : 1 Oxygen Order Detail : 0 Nurse Collect Order Detail : 1 Lift/Transfer : Independent Central Line Order Detail : Yes Room Service : Appropriate Arterial Line : No Patient Needs Meds Crushed/Liquid : No Hector Kennedy RN - 11/26/2020 4:32 EST Electronically signed by Francisco [facility] Conversion Web Applications Programmer Cerner at 02/06/2023 8:51 AM CDT documented in this encounter Plan of Treatment Not on file documented as of this encounter Visit Diagnoses Not on filedocumented in this encounter Care Teams Railcar Carpenter Relationship Specialty Start Date End Date Mona Levin MD PCP - General Family Medicine 07/19/22 documented as of this encounter
--- OUTSIDE RECORDS SUMMARY | 2025-06-01 11:17 | XMS_ITS | Encounter Summary ---
Author Organization [employer] ([place], [place], [place], [place]) Address [address] [place] [address] Care Team Providers Care Weather Reporter Name Role Phone Mona Levin MD Primary Care Provider [phone] Encounter Details Date Type Department Care Team (Late st Contact Info) Description 11/21/2020 Transcribed Document [facility] Radiology [address] [place] [address] Ramos Morelos MD [address] [place] [address] Social History Tobacco Use Types Packs/Day Years Used Date Smoking Tobacco: Never Assessed Comments Unknown Sex and Gender Information Value Date Recorded Sex Assigned at Not on file Legal Sex Female 10:15 AM CDT Gender Identity Not on file Sexual Orientation Not on file documented as of this encounter Miscellaneous Notes * Cerner Conversion Note - Ramos Morelos MD - 11/21/2020 9:42 AM EST PLEASE MODIFY BEFORE SIGNING CLINICAL DOCUMENTATION CLARIFICATION FORM: Dear : ____Jethro_ Date: ___11/21/2020 Please exercise your independent, professional judgment in responding to the clarification form. Clinical indicators are provided on the bottom of this form for your review Please check appropriate box(es): [ x] Acute Encephalopathy [ x] Metabolic [ ] Toxic [ ] Septic [ ] Drug induced: [ ] Unspecified [ ] Other (please specify) [ ] Other diagnosis [ ] Unable to determine For continuity of documentation, please document condition throughout progress notes and discharge summary. Thank You. To be completed by CDI/Coding staff for physician review: Present Clinical Indicators - Signs / Symptoms / Labs Results and Location in Medical Record [ x ] Altered mental status / confusion (i.e.: improving once underlying cause is corrected) 11/1702-RKZ-lnjmsgki, disoriented 11/1733-TOJ-fewpxcfo, slow to respond, oriented x3 11/18-PN-acute encephalopathy-suspect could be multifactorial 11/1836-ZTA-qvrby, awake, oriented x4 [x ] Alessandra Coma Scale 11/1778-DRO-SZJ-14 11/1857-YVW-SKL-15 [x ] Metabolic / electrolyte abnormality 11/191-RX-Hzjrghblktb [ x ] Sepsis/Infectious process 11/1711-UQH-Efpvjg, PNA, pyelonephritis Present Risk Factors Results and Location in Medical Record [x ] Chronic pain 11/1772-VRE-ofsyvwt pain [ x ] Home medications alter LOC 11/1768-NQP-Yosqzprwch po, Percocet po [x] Acute infection 11/1704-KOC-Uqyvwz Present Treatments Results and Location in Medical Record [x ] Neuro checks / neurology consult 11/17-MD orders-Neurology consult [ x ] Underlying cause corrected, encephalopathy resolved 11/18-PN-acute encephalopathy-resolving [ x ] IV antibiotics 11/1811-DZ-Evlquk IV CDS Signature: ____Efrem Rodas RN, MSN, CDS Phone #: __[phone]__ Date: __11/21/2020____ This is a permanent part of the Medical Record [id number] [facility] Updated: documented in this encounter Plan of Treatment Not on file documented as of this encounter Visit Diagnoses Not on filedocumented in this encounter Care Teams Weather Reporter Relationship Specialty Start Date End Date Mona Levin MD PCP - General Family Medicine 07/19/22 documented as of this encounter
--- OUTSIDE RECORDS SUMMARY | 2025-06-01 11:17 | XMS_ITS | Encounter Summary ---
Author Organization [employer] ([place], [place], [place], [place]) Address [address] [place] [address] Care Team Providers Care Animal Trainer Supervisor Name Role Phone Mona Levin MD Primary Care Provider [phone] Encounter Details Date Type Department Care Team (Late st Contact Info) Description 11/14/2020 Transcribed Document [facility] [place] [address] [place] [address] ProviderLeia MD [address] [place] [address] [id number] Social History Tobacco Use Types Packs/Day Years Used Date Smoking Tobacco: Never Assessed Comments Unknown Sex and Gender Information Value Date Recorded Sex Assigned at Not on file Legal Sex Female 10:15 AM CDT Gender Identity Not on file Sexual Orientation Not on file documented as of this encounter Miscellaneous Notes * Cerner Conversion Note - Leia Gutiérrez MD - 11/14/2020 9:38 PM REFLEXOLOGIST [address] [address] TRANSFER SUMMARY PATIENT IDENTIFICATION: SHIELA JASSO (Female - 1960) ACCOUNT / UNIT NUMBER: [id number] / [id number] PRIMARY CARE PHYSICIAN: JEF FAMILY DOCTOR PATIENT LOCATION: ICU 0200-02 ADMIT DATE / TIME: 11/12/20 0105 DISCHARGE DATE / TIME: DICTATED: 11/14/20 1638 by REINA SAMUELS TRANSCRIBED: 11/14/20 1759 by DAYANA IMPORTED: 11/14/20 1803 CC: REINA SAMUELS; NO FAMILY DOCTOR\R\ DATE OF ADMISSION: 11/12/2020 DATE OF DISCHARGE: 11/14/2020 DISCHARGE DIAGNOSES: 1. 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 2. Gram-negative ervin bacteremia. 3. Community-acquired pneumonia. 4. Possible trigeminal neuralgia. 5. Chronic obstructive pulmonary disease. 6. Acute kidney injury. 7. Hypokalemia. 8. Thrombocytopenia. 9. Pyelonephritis. 10. Tobacco abuse. HOSPITAL COURSE: This is a 60-year-old female with a history of tobacco abuse who comes in the hospital with trouble breathing and flank pain. She has a history of tobacco abuse and COPD, but is not typically on oxygen. She has both respiratory symptoms as well as bilateral flank pain, fevers and chills. On physical examination, she has coarse rhonchi bilaterally. Abdomen is soft. BMP notable for BUN 41, creatinine of 2.5. White count elevated at 15,700. Procalcitonin elevated at 30. Chest x-ray showed dense left upper lobe pneumonia. Urinalysis was cloudy, although unremarkable. Urine culture did eventually grow out Klebsiella pneumonia, which was nearly pansensitive. The patient was admitted to the hospital with suspected pyelonephritis and community-acquired pneumonia. Followup imaging studies did in fact show right perinephric stranding consistent with pyelonephritis. CT scan of the chest revealed a suspicious mass like consolidation in the left upper lobe. The patient was initially placed on Rocephin and azithromycin for CAP pathogens, and to cover typical respiratory pathogens. However later, her blood cultures came back positive for Escherichia coli and she was switched to meropenem and Cipro and Azithro. The patient's antibiotics were switched over to Merrem therapy, and the patient finished a 3-day course of azithromycin. However, she continued to spike fevers. Followup chest x-ray showed worsening pneumonia. Kidney function studies improved and creatinine today of 1.1. Last night, she started developing severe headaches that sound like possible trigeminal neuralgia. CT scan of the head was performed this morning, which was negative for acute process, but did show a lytic osseous lesion in the midline occipital bone. With the patient's suspected lung cancer, likely postobstructive pneumonia and worsening symptoms, I went ahead and decided to transfer the patient to [facility] for higher level of care including possible Pulmonary consultation and bronchoscopy. I spoke with Dr. aCstrejon who has graciously agreed to accept the patient's transfer and the patient is willing to go. CONDITION AT DISCHARGE: VITAL SIGNS: Blood pressure 117/66, heart rate 94, respirations 18, temperature 98.6, and she is 93% on 2 L. HEENT: There is no abnormality with inspection of the right external ear or internal ear. Symptoms are consistent with possible trigeminal neuralgia, and she may benefit from a Neurology consultation. LUNGS: She has rhonchi diffusely, but no active wheezing. DISCHARGE MEDICINES: 1. Merrem 1 g IV q.24 hours. 2. Vitamin C 500 mg daily. 3. Ferrous sulfate 325 mg daily. 4. Flonase 2 puffs each nostril daily. 5. Folic acid 1 mg daily. 6. Neurontin 800 mg q.8 hours. 7. Claritin 10 mg daily. 8. Nicotine patch 21 mg daily. 9. Protonix 40 mg daily. 10. Mucinex 600 mg b.i.d. 11. Dulera 2 puffs b.i.d. 12. Spiriva 2 puffs daily. 13. Dilaudid 0.5 mg q.2 hours p.r.n. 14. Tylenol 650 mg q.4 hours p.r.n. 15. Percocet 10 mg q.8 hours p.r.n. I spent about 45 minutes. /[id number] Dictated By: REINA SAMUELS-Signed By: NATTY 1638 1759 [\R\ rep ct labl] [\R\ rep ct ivnm] Medical Disclaimer: This report is to be considered preliminary until reviewed and signed. documented in this encounter Plan of Treatment Not on file documented as of this encounter Visit Diagnoses Not on filedocumented in this encounter Care Teams Animal Trainer Supervisor Relationship Specialty Start Date End Date Mona Levin MD PCP - General Family Medicine 07/19/22 documented as of this encounter
--- OUTSIDE RECORDS SUMMARY | 2025-06-01 11:17 | XMS_ITS | Encounter Summary ---
Author Organization [employer] ([place], [place], [place], [place]) Address [address] [place] [address] Care Team Providers Care Certified Driver Examiner Name Role Phone Mona Levin MD Primary Care Provider [phone] Encounter Details Date Type Department Care Team (Late st Contact Info) Description 11/27/2020 Transcribed Document [facility] [place] Family Medicine [facility] [place] [address] ProviderLeia MD [address] [place], [place] [address] Social History Tobacco Use Types Packs/Day Years Used Date Smoking Tobacco: Never Assessed Comments Unknown Sex and Gender Information Value Date Recorded Sex Assigned at Not on file Legal Sex Female 10:15 AM CDT Gender Identity Not on file Sexual Orientation Not on file documented as of this encounter Miscellaneous Notes * Cerner Conversion Note - Liea ProviderMD - 11/27/2020 5:33 PM RN CVOR Stroke/Warfarin Instructions Entered On: 11/27/2020 17:36 EST Performed On: 11/27/2020 17:33 EST by ROSIBEL MANCIA RN Stroke/Warfarin Instructions Stroke/TIA Discharge Ins : N/A Warfarin Discharge Ins : N/A ROSIBEL MANCIA RN - 11/27/2020 17:33 EST Education Topics: Anticoagulant Education Follow-up Care Details : Other: after marking patient is not on anticoagulant discharge material still pops up as if patiwent on thinners ROSIBEL MANCIA RN - 11/27/2020 17:33 EST Electronically signed by Francisco [facility] Conversion Technical Data Analyst Cerner at 02/06/2023 8:53 AM CDT documented in this encounter Plan of Treatment Not on file documented as of this encounter Visit Diagnoses Not on filedocumented in this encounter Care Teams Certified Driver Examiner Relationship Specialty Start Date End Date Mona Levin MD PCP - General Family Medicine 07/19/22 documented as of this encounter
--- OUTSIDE RECORDS SUMMARY | 2025-06-01 11:17 | XMS_ITS | Encounter Summary ---
Author Organization [employer] ([place], [place], [place], [place]) Address [address] [place] [address] Care Team Providers Care Recruitment Assistant Name Role Phone Mona Levin MD Primary Care Provider +1- [phone] Encounter Details Date Type Department Care Team (Late st Contact Info) Description 11/12/2020 Transcribed Document [facility] [place] Family Medicine [address] [place] [address] ProviderLeia MD [address] [place] [id number] Social History Tobacco Use Types Packs/Day Years Used Date Smoking Tobacco: Never Assessed Comments Unknown Sex and Gender Information Value Date Recorded Sex Assigned at Not on file Legal Sex Female 10:15 AM CDT Gender Identity Not on file Sexual Orientation Not on file documented as of this encounter Miscellaneous Notes * Cerner Conversion Note - Leia Gutiérrez MD - 11/12/2020 2:51 PM MILLER [employer]PER [employer] [address] [address] HISTORY AND PHYSICAL PATIENT IDENTIFICATION: SHIELA JASSO (Female - 1960) ACCOUNT / UNIT NUMBER: [id number] / [id number] PRIMARY CARE PHYSICIAN: JEF FAMILY DOCTOR PATIENT LOCATION: [facility] 300-10 ADMIT DATE / TIME: 11/12/20 0105 DISCHARGE DATE / TIME: DICTATED: 11/12/20 0951 by NICOLE TAN TRANSCRIBED: 11/12/20 1027 by DAYANA IMPORTED: 11/12/20 1032 CC: NICOLE TAN PA-C; NO FAMILY DOCTOR; PRETTY CHAVEZ\R\ DATE OF ADMISSION: 11/12/2020 ADMITTING PHYSICIAN: REINA SAMUELS MD CHIEF COMPLAINT: Shortness of air with flank pain for the past few days. HISTORY OF PRESENT ILLNESS: This is a 60-year-old female with history of COPD, non-oxygen dependent. The patient has neuropathy and chronic pain. She tells me about 2-3 days ago she started experiencing bilateral flank pain associated with some dysuria, but no hematuria. The patient denied fever or chills. Her weakness and lethargy increased over the next 24 hours in which time she developed coarse cough productive of brown/yellow sputum. She subsequently sought attention in the ED yesterday afternoon and on arrival was afebrile, tachycardic, and tachypneic, but blood pressure was stable. Workup in the ED included a serum chemistry notable for BUN and creatinine of 41 and 2.47. Troponin was within normal limits. BNP was 14,000. CBC showed a white count of 16.7, hemoglobin of 12.8, and platelet count of 128. CRP is within normal limits. Lactate was elevated at 3. ABG showed a pH of 7.37, pCO2 of 22, pO2 of 124. The patient had a marked elevated procalcitonin of nearly 30. She underwent COVID testing which was negative. Portable chest and CT chest were obtained showing a suspicious mass-like consolidation in the left upper lobe concerning for malignancy. There were patchy areas of ground-glass opacities, could represent early atypical pneumonia. She also underwent a CT of the abdomen and pelvis which showed mild right renal enlargement with right perinephric and periureteral inflammatory stranding. Findings are concerning for pyelonephritis. The patient in the ED was given fluid bolus, IV Solu-Medrol, a gram of Rocephin. An additional COVID test was repeated but was sent out and pending. The patient was placed in the respiratory isolation room. The patient is seen today lying in bed, still feeling somewhat short of breath with some milder but improved flank pain. Her overnight stay has been relatively uneventful. The patient denies history of frequent UTIs. She does tell me that she smokes and has history of COPD. She also tells me she had some type of cardiac workup, but due to current pandemic has never followed up. The patient denies any sick contacts or recent travel. She had been in her usual state of health leading up to this admission. PAST MEDICAL HISTORY: 1. COPD, non-oxygen dependent. 2. Chronic lumbago. 3. GERD. HOME MEDICATIONS: 1. Neurontin 800 mg t.i.d. 2. DuoNeb q.4 hours as needed. 3. Oxycodone 10 mg q.8 hours as needed. 4. Protonix 40 mg daily. ALLERGIES: Codeine and penicillin. SOCIAL HISTORY: . Independent with ADLs. Smokes a pack a day. No alcohol use. No sick contacts. No recent travel. PAST SURGICAL HISTORY: 1. Multiple left knee surgeries culminating in the left knee arthroplasty. 2. Hysterectomy. 3. Partial colectomy with subsequent reanastomosis. FAMILY HISTORY: Notes diabetes and heart disease in multiple first-degree relatives. REVIEW OF SYSTEMS: GENERAL: Negative for fever or chills. She has had some weight gain over the past couple of years since hysterectomy. HEENT: No headaches, vision or hearing changes. No sore throat. CHEST: No chest pain or palpitations. PULMONARY: Notes acute on chronic shortness of breath with productive cough of yellow sputum. No hemoptysis. GI: No nausea, vomiting, or diarrhea. : Notes bilateral flank pain. Mild dysuria. No hematuria. SKIN: No rashes or lesions. NEURO: No numbness or paralysis. PSYCH: No change in mood or sleep habits. PHYSICAL EXAMINATION: VITAL SIGNS: Temperature 98.2, pulse 89, respiratory rate 18, sats 96% on 3 L, blood pressure 120/81. GENERAL: This is a pleasant, moderately obese, 60-year-old female seen today lying in bed. She is awake, alert, and oriented x3, no acute distress. HEENT: Atraumatic, normocephalic. Pupils equal, round, and reactive to light. Extraocular movements intact. Hearing and vision intact. NECK: Supple. No JVD or carotid bruits. CHEST: The patient with coarse bilateral rhonchi. Mild diffuse expiratory wheeze. She appears somewhat short of breath. She is slightly tachypneic. She is able to speak in full sentences. HEART: Regular rate and rhythm. No appreciable murmurs. ABDOMEN: Soft, obese, nondistended. Normoactive bowel sounds. No rebound or guarding. She has bilateral CVA tenderness. EXTREMITIES: No clubbing, cyanosis, or pedal edema. Distal pulses palpable. Capillary refill within normal limits. SKIN: Generally clean, dry, and intact. NEUROLOGIC: Nonfocal. Moves all 4 extremities. Cranial nerves grossly intact. No appreciable motor or sensory deficits. PSYCH: Normal mood and affect. LABORATORY AND DIAGNOSTIC DATA: Chemistry today shows BUN and creatinine of 40 and 1.8 respectively. Bicarb 17. White count is down to 14.0, hemoglobin 9.1, platelet count 91. Urine culture is pending. Blood cultures by [employer] are positive for E. coli and Klebsiella. Lactate is 1.2. ASSESSMENT: 1. Severe sepsis, without shock, present on admission. 2. Community-acquired pneumonia, complicated by possible neoplasm. 3. Pyelonephritis. 4. Acute kidney injury. 5. Bacteremia. 6. Chronic obstructive pulmonary disease with acute exacerbation. 7. Tobacco abuse. 8. Code status is full. 9. Deep vein thrombosis prophylaxis with SCDs in light of thrombocytopenia. PLAN: Plan of care has been discussed with the patient. The patient is admitted to telemetry with the aforementioned diagnoses. The patient has been started on Rocephin and Zithromax. Hemodynamically, she is stable. There are some improved lab markers overnight. The patient's initial symptoms were consistent with pyelonephritis, but she appears to have developed a secondary pneumonia. COVID testing was negative in the ED. Labs would suggest a more bacterial process. We will try to get a sputum specimen as well, but in the meantime, we will continue current coverage. Await definitive cultures from both urine and blood. She is on IV fluids, and her renal markers have improved. We will need to continue monitoring and hold offending medications. The patient fortunately is hemodynamically stable, but it is concerning her severity of illness. She has potential for sudden decline. We will have to continue frequent vitals and monitor progression. If her condition deteriorates, would consider transfer to a tertiary care facility with appropriate subspecialty support. Otherwise, the patient possibly could be setup for further investigation of this mass-like finding on her CT scan as an outpatient. The patient has been strongly encouraged to quit smoking and offered Nicoderm patch. We are going to continue supportive care along with antibiotics. Resume her necessary home medications. She is likely going to need 3-4 day hospitalization with disposition to be determined. The patient has been counseled on the findings. She verbalized understanding and is agreeable. I spent about 45 minutes with this complicated patient. /[id number] CC: Jacquelyn Desouza APRN Dictated By: NICOLE TAN-Signed By: LUISA 0951 1027 [\R\ rep ct labl] [\R\ rep ct ivnm] Medical Disclaimer: This report is to be considered preliminary until reviewed and signed. documented in this encounter Plan of Treatment Not on file documented as of this encounter Visit Diagnoses Not on filedocumented in this encounter Care Teams Recruitment Assistant Relationship Specialty Start Date End Date Mona Levin MD PCP - General Family Medicine 07/19/22 documented as of this encounter
--- OUTSIDE RECORDS SUMMARY | 2025-06-01 11:17 | XMS_ITS | Encounter Summary ---
Author Organization [employer] ([place], [place], [place], [place]) Address [address] [place] [place] [address] Care Team Providers Care Crocheter Hand Name Role Phone Mona Levin MD Primary Care Provider [phone]- [phone] Encounter Details Date Type Department Care Team (Late st Contact Info) Description 11/20/2020 Transcribed Document [facility] [place] [facility] [place] [address] ProviderLeia MD [address] [place] [address] Social History Tobacco Use Types Packs/Day Years Used Date Smoking Tobacco: Never Assessed Comments Unknown Sex and Gender Information Value Date Recorded Sex Assigned at Not on file Legal Sex Female 10:15 AM CDT Gender Identity Not on file Sexual Orientation Not on file documented as of this encounter Miscellaneous Notes * Cerner Conversion Note - Leia ProviderMD - 11/20/2020 4:15 PM RAILROAD CAR PAINTER On Going Discharge Planning Entered On: 11/20/2020 16:17 EST Performed On: 11/20/2020 16:15 EST by LULA RAMIREZ, RN-Staff Nuclear Weapons OfficerSystem Support Administrator Progress Note Discharge Arrangements : Patient Post-Acute Information Patient Name: SHIELA JASSO Gender: Female : [birth year] Age: 60 Years No Post-Acute Placement(s) Listed No Post-Acute Service(s) Listed No [place] Referral(s) Listed Discharge Options Discussed with Patient : Discharge transportation, DME, Home Health, Outpatient services Barriers to Discharge Identified : Clinical Condition of Patient, Follow-Up appointments needed Barriers to Discharge Unresolved : Clinical Condition of Patient, Follow-Up appointments needed Is the Patient Meeting Medical Necessity : Yes Physician Agreeable to Move Forward with D/C Plan? : Yes Did you Attend Multidisciplinary Rounds? : Yes LULA RAMIREZ RN-Staff Nuclear Weapons Officer - 11/20/2020 16:15 EST Narrative Progress Note Narrative Progress Note : RAR Moderate ELOS: 5 days HD#3 COVID- 11/18 60 year old female transferred from [facility] for higher level of care. Admitted to [facility] on 11/12 for SOB and flank pain. [...] continue to follow for safe discharge plan. Historical Progress Note : RAR Moderate ELOS: 5 days HD#2 COVID- 11/18 60 year old female transferred from [facility] for higher level of care. Admitted to [facility] on 11/12 for SOB and flank pain. Initially diagnosed with PNA, urine culture positive for Klebsiella and blood culture positive for E. Coli. CT chest showed ASHISH mass. Consults: ID, Neurology and Pulmonary Plan: CT guided biopsy today. Patient was off the floor for her procedure and drowsy when she returned. CM spoke with patient's SO Jarrod Karen per patient request [phone]. He states patient does have a PCP [...] follow for safe discharge plan. LULA RAMIREZ RN-Staff Nuclear Weapons Officer - 11/19/20 17:13:35 LULA RAMIREZ, RN-Staff Nuclear Weapons Officer - 11/20/2020 16:15 EST Electronically signed by [facility] Conversion Child Watch Attendant Cerner at 02/06/2023 8:44 AM CDT documented in this encounter Plan of Treatment Not on file documented as of this encounter Visit Diagnoses Not on filedocumented in this encounter Care Teams Crocheter Hand Relationship Specialty Start Date End Date Mona Levin MD PCP - General Family Medicine 07/19/22 documented as of this encounter
--- OUTSIDE RECORDS SUMMARY | 2025-06-01 11:17 | XMS_ITS | Encounter Summary ---
Author Organization [email or web address] ([place], [place], [place], [place]) Address [address] [place] [address] Care Team Providers Care Oral Surgery Physician Name Role Phone Mona Levin MD Primary Care Provider [phone] [phone] Encounter Details Date Type Department Care Team (Late st Contact Info) Description 11/20/2020 Transcribed Document [facility] [place] [address] ProviderLeia MD [address], [place] [phone] Social History Tobacco Use Types Packs/Day Years Used Date Smoking Tobacco: Never Assessed Comments Unknown Sex and Gender Information Value Date Recorded Sex Assigned at Not on file Legal Sex Female 10:15 AM CDT Gender Identity Not on file Sexual Orientation Not on file documented as of this encounter Miscellaneous Notes * Cerner Conversion Note - Leia ProviderMD - 11/20/2020 5:00 AM GEOGRAPHIC INFORMATION SYSTEMS DIRECTOR Chart Check - Review Order Profile Entered On: 11/20/2020 3:32 EST Performed On: 11/20/2020 5:00 EST by KRISTINA MCKEON, RN Chart Check All Active Orders Reviewed : Yes KRISTINA MCKEON RN - 11/20/2020 3:32 EST documented in this encounter Plan of Treatment Not on file documented as of this encounter Visit Diagnoses Not on filedocumented in this encounter Care Teams Oral Surgery Physician Relationship Specialty Start Date End Date Mona Levin MD PCP - General Family Medicine 07/19/22 documented as of this encounter
--- OUTSIDE RECORDS SUMMARY | 2025-06-01 11:17 | XMS_ITS | Encounter Summary ---
Author Organization [employer] ([place], [place], [place], [place]) Address [address] [place] [place] [address] Care Team Providers Care Knitter Operator Name Role Phone Mona Levin MD Primary Care Provider [phone]- [phone] Encounter Details Date Type Department Care Team (Late st Contact Info) Description 11/20/2020 Transcribed Document [facility] Pulm & Critical Care Medicine [address] [place] [address] [address] [id number] [place] [address] [place] [address] [address] [place] [address] Social History Tobacco Use Types Packs/Day Years Used Date Smoking Tobacco: Never Assessed Comments Unknown Sex and Gender Information Value Date Recorded Sex Assigned at Not on file Legal Sex Female 10:15 AM CDT Gender Identity Not on file Sexual Orientation Not on file documented as of this encounter Miscellaneous Notes * Cerner Conversion Note - Kaelyn Levi MD - 11/20/2020 1:26 PM EST Patient: SHIELA JASSO Age: 60 years Sex: Female : 1960 Associated Diagnoses: None Author: KAELYN LEVI MD [facility] Pulmonary CCM Consultation Note Requesting: Dr. Arellano Reason: Lung mass Basic Information CC: I dont know HPI: 60 year old female with stated history of COPD, tobacco abuse, Diverticulitis in the past with colectomy and colostomy-- later reversed, HTN, chronic pain and kidney stones who presented to [facility] on 11/11/20 with 2-3 days worth of [...] and worsening symptoms, she was transferred to [facility] on 11/17/20 for further care and [...] work. Replace with potassium chloride by mouth. Review of Systems Constitutional: Weakness, Fatigue. Eye: [...] Rocephin: 2 Gram, 100 mL/Hr, IV Piggyback, [id number] Roxicodone: 5 mg, Oral, Q4H, PRN: Pain [...] Other (See Comment) ergocalciferol: 50,000 Units, Oral, [id number] gabapentin: 800 mg, Oral, QID heparin: 5,000 Units, SubCutaneous, [id number] hydrALAZINE: 10 mg, IV Push, Q6H, PRN: [...] influenza virus vaccine, inactivated: 0.5 mL, IntraMuscular, [id number] Documented Medications Documented Percocet 10/325 oral tablet: [...] Oral, Daily, 30 Tab, 0 Refill(s), Medications (26) Active Scheduled: (8) cefTRIAXone 2 Gram, IV Piggyback, [id number] ergocalciferol 50,000 unit cap 50,000 Units 1 Cap, Oral, E0Lclnn famotidine 20 mg tab 20 mg 1 Tab, Oral, Daily gabapentin 400 mg cap 800 mg 2 Cap, Oral, QID heparin 5,000 units/1 mL inj 5,000 Units 1 mL, SubCutaneous, V71VGjo nicotine 21 mg/24 hr patch 1 Patch, [...] At risk for sleep apnea / IMO [id number] / Confirmed Chronic back pain / SNOMED CT 510742413 / Confirmed Depression / SNOMED CT 59750050 / Confirmed Hypertension / SNOMED CT 9893230852 / Confirmed Kidney stones / SNOMED CT 856221449 / Confirmed, Active Problems (8) At risk for sleep apnea Chronic back pain Depression diverticulitis fibromyalgia heartburn Hypertension Kidney stones Physical Examination VS/Measurements Vitals Signs (last 24 hrs) Last Charted Minimum Maximum Temp 98 (NOV 20 10:00) 97.8 (NOV 19:53) 98.7 (NOV 19 15:) Mon HR 87 (NOV 20 10:00) 81 (NOV 20 01:44) 100 (NOV 19:53) Resp Rate 15 (NOV 20:38) 15 (NOV 20:38) 18 (NOV 19 15:00) SBP 131 (NOV 20 10:00) 105 (NOV 20 05:38) 138 (NOV 19:53) DBP 79 (NOV 20 10:00) 62 (NOV 20:38) 79 (NOV 20 10:00) MAP 98 (NOV 20 10:00) 72 (NOV 20 05:38) 99 (NOV 19 20:53) SpO2 95 (NOV 19:29) L 92 (NOV 19:00) 95 (NOV 19:29) General: Alert and oriented, No acute distress. [...] (NOV 18) L 2.0 (NOV 17) . NOV 20 09:26 141 112 17 / 106 L 3.1 L 20 0.60 \ Blood Gases (Current Encounter/Past 24 Hours) No Blood Gas Results Found (Past 24 Hours) Radiology Results (Last 48 hours) [id number] -- 11/17/2020 01:09 CT Bx Lung Mediastinum LT (11/19/2020 10:59) Result: CT GUIDED FINE-NEEDLE ASPIRATION AND CORE BIOPSY OF LEFT LUNG MASSHISTORY: Left upper lobe mass. ATTENDING RADIOLOGIST: Dr. Byrne.PHYSICIAN BURLING AND JOINING SUPERVISOR: Vin Cortez PA-C.PROCEDURE: After informed consent was [...] left upper lobe FNA on 11/19/2020. Pathology awaited. ID: Leukocytosis. Improving. Sepsis on arrival outlying (tachycardia, tachypnea, and now confusion). Improving. Gram negative ervin bacteremia - E coli, Klebsiella, and Enterobacteriaceae at [place] Acute pyelonephritis Post -Obstructive PNA Heme/Onc: Leukocytosis. Ongoing Anemia Neuro: Drowsy at admission secondary sepsis. Resolved ? Trigeminal Neuralgia CT head a [place] showed a lytic osseous lesion in the midline occipital bone; measuring 19 mm MRI brain Localized signal abnormality within the midline calvarium of the occipital skull, corresponds to a lytic lesion see on recent CT. possible metastasis. Needs further work-up. Renal: ISAK on admission to [facility] initially. Resolved Hypokalemia. Ongoing GI: History of [...] peripheral mass (likely malignant in nature). Pathology awaited. Patient smokes tobacco since age 12 and [...] CT. possible metastasis. Needs further work-up. ID following. Antibiotics: Merrem changed to Rocephin. Electrolyte replacement: P.o. potassium chloride 40 mEq x 2 to address hypokalemia. Serum potassium of 3.1. Strep/Leg urine - negative. Resp panel PCR - negative. Repeat COVID-19 nasopharyngeal PCR - Neg. Blood cultures no growth so far. MRSA surv - Neg. GI proph: Pepcid DVT proph: Heparin Prognosis: Fair. FULL CODE. I saw and examined the [...] on filedocumented in this encounter Care Teams Knitter Operator Relationship Specialty Start Date End Date Mona Levin MD PCP - General Family Medicine 07/19/22 documented as of this encounter
--- OUTSIDE RECORDS SUMMARY | 2025-06-01 11:17 | XMS_ITS | Encounter Summary ---
Author Organization [employer] ([place], [place], [place], [place]) Address [address] [place] [address] Care Team Providers Care Call Box Wirer Name Role Phone Mona Levin MD Primary Care Provider [phone]- [phone] Encounter Details Date Type Department Care Team (Late st Contact Info) Description 06/23/2020 Transcribed Document [facility] [place] Family [place] [facility] [place] [address] ProviderLeia MD [address] [place] [address] Social History Tobacco Use Types Packs/Day Years Used Date Smoking Tobacco: Never Assessed Comments Unknown Sex and Gender Information Value Date Recorded Sex Assigned at Not on file Legal Sex Female 10:15 AM CDT Gender Identity Not on file Sexual Orientation Not on file documented as of this encounter Miscellaneous Notes * Cerner Conversion Note - Leia Gutiérrez MD - 06/23/2020 10:45 AM CDT Patient: SHIELA JASSO Age: 60 Years Sex: Female : 1960 FOLLOW-UP DATE OF SERVICE: 06/12/2020 CHIEF COMPLAINT: Knee and back pain. HISTORY OF PRESENT ILLNESS: The patient is a 60 y/o female who returns to the clinic for follow-up on her 4 year history of bilateral knee pain, left greater than right, low back pain, right shoulder and across upper back painful today. She used crutches with 5 knee surgeries and she thinks it may have contributed to the pain in her shoulder. She has had pain with movement but just this morning, she woke up with the muscles very tight. She rates her pain as 8/10 on the pain scale. Quality is aching, radiating, dull and sharp. She gets 60% relief with her current medication. Her pain is increased at night lying down, walking and decreased with heat and medication. Fall risk info sheet has been provided. SOCIAL HISTORY: Allergies: Penicillin, Hydrocodone. Marital status: The patient is . Current work status: Not answered. Illicit drug use: Denies. Alcohol use: Denies. Current tobacco use: She smokes tobacco. Caffeine use: She drinks caffeine. Past Medical History: Bladder. Heartburn. High blood pressure. Kidney stones. Osteoporosis. Pneumonia. Past Surgical History: Gallbladder. Hernia. Intestine and colon. Shoulder. Tonsils and adenoids. Past Family History: Diabetes. Stroke. Osteoporosis. REVIEW OF SYSTEMS: Nothing is marked. PHYSICAL EXAMINATION: Constitutional: The patient is freely conversant, no acute distress. Vital signs: Blood pressure is 164/84, heart rate 82, respiratory rate 16, O2 sats 97%, height 5'4 , weight 190 pounds. Integumentary: Deferred. HEENT: Deferred. Neck: Deferred. Chest and Lung: Deferred. Cardiovascular: Deferred. Abdomen: Deferred. Peripheral Vascular: Deferred Neurologic: Deferred. Psychiatric: Alert and oriented x 3 with normal mood and affect. Shee scored a 3 on the depression questionnaire. Musculoskeletal: She can abduct her right arm to 90 degrees. She has positive impingement sign. She has positive trigger points in the cervical scapula area. Her gait is antalgic. She uses a cane. Established patient exam is deferred. DIAGNOSTIC STUDIES: Not present. MEDICAL DECISION MAKING: The patient's DARREN has been reviewed and is appropriate. Patient's medications are reviewed and are listed in the patient's file. ASSESSMENT: Worsening. 1. Chronic pain syndrome secondary to multisite osteoarthritis, primarily bilateral knees. 2. Lumbar degenerative disc disease. 3. Lumbar spondylosis. 4. Lumbar facet arthropathy. PROCEDURE/TEST ORDERED: Not present. CURRENT PLAN: We will continue Ms. Jasso on her current medications of Percocet 10 mg every 8 hours, gabapentin 800 mg every 8 hours. She denies any side effects. I offered her shoulder injections or x-ray, but she is wanting to hold off and hoping that her shoulder will just get better on its own, so we will readdress it at the next visit. Diclofenac gel did not work. It was stopped. I will try her lidocaine ointment 5% q.i.d. Three to 5 minutes was spent on smoking cessation counseling. She is in agreement with the above plan. We will see her back in follow-up in two months. Nora Mitchell M.D. REJI/krys documented in this encounter Plan of Treatment Not on file documented as of this encounter Visit Diagnoses Not on filedocumented in this encounter Care Teams Call Box Wirer Relationship Specialty Start Date End Date Mona Levin MD PCP - General Family Medicine 07/19/22 documented as of this encounter
--- OUTSIDE RECORDS SUMMARY | 2025-06-01 11:17 | XMS_ITS | Encounter Summary ---
Author Organization [employer] ([place], [place], [place], [place]) Address [address] [place] [address] Care Team Providers Care Director Of People Name Role Phone Mona Levin MD Primary Care Provider +1- [phone] Encounter Details Date Type Department Care Team (Late st Contact Info) Description 11/26/2020 Transcribed Document [facility] Family Medicine [facility] [address] ProviderLeia MD [address] [place] [address] Social History Tobacco Use Types Packs/Day Years Used Date Smoking Tobacco: Never Assessed Comments Unknown Sex and Gender Information Value Date Recorded Sex Assigned at Not on file Legal Sex Female 10:15 AM CDT Gender Identity Not on file Sexual Orientation Not on file documented as of this encounter Miscellaneous Notes * Cerner Conversion Note - Leia Gutiérrez MD - 11/26/2020 7:02 PM BIOINFORMATICS TECHNICIAN Patient: SHIELA JASSO Age: 60 years Sex: Female : 1960 Associated Diagnoses: None Author: DEMETRIS WILCOX MD INFECTIOUS DISEASES Progress Note EVNATALIIA RAMOS: Dr. Demetris Wilcox Date of Admission: 11/17/20 Reason for Consultation: Bacteremia, UTI, pneumonia HPI: 60 yo female with h/o fibromyalgia, chronic pain, HTN, and nephrolithiasis who presented to [facility] on 11/12/20 with shortness of [...] Merrem after cultures. She was transferred to [facility] on 11/17/20 and arrived [...] n/v. No fevers. no shortness of breath. 11/26/20: doing well. tolerating ambisome. no rigors. no n/v. diarrhea improved. no fevers. still having some occasional right ear pain and right headaches. ROS: see above Allergies: Allergies (2) Active Reaction codeine nausea, vomiting penicillin nausea, vomiting Medications: Medications by Classification Antimicrobials meropenem + Sodium Chloride 0.9% intravenous solution 50 mL - 500 mg, IV Piggyback, Inj, Q6HInt, infuse over 3 Hour(s), Routine amphotericin B liposomal + Dextrose 5% in Water intravenous - 400 mg, IV Piggyback, Inj, [id number], infuse over 2 Hour(s) Anticoagulant heparin - 5,000 Units, SubCutaneous, Inj, P27LBke, Routine Respiratory albuterol-ipratropium (DuoNeb 0.5 mg-2.5 mg/3 mL inhalation - 3 mL, Nebulized Inhalation, Inh, RT_Q6H, PRN for Shortness of Breath, Routine GI ondansetron (Zofran) - 4 mg, IV Push, Inj, Q4H, PRN for Nausea, Routine sodium bicarbonate (sodium bicarbonate 650 mg oral tablet) - 1,300 mg 2 Tab, Oral, Tab, BID, Routine famotidine (Pepcid) - 20 mg, Oral, [...] for Other (See Comment), Routine Pain Meds acetaminophen-oxyCODONE (Percocet 10/325) - 1 Tab, Oral, Tab, Q6H, PRN for Pain (Moderate 4-6), Routine acetaminophen - 650 mg, Oral, Tab, [id number] acetaminophen (Tylenol) - 650 mg, Oral, Tab, Q4H, PRN for Pain (Mild 1-3), Routine Sedatives temazepam (Restoril) - 15 mg, Oral, Cap, At Bedtime, PRN for Insomnia, Routine diphenhydrAMINE - 25 mg, IV Push, Inj, V38GJsk Vitamins calcium gluconate - 1 Gram 10 [...] Routine ergocalciferol - 50,000 Units, Oral, Cap, A3Gfxbp, Routine magnesium sulfate - 2 Gram 50 [...] 24 hrs) Last Charted Minimum Maximum Temp 98.3 (NOV 26 17:00) 98.3 (NOV 26 17:00) 98.6 (NOV 25 21:20) Mon HR 84 (NOV 26 17:00) 84 (NOV 26 17:00) 96 (NOV 26 10:34) Resp Rate 16 (NOV 26 06:00) 16 (NOV 26 06:00) 18 (NOV 25 21:20) SBP 100 (NOV 26 17:00) 100 (NOV 26 17:00) 133 (NOV 25 21:20) DBP 64 (NOV 26 17:00) 63 (NOV 26 10:34) 70 (NOV 26 02:00) MAP 86 (NOV 26 17:00) 76 (NOV 26 10:34) 89 (NOV 26 14:00) SpO2 98 (NOV 26 17:00) 96 (NOV 26 14:00) 98 (NOV 26 06:00) Exam: Constitutional: lying in bed. NAD. comfortable HEENT: NC/AT, No external oral lesions. Respiratory: CTAB. nonlabored breathing on room air Cardio: RRR. no murmur GI: BS+, non-tender, non-distended, has abdominal hernia MS: no joint effusions noted. FROM throughout Derm: No rashes. no jaundice Neuro: no focal deficits, Alert and oriented x 3. normal speech and cognition Psych: cooperative, normal affect RUE PICC site without erythema Labs: Labs (Last four charted values) WBC H 12.6 (NOV 26) H 12.3 (NOV 25) H 17.8 (NOV 23) H 21.6 (NOV 22) HB L 8.8 (NOV 26) L 8.4 (NOV 25) L 9.0 (NOV 23) L 10.3 (NOV 22) HCT L 27.9 (NOV 26) L 26.6 (NOV 25) L 28.4 (NOV 05) L 32.9 (NOV 04) Plt 354 (NOV 08) 325 (NOV 07) 258 (NOV 05) 334 (NOV 04) Na 139 (NOV 08) 141 (NOV 25) 141 (NOV 24) 138 (NOV 23) K 4.2 (NOV 26) 4.1 (NOV 25) 3.8 (NOV 24) 3.6 (NOV 23) Cl H 114 (NOV 26) H 117 (NOV 25) H 118 (NOV 24) H 114 (NOV 23) CO2 L 14 (NOV 26) L 13 (NOV 25) L 10 (NOV 24) L 11 (NOV 23) BUN 15 (NOV [...] Clearance (Current Encounter/Past 24 Hours) Creatinine Level 0.90 mg/dL 11/26/2020 07:43 Bun/Creatinine 16.7 11/26/2020 07:43 Estimated Creatinine Clearance 60.56 mL/Min 11/26/2020 07:43 Micro: Blood cx NGSF MRSA surveillance: negative SJB: (called and talked to tech at [facility] on 11/17/20) Blood cx: E. coli in 2 of 2 sets/Klebsiella in 1 set all sensitive to Rocephin Urine cx: Klebsiella pneumoniae sensitive to Rocephin Rad: Radiology Results (Last 48 hours) [id number] -- 11/17/2020 01:09 CR Chest 1 Vw [...] negative -stop oral vancomycin - switch from meropenem to ertapenem. Had likely renal abscesses, increasing WBC count, and increasing procalcitonin that is now finally improving after she was broadened from ceftriaxone. Would like to continue IV antibiotics for another week after her discharge. -continue Ambisome 5mg/kg IV q24h with premedications. - 500 cc bolus of normal saline daily due to mild renal dysfunction complex set of medial issues requiring a high level of medical decision making. She has significant risk for further morbidity. If she is doing well tomorrow then I would be ok with her discharge after her dose of Ambisome and Ertapenem. She will need antibiotics and antifungals arranged by case mgmt. She may need prior authorization for the intraconazole and we will need to make sure this medication will not be too expensive for her. UM/KEY: 1. Ertapenem 1g IV q24h. Plan [...] copy of my orders to [facility] at [phone] and call [phone] with final discharge plans documented in this encounter Plan of Treatment Not on file documented as of this encounter Visit Diagnoses Not on filedocumented in this encounter Care Teams Director Of People Relationship Specialty Start Date End Date Mona Levin MD PCP - General Family Medicine 07/19/22 documented as of this encounter
--- OUTSIDE RECORDS SUMMARY | 2025-06-01 11:17 | XMS_ITS | Encounter Summary ---
Author Organization [employer] ([place], [place], [place], [place]) Address [address] [place] [address] Care Team Providers Care Buggy Driver Name Role Phone Mona Levin MD Primary Care Provider [phone]- [phone] Encounter Details Date Type Department Care Team (Late st Contact Info) Description 11/20/2020 Transcribed Document [facility] Family Medicine [address] [place] [address] ProviderLeia MD [address] [place], [place] [address] Social History Tobacco Use Types Packs/Day Years Used Date Smoking Tobacco: Never Assessed Comments Unknown Sex and Gender Information Value Date Recorded Sex Assigned at Not on file Legal Sex Female 10:15 AM CDT Gender Identity Not on file Sexual Orientation Not on file documented as of this encounter Miscellaneous Notes * Cerner Conversion Note - Leia ProviderMD - 11/20/2020 4:09 PM BUSINESS DEPARTMENT CHAIR Meds to Bed Enrollment Entered On: 11/20/2020 16:09 EST Performed On: 11/20/2020 16:09 EST by Halley Bartholomew PHARMACIST-SPECIALIST CLINICAL Meds to Bed Enrollment Patient Enrollment Decision: : Yes/enroll in meds to bed program Halley Bartholomew PHARMACIST-SPECIALIST CLINICAL - 11/20/2020 16:09 EST Electronically signed by Francisco [facility] Conversion Insecticide Maker Cerner at 02/06/2023 8:43 AM CDT documented in this encounter Plan of Treatment Not on file documented as of this encounter Visit Diagnoses Not on filedocumented in this encounter Care Teams Buggy Driver Relationship Specialty Start Date End Date Mona Levin MD PCP - General Family Medicine 07/19/22 documented as of this encounter
--- OUTSIDE RECORDS SUMMARY | 2025-06-01 11:17 | XMS_ITS | Encounter Summary ---
Author Organization [employer] ([place], [place], [place], [place]) Address [address] [place] [address] Care Team Providers Care Band Top Maker Name Role Phone Mona Levin MD Primary Care Provider [phone]- [phone] Encounter Details Date Type Department Care Team (Late st Contact Info) Description 11/21/2020 Transcribed Document [facility] Radiology [address] [place] [address] Ramos Barros MD [address] [place] [address] Social History Tobacco Use Types Packs/Day Years Used Date Smoking Tobacco: Never Assessed Comments Unknown Sex and Gender Information Value Date Recorded Sex Assigned at Not on file Legal Sex Female 10:15 AM CDT Gender Identity Not on file Sexual Orientation Not on file documented as of this encounter Miscellaneous Notes * Cerner Conversion Note - Ramos Barros MD - 11/21/2020 8:29 AM EST Patient: SHIELA JASSO Age: 60 [...] to name date of age 60-year 2020, [facility] she states she lives in [place] and does not have a primary care provider. She is a little bit more alert than 2 days ago when I first saw her quicker to answer the questions. Awaiting procedure later today. Friday, November 20, 2020. No fevers or chills no chest pain palpitations. No nausea vomiting. No diarrhea constipation. She tolerated the biopsy yesterday without difficulty. She states she lives in [place] and primary care provider is Jacquelyn Desouza she does not know the name of the clinic but she states it is not the [facility]. Saturday, November 21, 2020. Patient still with a productive cough. Shortness of breath improving. No nausea or vomiting. No diarrhea constipation. She does admit that she smokes between 1 and 2 packs/day but the nicotine patch is helping her. [place] any fevers or chills this morning. No nausea or vomiting. Review of Systems Constitutional: Weakness, Decreased activity, [...] At risk for sleep apnea / IMO [id number] / Confirmed Chronic back pain / SNOMED CT 231411980 / Confirmed Depression / SNOMED CT 57792675 / Confirmed Hypertension / SNOMED CT 1901537342 / Confirmed Kidney stones / SNOMED CT 078874000 / Confirmed, Active Problems (8) At risk for sleep apnea Chronic back pain Depression diverticulitis fibromyalgia heartburn Hypertension Kidney stones Current medications: (Selected) Inpatient Medications Ordered DuoNeb 0.5 mg-2.5 mg/3 mL inhalation solution: 3 mL, Nebulized Inhalation, RT_Q6H, PRN: Shortness of Breath Gastrografin (Adult): 30 mL, Oral, 1-Time Habitrol 21 mg/24 hr transdermal film, extended release: 1 Patch, TransDermal, Daily MiraLax: 17 Gram, Oral, Daily, PRN: Constipation Pepcid: 20 mg, Oral, Daily Rocephin: 2 Gram, 100 mL/Hr, IV Piggyback, V86FDma Roxicodone: 5 mg, Oral, Q4H, PRN: Pain [...] Other (See Comment) ergocalciferol: 50,000 Units, Oral, U2Zyhnp gabapentin: 800 mg, Oral, TID heparin: 5,000 Units, SubCutaneous, X35NPpi hydrALAZINE: 10 mg, IV Push, Q6H, PRN: [...] influenza virus vaccine, inactivated: 0.5 mL, IntraMuscular, Q37SMxu Documented Medications Documented Percocet 10/325 oral tablet: [...] Scheduled: (8) cefTRIAXone 2 Gram, IV Piggyback, H19HQfb diatrizoate meglumine 66% liq 30 mL 30 mL, Oral, 1-Time ergocalciferol 50,000 unit cap 50,000 Units 1 Cap, Oral, C7Zzgxd famotidine 20 mg tab 20 mg 1 Tab, Oral, Daily gabapentin 400 mg cap 800 mg 2 Cap, Oral, TID heparin 5,000 units/1 mL inj 5,000 Units 1 mL, SubCutaneous, P14HEvy nicotine 21 mg/24 hr patch 1 Patch, TransDermal, Daily potassium chloride CR 10 mEq tab 20 mEq 2 Tab, Oral, BID Continuous: (0) PRN: (18) acetaminophen 325 mg [...] 24 hrs) Last Charted Minimum Maximum Temp 97.9 (NOV 21 10:00) 97.9 (NOV 21 10:00) 99.3 (NOV 20 14:00) Mon HR 97 (NOV 21 10:00) 83 (NOV 21 02:35) 106 (NOV 20 18:23) Resp Rate 14 (NOV 21 05:38) 14 (NOV 21 05:38) 19 (NOV 20 18:23) SBP 123 (NOV 21 10:00) 97 (NOV 20 14:00) 135 (NOV 20 22:10) DBP 69 (NOV 21 10:00) L 55 (NOV 20 14:00) 77 (NOV 20 22:10) MAP 99 (NOV 21 10:00) 71 (NOV 20 14:00) 99 (NOV 21 10:00) SpO2 98 (NOV 21:38) 96 (NOV 20 14:00) 98 (NOV 21:38) Physical Examination VS/Measurements Vitals Signs (last 24 hrs) Last Charted Minimum Maximum Temp 97.9 (NOV 21 10:00) 97.9 (NOV 21 10:00) 99.3 (NOV 20 14:00) Mon HR 97 (NOV 21 10:00) 83 (NOV 21 02:35) 106 (NOV 20 18:23) Resp Rate 14 (NOV 21:38) 14 (NOV 21:38) 19 (NOV 20 18:23) SBP 123 (NOV 21 10:00) 97 (NOV 20 14:00) 135 (NOV 20 22:10) DBP 69 (NOV 21 10:00) L 55 (NOV 20 14:00) 77 (NOV 20 22:10) MAP 99 (NOV 21 10:00) 71 (NOV 20 14:00) 99 (NOV 21 10:00) SpO2 98 (NOV 21:38) 96 (NOV 20 14:00) 98 (NOV 21 05:38) General: Alert and oriented, No acute distress, [...] 139 (NOV 18) K 3.7 (NOV 21) 3.8 (NOV 21) 3.7 (NOV 21) 3.5 (NOV 20) Cl H 115 (NOV 21) 112 (NOV [...] 17) . Radiology Results (Last 48 hours) [id number] -- 11/17/2020 01:09 CT Bx Lung Mediastinum LT (11/19/2020 10:59) Result: CT GUIDED FINE-NEEDLE ASPIRATION AND CORE BIOPSY OF LEFT LUNG MASSHISTORY: Left upper lobe mass. ATTENDING RADIOLOGIST: Dr. Byrne.PHYSICIAN PASTEURIZING SUPERVISOR: Vin Cortez PA-C.PROCEDURE: After informed consent [...] transcribed report. CR Chest 1 Vw Portable (11/21/2020 06:49) [...] by Vin Cortez PA-C Impression and Plan . Post-obstructive pneumonia: - merrem. consult Pulmonary. 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 -ct guided ASHISH bx 2-1 -will consult ID for truck terminal manager recs Occipital lytic lesion -seen on mri. concern [...] and bilateral ear pain: CT head at [place] negative for acute process. -consult Neurology. mri- [...] 60-year-old lady I called the pathologist phone #[phone] Dr. dAán Bruno and he stated the patient has [...] they can get a biopsy. Recheck a CBC VOIQation system used. Computer program makes numerous spelling grammar mistakes. If you have any questions or concerns do not hesitate call Dr. Ramos Kuhn at cell phone number [phone]. documented in this encounter Plan of Treatment Not on file documented as of this encounter Visit Diagnoses Not on filedocumented in this encounter Care Teams Band Top Maker Relationship Specialty Start Date End Date Mona Levin MD PCP - General Family Medicine 07/19/22 documented as of this encounter
--- OUTSIDE RECORDS SUMMARY | 2025-06-01 11:17 | XMS_ITS | Encounter Summary ---
Author Organization [employer] ([place], [place], [place], [place]) Address [address] [place] [address] Care Team Providers Care Portable Sawmill Operator Name Role Phone Mona Levin MD Primary Care Provider Encounter Details Date Type Department Care Team (Late st Contact Info) Description 11/21/2020 Transcribed Document [facility] [place] [address] ProviderLeia MD [address] [place], [place] [id number] Social History Tobacco Use Types Packs/Day Years Used Date Smoking Tobacco: Never Assessed Comments Unknown Sex and Gender Information Value Date Recorded Sex Assigned at Not on file Legal Sex Female 10:15 AM CDT Gender Identity Not on file Sexual Orientation Not on file documented as of this encounter Miscellaneous Notes * Cerner Conversion Note - Leia ProviderMD - 11/21/2020 5:00 AM HEALTH NAVIGATOR Chart Check - Review Order Profile Entered On: 11/21/2020 3:58 EST Performed On: 11/21/2020 5:00 EST by Keli Conklin RN-JOSE LUIS Chart Check Powerplans Initiated/Discontinued as Appropriate : Yes All Active Orders Reviewed : Yes Keli Conklin RN-JOSE LUIS - 11/21/2020 3:58 EST documented in this encounter Plan of Treatment Not on file documented as of this encounter Visit Diagnoses Not on filedocumented in this encounter Care Teams Portable Sawmill Operator Relationship Specialty Start Date End Date Mona Levin MD PCP - General Family Medicine 07/19/22 documented as of this encounter
--- OUTSIDE RECORDS SUMMARY | 2025-06-01 11:18 | XMS_ITS | Encounter Summary ---
Author Organization [employer] ([place], [place], [place], [place]) Address [address] [place] [place] [address] Care Team Providers Care Manager Architecture Name Role Phone Mona Levin MD Primary Care Provider [phone]- [phone] Encounter Details Date Type Department Care Team (Late st Contact Info) Description 11/26/2020 Transcribed Document [facility] Family Medicine [facility] [place] [address] ProviderLeia MD [address] [place], [place] [id number] Social History Tobacco Use Types Packs/Day Years Used Date Smoking Tobacco: Never Assessed Comments Unknown Sex and Gender Information Value Date Recorded Sex Assigned at Not on file Legal Sex Female 10:15 AM CDT Gender Identity Not on file Sexual Orientation Not on file documented as of this encounter Miscellaneous Notes * Cerner Conversion Note - Leia ProviderMD - 11/26/2020 5:00 AM EDGE ROLLER Chart Check - Review Order Profile Entered On: 11/26/2020 4:30 EST Performed On: 11/26/2020 5:00 EST by Hector Kennedy RN Chart Check Powerplans Initiated/Discontinued as Appropriate : Yes All Active Orders Reviewed : Yes Hector Kennedy RN - 11/26/2020 4:30 EST Electronically signed by Francisco [facility] Conversion Awake Overnight Monitor Cerner at 02/06/2023 8:42 AM CDT documented in this encounter Plan of Treatment Not on file documented as of this encounter Visit Diagnoses Not on filedocumented in this encounter Care Teams Manager Architecture Relationship Specialty Start Date End Date Mona Levin MD PCP - General Family Medicine 07/19/22 documented as of this encounter
--- OUTSIDE RECORDS SUMMARY | 2025-06-01 11:18 | XMS_ITS | Encounter Summary ---
Author Organization [employer] ([place], [place], [place], [place]) Address [address] [place] [address] Care Team Providers Care Material Control Specialist Name Role Phone Mona Levin MD Primary Care Provider [phone] Encounter Details Date Type Department Care Team (Late st Contact Info) Description 11/21/2020 Transcribed Document [facility] Family [place] [address] ProviderLeia MD [address] [place], [place] [id number] Social History Tobacco Use Types Packs/Day Years Used Date Smoking Tobacco: Never Assessed Comments Unknown Sex and Gender Information Value Date Recorded Sex Assigned at Not on file Legal Sex Female 10:15 AM CDT Gender Identity Not on file Sexual Orientation Not on file documented as of this encounter Miscellaneous Notes * [employer]ner Conversion Note - Leia ProviderMD - 11/21/2020 5:00 PM HEALTH SYSTEMS ANALYST Chart Check - Review Order Profile Entered On: 11/21/2020 16:47 EST Performed On: 11/21/2020 17:00 EST by Nelson Chavez, RN Chart Check Powerplans Initiated/Discontinued as Appropriate : Yes All Active Orders Reviewed : Yes Nelson Chavez, RN - 11/21/2020 16:47 EST Electronically signed by Francisco [facility] Conversion Sterilization Specialist Cerner at 02/06/2023 8:43 AM CDT documented in this encounter Plan of Treatment Not on file documented as of this encounter Visit Diagnoses Not on filedocumented in this encounter Care Teams Material Control Specialist Relationship Specialty Start Date End Date Mona Levin MD PCP - General Family Medicine 07/19/22 documented as of this encounter
--- OUTSIDE RECORDS SUMMARY | 2025-06-01 11:18 | XMS_ITS | Encounter Summary ---
Author Organization [employer] ([place], [place], [place], [place]) Address [address] [place] [address] Care Team Providers Care Defective Cigarette Slitter Name Role Phone Mona Levin MD Primary Care Provider [phone] Encounter Details Date Type Department Care Team (Late st Contact Info) Description 11/26/2020 Transcribed Document [facility] Family Medicine [facility] [place] [address] ProviderLeia MD [address] [place], [place] [id number] Social History Tobacco Use Types Packs/Day Years Used Date Smoking Tobacco: Never Assessed Comments Unknown Sex and Gender Information Value Date Recorded Sex Assigned at Not on file Legal Sex Female 10:15 AM CDT Gender Identity Not on file Sexual Orientation Not on file documented as of this encounter Miscellaneous Notes * Cerner Conversion Note - Leia ProviderMD - 11/26/2020 5:00 PM ELECTRIC LOCOMOTIVE FIRER/FIREMAN Chart Check - Review Order Profile Entered On: 11/26/2020 17:41 EST Performed On: 11/26/2020 17:00 EST by Radha Harvey, Rn Chart Check Powerplans Initiated/Discontinued as Appropriate : Yes All Active Orders Reviewed : Yes Radha Harvey, Rn - 11/26/2020 17:41 EST Electronically signed by Francisco [facility] Conversion Golf Course Assistant Cerner at 02/06/2023 8:54 AM CDT documented in this encounter Plan of Treatment Not on file documented as of this encounter Visit Diagnoses Not on filedocumented in this encounter Care Teams Defective Cigarette Slitter Relationship Specialty Start Date End Date Mona Levin MD PCP - General Family Medicine 07/19/22 documented as of this encounter
--- OUTSIDE RECORDS SUMMARY | 2025-06-01 11:18 | XMS_ITS | Encounter Summary ---
Author Organization [employer] ([place], [place], [place], [place]) Address [address] [place] [address] Care Team Providers Care Speech Pathology Teacher Name Role Phone Mona Levin MD Primary Care Provider [phone] Encounter Details Date Type Department Care Team (Late st Contact Info) Description 11/27/2020 Transcribed Document [facility] [place] Medicine [address] [place] [address] ProviderLeia MD [address] [place] [address] Social History Tobacco Use Types Packs/Day Years Used Date Smoking Tobacco: Never Assessed Comments Unknown Sex and Gender Information Value Date Recorded Sex Assigned at Not on file Legal Sex Female 10:15 AM CDT Gender Identity Not on file Sexual Orientation Not on file documented as of this encounter Miscellaneous Notes * [employer]ner Conversion Note - Leia ProviderMD - 11/27/2020 5:37 PM MARKETING EDITOR Nursing Discharge Summary Entered On: 11/27/2020 17:37 EST Performed On: 11/27/2020 17:37 EST by ROSIBEL MANCIA benefits advisor Documentation Patient Disposition, General : Discharge Discharge To : Home with ambulatory/outpatient follow-up ROSIBEL MANCIA RN - 11/27/2020 17:37 EST documented in this encounter Plan of Treatment Not on file documented as of this encounter Visit Diagnoses Not on filedocumented in this encounter Care Teams Speech Pathology Teacher Relationship Specialty Start Date End Date Mona Levin MD PCP - General Family Medicine 07/19/22 documented as of this encounter
--- OUTSIDE RECORDS SUMMARY | 2025-06-01 11:18 | XMS_ITS | Encounter Summary ---
Author Organization [employer] ([place], [place], [place], [place]) Address [address] [place] [place] [address] Care Team Providers Care Branner Machine Tender Name Role Phone Mona Levin MD Primary Care Provider [phone] Encounter Details Date Type Department Care Team (Late st Contact Info) Description 11/26/2020 Transcribed Document [facility] [place] [address] ProviderLeia MD [address] [place] [id number] Social History Tobacco Use Types Packs/Day Years Used Date Smoking Tobacco: Never Assessed Comments Unknown Sex and Gender Information Value Date Recorded Sex Assigned at Not on file Legal Sex Female 10:15 AM CDT Gender Identity Not on file Sexual Orientation Not on file documented as of this encounter Miscellaneous Notes * Cerner Conversion Note - Leia Gutiérrez MD - 11/26/2020 6:38 PM STEREOTYPE FINISHER Patient: SHIELA JASSO Age: 60 years Sex: Female : 1960 Associated Diagnoses: None Author: JEANMARIE HWANG MD [facility] Pulmonary CCM Consultation Note Requesting: Dr. Arellano Reason: Lung mass Basic Information CC: I dont know HPI: 60 year old female with stated history of COPD, tobacco abuse, Diverticulitis in the past with colectomy and colostomy-- later reversed, HTN, chronic pain and kidney stones who presented to [facility] on 11/11/20 with 2-3 [...] and worsening symptoms, she was transferred to [facility] on 11/17/20 for further care and evaluation. [...] and maintaining good saturation on room air. 11/26: Patient seen and examined at bedside. Saturating 98% on room air. Afebrile, WBC and procalcitonin trending down. Denies shortness of breath. She is tolerating PO diet and having BMs. Review of Systems Constitutional: No fever, No weakness. Eye: No recent visual problem, No visual disturbances. Ear/Nose/Mouth/Throat: Ear pain, No decreased hearing. Respiratory: Cough, No shortness of breath, No hemoptysis. Cardiovascular: No chest pain. Gastrointestinal: No nausea, No vomiting. Genitourinary: No hematuria. Hematology/Lymphatics Endocrine Immunologic Musculoskeletal: No back pain. Integumentary: No rash. Neurologic: Alert and oriented X4. Health Status Allergies: Allergic Reactions (Selected) Severity Not Documented Codeine- Nausea, vomiting. Penicillin- Nausea, vomiting., Allergies (2) Active Reaction codeine nausea, vomiting penicillin nausea, vomiting Current medications: (Selected) Inpatient Medications Ordered AmBisome + Dextrose 5% in Water intravenous solution 250 mL: 400 mg, 125 mL/Hr, IV Piggyback, M30KXba Dextrose 5% in Water intravenous solution: 50 mL, 100 mL/Hr, IV Piggyback, A41VMxh Dextrose 5% in Water intravenous solution: 50 mL, 100 mL/Hr, IV Piggyback, S33TPbc DuoNeb 0.5 mg-2.5 mg/3 mL inhalation solution: 3 mL, Nebulized Inhalation, RT_Q6H, PRN: Shortness of Breath Habitrol 21 mg/24 hr transdermal film, extended release: 1 Patch, TransDermal, Daily MiraLax: 17 Gram, Oral, Daily, PRN: Constipation Normal Saline 500 mL: 999 mL/Hr, IntraVENous, Stop: 11/28/20 8:59:00 EST Pepcid: 20 mg, Oral, Daily Percocet 10/325: 1 Tab, Oral, Q6H, PRN: Pain (Moderate 4-6) Restoril: 15 mg, Oral, At Bedtime, PRN: Insomnia Tylenol: 650 mg, Oral, Q4H, PRN: Pain (Mild 1-3) Zofran: 4 mg, IV Push, Q4H, PRN: Nausea acetaminophen: 650 mg, Oral, N30LEzq calcium gluconate + Sodium Chloride 0.9% intravenous [...] (See Comment) diphenhydrAMINE: 25 mg, IV Push, F09KIwh ergocalciferol: 50,000 Units, Oral, I8Olucx gabapentin: 800 mg, Oral, TID heparin: 5,000 Units, SubCutaneous, L45FTdz hydrALAZINE: 10 mg, IV Push, Q6H, PRN: Hypertension magnesium sulfate: 2 Gram, 50 mL, 25 mL/Hr, IV Piggyback, Daily, PRN: Other (See Comment) magnesium sulfate: 2 Gram, 50 mL, 25 mL/Hr, IV Piggyback, Q2H, PRN: Other (See Comment) meropenem + Sodium Chloride 0.9% intravenous solution 50 mL: 500 mg, 16.67 mL/Hr, IV Piggyback, Q6HInt nystatin: 500,000 Units, Swish and Spit, QID, [...] Oral, Q2H, PRN: Other (See Comment) sodium bicarbonate 650 mg oral tablet: 1,300 mg, 2 Tab, Oral, BID sodium phosphate: 15 mMole, 5 mL, 50 mL/Hr, IV Piggyback, Daily, PRN: Other (See Comment) sodium phosphate: 15 mMole, 5 mL, 50 mL/Hr, IV Piggyback, Q6H, PRN: Other (See Comment) Pending Complete influenza virus vaccine, inactivated: 0.5 mL, IntraMuscular, [id number] Documented Medications Documented Percocet 10/325 oral tablet: [...] Oral, Daily, 30 Tab, 0 Refill(s), Medications (32) Active Scheduled: (13) acetaminophen 325 mg tab 650 mg 2 Tab, Oral, M43YJqs amphoTERICIN B LIPOSOMAL + Dextrose 5% in Water 250 mL 400 mg, IV Piggyback, I25IJtx Dextrose 5% in Water 50 mL, IV Piggyback, E83EYst Dextrose 5% in Water 50 mL, IV Piggyback, F23LBts diphenhydrAMINE 50 mg/1 mL inj 25 mg 0.5 mL, IV Push, U83ESli ergocalciferol 50,000 unit cap 50,000 Units 1 Cap, Oral, G2Oeaqg famotidine 20 mg tab 20 mg 1 Tab, Oral, Daily gabapentin 400 mg cap 800 mg 2 Cap, Oral, TID heparin 5,000 units/1 mL inj 5,000 Units 1 mL, SubCutaneous, L25MKqp meropenem + NaCl 0.9% 50 mL 500 mg, IV Piggyback, Q6HInt nicotine 21 mg/24 hr patch 1 Patch, TransDermal, Daily potassium chloride CR 10 mEq tab 20 mEq 2 Tab, Oral, BID sodium bicarbonate 650 mg tab 1,300 mg 2 Tab, Oral, BID Continuous: (1) NaCl 0.9% 500 mL 500 mL, IntraVENous, 999 mL/Hr PRN: (18) acetaminophen 325 mg tab 650 mg 2 Tab, Oral, Q4H acetaminophen/oxyCODONE 325/10 mg tab 1 Tab, Oral, Q6H albuterol-ipratropium inh 3 mL 3 mL, Nebulized [...] 4 mg 2 mL, IV Push, Q4H polyethylene glycol 3350 pwd 17 g [...] 15 mMole 5 mL, IV Piggyback, Q6H temazepam 15 mg cap 15 mg 1 Cap, Oral, At Bedtime Problem list: All Problems Chronic back pain / SNOMED CT 213196311 / Confirmed Kidney stones / SNOMED CT 745119418 / Confirmed Hypertension / SNOMED CT 2705560046 / Confirmed Depression / SNOMED CT 90914362 / Confirmed At risk for sleep apnea / IMO [id number] / Confirmed diverticulitis / SNOMED CT 535344507 / Confirmed heartburn / SNOMED CT 29996952 / Confirmed fibromyalgia / SNOMED CT 884290883 / Confirmed, Active Problems (8) At risk for sleep apnea Chronic back pain Depression diverticulitis fibromyalgia heartburn Hypertension Kidney stones Physical Examination VS/Measurements Vitals Signs (last 24 hrs) Last Charted Minimum Maximum Temp 98.3 (NOV 26 17:00) 98.3 (NOV 26 17:00) 98.6 (NOV 25:20) Mon HR 84 (NOV 26 17:00) 84 [...] (NOV 26 14:00) 98 (NOV 26 06:00) General: Alert and oriented, No acute distress, On room air . Eye: Pupils are equal, round and reactive to light, Extraocular movements are intact, Normal conjunctiva. HENT: Normocephalic, Normal hearing, Oral mucosa is moist. Neck: Supple, No lymphadenopathy. Respiratory: Respirations are non-labored, Breath sounds are equal, Symmetrical chest wall expansion. Breath sounds: Bilateral, Base, Diminished. Cardiovascular: Normal rate, Regular rhythm, No edema. Gastrointestinal: Soft, Non-tender, Non-distended, Normal bowel sounds. Musculoskeletal: No deformity. Integumentary: Warm, Dry. Neurologic: Alert, Oriented, No [...] 28.4 (NOV 23) L 32.9 (NOV 22) Plt 354 (NOV 26) 325 (NOV 25) 258 (NOV 23) 334 (NOV 22) Na [...] 21) L 2.4 (NOV 19) . NOV 26 07:17 139 H 114 15 / 99 4.2 L 14 0.90 \ Blood Gases (Current Encounter/Past 24 Hours) No Blood Gas Results Found (Past 24 Hours) Radiology Results (Last 48 hours) [id number] -- 11/17/2020 01:09 CR Chest 1 Vw [...] scan is recommended. 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 Pathology showed Blastomyces fungal elements. No cancer identified. ID: Leukocytosis. Improving. Sepsis on arrival outlying (tachycardia, tachypnea, and now confusion). Improving. Gram negative ervin bacteremia - E coli, Klebsiella, and Enterobacteriaceae at [place] Acute pyelonephritis Post -Obstructive PNA. Elevated serum procalcitonin level. Trending down. Strep/Leg urine - negative. Resp panel PCR - negative. Repeat COVID-19 nasopharyngeal PCR - Neg. Blood cultures negative MRSA surv - Neg. Heme/Onc: Leukocytosis. Ongoing but improving. Anemia Neuro: Drowsy at admission secondary sepsis. Resolved ? Trigeminal Neuralgia CT head a [place] showed a lytic osseous lesion in the midline occipital bone; measuring 19 mm MRI brain Localized signal abnormality within the midline cavarum of the occipital skull, corresponds to a lytic lesion see on recent CT. possible metastasis. Needs further work-up. Renal: ISAK on admission to [place] initially. Resolved Hypokalemia. Improved. GI: History of diverticulitis with colectomy in the past with colostomy and later reversal of colostomy Elevated AST. Improved. Urology: Acute pyelonephritis with CT abd/pelvis outlying showing mild right renal enlargement with right perinephric stranding and periureteral inflammatory stranding. CT scan abdomen and pelvis done on 11/21/20 showed acute pyelonephritis with developing renal abscess. General: Chronic pain PLAN: Oxygen supplementation if need to keep sat > 90%; currently on room air IS hourly. ID following. 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 I suggest to start p.o. itraconazole. Patient will need to be on antifungal medication for up to year (more or less according to clinical response). Patient needs follow-up CT scan near future. We will schedule patient to follow-up with me in the clinic in 2 weeks from discharge Electrolyte replacement: Serum potassium normalized now. Nutrition: PO diet GI proph: Pepcid DVT proph: Heparin I have personally evaluated the patient; history and review of systems, physical examination, laboratory studies and radiology data. I have actively directed the medical care, formulated diagnosis and plan and discussed it with our team. Full code Complex case Discussed in detail with the patient Electronically signed by Lyla Singh Conversion Telecommunications Switch Technician Cerner at 02/06/2023 8:42 AM CDT documented in this encounter Plan of Treatment Not on file documented as of this encounter Visit Diagnoses Not on filedocumented in this encounter Care Teams Branner Machine Tender Relationship Specialty Start Date End Date Mona Levin MD PCP - General Family Medicine 07/19/22 documented as of this encounter
--- OUTSIDE RECORDS SUMMARY | 2025-06-01 11:18 | XMS_ITS | Encounter Summary ---
Author Organization [employer] ([place], [place], [place], [place]) Address [address] [place] [address] Care Team Providers Care Book Binder Name Role Phone Mona Levin MD Primary Care Provider [phone]- [phone] Encounter Details Date Type Department Care Team (Late st Contact Info) Description 11/20/2020 Transcribed Document [facility] [place] [address] ProviderLeia MD [address], [place] [phone] Social History Tobacco Use Types Packs/Day Years Used Date Smoking Tobacco: Never Assessed Comments Unknown Sex and Gender Information Value Date Recorded Sex Assigned at Not on file Legal Sex Female 10:15 AM CDT Gender Identity Not on file Sexual Orientation Not on file documented as of this encounter Miscellaneous Notes * Cerner Conversion Note - Leia ProviderMD - 11/20/2020 5:00 PM ANALYSIS INTERN Chart Check - Review Order Profile Entered On: 11/20/2020 18:57 EST Performed On: 11/20/2020 17:00 EST by Nelson Chavez, RN Chart Check Powerplans Initiated/Discontinued as Appropriate : Yes All Active Orders Reviewed : Yes Nelson Chavez, RN - 11/20/2020 18:56 EST Electronically signed by Francisco Cox [place] Conversion Fiscal Services Manager Cerner at 02/06/2023 8:52 AM CDT documented in this encounter Plan of Treatment Not on file documented as of this encounter Visit Diagnoses Not on filedocumented in this encounter Care Teams Book Binder Relationship Specialty Start Date End Date Mona Levin MD PCP - General Family Medicine 07/19/22 documented as of this encounter
--- OUTSIDE RECORDS SUMMARY | 2025-06-01 11:18 | XMS_ITS | Encounter Summary ---
Author Organization [employer] ([place], [place], [place], [place]) Address [address] [place] [address] Care Team Providers Care Farm Forestry And Garden Workers Name Role Phone Mona Levin MD Primary Care Provider [phone]- [phone] Encounter Details Date Type Department Care Team (Late st Contact Info) Description 11/21/2020 Transcribed Document [facility] Pulm & Critical Care Medicine [address] [place] [address] [address] [phone] [place] [address] [place] [address] [address] [place] [address] Social History Tobacco Use Types Packs/Day Years Used Date Smoking Tobacco: Never Assessed Comments Unknown Sex and Gender Information Value Date Recorded Sex Assigned at Not on file Legal Sex Female 10:15 AM CDT Gender Identity Not on file Sexual Orientation Not on file documented as of this encounter Miscellaneous Notes * Cerner Conversion Note - Kaelyn Levi MD - 11/21/2020 8:56 AM EST Patient: SHIELA JASSO Age: 60 years Sex: Female : 1960 Associated Diagnoses: None Author: KAELYN LEVI MD [facility] Pulmonary CCM Consultation Note Requesting: Dr. Arellano Reason: Lung mass Basic Information CC: I dont know HPI: 60 year old female with stated history of COPD, tobacco abuse, Diverticulitis in the past with colectomy and colostomy-- later reversed, HTN, chronic pain and kidney stones who presented to [facility] on 11/11/20 with 2-3 days worth of [...] and worsening symptoms, she was transferred to [facility] on 11/17/20 for further care and evaluation. [...] IV Rocephin 2 g daily. ID following. Review of Systems Constitutional: Weakness, Fatigue. Eye: [...] Rocephin: 2 Gram, 100 mL/Hr, IV Piggyback, D28FYlc Roxicodone: 5 mg, Oral, Q4H, PRN: Pain [...] Other (See Comment) ergocalciferol: 50,000 Units, Oral, K4Pnlxh gabapentin: 800 mg, Oral, TID heparin: 5,000 Units, SubCutaneous, B07ELfv hydrALAZINE: 10 mg, IV Push, Q6H, PRN: [...] influenza virus vaccine, inactivated: 0.5 mL, IntraMuscular, I57UQmg Documented Medications Documented Percocet 10/325 oral tablet: [...] Oral, Daily, 30 Tab, 0 Refill(s), Medications (25) Active Scheduled: (7) cefTRIAXone 2 Gram, IV Piggyback, S42NZtl ergocalciferol 50,000 unit cap 50,000 Units 1 Cap, Oral, D1Aolxi famotidine 20 mg tab 20 mg 1 Tab, Oral, Daily gabapentin 400 mg cap 800 mg 2 Cap, Oral, TID heparin 5,000 units/1 mL inj 5,000 Units 1 mL, SubCutaneous, Q69PQrp nicotine 21 mg/24 hr patch 1 Patch, [...] At risk for sleep apnea / IMO [id number] / Confirmed Chronic back pain / SNOMED CT 099870561 / Confirmed Depression / SNOMED CT 71355862 / Confirmed Hypertension / SNOMED CT 4738782423 / Confirmed Kidney stones / SNOMED CT 769908105 / Confirmed, Active Problems (8) At risk for sleep apnea Chronic back pain Depression diverticulitis fibromyalgia heartburn Hypertension Kidney stones Physical Examination VS/Measurements Vitals Signs (last 24 hrs) Last Charted Minimum Maximum Temp 98.6 (NOV 21:38) 97.8 (NOV 20 22:10) 99.3 (NOV 20:00) Mon HR 95 (NOV 21:38) 83 (NOV 21 02:35) 106 (NOV 20 18:23) Resp Rate 14 (NOV 21:38) 14 (NOV 21:38) 19 (NOV 20 18:23) SBP 120 (NOV 21:38) 97 (NOV 20 14:00) 135 (NOV 20 22:10) DBP 65 (NOV 21:38) L 55 (NOV 20 14:00) 79 (NOV 20 10:00) MAP 89 (NOV 21:38) 71 (NOV 20 14:00) 98 (NOV 20 10:00) SpO2 98 (NOV 21:38) 96 (NOV 20 10:00) 98 (NOV 21:38) General: Alert and oriented, No acute distress. [...] 141 (NOV 19) 139 (NOV 18) K 3.8 (NOV 21) 3.7 (NOV 21) 3.5 (NOV 20) 3.6 (NOV 20) Cl H 115 (NOV 21) [...] 24 Hours) Radiology Results (Last 48 hours) [id number] -- 11/17/2020 01:09 CT Bx Lung Mediastinum LT (11/19/2020 10:59) Result: CT GUIDED FINE-NEEDLE ASPIRATION AND CORE BIOPSY OF LEFT LUNG MASSHISTORY: Left upper lobe mass. ATTENDING RADIOLOGIST: Dr. Byrne.PHYSICIAN DISABILITY HEARING OFFICER: Vin Cortez PA-C.PROCEDURE: After informed consent was [...] - E coli, Klebsiella, and Enterobacteriaceae at [place] Acute pyelonephritis Post -Obstructive PNA Heme/Onc: Leukocytosis. Ongoing Anemia Neuro: Drowsy at admission secondary sepsis. Resolved ? Trigeminal Neuralgia CT head a [place] showed a lytic osseous lesion in the midline occipital bone; measuring 19 mm MRI brain Localized signal abnormality within the midline calvarium of the occipital skull, corresponds to a lytic lesion see on recent CT. possible metastasis. Needs further work-up. Renal: ISAK on admission to [facility] initially. Resolved Hypokalemia. Ongoing GI: History of diverticulitis with colectomy in the past with colostomy and later reversal of colostomy Elevated AST Urology: Acute pyelonephritis with CT abd/pelvis outlying showing mild right renal enlargement with right perinephric stranding and periureteral inflammatory stranding. General: Chronic pain PLAN: High white count with significant elevated procalcitonin. Ongoing infection?? On IV Rocephin based on cultures for UTI and gram negative bacteremia. Will discuss with ID about persistent white count and procal still despite adequate and appropriate Ab therapy. S/p CT guided ASHISH mass on 11/19/20 [...] metastasis. Needs further work-up. ID following. Antibiotics: S/p IV Merrem and Now on IV Rocephin. Electrolyte replacement: Serum potassium normalized now. Strep/Leg urine - negative. Resp panel PCR - negative. Repeat COVID-19 nasopharyngeal PCR - Neg. Blood cultures here no growth so far. OSH positive for E coli and Klebs MRSA surv - Neg. GI proph: Pepcid DVT proph: Heparin Prognosis: Fair. FULL CODE. = ADDENDUM: 1000 hours I spoke to ID foreign legal consultant Dr. Macario Ervin about my concerns about elevated white count and elevated procalcitonin level. Repeat procalcitonin level also still significantly elevated. Based on our discussion we decided to do a CT scan of the abdomen and pelvis with contrast to rule out renal abscess. Hence the test ordered. In the interim patient will be continued on IV antibiotics. Patient not ready for discharge home yet due to multiple other issues. Left lung biopsy pathology still awaited. I saw and examined the patient at [...] on filedocumented in this encounter Care Teams [employer] Workers Relationship Specialty Start Date End Date Mona Levin MD PCP - General Family Medicine 07/19/22 documented as of this encounter
--- OUTSIDE RECORDS SUMMARY | 2025-06-01 11:18 | XMS_ITS | Encounter Summary ---
Author Organization [employer] - is now [employer] ([place], [place], [place]) Address [address] [place] [address] Care Team Providers Care Guardian Family Member Name Role Phone Mona Levin MD Primary Care Provider [phone] Encounter Details Date Type Department Care Team (Late st Contact Info) Description 11/27/2020 Transcribed Document [facility] [place] [facility] [place] [address] ProviderLeia MD [address] [place] [address] [id number] Social History Tobacco Use Types Packs/Day Years Used Date Smoking Tobacco: Never Assessed Comments Unknown Sex and Gender Information Value Date Recorded Sex Assigned at Not on file Legal Sex Female 10:15 AM CDT Gender Identity Not on file Sexual Orientation Not on file documented as of this encounter Miscellaneous Notes * Cerner Conversion Note - Leia ProviderMD - 11/27/2020 9:23 AM FROG SHAKER Patient: SHIELA JASSO Age: 60 Years Sex: Female : 1960 Allergies codeine (nausea, vomiting) penicillin (nausea, vomiting) Subjective Chief Complaint: HPI: 60 year old female with stated history of COPD, tobacco abuse, Diverticulitis in the past with colectomy and colostomy-- later reversed, HTN, chronic pain and kidney stones who presented to [facility] on 11/11/20 with 2-3 days worth [...] and worsening symptoms, she was transferred to [facility] on 11/17/20 for further care and [...] procedure. Hemodynamically stable. Respiratory status richardson improving. 2/2: Denies any specific complaints today. Awaiting pathology [...] is tolerating PO diet and having BMs. 11/27: Patient seen and examined at bedside. Saturating 97% on room air. Afebrile, WBC have increased (13.2) but proCal has continued to trend downward. When I entered the room and asked how the patient was doing today the patient responded w/ Not good, I feel like crap. Patient had a right sided unilateral pulsatile head ache. She denied changes in vision, decreased sensation, chest pain, palpations, pleurisy w/ and w/o deep inspiration, and dyspnea. Following patients description of her headache she proceeded to ask oxycodone. Review of Systems Constitutional: No fevers, chills, sweats Eye: No recent visual problems Respiratory: Nonproductive cough, No shortness of breath Cardiovascular: No Chest pain, palpitations, syncope Gastrointestinal: No nausea, vomiting, diarrhea Genitourinary: No hematuria Problems Ongoing At risk for sleep apnea Chronic back pain Depression diverticulitis fibromyalgia heartburn Hypertension Kidney stones Historical No qualifying data Vitals & Measurements T: 36.7 ??C TMIN: 36.7 ??C TMAX: 37 ??C HR: 94(Monitored) RR: 18 BP: 126/76 SpO2: 97% Hemodynamics Hemodynamically stable, not on any pressors. Intake & Output Intake & Output Totals Last 24 Hours (7a-7a) Intake (22 Events) Medications (550.53 mL) Oral Intake (240 mL) Output (0 Events) No output events found in the last 24 hours. Input Total: 790.53 mL Output Total: 0 mL Balance: 790.53 mL Physical Exam General: Alert and oriented, well nourished, no acute distress Neurologic: Awake, alert, and oriented X3 Eye: PERRL, EOMI, normal conjuctiva HENT: Normocephalic, normal hearing, moist oral mucosa, no scleral icterus, no sinus tenderness Neck: Warren, non-tender, no carotid bruits, no lymphadenopathy Lungs: Bilateral coarse rales in the Apices cleared w/ a cough Heart: Normal rate, regular rhythm, no murmur, gallop or edema Abdomen: Soft, non-tender, non-distended, normal bowel sounds, no masses Musculoskeletal: Normal range of motion and strength, no tenderness or swelling Skin: Skin is warm, dry and pink, no rashes or lesions Psychiatric: Cooperative, appropriate mood and affect Lines/day#: Impression and Plan Pulmonary: Fungal infection; ASHISH [...] Enterobacteriaceae at [place] Acute pyelonephritis Post -Obstructive PNA. Elevated serum [...] on admission to [place] initially. Resolved Hypokalemia. Improved. GI: History of [...] pathology results. I suggest to start p.o. itraconazole in the next 2 days. Patient will need to be on antifungal medication for a while. Patient needs follow-up CT scan near future. [...] case Discussed in detail with the patient Total Critical Care Time (not including procedures) within last 24 hours: _ Medications Inpatient acetaminophen, 650 mg= 2 Tab, Oral, [id number] AmBisome + Dextrose 5% in Water intravenous solution 250 mL calcium gluconate calcium gluconate + Sodium Chloride 0.9% intravenous solution 100 mL calcium gluconate + Sodium Chloride 0.9% intravenous solution 100 mL Dextrose 5% in Water intravenous solution, 50 mL, IV Piggyback, B90RMad Dextrose 5% in Water intravenous solution, 50 mL, IV Piggyback, G50CRte diphenhydrAMINE, 25 mg= 0.5 mL, IV Push, A59WGge DuoNeb 0.5 mg-2.5 mg/3 mL inhalation solution, 3 mL, Nebulized Inhalation , RT_Q6H, PRN ergocalciferol, 01197 Units= 1 Cap, Oral, E9Pngcq gabapentin, 800 mg= 2 Cap, Oral, TID Habitrol 21 mg/24 hr transdermal film, extended release, 1 Patch, TransDermal, Daily heparin, 5000 Units= 1 mL, SubCutaneous, E92JGle hydrALAZINE, 10 mg= 0.5 mL, IV Push, Q6H, PRN magnesium sulfate, 2 Gram= 50 mL, IV Piggyback, Daily, PRN magnesium sulfate, 2 Gram= 50 mL, IV Piggyback, Q2H, PRN meropenem + Sodium Chloride 0.9% intravenous solution 50 mL MiraLax, 17 Gram= 1 Packet, Oral, Daily, PRN Normal Saline 500 mL, 500 mL, IntraVENous, Daily nystatin, 168444 Units= 5 mL, Swish and Spit, QID, PRN pantoprazole, 40 mg= 1 Tab, Oral, At Bedtime Pepcid, 20 mg= 1 Tab, Oral, Daily [...] Tab, Oral, BID sodium phosphate sodium phosphate Tums, 500 mg= 1 Tab, Oral, BID Tylenol, 650 mg= 2 Tab, Oral, Q4H, [...] 10/325 oral tablet, 1 Tab, Oral, Q8H Lab Results NOV 26 07:17 139 H 114 15 / 99 4.2 L 14 0.90 \ NOV 27 06:30 \ L 8.8 / H 13.2 H 381 / L 27.5 \ Cultures - Last 24 Hours ACC: [id number] ORDER: Culture AFB and Stain DATE: 11/19/2020 10:48 SOURCE: Biopsy SITE: Lung Up Left Reports Pre 11/26/2020 16:02 No Acid Fast Bacilli isolated at 1 week. AFS 11/20/2020 10:32 No Acid Fast Bacilli seen == ACC: [id number] ORDER: Culture Anaerobic DATE: 11/19/2020 10:48 SOURCE: Biopsy SITE: Lung Up Left Reports Final 11/24/2020 07:10 No Anaerobic growth Pre 11/21/2020 06:43 No Anaerobic growth Pre 11/20/2020 07:18 Culture in progress == ACC: [id number] ORDER: Culture Body Fluid and Stain DATE: 11/19/2020 10:48 SOURCE: Fluid SITE: Lung Up Left Reports Final 11/22/2020 07:39 No growth Pre 11/20/2020 06:59 No growth GS 11/19/2020 13:11 No organisms seen. Rare White Blood Cells == ACC: [id number] ORDER: Culture Blood DATE: 11/17/2020 02:13 SOURCE: Blood SITE: Reports Final 11/22/2020 06:01 No growth at 5 days. Pre 11/21/2020 06:01 No growth at 4 days. Pre 11/20/2020 06:01 No growth at 3 days. Pre 11/19/2020 06:01 No growth at 2 days. Pre 11/18/2020 06:01 No growth at 1 day. Pre 11/17/2020 16:02 Culture less than 24 Hrs old == ACC: [id number] ORDER: Culture Blood DATE: 11/17/2020 02:13 SOURCE: Blood SITE: Reports Final 11/22/2020 06:01 No growth at 5 days. Pre 11/21/2020 06:01 No growth at 4 days. Pre 11/20/2020 06:01 No growth at 3 days. Pre 11/19/2020 06:01 No growth at 2 days. Pre 11/18/2020 06:01 No growth at 1 day. Pre 11/17/2020 16:02 Culture less than 24 Hrs old == ACC: [id number] ORDER: Culture Fungus DATE: 11/19/2020 10:48 SOURCE: Biopsy SITE: Lung Up Left Reports MERRY 11/19/2020 11:39 No Fungal elements seen == ACC: [id number] ORDER: Culture MRSA Surveillance DATE: 11/17/2020 02:41 SOURCE: Nasal SITE: Nare Reports Final 11/18/2020 08:54 No MRSA isolated For Infection Control surveillance only. == Blood Gases - Last 24 Hours Blood Gases (Current Encounter/Past 24 Hours) No Blood Gas Results Found (Past 24 Hours) Other Labs - Last 24 Hours A/G Ratio: 0.4 Low (11/27/20 06:30:00) Calcium Level: 9.4 mg/dL (11/27/20 06:30:00) Diagnostic Results [id number] -- 11/17/2020 01:09 CR Chest 1 Vw [...] bone scan or PET scan is recommended. Electronically signed by Lyla Singh Conversion Motorboat Mechanic Inboard[employer]board [employer]ner at 02/06/2023 8:43 AM CDT documented in this encounter Plan of Treatment Not on file documented as of this encounter Visit Diagnoses Not on filedocumented in this encounter Care Teams Guardian Family Member Relationship Specialty Start Date End Date Mona Levin MD PCP - General Family Medicine 07/19/22 documented as of this encounter
--- OUTSIDE RECORDS SUMMARY | 2025-06-01 11:18 | XMS_ITS | Encounter Summary ---
Author Organization [email or web address] ([place]) Address [address] [place] [address] Care Team Providers Care Industrial Registered Nurse Name Role Phone Mona Levin MD Primary Care Provider [phone] Encounter Details Date Type Department Care Team (Late st Contact Info) Description 11/21/2020 Transcribed Document [facility] [place] [facility] [place] [address] ProviderLeia MD [address] [place], [place] [id number] Social History Tobacco Use Types Packs/Day Years Used Date Smoking Tobacco: Never Assessed Comments Unknown Sex and Gender Information Value Date Recorded Sex Assigned at Not on file Legal Sex Female 10:15 AM CDT Gender Identity Not on file Sexual Orientation Not on file documented as of this encounter Miscellaneous Notes * Cerner Conversion Note - Leia ProviderMD - 11/21/2020 1:30 PM BREWERY REPRESENTATIVE Pain Assessment Entered On: 11/21/2020 16:46 EST Performed On: 11/21/2020 16:10 EST by Nelson Chavez RN Intervention Information: acetaminophen Performed by Nelson Chavez RN on 11/21/2020 15:10:00 EST acetaminophen,650mg Oral Pain Assessment Pain Assessment : Follow-up assessment Pain Scale Goal : 4 Pain Scale Used : 0-10 Scale Nelson Chavez RN - 11/21/2020 16:46 EST Pain Scale Intensity : 6 Nelson Chavez RN - 11/21/2020 16:46 EST Image 4 - Images currently included in the form version of this document have not been included in the text rendition version of the form. documented in this encounter Plan of Treatment Not on file documented as of this encounter Visit Diagnoses Not on filedocumented in this encounter Care Teams Industrial Registered Nurse Relationship Specialty Start Date End Date Mona Levin MD PCP - General Family Medicine 07/19/22 documented as of this encounter
[2025-06-01 12:12] LABS: INR 1.06 (0.9-1.1); Prothrombin Time 11.7 seconds (10.1-12.5)
[2025-06-01 12:53] LABS: HCG Qualitative, Serum Negative (Negative)
[2025-06-02 10:12] LABS: Hep A Ab, Total Positive (Negative); Hep B Core Ab, Total Negative (Negative); Hep B Surface Ab, Qual Reactive (.); Hepatitis B Surface Antigen Negative (Negative)
[2025-06-02 11:11] LABS: Hep B Core Ab, Total Negative (Negative)
== END 2025-06-01 23:59 | disposition home or self-care (01) ==
LOC: LAB 11:08
PROVIDERS: PCP Nurse Practitioner Family; Visit Provider Nurse Practitioner Family
DX: R76.8 Other specified abnormal immunological findings in serum (principal)
CPT/HCPCS: 36415; 81596; 82247; 82977; 83521; 84460; 84703; 85610; 86704; 86706; 87902